=== PATIENT | female | born 1985 | race Caucasian/White ===

== ENCOUNTER 2024-12-20 14:20 | Emergency (ER) | payer OTHER, SELFPAY ==
[2024-12-20 14:35] VITALS: BP 130/90; PULSE 100; TEMP 36.5; O2SAT 100; BMI 27.5
--- NOTE | 2024-12-20 15:09 | ED.GENADUL1 ---
HPI HPI - General Adult General Chief complaint: Headache Stated complaint: SEVERE HEADACHE Time Seen by Provider: 12/20/24 14:58 Source: patient Mode of arrival: walk-in Limitations: no limitations History of Present Illness HPI narrative: Patient is a 39-year-old female with a history of cluster migraines who presents to the emergency department for worsening headache for the last 3 days. She states the headache feels similar to what she has had in the past although she has not had a cluster headache in over 6 years. She has not seen a doctor for many years as she was recently incarcerated and states her daughter from cerebral palsy last year. She has an upcoming appointment with a primary care provider. She states she did not think she can make it to the appointment with a cluster migraine. She has been treated with Augmentin over the last week for sinus infection and feels that her sinus symptoms are better but she has now developed the headache. No falls or injuries. No visual changes or peripheral paresthesias. She states she is in recovery. She has no concern for . Related Data Previous Rx's ?Medication ?Instructions ?Recorded ketorolac 10 mg tablet 10 mg PO TID PRN pain #10 tabs 12/20/24 methylprednisolone 4 mg tablets in See Rx Instructions .Route 12/20/24 a dose pack (Medrol (Taye)) .COMPLEX #21 ea ondansetron 4 mg disintegrating 4 mg PO Q6H PRN nausea and 12/20/24 tablet vomiting #12 tabs Allergies Allergy/AdvReac Type Severity Reaction Status Date / Time venlafaxine (From Effexor) Allergy Severe Depression Verified 12/20/24 14:35 Opioid HPI Opioid Management Most Recent Opioid Data: Last Pain Scale 4 12/20/24 15:21 12/20/24 Last MAR Pain Assessment 12/20/24 15:21 Review of Systems ROS Constitutional Denies: fever or chills Ears, nose, mouth, and throat Reports: nasal congestion; Denies: throat pain Cardiovascular Denies: chest pain Respiratory Reports: cough; Denies: shortness of breath Gastrointestinal Reports: nausea; Denies: vomiting or diarrhea Integumentary/Breast Denies: rash Neurological Reports: headache; Denies: numbness in extremities, weakness in extremities or dizziness Hematologic/Lymphatic Denies: easy bruising or easy bleeding PFSH PFSH Social History Little interest or pleasure in doing things: not at all Feeling down, depressed, or hopeless: not at all Exam Narrative Exam Narrative: Gen.: Awake, alert, in no distress Head: Normocephalic, atraumatic ENT: Moist mucous membranes, no nuchal rigidity Respiratory: No respiratory distress Extremities: Moves extremities equally Psych: Normal mood and affect Neuro: No focal neuro deficit Skin: Warm, dry, intact . Constitutional Vital Signs, click to edit/add: Last Vital Signs Temp 97.7 F 12/20/24 14:35 Pulse 100 H 12/20/24 14:35 Resp 18 12/20/24 14:35 BP 130/90 12/20/24 14:35 Pulse Ox 100 12/20/24 14:35 O2 Del Method Nonrebreather 12/20/24 15:17 O2 Flow Rate 15 12/20/24 15:17 Course Vital Signs Vital signs: Vital Signs Temperature 97.7 F 12/20/24 14:35 Pulse Rate 100 H 12/20/24 14:35 Respiratory Rate 18 12/20/24 14:35 Blood Pressure 130/90 12/20/24 14:35 Pulse Oximetry 100 12/20/24 14:35 Oxygen Delivery Method Room Air 12/20/24 14:35 Temperature 97.7 F 12/20/24 14:35 Pulse Rate 100 H 12/20/24 14:35 Respiratory Rate 18 12/20/24 14:35 Blood Pressure 130/90 12/20/24 14:35 Pulse Oximetry 100 12/20/24 14:35 Oxygen Delivery Method Nonrebreather 12/20/24 15:17 Oxygen Delivery Flow Rate 15 12/20/24 15:17 Medical Decision Making [facility] Narrative Medical decision making narrative: I discussed with the patient that if she has not had a CT scan in many years and has now had a return of her headaches, we should do another CT scan to rule out any intracranial pathology. Patient feels very confident that this headache is her typical cluster migraine and she declined the need for CT, I feel this is reasonable. She is awake, alert and oriented with stable vital signs and a benign neuroexam. She declined an IV/fluids. She did request oxygen. A nonrebreather was placed and she was given intramuscular Toradol, Solu-Medrol and oral Zofran. She can be discharged home with a prescription for Toradol, Reglan and steroids. Follow-up with PCP and return to the ER if symptoms change or worsen. SUPERVISED APC VISIT, PHYSICIAN ATTESTATION: Based on the medical record the care appears appropriate. ? Medical Records Medical records reviewed: Yes I reviewed the patient's medical records Discharge Plan Discharge Chief Complaint: Headache Clinical Impression: Headache Patient Disposition: Home, Self-Care Time of Disposition Decision: 15:35 Condition: Good Prescriptions / Home Meds: New ketorolac 10 mg tablet 10 mg PO TID PRN (Reason: pain) Qty: 10 0RF methylprednisolone [Medrol (Taye)] 4 mg tablets,dose pack See Rx Instructions .ROUTE .COMPLEX Qty: 21 0RF Rx Instructions: Taper as directed ondansetron 4 mg tablet,disintegrating 4 mg PO Q6H PRN (Reason: nausea and vomiting) Qty: 12 0RF Print Language: Chinese Instructions: Acute Headache (ED) Referrals: PO MORALEZ [Primary Care Provider] - 1 week
--- NOTE | 2024-12-20 15:17 | PC.NURSE ---
per pt request oxygen 15 liters via [facility] applied for cluster headache
[2024-12-20] MEDS: KETOROLAC TROMETHAMINE 60 MG/2 ML VIAL IM (15:21)
[2024-12-20] MEDS: ONDANSETRON 4 MG RAPDIS TABLET SL (15:22)
[2024-12-20] MEDS: METHYLPREDNISOLONE SOD SUCC PF 125 MG/2 ML VIAL IM (15:22)
[2024-12-20 15:45] VITALS: BP 126/88; PULSE 84; O2SAT 98
== END 2024-12-20 15:46 | disposition home or self-care (01) ==
PROVIDERS: Emergency Provider Student in an Organized Health Care Education/Training Program; PCP Family Medicine
DX: R51.9 Headache, unspecified (principal)
CPT/HCPCS: 96372; 99284; J1885; J2919; Q0162

== ENCOUNTER 2024-12-30 14:30 | Emergency (ER) | payer MEDICAID, SELFPAY ==
[2024-12-30 14:45] VITALS: BP 105/71; PULSE 72; TEMP 37.1; O2SAT 100; BMI 27.5
--- OUTSIDE RECORDS SUMMARY | 2024-12-30 14:55 | XMS_ITS | CCD ---
Author Organization [facility] Care Team Providers Care Top Carrier Name Role Phone JOCELYN PEÑA JR Unavailable Unavailable ORLODARLING Wallace Unavailable Unavailable ORDARLING CHILEL Unavailable Unavailable MOTT, NESTOR Unavailable Unavailable GOLD RAMMY S Unavailable Unavailable WILLY BHAKTA Unavailable Unavaila hoa LINDSEY BETUNA Mercer Unavailable Unavailable JOVANY RUGGIERO Unavailable Unavailable ALEXXKYRA I Unavailable Unavailable JOCELYN PEÑA JR Unavailable Unavailable AOUAD, PAULA T Unavailable Unavailable SILAS JOHNSON Unavailable Unavailable SELF, REFERRED Referring Unavailable UNKNOWN, PHYSICIAN Primary Care Unavailable MONSERRAT CAIN Attending Unavailable MONSERRAT CAIN Admitting Unavailable HI Procedure Practitioner Unavailab MONSERRAT Adame Surgeon Unavailable HI Procedure Practitioner Unavailab JUAN MANUEL Mancilla Surgeon Unavailable PAY, DR HERMOSILLO Consulting Unavailable PAY, DR HERMOSILLO Admitting Unavailable PAY, DR HERMOSILLO Attending Unavailable REQUEST, NONE LISTED Primary Care Unavaila ESTEPHANIA Alfredo Consulting Unavailable REQUEST, NONE LISTED Primary Care Unavaila hao CHENG, DR KIRA Huff Consulting Unavailable PROSPER, DR KIRA Huff Admitting Unavailable PROSPER, DR KIRA Hfuf Attending Unavailable DANNY CHAPA Consulting Unavailable Casey Lopez MD, Jocelyn Martinez Primary Care Provider KM JUARES Referring Unavailable JOCELYN PEÑA JR Primary Care Unavailable KM JUARES Referring Unavailable JOCELYN PEÑA JR Primary Care Unavailable JOCELYN PEÑA JR Primary Care Unavailable KM JUARES Referring Unavailable Juan Luis Ron Attending Unavailable Allergies Allergy Classification Reported Allergen(s) Allergy Type Date of Onset Reaction(s) Facility (3 sources) ARIPiprazole; Translations: [Abilify] Drug Allergy 02-07-2015 [facility] (2 sources) [facility] 02-07-2015 [facility] (3 sources) venlafaxine; Translations: [Effexor] Drug Allergy 02-07-2015 [facility] (3 sources) ARIPiprazole Drug Allergy 01-14-2013 [facility] (3 sources) hydrOXYzine Drug Allergy 08-12-2016 [facility] (3 sources) [facility]ergy 01-14-2013 [facility] Work Phone: (3 sources) venlafaxine Drug Allergy 01-14-2013 [facility] Work Phone: Medications Current Medications Medication Drug Class(es) Dates Sig (Normalized) Sig (Original) gabapentin 300 mg oral capsule (3 sources) Anti-epileptic Agent Start: 07-11-2017 take 1 capsule by mouth three times daily gabapentin (NEURONTIN) 300 MG capsule Take 1 capsule by mouth 3 times daily 90 capsule 3 07/11/2017 Active ibuprofen 800 mg oral tablet (3 sources) Nonsteroidal Anti-inflammatory Drug Start: 07-11-2017 take 1 tablet by mouth every eight hours as needed for pain ibuprofen (ADVIL;MOTRIN) 800 MG tablet Take 1 tablet by mouth every 8 hours as needed for Pain 120 tablet 3 07/11/2017 Active topiramate 100 mg oral tablet (3 sources) topiramate (TOPAMAX) 100 MG tablet Indications: Prevention of Cluster Headaches Take 200 mg by mouth as needed Indications: Prevention of Cluster Headaches 0 Active verapamil hydrochloride 80 mg oral tablet (3 sources) Calcium Channel Josr verapamil (CALAN) 80 MG tablet Indications: Prevention of Cluster Headaches Take 80 mg by mouth as needed Indications: Prevention of Cluster Headaches 0 Active Problems Active Problems Problem Classification Problem Date Documented Date Episodic/Chronic Genitourinary symptoms and ill-defined conditions (2 sources) Dysuria; Translations: [Dysuria] Onset: 08-22-2022 Episodic Hepatitis (2 sources) Unspecified viral hepatitis C without hepatic coma; Translations: [Unspecified viral hepatitis C without hepatic coma] Onset: 09-04-2022 Episodic Immunizations and screening for infectious disease (2 sources) Contact with and (suspected) exposure to infections with a predominantly sexual mode of transmission; Translations: [Contact with and (suspected) exposure to infections with a predominantly sexual mode of transmission] Onset: 08-22-2022 Episodic Infective arthritis and osteomyelitis (except that caused by tuberculosis or sexually transmitted di (9 sources) Osteomyelitis of vertebra, site unspecified; Translations: [Abscess of back ] Onset: 05-10-2017 07-02-2017 Chronic Mood disorders (1 source) Bipolar disorder, unspecified; Translations: [BIPOLAR DISORDER UNSPECIFIED] Onset: 04-15-2022 Chronic Nutritional deficiencies (3 sources) Deficiency of macronutrients; Translations: [Unspecified protein-calorie malnutrition] Onset: 07-02-2017 07-02-2017 Chronic Other acquired deformities (3 sources) Acquired deformity of spine; Translations: [Deforming dorsopathy, unspecified] 07-02-2017 Episodic Other complications of (4 sources) Other specified related conditions, third trimester; Translations: [OTH SPEC PREG RELATED COND 3RD TRI] Onset: 04-13-2022 Episodic Other complications of (1 source) Smoking (tobacco) complicating , third trimester; Translations: [SMOKING TOBACCO COMP PREG 3RD TRI] Onset: 04-15-2022 Episodic Other complications of (1 source) Other mental disorders complicating , third trimester; Translations: [OTH MENTAL D/O COMP PREG THIRD TRI] Onset: 04-15-2022 Episodic Poisoning by other medications and drugs (4 sources) Poisoning by unspecified narcotics, accidental (unintentional), initial encounter; Translations: [POISON UNS NARCOTIC ACC INITIAL ENC] Onset: 10-11-2021 Episodic Residual codes; unclassified (1 source) Weeks of gestation of not specified; Translations: [WEEKS GESTATION NOT SPEC] Onset: 04-15-2022 Episodic Residual codes; unclassified (1 source) Personal history of other specified conditions; Translations: [PERSONAL HISTORY OTH SPEC CONDITION] Onset: 04-15-2022 Episodic Spondylosis; intervertebral disc disorders; other back problems (3 sources) Thoracic discitis; Translations: [Discitis, unspecified, thoracic region] Onset: 05-10-2017 07-02-2017 Chronic Spondylosis; intervertebral disc disorders; other back problems (6 sources) Acute thoracic back pain; Translations: [Pain in thoracic spine] 07-01-2017 Episodic Substance-related disorders (11 sources) Nicotine dependence, cigarettes, uncomplicated; Translations: [Opioid abuse, uncomplicated] Onset: 05-10-2017 07-01-2017 Chronic Past or Other Problems Problem Classification Problem Date Documented Date Episodic/Chronic Acute posthemorrhagic anemia (3 sources) Anemia following acute postoperative blood loss; Translations: [Acute 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 Other [employer] infection and poliomyelitis (3 sources) Spinal epidural abscess; Translations: [Intraspinal abscess and granuloma] Onset: 05-10-2017 07-02-2017 Episodic Other complications of (1 source) Injury, poisoning and certain other consequences of external causes complicating , unspecified trimester; Translations: [INJ POISON OTH EXT COMP PG UNS TRI] Onset: 10-15-2021 Episodic Other fractures (3 sources) Compression fracture of thoracic spine; Translations: [Wedge compression fracture of unspecified thoracic vertebra, initial encounter for closed fracture] Onset: 07-02-2017 07-02-2017 Episodic Substance-related disorders (1 source) Drug use complicating , unspecified trimester; Translations: [DRUG USE COMP UNS TRI] Onset: 10-15-2021 Episodic Results Test Name Value Interpretation Reference Range Facility HCV RNA,Quant,PCRon 09-09-20 22 HCV Quant 1,120,000 IU/mL Normal [facility] Comment on above: Performed By: #### H CVQN #### [facility] [place], [place] [id number] Radiographer: Pillo Dye MD [facility] [address] [place] [address] Radiographer: Verónica Rodriguez MD HCV RNA,Quant Detected Abnormal NOTDET [facility] Comment on above: Result Comment: HCV RNA DETECTED This test is a sensitive method for quantitating HCV RNA viral loads in plasma. It utilizes RT-PCR in the FDA approved Isabel Ampliprep/Taqman 48 System. This test is intended for detecting and quantifying HCV RNA viral loads in the range of 15 IU/mL to 20,000,000 IU/mL (1.18 log IU/mL to 7.30 log IU/mL). Patients should have confirmed HCV infection prior to RNA quantification. This test has been developed to monitor disease progression and efficacy of anti-HCV drug therapy. This test has been optimized for HCV genotypes 1-6. Results reported to the appropriate Health Department Performed By: #### H CVQN #### [address] [address] Radiographer: Pillo Dye MD [address] [place] [phone] Radiographer: Verónica Rodriguez MD HCV,RNA Log 6.05 Log IU/mL Normal [facility] Comment on above: Performed By: #### H CVQN #### [address] [address] Radiographer: Pillo Dye MD [address] [place] [address] Radiographer: Verónica Rodriguez MD HCV RNA,Quant,PCRon 09-08-20 22 Source .PLASMA Normal [facility] Comment on above: Performed By: #### H CVQN #### [address] [address] Radiographer: Pillo Dye MD [address] [place] [address] Radiographer: Verónica Rodriguez MD CBCon 09-04-2022 Erythrocyte distribution width (RBC) [Ratio] 14.9 % High 11.8-14.4 [facility] Comment on above: Performed By: #### H IVCMB, PHEP #### [address] [address] Radiographer: Pillo Dye MD #### CBC, CP, HCG #### [facility] [address] [place] [address] Dr. [place] [phone] Radiographer: Verónica Rodriguez MD Hematocrit (Bld) [Volume fraction] 43.4 % Normal 36.3-47.1 [facility] Comment on above: Performed By: #### H IVCMB, PHEP #### [address] [address] Radiographer: Pillo Dye MD #### CBC, CP, HCG #### [address] [place] [phone] Radiographer: Verónica Rodriguez MD Hemoglobin (Bld) [Mass/Vol] 13.9 g/dL Normal 11.9-15.1 [facility] Comment on above: Performed By: #### H IVCMB, PHEP #### [address] [address] Radiographer: Pillo Dye MD #### CBC, CP, HCG #### [address] [place] [phone] Radiographer: Verónica Rodriguez MD MCH (RBC) [Entitic mass] 29.6 pg Normal 25.2-33.5 [facility] Comment on above: Performed By: #### H IVCMB, PHEP #### [address] [id number] Radiographer: Pillo Dye MD #### CBC, CP, HCG #### [address] [place] [phone] Radiographer: Verónica Rodriguez MD MCHC (RBC) [Mass/Vol] 32.0 g/dL Normal 28.4-34.8 [facility] Comment on above: Performed By: #### H IVCMB, PHEP #### [address] [id number] Radiographer: Pillo Dye MD #### CBC, CP, HCG #### [address] [place] [address] Radiographer: Verónica Rodriguez MD MCV (RBC) [Entitic vol] 92.5 fL Normal 82.6-102.9 [facility] Comment on above: Performed By: #### H IVCMB, PHEP #### [address] [address] Radiographer: Pillo Dye MD #### CBC, CP, HCG #### [facility] [address] [place] [address] Dr. [place] [phone] Radiographer: Verónica Rodriguez MD NRBC Automated 0.0 per 100 WBC Normal 0.0 [facility] Comment on above: Performed By: #### H IVCMB, PHEP #### [address] [address] Radiographer: Pillo Dye MD #### CBC, CP, HCG #### [address] [place] [address] Radiographer: Verónica Rodriguez MD Platelet mean volume (Bld) [Entitic vol] 9.4 fL Normal 8.1-13.5 [facility] Comment on above: Performed By: #### H IVCMB, PHEP #### [address] [address] Radiographer: Pillo Dye MD #### CBC, CP, HCG #### [address] [place] [address] Radiographer: Verónica Rodriguez MD Platelets (Bld) [#/Vol] 525 10*3/uL High 138-453 [facility] Comment on above: Performed By: #### H IVCMB, PHEP #### [address] [address] Radiographer: Pillo Dye MD #### CBC, CP, HCG #### [address] [place] [phone] Radiographer: Verónica Rodriguez MD RBC (Bld) [#/Vol] 4.69 10*6/uL Normal 3.95-5.11 [facility] Comment on above: Performed By: #### H IVCMB, PHEP #### [facility] [address] [place], [place] [id number] Radiographer: Pillo Dye MD #### CBC, CP, HCG #### [facility] [address] [place] [address] [place] [address] Radiographer: Verónica Rodriguez MD WBC (Bld) [#/Vol] 7.5 10*3/uL Normal 3.5-11.3 [facility] Comment on above: Performed By: #### H IVCMB, PHEP #### [facility] [address] [place], [place] [phone] Radiographer: Pillo Dye MD #### CBC, CP, HCG #### [facility] [address] [place] [address] [place] [address] Radiographer: Verónica Rodriguez MD Hematocrit (Bld) [Volume fraction] 43.4 % 36.3 - 47.1 % [facility] Hemoglobin (Bld) [Mass/Vol] 13.9 g/dL 11.9 - 15.1 g/dL [facility] Interpretation and review of laboratory results Abnormal [facility] MCH (RBC) [Entitic mass] 29.6 pg 25.2 - 33.5 pg [facility] MCHC (RBC) [Mass/Vol] 32.0 g/dL 28.4 - 34.8 g/dL [facility] MCV (RBC) [Entitic vol] 92.5 fL 82.6 - 102.9 fL [facility] NRBC Automated 0.0 0.0 per 100 WBC [facility] Platelet distribution width (Bld) [Ratio] 14.9 % High 11.8 - 14.4 % [facility] Platelet mean volume (Bld) [Entitic vol] 9.4 fL 8.1 - 13.5 fL [facility] Platelets (Bld) [#/Vol] 525 10*3/uL High [facility] RBC (Bld) [#/Vol] 4.69 10*6/uL 3.95 - 5.1 1 m/uL [facility] WBC (Bld) [#/Vol] 7.5 10*3/uL [facility] Comp Metabolic Profon 2021 Albumin [Mass/Vol] 4.6 g/dL Normal 3.5-5.2 [facility] Comment on above: Performed By: #### H IVCMB, PHEP #### [place] [id number] [place] [address] Radiographer: Pillo Dye MD #### CBC, CP, HCG #### [facility] [address] [place], [place] [phone] Radiographer: Verónica Rodriguez MD Albumin/Glob Ratio 1.6 Normal 1.0-2.5 [facility] Comment on above: Performed By: #### H IVCMB, PHEP #### [address] [address] Radiographer: Pillo Dye MD #### CBC, CP, HCG #### [facility] [address] [place], [place] [phone] Radiographer: Verónica Rodriguez MD Alkaline Phos 113 U/L High 35-104 [facility] Comment on above: Performed By: #### H IVCMB, PHEP #### [address] [place] [address] Radiographer: Pillo Dye MD #### CBC, CP, HCG #### [facility] [address] [place], [place] [phone] Radiographer: Verónica Rodriguez MD ALT [Catalytic activity/Vol] 69 U/L High 5-33 [facility] Comment on above: Performed By: #### H IVCMB, PHEP #### [facility] [address] [place] [address] Radiographer: Pillo Dye MD #### CBC, CP, HCG #### [facility] [address] [place] [address] Dr. [place], [place] [phone] Radiographer: Verónica Rodriguez MD Anion gap [Moles/Vol] 8 mmol/L Low 9-17 [facility] Comment on above: Performed By: #### H IVCMB, PHEP #### [address] [address] Radiographer: Pillo Dye MD #### CBC, CP, HCG #### [facility] [address] [place] [address] Dr. [place], [place] [phone] Radiographer: Verónica Rodriguez MD AST [Catalytic activity/Vol] 46 U/L High <32 [facility] Comment on above: Performed By: #### H IVCMB, PHEP #### [address] [address] Radiographer: Pillo Dye MD #### CBC, CP, HCG #### [address] [place], [place] [phone] Radiographer: Verónica Rodriguez MD Bilirubin [Mass/Vol] 0.4 mg/dL Normal 0.3-1.2 [facility] Comment on above: Performed By: #### H IVCMB, PHEP #### [address] [address] Radiographer: Pillo Dye MD #### CBC, CP, HCG #### [address] [place], [place] [phone] Radiographer: Verónica Rodriguez MD BUN/CRE Ratio 17 Normal 9-20 [facility] Comment on above: Performed By: #### H IVCMB, PHEP #### [address] [address] Radiographer: Pillo Dye MD #### CBC, CP, HCG #### [facility] [address] [place] [address] Radiographer: Verónica Rodriguez MD Calcium [Mass/Vol] 9.7 mg/dL Normal 8.6-10.4 [facility] Comment on above: Performed By: #### H IVCMB, PHEP #### [address] [address] Radiographer: Pillo Dye MD #### CBC, CP, HCG #### [facility] [address] [place] [address] [place] [address] Radiographer: Verónica Rodriguez MD Chloride [Moles/Vol] 107 mmol/L Normal 98-107 [facility] Comment on above: Performed By: #### H IVCMB, PHEP #### [address] [address] Radiographer: Pillo Dye MD #### CBC, CP, HCG #### [facility] [address] [place] [address] [place] [address] Radiographer: Verónica Rodriguez MD CO2 [Moles/Vol] 24 mmol/L Normal 20-31 [facility] Comment on above: Performed By: #### H IVCMB, PHEP #### [address] [address] Radiographer: Pillo Dye MD #### CBC, CP, HCG #### [facility] [address] [place] [address] Radiographer: Verónica Rodriguez MD Creatinine [Mass/Vol] 0.83 mg/dL Normal 0.50-0.90 [facility] Comment on above: Performed By: #### H IVCMB, PHEP #### [address] [address] Radiographer: Pillo Dye MD #### CBC, CP, HCG #### [facility] [address] [place] [address] Radiographer: Verónica Rodriguez MD GFR/1.73 sq M.predicted among non-blacks MDRD (S/P/Bld) [Vol rate/Area] mL/min/{1.73_m2} Normal >60 [facility] Comment on above: Result Comment: Effective Aug 04, 2022 These results are not intended for use in patients <18 years of age. eGFR results are calculated without a race factor using the 2020 CKD-EPI equation. Careful clinical correlation is recommended, particularly when comparing to results calculated using previous equations. The CKD-EPI equation is less accurate in patients with extremes of muscle mass, extra-renal metabolism of creatine, excessive creatine ingestion, or following therapy that affects renal tubular secretion. Performed By: #### H IVCMB, PHEP #### [address] [id number] Radiographer: Pillo Dye MD #### CBC, CP, HCG #### [facility] [address] [place] [address] [place] [address] Radiographer: Verónica Rodriguez MD Glucose [Mass/Vol] 89 mg/dL Normal 70-99 [facility] Comment on above: Performed By: #### H IVCMB, PHEP #### [facility] [address] [place] [address] Radiographer: Pillo Dye MD #### CBC, CP, HCG #### [facility] [address] [place] [address] Radiographer: Verónica Rodriguez MD Potassium [Moles/Vol] 4.5 mmol/L Normal 3.7-5.3 [facility] Comment on above: Performed By: #### H IVCMB, PHEP #### [facility] [address] [place] [address] Radiographer: Pillo Dye MD #### CBC, CP, HCG #### [facility] [address] [place] [address] Radiographer: Verónica Rodriguez MD Protein [Mass/Vol] 7.4 g/dL Normal 6.4-8.3 [facility] Comment on above: Performed By: #### H IVCMB, PHEP #### [facility] [address] [place], [place] [phone] Radiographer: Pillo Dye MD #### CBC, CP, HCG #### [facility] [address] [place] [address] Radiographer: Verónica Rodriguez MD Sodium [Moles/Vol] 139 mmol/L Normal 135-144 [facility] Comment on above: Performed By: #### H IVCMB, PHEP #### [address] [place], [place] [phone] Radiographer: Pillo Dye MD #### CBC, CP, HCG #### [facility] [address] [place] [address] Radiographer: Verónica Rodriguez MD Urea nitrogen [Mass/Vol] 14 mg/dL Normal 6-20 [facility] Comment on above: Performed By: #### H IVCMB, PHEP #### [address] [place], [place] [id number] Radiographer: Pillo Dye MD #### CBC, CP, HCG #### [facility] [address] [place] [address] Radiographer: Verónica Rodriguez MD Comprehensive Metabolic Pane [facility] 09-04-2022 Albumin [Mass/Vol] 4.6 g/dL 3.5 - 5.2 g/dL [facility] Albumin/Globulin [Mass ratio] 1.6 {ratio} 1.0 - 2.5 [facility] ALP (Bld) [Catalytic activity/Vol] 113 U/L High 35 - 104 U/L [facility] ALT [Catalytic activity/Vol] 69 U/L High 5 - 33 U/L [facility] Anion gap [Moles/Vol] 8 mmol/L Low 9 - 17 mmol/L [facility] AST [Catalytic activity/Vol] 46 U/L High NINF - 32 U/L [facility] Bilirubin [Mass/Vol] 0.4 mg/dL 0.3 - 1.2 mg/dL [facility] Calcium [Mass/Vol] 9.7 mg/dL 8.6 - 10. 4 mg/dL [facility] Chloride [Moles/Vol] 107 mmol/L 98 - 107 mmol/L [facility] CO2 [Moles/Vol] 24 mmol/L 20 - 31 mmol/L [facility] Creatinine [Mass/Vol] 0.83 mg/dL 0.50 - 0.90 mg/dL [facility] GFR/1.73 sq M.predicted MDRD (S/P/Bld) [Vol rate/Area] - PINF [facility] Comment on above: Effective Aug 04, 2022 These results are not intended for use in patients <18 years of age. eGFR results are calculated without a race factor using the 2020 CKD-EPI equation. Careful clinical correlation is recommended, particularly when comparing to results calculated using previous equations. The CKD-EPI equation is less accurate in patients with extremes of muscle mass, extra-renal metabolism of creatine, excessive creatine ingestion, or following therapy that affects renal tubular secretion. Glucose [Mass/Vol] 89 mg/dL 70 - 99 mg/dL [facility] Interpretation and review of laboratory results Abnormal [facility] Potassium [Moles/Vol] 4.5 mmol/L 3.7 - 5.3 mmol/L [facility] Protein [Mass/Vol] 7.4 g/dL 6.4 - 8.3 g/dL [facility] Sodium [Moles/Vol] 139 mmol/L 135 - 144 mmol/L [facility] Urea nitrogen (BldV) [Mass/Vol] 14 mg/dL 6 - 20 mg/dL [facility] Urea nitrogen/Creatinin e (Bld) [Mass ratio] 17 9 - 20 [facility] HCG Qualitative, Serumon hCG Qual Negative NEGATIVE [facility] Comment on above: Specimens with hCG l evels near the threshold of the test (25 mIU/mL) may give a negative or indeterminate result. In such cases, another test should be performed with a new specimen in 48-72 hours. If early is suspected clinically in this setting, correlation with quantitative serum b-hCG level is suggested. [facility] has confirmed the use of plasma for this test. This has not been cleared or approved by the [place]. Food and Drug Administration. The FDA has determined that such clearance is not necessary. [facility] HCG Screen, Bloodon 09-04-20 22 HCG Screen, Blood Negative Normal NEG [facility] Comment on above: Result Comment: Spec imens with hCG levels near the threshold of the test (25 mIU/mL) may give a negative or indeterminate result. In such cases, another test should be performed with a new specimen in 48-72 hours. If early is suspected clinically in this setting, correlation with quantitative serum b-hCG level is suggested. [employer] has confirmed the use of plasma for this test. This has not been cleared or approved by the U.S. Food and Drug Administration. The FDA has determined that such clearance is not necessary. Performed By: #### H IVCMB, PHEP #### [facility] [address] [place] [address] Radiographer: Pillo Dye MD #### CBC, CP, HCG #### [facility] [address] [place] [address] Radiographer: Verónica Rodriguez MD HIV Ag/Abon 09-04-2022 HIV Ag/Ab Non-Reactive Normal NR [facility] Comment on above: Result Comment: No l aboratory evidence of HIV infection. If acute HIV infection is suspected, consider testing for HIV-1 RNA. Performed By: #### H IVCMB, PHEP #### [facility] [address] [place], [place] [id number] Radiographer: Pillo Dye MD #### CBC, CP, HCG #### [facility] [address] [place] [address] Dr. [place], [place] [phone] Radiographer: Verónica Rodriguez MD HIV Screenon 09-04-2022 HIV Ag/Ab Non-Reactive NONREACTIVE [facility] Comment on above: No laboratory eviden ce of HIV infection. If acute HIV infection is suspected, consider testing for HIV-1 RNA. [facility] Hepatitis Acute John 09-04 Hep A Ab,IgM Non-Reactive Normal [facility] Comment on above: Performed By: #### H IVCMB, PHEP #### [address] [address] Radiographer: Pillo Dye MD #### CBC, CP, HCG #### [facility] [address] [place] [address] Dr. [place], [place] [id number] Radiographer: Verónica Rodriguez MD Hep B Core Ab,IgM Non-Reactive Normal [facility] Comment on above: Performed By: #### H IVCMB, PHEP #### [address] [address] Radiographer: Pillo Dye MD #### CBC, CP, HCG #### [address] [place], [place] [id number] Radiographer: Verónica Rodriguez MD Hep B Surf Ag Non-Reactive Normal [facility] Comment on above: Performed By: #### H IVCMB, PHEP #### [address] [address] Radiographer: Pillo Dye MD #### CBC, CP, HCG #### [address] [place], [place] [id number] Radiographer: Verónica Rodriguez MD Hep C Ab Reactive Abnormal [facility] Comment on above: Result Comment: The hepatitis C procedure used in our laboratory is a Chemiluminescent test specific for three recombinant HCV antigens. A negative anti-HCV result indicates that the antibodies to hepatitis C virus are not present at this time. Individuals with reactive anti-HCV should be considered infected and infectious until proven otherwise. Confirmation of all equivocal or reactive results is recommended by ordering HCV RNA by PCR. Results reported to the appropriate Health Department Performed By: #### H IVCMB, PHEP #### [facility] [address] [place] [address] Radiographer: Pillo Dye MD #### CBC, CP, HCG #### [facility] [address] [place] [address] Radiographer: Verónica Rodriguez MD Hepatitis Panel, Acuteon HAV IgM IA Qn (S) Non-Reactive NONREACTIVE [facility] Hep B Core Ab, IgM Non-Reactive NONREACTIVE [facility] Hepatitis B Surface Ag Non-Reactive NONREACTIVE [facility] Hepatitis C Ab Reactive Abnormal NONREACTIVE [facility] Comment on above: The hepatitis C procedure used in our laboratory is a Chemiluminescent test specific for three recombinant HCV antigens. A negative anti-HCV result indicates that the antibodies to hepatitis C virus are not present at this time. Individuals with reactive anti-HCV should be considered infected and infectious until proven otherwise. Confirmation of all equivocal or reactive results is recommended by ordering HCV RNA by PCR. Results reported to the appropriate Health Department Interpretation and review of laboratory results Abnormal [facility] Chlamydia/GC,DNA Ampon 08-25 Chlamydia Probe Negative Normal NEG [facility] Comment on above: Result Comment: CHLA MYDIA TRACHOMATIS DNA not detected by nucleic acid amplification. This test is intended for medical purposes only and is not valid for the evaluation of suspected sexual abuse or for other forensic purposes. In certain contexts, culture may be required to meet applicable laws and regulations for diagnosis of C. trachomatis and N. gonorrhoeae infections. Per 2014 CDC recommendations, this test does not include confirmation of positive results by an alternative nucleic acid target. Performed By: #### U AX, UMICAO #### [facility] [address] [place] [address] Radiographer: Verónica Rodriguez MD #### SWCGP #### [facility] [address] [place], [place] [id number] Radiographer: Pillo Dye MD Gonorrhea Probe Negative Normal NEG [facility] Comment on above: Result Comment: NEIS SERIA GONORRHOEAE DNA not detected by nucleic acid amplification. This test is intended for medical purposes only and is not valid for the evaluation of suspected sexual abuse or for other forensic purposes. In certain contexts, culture may be required to meet applicable laws and regulations for diagnosis of C. trachomatis and N. gonorrhoeae infections. Per 2014 CDC recommendations, this test does not include confirmation of positive results by an alternative nucleic acid target. Performed By: #### U MONICA MORALES #### [address] [place] [address] Radiographer: Verónica Rodriguez MD #### SWCGP #### [address] [place], [place] [id number] Radiographer: Pillo Dye MD Microscopic Urinalysison Bacteria, UA TRACE Abnormal None [facility] Epithelial Cells UA 2 TO 5 [facility] Interpretation and review of laboratory results Abnormal [facility] RBC, UA 0 TO 2 [facility] WBC, UA 0 TO 2 [facility] Trichomonas/Wet Prepon 08-22 Trichomonas/Wet Prep Specimen Description .VAGINAL SPECIMEN Direct Exam NO YEAST OBSERVED NO TRICHOMONAS SEEN NO CLUE CELLS SEEN Report Status FINAL 08/22/2022 Normal [facility] Comment on above: Performed By: #### W P #### [address] [place] [address] Radiographer: Verónica Rodriguez MD UA w/Reflex Cultureon 2021 Bilirubin, SemiQt,Ur Negative Normal [facility] Comment on above: Performed By: #### U AX UMICAO #### [address] [place] [address] Radiographer: Verónica Rodriguez MD #### SWCGP #### [address] [address] Radiographer: Pillo Dye MD Blood, Urine Negative Normal NEG [facility] Comment on above: Performed By: #### U AX, UMICAO #### [facility] [address] [place], [place] 2014283 Radiographer: Verónica Rodriguez MD #### SWCGP #### [address] [address] Radiographer: Pillo Dye MD Clarity (U) Clear Normal CLEAR [facility] Comment on above: Performed By: #### U AX, UMICAO #### [facility] [address] [place] [address] Dr. [place], [place] [phone] Radiographer: Verónica Rodriguez MD #### SWCGP #### [address] [address] Radiographer: Pillo Dye MD Color (U) Yellow Normal YEL [facility] Comment on above: Performed By: #### U AX, UMICAO #### [address] [place], [place] [phone] Radiographer: Verónica Rodriguez MD #### SWCGP #### [address] [address] Radiographer: Pillo Dye MD Glucose Ql (U) Negative Normal NEG [facility] Comment on above: Performed By: #### U AX, UMICAO #### [facility] [address] [place] [address] Dr. [place], [place] [phone] Radiographer: Verónica Rodriguez MD #### SWCGP #### [address] [address] Radiographer: Pillo Dye MD Ketones Ql (U) Negative Normal NEG [facility] Comment on above: Performed By: #### U AX, UMICAO #### [facility] [address] [place] [address] Dr. [place], [place] [phone] Radiographer: Verónica Rodriguez MD #### SWCGP #### [address] [address] Radiographer: Pillo Dye MD Leukocyte esterase Test strip Ql (U) Negative Normal NEG [facility] Comment on above: Performed By: #### U AX, UMICAO #### [address] [place], [place] [phone] Radiographer: Verónica Rodriguez MD #### SWCGP #### [address] [address] Radiographer: Pillo Dye MD Nitrite,Ur Negative Normal [facility] Comment on above: Performed By: #### U AX, UMICAO #### [address] [place], [place] [phone] Radiographer: Verónica Rodriguez MD #### SWCGP #### [address] [address] Radiographer: Pillo Dye MD PH,Ur 6.0 Normal 5.0-9.0 [facility] Comment on above: Performed By: #### U AX, UMICAO #### [address] [place], [place] [phone] Radiographer: Verónica Rodriguez MD #### SWCGP #### [address] [address] Radiographer: Pillo Dye MD Protein Ql (U) Negative Normal [facility] Comment on above: Performed By: #### U AX, UMICAO #### [facility] [address] [place] [address] [place] [address] Radiographer: Verónica Rodriguez MD #### SWCGP #### [facility] [place], [place] [phone] Radiographer: Pillo Dye MD Spec. [place],Ur 1.010 Normal 1.010-1.020 [facility] Comment on above: Performed By: #### U AX, UMICAO #### [facility] [address] [place] [address] Dr. [place] [phone] Radiographer: Verónica Rodriguez MD #### SWCGP #### [address] [id number] Radiographer: Pillo Dye MD Urobilinogen,Ur Normal Normal NORM [facility] Comment on above: Performed By: #### U AX, UMICAO #### [address] [place] [phone] Radiographer: Verónica Rodriguez MD #### SWCGP #### [address] [id number] Radiographer: Pillo Dye MD Urinalysis with Reflex to Cu ltureon 08-22-2022 Bilirubin Urine Negative NEGATIVE [facility] Color, UA Yellow Yellow [facility] Glucose, Ur Negative NEGATIVE [facility] Ketones Ql (U) Negative NEGATIVE [facility] Leukocyte esterase Test strip Ql (U) Negative NEGATIVE [facility] Nitrite, Urine Negative NEGATIVE [facility] pH, UA 6.0 5.0 - 9.0 [facility] Protein, UA Negative NEGATIVE [facility] Specific [place], UA 1.010 1.010 - 1.020 [facility] Turbidity UA Clear Clear [facility] Urine Hgb Negative NEGATIVE [facility] Urobilinogen, Urine Normal Normal [facility] Urinalysis,Microon 2 Bacteria TRACE Abnormal NONE [facility] Comment on above: Performed By: #### U AX, UMICAO #### [facility] [address] [place], [place] [phone] Radiographer: Verónica Rodriguez MD #### SWCGP #### [address] [address] Radiographer: Pillo Dye MD Epithelial cells LM Ql (Urine sed) 2 TO 5 Normal 0-25 [facility] Comment on above: Performed By: #### U AX, UMICAO #### [facility] [address] [place], [place] [phone] Radiographer: Verónica Rodriguez MD #### SWCGP #### [address] [address] Radiographer: Pillo Dye MD Urine RBC's 0 TO 2 Normal 0-2 [facility] Comment on above: Performed By: #### U AX, UMICAO #### [facility] [address] [place], [place] [phone] Radiographer: Verónica Rodriguez MD #### SWCGP #### [address] [address] Radiographer: Pillo Dye MD Urine WBC's 0 TO 2 Normal 0-5 [facility] Comment on above: Performed By: #### U AX, UMICAO #### [facility] [address] [place] [address] Dr. [place], [place] [phone] Radiographer: Verónica Rodriguez MD #### SWCGP #### [address] [address] Radiographer: Pillo Dye MD Wet prep, genitalon 08-22-20 Direct Exam NO YEAST OBSERVED [facility] Direct Exam NO TRICHOMONAS SEEN [facility] Direct Exam NO CLUE CELLS SEEN [facility] Specimen Description .VAGINAL SPECIMEN [facility] ACETAMINOPHENon 04-13-2022 Acetaminophen [Mass/Vol] ug/mL Critically low 10.0-30.0 [facility] Comment on above: Performed By: #### A SANIYA BARCLAY #### [facility] [address] [place] [address] Dr. Demetrius Xie CBC AUTO DIFFon 04-13-2022 BASO # 0.0 103/ul Normal 0.0-0.1 [facility] Comment on above: Performed By: #### C BC #### [facility] [address] [place] [address] Dr. Demetrius Xie Basophils/100 WBC (Bld) 0.5 % Normal 0.2-2.0 [facility] Comment on above: Performed By: #### C BC #### [facility] [address] [place] [address] Dr. Demetrius Xie EO # 0.1 103/ul Normal 0.0-0.7 [facility] Comment on above: Performed By: #### C BC #### [facility] [address] [place] [address] Dr. Demetrius Xie Eosinophils/100 WBC (Bld) 1.1 % Normal 0.9-7.0 [facility] Comment on above: Performed By: #### C BC #### [facility] [address] [place] [address] Dr. Demetrius Xie Erythrocyte distribution width (RBC) [Ratio] 14.4 % Normal 11.0-15.0 [facility] Comment on above: Performed By: #### C BC #### [facility] [address] [place] [address] Dr. Demetrius Xie Hematocrit (Bld) [Volume fraction] 35.6 % Critically low 36.0-48.0 [facility] Comment on above: Performed By: #### C BC #### [facility] [address] [place] [address] Dr. Demetrius Xie Hemoglobin (Bld) [Mass/Vol] 11.6 g/dL Critically low 12.0-16.0 [facility] Comment on above: Performed By: #### C BC #### [facility] [address] [place] [address] Dr. Demetrius Xie IG # 0.16 10e3/ul Critically high 0.00-0.03 [facility] Comment on above: Performed By: #### C BC #### [facility] [address] [place] [address] Dr. Demetrius Xie IG % 1.9 % Critically high 0.0-0.5 [facility] Comment on above: Performed By: #### C BC #### [facility] [address] [place] [address] Dr. Demetrius Xie LYMPH # 3.0 103/ul Normal 1.2-3.8 [facility] Comment on above: Performed By: #### C BC #### [facility] [address] [place] [address] Dr. Demetrius Xie Lymphocytes/100 WBC (Bld) 35.2 % Normal 20.5-60.0 [facility] Comment on above: Performed By: #### C BC #### [facility] [address] [place] [address] Dr. Demetrius Xie MANUAL DIFF REQ NO Normal [facility] Comment on above: Performed By: #### C BC #### [facility] [address] [place] [address] Dr. Demetrius Xie MCH (RBC) [Entitic mass] 30.9 pg Normal 26.7-34.0 [facility] Comment on above: Performed By: #### C BC #### [facility] [address] [place] [address] Dr. Demetrius Xie MCHC (RBC) [Mass/Vol] 32.6 g/dL Normal 29.9-35.2 [facility] Comment on above: Performed By: #### C BC #### [facility] [address] [place] [address] Dr. Demetrius Xie MCV (RBC) [Entitic vol] 94.7 fL Normal 81.0-99.0 [facility] Comment on above: Performed By: #### C BC #### [facility] [address] [place] [address] Dr. Demetrius Xie MONO # 0.3 103/ul Normal 0.3-0.8 [facility] Comment on above: Performed By: #### C BC #### [facility] [address] [place] [address] Dr. Demetrius Xie Monocytes/100 WBC (Bld) 3.1 % Normal 1.7-12.0 [facility] Comment on above: Performed By: #### C BC #### [facility] [address] [place] [address] Dr. Demetrius Xie NEUT # 4.9 103/ul Normal 1.4-6.5 [facility] Comment on above: Performed By: #### C BC #### [facility] [address] [place] [address] Dr. Demetrius Xie Neutrophils/100 WBC (Bld) 58.2 % Normal 43.0-75.0 [facility] Comment on above: Performed By: #### C BC #### [facility] [address] [place] [address] Dr. Demetrius Xie Platelet mean volume (Bld) [Entitic vol] 9.2 fL Critically low 9.5-13.5 [facility] Comment on above: Performed By: #### C BC #### [facility] [address] [place] [address] Dr. Demetrius Xie PLT 347 103/ul Normal 150-450 [facility] Comment on above: Performed By: #### C BC #### [facility] [address] [place] [address] Dr. Demetrius Xie RBC 3.76 106/ul Critically low 4.20-5.40 [facility] Comment on above: Performed By: #### C BC #### [facility] [address] [place] [address] Dr. Demetrius Xie WBC 8.4 103/ul Normal 4.0-11.0 [facility] Comment on above: Performed By: #### C BC #### [facility] [address] [place] [address] Dr. Demetrius Xie POINT OF CARE GLUCOSEon 04-02 Glucose [Mass/Vol] 163 mg/dL Critically high 74-106 T [facility] Comment on above: Performed By: #### P OCGLUC #### [facility] [address] [place] [address] Dr. Demetrius Xie PROF 14(COMP METB)on 022 Albumin [Mass/Vol] 2.7 g/dL Critically low 3.4-5.0 [facility] Comment on above: Performed By: #### C MP #### [facility] [address] [place] [address] Dr. Demetrius Xie Albumin/Globulin [Mass ratio] 0.7 {ratio} Normal [facility] Comment on above: Performed By: #### C MP #### [facility] [address] [place] [address] Dr. Demetrius Xie ALP [Catalytic activity/Vol] 144 U/L Critically high 46-116 [facility] Comment on above: Performed By: #### C MP #### [facility] [address] [place] [address] Dr. Demetrius Xie ALT [Catalytic activity/Vol] 27 U/L Normal 14-59 [facility] Comment on above: Performed By: #### C MP #### [facility] [address] [place] [address] Dr. Demetrius Xie Anion gap [Moles/Vol] 18.4 mmol/L Normal [facility] Comment on above: Performed By: #### C MP #### [facility] [address] [place] [address] Dr. Demetrius Xie AST [Catalytic activity/Vol] 26 U/L Normal 15-37 [facility] Comment on above: Performed By: #### C MP #### [facility] [address] [place] [address] Dr. Demetrius Xie Bilirubin [Mass/Vol] 0.5 mg/dL Normal 0.2-1.0 [facility] Comment on above: Performed By: #### C MP #### [facility] [address] [place] [address] Dr. Demetrius Xie Calcium [Mass/Vol] 8.3 mg/dL Critically low 8.5-10.1 Th [facility] Comment on above: Performed By: #### C MP #### [facility] [address] [place] [address] Dr. Demetrius Xie Chloride [Moles/Vol] 107 mmol/L Normal 98-107 [facility] Comment on above: Performed By: #### C MP #### [facility] [address] [address] [address] Demetrius Xie CO2 [Moles/Vol] 18.7 mmol/L Critically low 21.0-32.0 [facility] Comment on above: Performed By: #### C MP #### [facility] [address] [place] [address] Dr. Demetrius Xie Creatinine [Mass/Vol] 1.22 mg/dL Critically high 0.55-1.02 [facility] Comment on above: Performed By: #### C MP #### [facility] [address] [place] [address] Dr. Demetrius Xie EGFR-AF BRITISH 60 mL/min/1.73m2 Normal >=60 [facility] Comment on above: Performed By: #### C MP #### [facility] [address] [place] [address] Dr. Demetrius Xie EGFR-NON AF BRITISH 50 mL/min/1.73m2 Critically low >=60 [facility] Comment on above: Performed By: #### C MP #### [facility] [address] [place] [address] Dr. Demetrius Xie Globulin (S) [Mass/Vol] 3.9 g/dL Normal [facility] Comment on above: Performed By: #### C MP #### [facility] [address] [place] [address] Dr. Demetrius Xie Glucose [Mass/Vol] 203 mg/dL Critically high 74-106 T [facility] Comment on above: Performed By: #### C MP #### [facility] [address] [place] [address] Dr. Demetrius Xie Potassium [Moles/Vol] 3.1 mmol/L Critically low 3.5-5.1 [facility] Comment on above: Performed By: #### C MP #### [facility] [address] [address] [address] Demetrius Xie Protein [Mass/Vol] 6.6 g/dL Normal 6.4-8.2 [facility] Comment on above: Performed By: #### C MP #### [facility] [address] [address] [address] Demetrius Xie Sodium [Moles/Vol] 141 mmol/L Normal 136-145 [facility] Comment on above: Performed By: #### C MP #### [facility] [address] [address] [address] Demetrius Xie Urea nitrogen [Mass/Vol] 8.0 mg/dL Normal 7.0-18.0 [facility] Comment on above: Performed By: #### C MP #### [facility] [address] [address] [address] Demetrius Xie Urea nitrogen/Creatinin e [Mass ratio] 6.6 mg/mg Normal [facility] Comment on above: Performed By: #### C MP #### [facility] [address] [address] [address] Demetrius Xie SALICYLATEon 04-13-2022 SALICYLATE 4.1 mg/dL Normal <=19.9 [facility] Comment on above: Performed By: #### A SANIYA BARCLAY #### [facility] [address] [address] [address] Demetrius Xie XR CHEST 1 Von 04-13-2022 XR CHEST 1 V EXAMINATION: XR CHES T 1 V, , 04/13/2022 7:53 PM EDT INDICATION: CHEST PAIN, UNSPECIFIED HISTORY: Ordering Provider Reason for Exam: Technologist Note: Additional: COMPARISON: Chest x-ray dated 10/11/2021. TECHNIQUE: Chest x-ray: One view. FINDINGS: No pneumothorax, pleural effusion or focal airspace consolidation. Heart is normal in size. Fusion device is seen projecting over the thoracic spine. IMPRESSION: No acute cardiopulmonary process. Electronically authenticated by: DANNY CHAPA Date: 2022-04-13 20:46 Normal [facility] HIV Ag/Abon 12-31-2021 HIV Ag/Ab Non-Reactive Normal NR [facility] Comment on above: Order Comment: CALL doctor NICHOLSON tel. [phone], fax result to [phone] 12/30/21 @ 12:22pm - Some Labs still pending, 12/30/2021 12:22, by TULBA Result Comment: No l aboratory evidence of HIV infection. If acute HIV infection is suspected, consider testing for HIV-1 RNA. [facility] [address] [place] [phone] ([phone] Hepatitis Acute Panelon Hep A Ab,IgM Non-Reactive Normal NR [facility] Comment on above: Order Comment: CALL doctor NICHOLSON tel. [phone], fax result to [phone] 12/30/21 @ 12:22pm - Some Labs still pending, 12/30/2021 12:22, by TULBA Result Comment: [address] [place], [place] [id number] ([phone] Hep B Core Ab,IgM Non-Reactive Normal NR [facility] Comment on above: Order Comment: YAMILET NICHOLSON tel. [phone], fax result to [phone] 12/30/21 @ 12:22pm - Some Labs still pending, 12/30/2021 12:22, by TULBA Hep B Surf Ag Non-Reactive Normal NR [facility] Comment on above: Order Comment: CALL doctor NICHOLSON tel. [phone], fax result to [phone] 12/30/21 @ 12:22pm - Some Labs still pending, 12/30/2021 12:22, by TULBA Hep C Ab Reactive Abnormal NR [facility] Comment on above: Order Comment: YAMILET NICHOLSON tel. [phone], fax result to [phone] 12/30/21 @ 12:22pm - Some Labs still pending, 12/30/2021 12:22, by TULBA Result Comment: The hepatitis C procedure used in our laboratory is a Chemiluminescent test specific for three recombinant HCV antigens. A negative anti-HCV result indicates that the antibodies to hepatitis C virus are not present at this time. Individuals with reactive anti-HCV should be considered infected and infectious until proven otherwise. Confirmation of all equivocal or reactive results is recommended by ordering HCV RNA by PCR. Results reported to the appropriate Health Department RPRon 12-31-2021 Reagin Ab RPR Ql (S) Non-Reactive Normal Non-reacti [facility] Comment on above: Order Comment: CALL doctor NICHOLSON tel. [phone], fax result to [phone] faxed, only rpr still pending, 12/31/2021 12:52, by LUCY faxed, only rpr still pending, 12/31/2021 12:51, by LUCY 12/31/21 @ 7:08am - RPR still pending, 12/31/2021 07:09, by BRITTNEY 12/30/21 @ 12:22pm - Some Labs still pending, 12/30/2021 12:22, by BRITTNEY Performed By: #### R HI #### [facility] [address] [place] [address] Vitamin D 25 OHon 12-31-2021 Vitamin D 25 [place] 23.0 ng/mL Low 30.0-100.0 [facility] Comment on above: Order Comment: CALL doctor NICHOLSON tel. [phone], fax result to [phone] 12/30/21 @ 12:22pm - Some Labs still pending, 12/30/2021 12:22, by BRITTNEY Result Comment: Reference Range: Vitamin D status Range Deficiency <20 ng/mL Mild Deficiency 20-30 ng/mL Sufficiency 30-100 ng/mL Toxicity >100 ng/mL [facility] [address] [place] [address] ([phone] Comprehensive Metabolic Pane adeola 12-30-2021 Albumin [Mass/Vol] 3.6 g/dL Normal 3.5-4.6 [facility] Comment on above: Order Comment: CALL doctor NICHOLSON tel. [phone], fax result to [phone] Performed By: #### C MP #### [facility] [address] [place] [address] ALP [Catalytic activity/Vol] 98 U/L Normal 40-130 [facility] Comment on above: Order Comment: CALL doctor PRABHU873 tel. [phone], fax result to [phone] Performed By: #### C MP #### [facility] [address] [place] [address] ALT [Catalytic activity/Vol] 43 U/L Critically high 0-33 [facility] Comment on above: Order Comment: CALL doctor PRABHU873 tel. [phone], fax result to [phone] Performed By: #### C MP #### [facility] [address] [place] [address] Anion gap [Moles/Vol] 13 mmol/L Normal 9-15 [facility] Comment on above: Order Comment: CALL doctor PRABHU873 tel. [phone], fax result to [phone] Performed By: #### C MP #### [facility] [address] [place] [address] AST [Catalytic activity/Vol] 30 U/L Normal 0-35 [facility] Comment on above: Order Comment: CALL doctor PRABHU873 tel. [phone], fax result to [phone] Performed By: #### C MP #### [facility] [address] [place] [address] Bilirubin [Mass/Vol] mg/dL Normal 0.2-0.7 [facility] Comment on above: Order Comment: CALL doctor PRABHU873 tel. [phone], fax result to [phone] Performed By: #### C MP #### [facility] [address] [place] [address] Calcium [Mass/Vol] 9.1 mg/dL Normal 8.5-9.9 [facility] Comment on above: Order Comment: CALL doctor PRABHU873 tel. [phone], fax result to [phone] Performed By: #### C MP #### [facility] [address] [place] [address] Chloride [Moles/Vol] 108 mmol/L Critically high 95-107 [facility] Comment on above: Order Comment: CALL doctor PRABHU873 tel. [phone], fax result to [phone] Performed By: #### C MP #### [facility] [address] [place] [address] CO2 [Moles/Vol] 21 mmol/L Normal 20-31 [facility] Comment on above: Order Comment: CALL doctor PRABHU873 tel. [phone], fax result to [phone] Performed By: #### C MP #### [facility] [address] [place] [address] Creatinine [Mass/Vol] 0.60 mg/dL Normal 0.50-0.90 [facility] Comment on above: Order Comment: CALL doctor PRABHU873 tel. [phone], fax result to [phone] Performed By: #### C MP #### [facility] [address] [place] [address] GFR >60.0 Normal >60 [facility] Comment on above: Order Comment: CALL doctor PRABHU873 tel. [phone], fax result to [phone] Result Comment: >60 mL/min/1.73m2 EGFR, calc. for ages 18 and older using the MDRD formula (not corrected for weight), is valid for stable renal function. Performed By: #### C MP #### [facility] [address] [place] [address] GFR/1.73 sq M.predicted among blacks MDRD (S/P/Bld) [Vol rate/Area] mL/min/{1.73_m2} Normal >60 [facility] Comment on above: Order Comment: CALL doctor PRABHU873 tel. [phone], fax result to [phone] Result Comment: >60 mL/min/1.73m2 EGFR, calc. for ages 18 and older using the MDRD formula (not corrected for weight), is valid for stable renal function. Performed By: #### C MP #### [facility] [address] [place] [address] Globulin (S) [Mass/Vol] 2.9 g/dL Normal 2.3-3.5 [facility] Comment on above: Order Comment: CALL doctor PRABHU873 tel. [phone], fax result to [phone] Performed By: #### C MP #### [facility] [address] [place] [address] Glucose [Mass/Vol] 84 mg/dL Normal 70-99 [facility] Comment on above: Order Comment: CALL doctor PRABHU873 tel. [phone], fax result to [phone] Performed By: #### C MP #### [facility] [address] [place] [address] Potassium [Moles/Vol] 4.0 mmol/L Normal 3.4-4.9 [facility] Comment on above: Order Comment: CALL doctor PRABHU873 tel. [phone], fax result to [phone] Performed By: #### C MP #### [facility] [address] [place] [address] Protein [Mass/Vol] 6.5 g/dL Normal 6.3-8.0 [facility] Comment on above: Order Comment: CALL doctor PRABHU873 tel. [phone], fax result to [phone] Performed By: #### C MP #### [facility] [address] [place] [address] Sodium [Moles/Vol] 142 mmol/L Normal 135-144 [facility] Comment on above: Order Comment: CALL doctor LA873 tel. [phone], fax result to [phone] Performed By: #### C MP #### [facility] [address] [place] [address] Urea nitrogen [Mass/Vol] 9 mg/dL Normal 6-20 [facility] Comment on above: Order Comment: CALL doctor PRABHUBill3 tel. [phone], fax result to [phone] Performed By: #### C MP #### [facility] [address] [place] [address] Rejection Notificationon Reason see below Normal [facility] Comment on above: Order Comment: CALL doctor PRABHUBill3 tel. [phone], fax result to [phone] Result Comment: Unab le to perform testing; specimen clotted. To perform testing the specimen will need to be recollected. Clotted Performed By: #### R EJEC #### [facility] [address] [place] [address] Rejected Test cbcwd Normal [facility] Comment on above: Order Comment: CALL doctor MARIUSZ3 tel. [phone], fax result to [phone] Performed By: #### R EJEC #### [facility] [address] [place] [address] TSH w/out Reflexon 2 TSH w/out Reflex 1.900 uIU/mL Normal 0.440-3.86 [facility] Comment on above: Order Comment: CALL doctor PRABHUBill3 tel. [phone], fax result to [phone] Performed By: #### T SH #### [facility] [address] [place] [address] CARDIAC KIRA ADMITon 021 CK [Catalytic activity/Vol] 128 U/L Normal 30-135 [facility] Comment on above: Performed By: #### C MADM, CMP, LIPA ####[facility] [address] [place], [place] [address]TzMala Xie CK.MB [Mass/Vol] 2.10 ng/mL Normal <=2.37 [facility] Comment on above: Performed By: #### C MADM, CMP, LIPA ####[facility] [address] [place], [place] [address]Ck. Demetrius Xie HSTROP 5.6 pg/mL Normal 4.0-35.5 [facility] Comment on above: Result Comment: CUT- OFF POINTS HAVE BEEN ESTABLISHED BASED ON THE FOURTH UNIVERSAL DEFINITIONS OF MYOCARDIAL INFARCTION. THE UPPER REFERENCE LIMIT (URL) OF TROPONIN, DEFINED THE 99TH PERCENTILE OF cTnI DISTRIBUTION IN A REFERENCE POPULATION, HAS BEEN CONFIRMED THE DECISION THRESHOLD FOR ID DIAGNOSIS. Performed By: #### C MADM, CMP, LIPA ####[facility] [address] [place] [id number] Xie SIMONA 55.0 ng/mL Normal <=61.5 [facility] Comment on above: Performed By: #### C MADM, CMP, LIPA ####[facility] [address] [place] [address]DrMala Xie CBC AUTO DIFFon 10-11-2021 BASO # 0.0 103/ul Normal 0.0-0.1 [facility] Comment on above: Performed By: #### C BC #### [facility] [address] [place] [address] [address] Demetrius Xie Basophils/100 WBC (Bld) 0.3 % Normal 0.2-2.0 [facility] Comment on above: Performed By: #### C BC #### [facility] [address] [address] [address] Demetrius Xie EO # 0.1 103/ul Normal 0.0-0.7 [facility] Comment on above: Performed By: #### C BC #### [facility] [address] [address] [address] Demetrius Xie Eosinophils/100 WBC (Bld) 0.6 % Critically low 0.9-7.0 [facility] Comment on above: Performed By: #### C BC #### [facility] [address] [address] [address] Demetrius Xie Erythrocyte distribution width (RBC) [Ratio] 14.8 % Normal 11.0-15.0 [facility] Comment on above: Performed By: #### C BC #### [facility] [address] [place] [address] Dr. Demetrius Xie Hematocrit (Bld) [Volume fraction] 32.9 % Critically low 36.0-48.0 [facility] Comment on above: Performed By: #### C BC #### [facility] [address] [place] [address] Dr. Demetrius Xie Hemoglobin (Bld) [Mass/Vol] 11.1 g/dL Critically low 12.0-16.0 [facility] Comment on above: Performed By: #### C BC #### [facility] [address] [place] [address] Dr. Demetrius Xie IG # 0.03 10e3/ul Normal 0.00-0.03 [facility] Comment on above: Performed By: #### C BC #### [facility] [address] [place] [address] Dr. Demetrius Xie IG % 0.3 % Normal 0.0-0.5 [facility] Comment on above: Performed By: #### C BC #### [facility] [address] [place] [address] Dr. Demetrius Xie LYMPH # 1.3 103/ul Normal 1.2-3.8 [facility] Comment on above: Performed By: #### C BC #### [facility] [address] [place] [address] Dr. Demetrius Xie Lymphocytes/100 WBC (Bld) 15.2 % Critically low 20.5-60.0 [facility] Comment on above: Performed By: #### C BC #### [facility] [address] [place] [address] Dr. Demetrius Xie MANUAL DIFF REQ NO Normal [facility] Comment on above: Performed By: #### C BC #### [facility] [address] [place] [address] Dr. Demetrius Xie MCH (RBC) [Entitic mass] 29.1 pg Normal 26.7-34.0 [facility] Comment on above: Performed By: #### C BC #### [facility] [address] [address] [address] Demetrius Xie MCHC (RBC) [Mass/Vol] 33.7 g/dL Normal 29.9-35.2 [facility] Comment on above: Performed By: #### C BC #### [facility] [address] [address] [address] Demetrius Xie MCV (RBC) [Entitic vol] 86.4 fL Normal 81.0-99.0 [facility] Comment on above: Performed By: #### C BC #### [facility] [address] [address] [address] Demetrius Xie MONO # 0.4 103/ul Normal 0.3-0.8 [facility] Comment on above: Performed By: #### C BC #### [facility] [address] [address] [address] Demetrius Xie Monocytes/100 WBC (Bld) 4.9 % Normal 1.7-12.0 [facility] Comment on above: Performed By: #### C BC #### [facility] [address] [address] [address] Demetrius Xie NEUT # 6.9 103/ul Critically high 1.4-6.5 [facility] Comment on above: Performed By: #### C BC #### [facility] [address] [place] [address] Dr. Demetrius Xie Neutrophils/100 WBC (Bld) 78.7 % Critically high 43.0-75.0 [facility] Comment on above: Performed By: #### C BC #### [facility] [address] [address] [address] Demetrius Xie Platelet mean volume (Bld) [Entitic vol] 8.8 fL Critically low 9.5-13.5 [facility] Comment on above: Performed By: #### C BC #### [facility] [address] [address] [address] Demetrius Xie PLT 399 103/ul Normal 150-450 [facility] Comment on above: Performed By: #### C BC #### [facility] [address] [place] [address] Dr. Demetrius Xie RBC 3.81 106/ul Critically low 4.20-5.40 [facility] Comment on above: Performed By: #### C BC #### [facility] [address] [place] [address] Dr. Demetrius Xie WBC 8.8 103/ul Normal 4.0-11.0 [facility] Comment on above: Performed By: #### C BC #### [facility] [address] [place] [address] Dr. Demetrius Xie ER URINE PROFILEon 1 Bilirubin Ql (U) Negative Normal NEGATIVE [facility] Comment on above: Performed By: #### E RUR #### [facility] [address] [place] [address] Dr. Demetrius Xie Clarity (U) CLEAR Normal CLEAR [facility] Comment on above: Performed By: #### E RUR #### [facility] [address] [place] [address] Dr. Demetrius Xie Color (U) LT. YELLOW Normal YELLOW [facility] Comment on above: Performed By: #### E RUR #### [facility] [address] [place] [address] Dr. Demetrius Xie ERUDAVIDD A micrscopic examina tion will be performed if indicated. Normal [facility] Comment on above: Performed By: #### E RUR #### [facility] [address] [place] [address] Dr. Demetrius Xie Glucose Ql (U) Negative Normal NEGATIVE [facility] Comment on above: Performed By: #### E RUR #### [facility] [address] [place] [address] Dr. Demetrius Xie Hemoglobin Ql (U) Negative Normal NEGATIVE [facility] Comment on above: Performed By: #### E RUR #### [facility] [address] [place] [address] Dr. Demetrius Xie Ketones Ql (U) Negative Normal NEGATIVE [facility] Comment on above: Performed By: #### E RUR #### [facility] [address] [place] [address] Dr. Demetrius Xie LEUKOCYTES Negative Normal NEGATIVE [facility] Comment on above: Performed By: #### E RUR #### [facility] [address] [place] [address] Dr. Demetrius Xie Nitrite Ql (U) Negative Normal NEGATIVE [facility] Comment on above: Performed By: #### E RUR #### [facility] [address] [place] [address] Dr. Demetrius Xie pH (U) 6.0 [pH] Normal 5-9 [facility] Comment on above: Performed By: #### E RUR #### [facility] [address] [place] [address] Dr. Demetrius Xie SPEC GRAVITY 1.020 Normal 1.005-<=1.025 [facility] Comment on above: Performed By: #### E RUR #### [facility] [address] [place] [address] Dr. Demetrius iXe UA PROTEIN TRACE Normal NEGATIVE/ TRACE [facility] Comment on above: Performed By: #### E RUR #### [facility] [address] [place] [address] Dr. Demetrius Xie UR MICRO IND NOT INDICATED Normal [facility] Comment on above: Performed By: #### E RUR #### [facility] [address] [place] [address] Dr. Demetrius Xie Urobilinogen Qn (U) 1.0 {Zeke'U}/dL Normal 0.2 - 1.0 [facility] Comment on above: Performed By: #### E RUR #### [facility] [address] [place] [address] Dr. Demetrius Xie LIPASEon 10-11-2021 Lipase [Catalytic activity/Vol] 38.0 U/L Normal 23.0-300.0 [facility] Comment on above: Performed By: #### C MADM, CMP, LIPA ####[facility] [address] [place] [address]Dr. Demetrius Xie PREG HCG QUALon 10-11-2021 , QUAL Positive Abnormal NEGATIVE [facility] Comment on above: Performed By: #### P REG #### [facility] [address] [address] [address] Demetrius Xie PROF 14(COMP METB)on 021 Albumin [Mass/Vol] 3.2 g/dL Critically low 3.5-5.0 Th e [facility] Comment on above: Performed By: #### C MADM, CMP, LIPA ####[facility] [address] [place] [address]Dr. Demetrius Xie Albumin/Globulin [Mass ratio] 0.9 {ratio} Normal [facility] Comment on above: Performed By: #### C MADM, CMP, LIPA ####[facility] [address] [place] [address]Dr. Demetrius Xie ALP [Catalytic activity/Vol] 108 U/L Normal 38-126 [facility] Comment on above: Performed By: #### C MADM, CMP, LIPA ####[facility] [address] [place] [address]Dr. Demetrius Xie ALT [Catalytic activity/Vol] 68 U/L Critically high 9-52 [facility] Comment on above: Performed By: #### C MADM, CMP, LIPA ####[facility] [address] [place] [address]Dr. Demetrius Xie Anion gap [Moles/Vol] 11.1 mmol/L Normal [facility] Comment on above: Performed By: #### C MADM, CMP, LIPA ####[facility] [address] [place] [address]Dr. Demetrius Xie AST [Catalytic activity/Vol] 46 U/L Critically high 14-36 [facility] Comment on above: Performed By: #### C MADM, CMP, LIPA ####[facility] [address] [place] [address]Dr. Demetrius Xie Bilirubin [Mass/Vol] 0.3 mg/dL Normal 0.2-1.3 [facility] Comment on above: Performed By: #### C MADM, CMP, LIPA ####[facility] [address] [place] [address]Dr. Demetrius Xie Calcium [Mass/Vol] 8.5 mg/dL Normal 8.4-10.2 [facility] Comment on above: Performed By: #### C MADM, CMP, LIPA ####[facility] [address] [place] [address]Dr. Demetrius Xie Chloride [Moles/Vol] 108 mmol/L Critically high 98-107 [facility] Comment on above: Performed By: #### C MADM, CMP, LIPA ####[facility] [address] [place] [address]Dr. Demetrius Xie CO2 [Moles/Vol] 23.3 mmol/L Normal 22.0-30.0 [facility] Comment on above: Performed By: #### C MADM, CMP, LIPA ####[facility] [address] [place] [address]Dr. Demetrius Xie Creatinine [Mass/Vol] 0.75 mg/dL Normal 0.52-1.04 [facility] Comment on above: Performed By: #### C MADM, CMP, LIPA ####[facility] [address] [place], [place] [address]Dr. Demetrius Xie EGFR-AF BRITISH >60 Normal >=60 [facility] Comment on above: Performed By: #### C MADM, CMP, LIPA ####[facility] [address] [place] [address]Dr. Demetrius Xie EGFR-NON AF BRITISH >60 Normal >=60 [facility] Comment on above: Performed By: #### C MADM, CMP, LIPA ####[facility] [address] [place] [address]Dr. Demetrius Xie Globulin (S) [Mass/Vol] 3.4 g/dL Normal [facility] Comment on above: Performed By: #### C MADM, CMP, LIPA ####[facility] [address] [place] [address]Dr. Demetrius Xie Glucose [Mass/Vol] 127 mg/dL Critically high 74-106 T [facility] Comment on above: Performed By: #### C MADMarie, CMP, LIPA ####[facility] [address] [place] [address]Dr. Demetrius Xie Potassium [Moles/Vol] 3.4 mmol/L Normal 3.4-5.0 [facility] Comment on above: Performed By: #### C MADM, CMP, LIPA ####[facility] [address] [place] [address]Dr. Demetrius Xie Protein [Mass/Vol] 6.6 g/dL Normal 6.1-8.2 [facility] Comment on above: Performed By: #### C MADMarie, CMP, LIPA ####[facility] [id number] [place] [address]Dr. Demetrius Xie Sodium [Moles/Vol] 139 mmol/L Normal 137-145 [facility] Comment on above: Performed By: #### C MADMarie, CMP, LIPA ####[facility] [id number] [place] [address]Dr. Demetrius Xie Urea nitrogen [Mass/Vol] 6.0 mg/dL Critically low 7.0-17.0 [facility] Comment on above: Performed By: #### C MADMarie, CMP, LIPA ####[facility] [id number] [place] [address]Dr. Demetrius Xie Urea nitrogen/Creatinin e [Mass ratio] 8.0 mg/mg Normal [facility] Comment on above: Performed By: #### C MADM, CMP, LIPA ####[facility] [id number] [place] [address]Dr. Demetrius Xie XR CHEST 1 Von 10-11-2021 XR CHEST 1 V EXAMINATION: XR CHES T 1 V HISTORY: SHORTNESS OF BREATH COMPARISON: 05/19/2020. FINDINGS: There is no focal airspace consolidation. There is no appreciable pneumothorax or pleural effusion. The pulmonary vascularity is within normal limits for technique. The cardiomediastinal silhouette is within normal limits. Posterior fusion hardware noted. IMPRESSION: Lungs are clear. No acute cardiopulmonary disease. Electronically authenticated by: ESTEPHANIA STOCK Date: 2021-10-11 19:35 Normal [facility] CBC W/DIFFon 06-02-2020 ABS BASOPHILS 0.1 10*3/uL Normal 0.0-0.2 [facility] Comment on above: Order Comment: No: D o not add to previous draw Performed By: #### 0 0121, 49239, 04841 #### [facility] [address] [facility] [place] [address], [facility] ABS IMM GRANS 0.1 10*3/uL Normal 0.0-0.2 [facility] Comment on above: Order Comment: No: D o not add to previous draw Performed By: #### 0 0121, 99671, 17446 #### [facility] [address] [facility] [place] [address], [facility] ABS NEUTROPHILS 6.0 10*3/uL Normal 1.6-7.6 [facility] Comment on above: Order Comment: No: D o not add to previous draw Performed By: #### 0 0121, 69528, 96026 #### [facility] [address] [facility] [address], [facility] Basophils/100 WBC (Bld) 1.1 % High 0.0-1.0 [facility] Comment on above: Order Comment: No: D o not add to previous draw Performed By: #### 0 0121, 42035, 37774 #### [facility] [address] [facility] [place] [address], [facility] Eosinophils (Bld) [#/Vol] 1.0 10*3/uL High 0.0-0.5 [facility] Comment on above: Order Comment: No: D o not add to previous draw Performed By: #### 0 0121, 08332, 56188 #### [facility] [address] [place] [address], [facility] Eosinophils/100 WBC (Bld) 8.5 % High 0.0-6.0 [facility] Comment on above: Order Comment: No: D o not add to previous draw Performed By: #### 0 0121, 98983, 36752 #### [facility] [address] [place] [address], [facility] Erythrocyte distribution width (RBC) [Ratio] 20.9 % High 11.5-15.0 [facility] Comment on above: Order Comment: No: D o not add to previous draw Performed By: #### 0 0121, , 45742 #### [facility] [address] [place] [address], [facility] Hematocrit (Bld) [Volume fraction] 31.1 % Low 36.0-45.0 [facility] Comment on above: Order Comment: No: D o not add to previous draw Performed By: #### 0 0121, , 78617 #### [facility] [address] [facility] [place] [address], [facility] Hemoglobin (Bld) [Mass/Vol] 9.8 g/dL Low 12.0-15.0 [facility] Comment on above: Order Comment: No: D o not add to previous draw Performed By: #### 0 0121, , 93706 #### [facility] [address] [facility] [place] [address], [facility] IMMATURE GRANS 0.9 % Normal 0.0-1.0 [facility] Comment on above: Order Comment: No: D o not add to previous draw Performed By: #### 0 0121, 06977, 96883 #### [facility] [address] [place] [address], [facility] Lymphocytes (Bld) [#/Vol] 3.4 10*3/uL Normal 1.2-4.0 [facility] Comment on above: Order Comment: No: D o not add to previous draw Performed By: #### 0 0121, 66547, 72515 #### [facility] [address] [place] [address], [place] Lymphocytes/100 WBC (Bld) 29.5 % Normal 20.0-45.0 [facility] Comment on above: Order Comment: No: D o not add to previous draw Performed By: #### 0 0121, , 66353 #### [facility] [address] [place] [address], [facility] MCH (RBC) [Entitic mass] 26.6 pg Low 27.0-33.0 [facility] Comment on above: Order Comment: No: D o not add to previous draw Performed By: #### 0 0121, , 82727 #### [facility] [address] [facility] [place] [address], [facility] MCHC (RBC) [Mass/Vol] 31.5 g/dL Low 32.0-35.0 [facility] Comment on above: Order Comment: No: D o not add to previous draw Performed By: #### 0 0121, , 16163 #### [facility] [address] [facility] [place] [address], [facility] MCV (RBC) [Entitic vol] 84.5 fL Normal 82.0-98.0 [facility] Comment on above: Order Comment: No: D o not add to previous draw Performed By: #### 0 0121, , 89353 #### [facility] [address] [facility] [place] [address], [facility] Monocytes (Bld) [#/Vol] 0.8 10*3/uL Normal 0.1-1.0 [facility] Comment on above: Order Comment: No: D o not add to previous draw Performed By: #### 0 0121, , 35496 #### [facility] [address] [facility] [place] [address], [facility] MONOS 7.0 % Normal 5.0-12.0 [facility] Comment on above: Order Comment: No: D o not add to previous draw Performed By: #### 0 0121, 81834, 34003 #### [facility] [address] [place] [address], [place] Neutrophils/100 WBC (Bld) 53.0 % Normal 40.0-72.0 [facility] Comment on above: Order Comment: No: D o not add to previous draw Performed By: #### 0 0121, 83446, 95238 #### [facility] [address] [place] [address], [place] Nucleated RBC/100 WBC (Bld) [Ratio] 0 % Normal 0-0 [facility] Comment on above: Order Comment: No: D o not add to previous draw Performed By: #### 0 0121, 51896, 41948 #### [facility] [address] [place] [address], [place] PLAT CNT 844 10*3/uL High 150-400 [facility] Comment on above: Order Comment: No: D o not add to previous draw Performed By: #### 0 0121, 18634, 63390 #### [facility] [address] [facility] [place] [address], [place] RBC (Bld) [#/Vol] 3.68 10*6/uL Low 3.80-5.00 [facility] Comment on above: Order Comment: No: D o not add to previous draw Performed By: #### 0 0121, 31929, 26112 #### [facility] [address] [place] [address], [place] WBC (Bld) [#/Vol] 11.37 10*3/uL High 4.00-10.60 [facility] Comment on above: Order Comment: No: D o not add to previous draw Performed By: #### 0 0121, 82812, 21381 #### [facility] [address] [place] [address], [place] BASIC METABOLIC PANELon 07-3 Calcium [Mass/Vol] 8.9 mg/dL Normal 8.6-10.3 [facility] Comment on above: Order Comment: No: D o not add to previous draw Performed By: #### 0 0121, 78772, 36228 #### [facility] [address] [place] [address], [place] Chloride [Moles/Vol] 107 mmol/L Normal 98-107 [facility] Comment on above: Order Comment: No: D o not add to previous draw Performed By: #### 0 0121, 07723, 51061 #### [facility] [address] [place] [address], [place] CO2 [Moles/Vol] 23 mmol/L Normal 21-31 [facility] Comment on above: Order Comment: No: D o not add to previous draw Performed By: #### 0 0121, 95217, 89198 #### [facility] [address] [place] [address], [place] Creatinine [Mass/Vol] 0.89 mg/dL Normal 0.60-1.20 [facility] Comment on above: Order Comment: No: D o not add to previous draw Performed By: #### 0 0121, 30237, 95940 #### [facility] [address] [place] [address], [place] GFR/1.73 sq M predicted among blacks MDRD (S/P/Bld) [Vol rate/Area] mL/min/{1.73_m2} Normal >60 [facility] Comment on above: Order Comment: No: D o not add to previous draw Performed By: #### 0 0121, 53067, 00972 #### [facility] [address] [place] [address], [place] GFR/1.73 sq M predicted among non-blacks MDRD (S/P/Bld) [Vol rate/Area] mL/min/{1.73_m2} Normal >60 [facility] Comment on above: Order Comment: No: D o not add to previous draw Performed By: #### 0 0121, 71216, 23543 #### [facility] [address] [place] [address], [facility] Glucose [Mass/Vol] 85 mg/dL Normal 70-100 [facility] Comment on above: Order Comment: No: D o not add to previous draw Performed By: #### 0 0121, 90025, 09627 #### [facility] [address] [facility] [place] [id number], [facility] Potassium [Moles/Vol] 4.0 mmol/L Normal 3.5-5.1 [facility] Comment on above: Order Comment: No: D o not add to previous draw Performed By: #### 0 0121, 93147, 67360 #### [facility] [address] [place] [address], [facility] Sodium [Moles/Vol] 138 mmol/L Normal 136-145 [facility] Comment on above: Order Comment: No: D o not add to previous draw Performed By: #### 0 0121, 57431, 74589 #### [facility] [address] [facility] [place] [address], [facility] Urea nitrogen [Mass/Vol] 18 mg/dL Normal 7-25 [facility] Comment on above: Order Comment: No: D o not add to previous draw Performed By: #### 0 0121, 53454, 26450 #### [facility] [address] [facility] [place] [address], [facility] CBC W/DIFFon 06-01-2020 ABS BASOPHILS 0.1 10*3/uL Normal 0.0-0.2 [facility] Comment on above: Order Comment: No: D o not add to previous draw Performed By: #### 0 0121, 52796, 92685 #### [facility] [address] [place] [address], [facility] ABS IMM GRANS 0.1 10*3/uL Normal 0.0-0.2 [facility] Comment on above: Order Comment: No: D o not add to previous draw Performed By: #### 0 0121, 17555, 56605 #### [facility] [address] [place] [address], [facility] ABS NEUTROPHILS 7.4 10*3/uL Normal 1.6-7.6 [facility] Comment on above: Order Comment: No: D o not add to previous draw Performed By: #### 0 0121, 51713, 52742 #### [facility] [address] [place] [address], [facility] Basophils/100 WBC (Bld) 0.8 % Normal 0.0-1.0 [facility] Comment on above: Order Comment: No: D o not add to previous draw Performed By: #### 0 0121, , 03989 #### [facility] [address] [place] [address], [facility] Eosinophils (Bld) [#/Vol] 0.9 10*3/uL High 0.0-0.5 [facility] Comment on above: Order Comment: No: D o not add to previous draw Performed By: #### 0 0121, , 37078 #### [facility] [address] [place] [address], [facility] Eosinophils/100 WBC (Bld) 7.0 % High 0.0-6.0 [facility] Comment on above: Order Comment: No: D o not add to previous draw Performed By: #### 0 0121, , 05400 #### [facility] [address] [place] [address], [facility] Erythrocyte distribution width (RBC) [Ratio] 20.2 % High 11.5-15.0 [facility] Comment on above: Order Comment: No: D o not add to previous draw Performed By: #### 0 0121, 67541, 33614 #### [facility] [address] [place] [address], [facility] Hematocrit (Bld) [Volume fraction] 29.5 % Low 36.0-45.0 [facility] Comment on above: Order Comment: No: D o not add to previous draw Performed By: #### 0 0121, 94758, 73293 #### [facility] [address] [facility] [place] [address], [facility] Hemoglobin (Bld) [Mass/Vol] 9.6 g/dL Low 12.0-15.0 [facility] Comment on above: Order Comment: No: D o not add to previous draw Performed By: #### 0 0121, 90840, 79900 #### [facility] [address] [facility] [place] [address], [facility] IMMATURE GRANS 0.7 % Normal 0.0-1.0 [facility] Comment on above: Order Comment: No: D o not add to previous draw Performed By: #### 0 0121, , 75736 #### [facility] [address] [facility] [place] [address], [facility] Lymphocytes (Bld) [#/Vol] 3.0 10*3/uL Normal 1.2-4.0 [facility] Comment on above: Order Comment: No: D o not add to previous draw Performed By: #### 0 0121, , 94014 #### [facility] [address] [facility] [place] [address], [facility] Lymphocytes/100 WBC (Bld) 24.8 % Normal 20.0-45.0 [facility] Comment on above: Order Comment: No: D o not add to previous draw Performed By: #### 0 0121, 76856, 08652 #### [facility] [address] [facility] [place] [address], [facility] MCH (RBC) [Entitic mass] 26.9 pg Low 27.0-33.0 [facility] Comment on above: Order Comment: No: D o not add to previous draw Performed By: #### 0 0121, 79010, 78090 #### [facility] [address] [facility] [place] [address], [facility] MCHC (RBC) [Mass/Vol] 32.5 g/dL Normal 32.0-35.0 [facility] Comment on above: Order Comment: No: D o not add to previous draw Performed By: #### 0 0121, 41143, 74145 #### [facility] [address] [facility] [place] [address], [facility] MCV (RBC) [Entitic vol] 82.6 fL Normal 82.0-98.0 [facility] Comment on above: Order Comment: No: D o not add to previous draw Performed By: #### 0 0121, 17851, 56285 #### [facility] [address] [place] [address], [facility] Monocytes (Bld) [#/Vol] 0.7 10*3/uL Normal 0.1-1.0 [facility] Comment on above: Order Comment: No: D o not add to previous draw Performed By: #### 0 0121, 20645, 80108 #### [facility] [address] [facility] [place] [address], [facility] MONOS 6.1 % Normal 5.0-12.0 [facility] Comment on above: Order Comment: No: D o not add to previous draw Performed By: #### 0 0121, 89097, 35404 #### [facility] [address] [facility] [place] [address], [facility] Neutrophils/100 WBC (Bld) 60.6 % Normal 40.0-72.0 [facility] Comment on above: Order Comment: No: D o not add to previous draw Performed By: #### 0 0121, 86426, 13362 #### [facility] [address] [facility] [place] [id number], [facility] Nucleated RBC/100 WBC (Bld) [Ratio] 0 % Normal 0-0 [facility] Comment on above: Order Comment: No: D o not add to previous draw Performed By: #### 0 0121, 58593, 59992 #### [facility] [address] [place] [address], [place] PLAT CNT 842 10*3/uL High 150-400 [facility] Comment on above: Order Comment: No: D o not add to previous draw Performed By: #### 0 0121, 13376, 23585 #### [facility] [address] [place] [address], [place] RBC (Bld) [#/Vol] 3.57 10*6/uL Low 3.80-5.00 [facility] Comment on above: Order Comment: No: D o not add to previous draw Performed By: #### 0 0121, 38064, 09596 #### [facility] [address] [place] [address], [place] WBC (Bld) [#/Vol] 12.20 10*3/uL High 4.00-10.60 [facility] Comment on above: Order Comment: No: D o not add to previous draw Performed By: #### 0 0121, 68558, 72429 #### [facility] [address] [place] [address], [place] BASIC METABOLIC PANELon 07-3 0-2020 Calcium [Mass/Vol] 8.7 mg/dL Normal 8.6-10.3 [facility] Comment on above: Order Comment: No: D o not add to previous draw Performed By: #### 0 0121, 20358, 31280 #### [facility] [address] [place] [address], [place] Chloride [Moles/Vol] 106 mmol/L Normal 98-107 [facility] Comment on above: Order Comment: No: D o not add to previous draw Performed By: #### 0 0121, 54569, 87400 #### [facility] [address] [place] [address], [place] CO2 [Moles/Vol] 27 mmol/L Normal 21-31 [facility] Comment on above: Order Comment: No: D o not add to previous draw Performed By: #### 0 0121, 04885, 55360 #### [facility] [address] [place] [address], [place] Creatinine [Mass/Vol] 0.97 mg/dL Normal 0.60-1.20 [facility] Comment on above: Order Comment: No: D o not add to previous draw Performed By: #### 0 0121, 33538, 03094 #### [facility] [address] [place] [address], [place] GFR/1.73 sq M predicted among blacks MDRD (S/P/Bld) [Vol rate/Area] mL/min/{1.73_m2} Normal >60 [facility] Comment on above: Order Comment: No: D o not add to previous draw Performed By: #### 0 0121, , 07578 #### [facility] [address] [place] [address], [place] GFR/1.73 sq M predicted among non-blacks MDRD (S/P/Bld) [Vol rate/Area] mL/min/{1.73_m2} Normal >60 [facility] Comment on above: Order Comment: No: D o not add to previous draw Performed By: #### 0 0121, 97523, 66349 #### [facility] [address] [place] [address], [place] Glucose [Mass/Vol] 76 mg/dL Normal 70-100 [facility] Comment on above: Order Comment: No: D o not add to previous draw Performed By: #### 0 0121, 10095, 15725 #### [facility] [address] [place] [address], [place] Potassium [Moles/Vol] 4.1 mmol/L Normal 3.5-5.1 [facility] Comment on above: Order Comment: No: D o not add to previous draw Performed By: #### 0 0121, 67670, 73183 #### [facility] [address] [facility] Sodium [Moles/Vol] 139 mmol/L Normal 136-145 [facility] Comment on above: Order Comment: No: D o not add to previous draw Performed By: #### 0 0121, 44809, 45601 #### [facility] [address] [facility] Urea nitrogen [Mass/Vol] 13 mg/dL Normal 7-25 [facility] Comment on above: Order Comment: No: D o not add to previous draw Performed By: #### 0 0121, 31324, 63748 #### [facility] [address] [facility]. [address] CBC W/DIFFon 05-31-2020 ABS BASOPHILS 0.1 10*3/uL Normal 0.0-0.2 [facility] Comment on above: Performed By: #### 0 0121, , 08378 #### [facility] [address] [facility]. [address] ABS IMM GRANS 0.1 10*3/uL Normal 0.0-0.2 [facility] Comment on above: Performed By: #### 0 0121, , 50868 #### [facility] [address] [facility]. [address] ABS NEUTROPHILS 7.5 10*3/uL Normal 1.6-7.6 [facility] Comment on above: Performed By: #### 0 0121, 16051, 18100 #### [facility] [address] [facility]. [address] Basophils/100 WBC (Bld) 0.9 % Normal 0.0-1.0 [facility] Comment on above: Performed By: #### 0 0121, 32518, 10397 #### [facility] [address] [facility]. [address] Eosinophils (Bld) [#/Vol] 0.9 10*3/uL High 0.0-0.5 [facility] Comment on above: Performed By: #### 0 0121, , 85891 #### [facility] [address] [place] [address], [facility] Eosinophils/100 WBC (Bld) 7.5 % High 0.0-6.0 [facility] Comment on above: Performed By: #### 0 0121, , 45337 #### [facility] [address] Erythrocyte distribution width (RBC) [Ratio] 19.9 % High 11.5-15.0 [facility] Comment on above: Performed By: #### 0 0121, , 47516 #### [facility] [address] [facility]. [address] Hematocrit (Bld) [Volume fraction] 30.1 % Low 36.0-45.0 [facility] Comment on above: Performed By: #### 0 012, , 91243 #### [facility] [address] [facility]. [address] Hemoglobin (Bld) [Mass/Vol] 9.5 g/dL Low 12.0-15.0 [facility] Comment on above: Performed By: #### 0 0121, , 40403 #### [facility] [address] [place] [address], [facility] IMMATURE GRANS 0.8 % Normal 0.0-1.0 [facility] Comment on above: Performed By: #### 0 0121, , 69689 #### [facility] [address] [place] [address], [facility] Lymphocytes (Bld) [#/Vol] 2.4 10*3/uL Normal 1.2-4.0 [facility] Comment on above: Performed By: #### 0 0121, 86384, 03136 #### [facility] [address] [facility] [place] [address], [facility] Lymphocytes/100 WBC (Bld) 20.1 % Normal 20.0-45.0 [facility] Comment on above: Performed By: #### 0 0121, 48787, 84650 #### [facility] [address] [facility] [place] [address], [facility] MCH (RBC) [Entitic mass] 26.7 pg Low 27.0-33.0 [facility] Comment on above: Performed By: #### 0 0121, , 23784 #### [facility] [address] [facility] [place] [address], [facility] MCHC (RBC) [Mass/Vol] 31.6 g/dL Low 32.0-35.0 [facility] Comment on above: Performed By: #### 0 0121, , 75933 #### [facility] [address] [facility] [place] [address], [facility] MCV (RBC) [Entitic vol] 84.6 fL Normal 82.0-98.0 [facility] Comment on above: Performed By: #### 0 0121, , 51493 #### [facility] [address] [facility] [place] [address], [facility] Monocytes (Bld) [#/Vol] 0.8 10*3/uL Normal 0.1-1.0 [facility] Comment on above: Performed By: #### 0 0121, [id number], [id number] #### [facility] [address] [place] [address], [facility] MONOS 6.8 % Normal 5.0-12.0 [facility] Comment on above: Performed By: #### 0 0121, , [id number] #### [facility] [address] [facility] [place] [address], [facility] Neutrophils/100 WBC (Bld) 63.9 % Normal 40.0-72.0 [facility] Comment on above: Performed By: #### 0 [id number], [id number], [id number] #### [facility] [address] [facility] [place] [address], [facility] Nucleated RBC/100 WBC (Bld) [Ratio] 0 % Normal 0-0 [facility] Comment on above: Performed By: #### 0 0121, [id number], [id number] #### [facility] [address] [facility] [place] [address], [facility] PLAT CNT 825 10*3/uL High 150-400 [facility] Comment on above: Performed By: #### 0 0121, 56152, 12664 #### [facility] [address] [facility] [place] [address], [facility] RBC (Bld) [#/Vol] 3.56 10*6/uL Low 3.80-5.00 [facility] Comment on above: Performed By: #### 0 0121, 19315, 50379 #### [facility] [address] [facility] [place] [address], [facility] WBC (Bld) [#/Vol] 11.79 10*3/uL High 4.00-10.60 [facility] Comment on above: Performed By: #### 0 0121, 23244, 99525 #### [facility] [address] [facility]. [address] APTTon 05-30-2020 aPTT Coag (Bld) [Time] 38.7 s High 25.0-35.0 [facility] Comment on above: Order Comment: No: D o not add to previous draw Result Comment: ALL RESULTS MUST BE INTERPRETED WITH RESPECT TO BLOOD DRAWING ARTIFACT OR DILUTION ERROR OF ANTICOAGULANT AT THE TIME OF SAMPLING. THE APTT SHOULD NOT BE USED TO MONITOR UNFRACTIONATED HEPARIN THERAPY, THIS LABORATORY NO LONGER HAS AN ESTABLISHED THERAPEUTIC RANGE BASED ON THE APTT. IT IS RECOMMENDED THAT THE [facility] - HEPARIN ASSAY (ANTI-XA ACTIVITY) BE USED FOR THIS PURPOSE. Performed By: #### 0 0121, 25394, 74604 #### [facility] [address] [facility] [place] [address], [facility] CBC W/DIFFon 05-30-2020 ABS BASOPHILS 0.1 10*3/uL Normal 0.0-0.2 [facility] Comment on above: Order Comment: No: D o not add to previous draw Performed By: #### 0 0121, 86240, 90315 #### [facility] [address] [facility] [place] [address], [facility] ABS IMM GRANS 0.1 10*3/uL Normal 0.0-0.2 [facility] Comment on above: Order Comment: No: D o not add to previous draw Performed By: #### 0 0121, 24080, 52298 #### [facility] [address] [facility] [place] [address], [facility] ABS NEUTROPHILS 7.6 10*3/uL Normal 1.6-7.6 [facility] Comment on above: Order Comment: No: D o not add to previous draw Performed By: #### 0 0121, 76322, 28706 #### [facility] [address] [place] [address], [facility] Basophils/100 WBC (Bld) 1.2 % High 0.0-1.0 [facility] Comment on above: Order Comment: No: D o not add to previous draw Performed By: #### 0 0121, 61168, 52464 #### [facility] [address] [facility] [place] [address], [facility] Eosinophils (Bld) [#/Vol] 0.7 10*3/uL High 0.0-0.5 [facility] Comment on above: Order Comment: No: D o not add to previous draw Performed By: #### 0 0121, 40642, 87746 #### [facility] [address] [facility] [place] [address], [facility] Eosinophils/100 WBC (Bld) 5.9 % Normal 0.0-6.0 [facility] Comment on above: Order Comment: No: D o not add to previous draw Performed By: #### 0 0121, 45234, 26952 #### [facility] [address] Erythrocyte distribution width (RBC) [Ratio] 19.2 % High 11.5-15.0 [facility] Comment on above: Order Comment: No: D o not add to previous draw Performed By: #### 0 0121, 83193, 68695 #### [facility] [address] Hematocrit (Bld) [Volume fraction] 28.7 % Low 36.0-45.0 [facility] Comment on above: Order Comment: No: D o not add to previous draw Performed By: #### 0 0121, , 22809 #### [facility] [address] Hemoglobin (Bld) [Mass/Vol] 9.4 g/dL Low 12.0-15.0 [facility] Comment on above: Order Comment: No: D o not add to previous draw Performed By: #### 0 0121, , 05162 #### [facility] [address] [facility] [place] [address], [facility] IMMATURE GRANS 0.5 % Normal 0.0-1.0 [facility] Comment on above: Order Comment: No: D o not add to previous draw Performed By: #### 0 0121, 15088, 12680 #### [facility] [address] [place] [address], [facility] Lymphocytes (Bld) [#/Vol] 2.7 10*3/uL Normal 1.2-4.0 [facility] Comment on above: Order Comment: No: D o not add to previous draw Performed By: #### 0 0121, 83985, 27777 #### [facility] [address] [facility] [place] [address], [facility] Lymphocytes/100 WBC (Bld) 22.5 % Normal 20.0-45.0 [facility] Comment on above: Order Comment: No: D o not add to previous draw Performed By: #### 0 0121, 97387, 65201 #### [facility] [address] [facility] [place] [address], [facility] MCH (RBC) [Entitic mass] 26.9 pg Low 27.0-33.0 [facility] Comment on above: Order Comment: No: D o not add to previous draw Performed By: #### 0 0121, , 19627 #### [facility] [address] [facility] [place] [address], [facility] MCHC (RBC) [Mass/Vol] 32.8 g/dL Normal 32.0-35.0 [facility] Comment on above: Order Comment: No: D o not add to previous draw Performed By: #### 0 0121, , 12009 #### [facility] [address] [place] [address], [facility] MCV (RBC) [Entitic vol] 82.0 fL Normal 82.0-98.0 [facility] Comment on above: Order Comment: No: D o not add to previous draw Performed By: #### 0 0121, 48987, 54519 #### [facility] [address] [facility] [place] [address], [facility] Monocytes (Bld) [#/Vol] 0.8 10*3/uL Normal 0.1-1.0 [facility] Comment on above: Order Comment: No: D o not add to previous draw Performed By: #### 0 0121, 13824, 38209 #### [facility] [address] [place] [address], [facility] MONOS 6.6 % Normal 5.0-12.0 [facility] Comment on above: Order Comment: No: D o not add to previous draw Performed By: #### 0 0121, 00662, 54615 #### [facility] [address] [place] [address], [place] Neutrophils/100 WBC (Bld) 63.3 % Normal 40.0-72.0 [facility] Comment on above: Order Comment: No: D o not add to previous draw Performed By: #### 0 0121, 47879, 65211 #### [facility] [address] [place] [address], [place] Nucleated RBC/100 WBC (Bld) [Ratio] 0 % Normal 0-0 [facility] Comment on above: Order Comment: No: D o not add to previous draw Performed By: #### 0 0121, 20794, 43996 #### [facility] [address] [place] [address], [place] PLAT CNT 817 10*3/uL High 150-400 [facility] Comment on above: Order Comment: No: D o not add to previous draw Performed By: #### 0 0121, 56092, 22358 #### [facility] [address] [place] [address], [place] RBC (Bld) [#/Vol] 3.50 10*6/uL Low 3.80-5.00 [facility] Comment on above: Order Comment: No: D o not add to previous draw Performed By: #### 0 0121, 54488, 12009 #### [facility] [address] [place] [address], [place] WBC (Bld) [#/Vol] 11.98 10*3/uL High 4.00-10.60 [facility] Comment on above: Order Comment: No: D o not add to previous draw Performed By: #### 0 0121, 22911, 14979 #### [facility] [address] [place] [address], [place] POC GLUCOSE LABon 05-30-2020 Glucose [Mass/Vol] 103 mg/dL High 70-100 [facility] Comment on above: Performed By: #### 0 012, , 30572 #### [facility] [address] [facility] [address] PROTHROMBIN TIMEon 0 INR Coag (PPP) [Relative time] 1.09 {INR} Normal 0.91-1.16 [facility] Comment on above: Order Comment: No: D o not add to previous draw Result Comment: ACCC P RECOMMENDED INR FOR WARFARIN THERAPY ----- ------- CONDITION INR PROPHYLAXIS OF VENOUS THROMBOSIS 2-3 (HIGH-RISK SURGERY) TREATMENT OF VENOUS THROMBOSIS 2-3 TREATMENT OF PULMONARY EMBOLISM 2-3 PREVENTION OF SYSTEMIC EMBOLISM: 2-3 ACUTE MYOCARDIAL INFARCTION TISSUE HEART VALVES VALVULAR HEART DISEASE ATRIAL FIBRILLATION RECURRENT SYSTEMIC EMBOLISM MECHANICAL HEART VALVE 2.5-3.5 FROM: ORAL ANTICOAGULANTS. MECHANISM OF ACTION, CLINICAL EFFECTIVENESS, AND OPTIMAL THERAPEUTIC RANGE. CHEST 1995;108:231S-246S. Performed By: #### 0 012, , 91096 #### [facility] [address] [facility] [place] [address], [facility] PT Coag (PPP) [Time] 14.1 s Normal 12.3-14.8 [facility] Comment on above: Order Comment: No: D o not add to previous draw Result Comment: ALL RESULTS MUST BE INTERPRETED WITH RESPECT TO BLOOD DRAWING ARTIFACT OR DILUTION ERROR OF ANTICOAGULANT AT THE TIME OF SAMPLING. Performed By: #### 0 0121, , 47999 #### [facility] [address] [facility] [place] [address], [facility] BASIC METABOLIC PANELon - Calcium [Mass/Vol] 8.6 mg/dL Normal 8.6-10.3 [facility] Comment on above: Order Comment: No: D o not add to previous draw Performed By: #### 7 0069 #### [facility] [address] [place] [address], [place] Chloride [Moles/Vol] 106 mmol/L Normal 98-107 [facility] Comment on above: Order Comment: No: D o not add to previous draw Performed By: #### 7 0069 #### [facility] [address] [place] [address], [place] CO2 [Moles/Vol] 27 mmol/L Normal 21-31 [facility] Comment on above: Order Comment: No: D o not add to previous draw Performed By: #### 7 0069 #### [facility] [address] [place] [address], [place] Creatinine [Mass/Vol] 0.86 mg/dL Normal 0.60-1.20 [facility] Comment on above: Order Comment: No: D o not add to previous draw Performed By: #### 7 0069 #### [facility] [address] [place] [address], [place] GFR/1.73 sq M predicted among blacks MDRD (S/P/Bld) [Vol rate/Area] mL/min/{1.73_m2} Normal >60 [facility] Comment on above: Order Comment: No: D o not add to previous draw Performed By: #### 7 0069 #### [facility] [address] [place] [address], [place] GFR/1.73 sq M predicted among non-blacks MDRD (S/P/Bld) [Vol rate/Area] mL/min/{1.73_m2} Normal >60 [facility] Comment on above: Order Comment: No: D o not add to previous draw Performed By: #### 7 0069 #### [facility] [address] [place] [address], [facility] Glucose [Mass/Vol] 80 mg/dL Normal 70-100 [facility] Comment on above: Order Comment: No: D o not add to previous draw Performed By: #### 7 0069 #### [facility] [address] [place] [address], [place] Potassium [Moles/Vol] 4.4 mmol/L Normal 3.5-5.1 [facility] Comment on above: Order Comment: No: D o not add to previous draw Performed By: #### 7 0069 #### [facility] [address] [place] [address], [place] Sodium [Moles/Vol] 138 mmol/L Normal 136-145 [facility] Comment on above: Order Comment: No: D o not add to previous draw Performed By: #### 7 0069 #### [facility] [address] [place] [address], [facility] Urea nitrogen [Mass/Vol] 14 mg/dL Normal 7-25 [facility] Comment on above: Order Comment: No: D o not add to previous draw Performed By: #### 7 0069 #### [facility] [address] [place] [id number], [facility] CBC W/DIFFon 05-29-2020 ABS BASOPHILS 0.1 10*3/uL Normal 0.0-0.2 [facility] Comment on above: Order Comment: No: D o not add to previous draw Performed By: #### 7 0069 #### [facility] [address] [place] [address], [facility] ABS IMM GRANS 0.1 10*3/uL Normal 0.0-0.2 [facility] Comment on above: Order Comment: No: D o not add to previous draw Performed By: #### 7 0069 #### [facility] [address] [place] [address], [facility] ABS NEUTROPHILS 4.3 10*3/uL Normal 1.6-7.6 [facility] Comment on above: Order Comment: No: D o not add to previous draw Performed By: #### 7 0069 #### [facility] [address] [place] [address], [place] Basophils/100 WBC (Bld) 0.8 % Normal 0.0-1.0 [facility] Comment on above: Order Comment: No: D o not add to previous draw Performed By: #### 7 0069 #### [facility] [address] [place] [address], [facility] Eosinophils (Bld) [#/Vol] 0.6 10*3/uL High 0.0-0.5 [facility] Comment on above: Order Comment: No: D o not add to previous draw Performed By: #### 7 0069 #### [facility] [address] [place] [address], [facility] Eosinophils/100 WBC (Bld) 6.9 % High 0.0-6.0 [facility] Comment on above: Order Comment: No: D o not add to previous draw Performed By: #### 7 0069 #### [facility] [address] [place] [address], [facility] Erythrocyte distribution width (RBC) [Ratio] 18.9 % High 11.5-15.0 [facility] Comment on above: Order Comment: No: D o not add to previous draw Performed By: #### 7 0069 #### [facility] [address] [place] [address], [facility] Hematocrit (Bld) [Volume fraction] 22.0 % Low 36.0-45.0 [facility] Comment on above: Order Comment: No: D o not add to previous draw Performed By: #### 7 0069 #### [facility] [address] [facility] [place] [address], [facility] Hemoglobin (Bld) [Mass/Vol] 6.9 g/dL Low 12.0-15.0 [facility] Comment on above: Order Comment: No: D o not add to previous draw Performed By: #### 7 0069 #### [facility] [address] [place] [address], [facility] IMMATURE GRANS 0.6 % Normal 0.0-1.0 [facility] Comment on above: Order Comment: No: D o not add to previous draw Performed By: #### 7 0069 #### [facility] [address] [facility] [place] [address], [facility] Lymphocytes (Bld) [#/Vol] 2.9 10*3/uL Normal 1.2-4.0 [facility] Comment on above: Order Comment: No: D o not add to previous draw Performed By: #### 7 0069 #### [facility] [address] [facility] [place] [address], [facility] Lymphocytes/100 WBC (Bld) 33.9 % Normal 20.0-45.0 [facility] Comment on above: Order Comment: No: D o not add to previous draw Performed By: #### 7 0069 #### [facility] [address] [facility] [place] [address], [facility] MCH (RBC) [Entitic mass] 25.5 pg Low 27.0-33.0 [facility] Comment on above: Order Comment: No: D o not add to previous draw Performed By: #### 7 0069 #### [facility] [address] [facility]. [place] [id number], [facility] MCHC (RBC) [Mass/Vol] 31.4 g/dL Low 32.0-35.0 [facility] Comment on above: Order Comment: No: D o not add to previous draw Performed By: #### 7 0069 #### [facility] [address] [place] [address], [facility] MCV (RBC) [Entitic vol] 81.2 fL Low 82.0-98.0 [facility] Comment on above: Order Comment: No: D o not add to previous draw Performed By: #### 7 0069 #### [facility] [address] [place] [address], [facility] Monocytes (Bld) [#/Vol] 0.7 10*3/uL Normal 0.1-1.0 [facility] Comment on above: Order Comment: No: D o not add to previous draw Performed By: #### 7 0069 #### [facility] [address] [place] [address], [facility] MONOS 7.7 % Normal 5.0-12.0 [facility] Comment on above: Order Comment: No: D o not add to previous draw Performed By: #### 7 0069 #### [facility] [address] [facility] [place] [address], [facility] Neutrophils/100 WBC (Bld) 50.1 % Normal 40.0-72.0 [facility] Comment on above: Order Comment: No: D o not add to previous draw Performed By: #### 7 0069 #### [facility] [address] [facility] [place] [address], [facility] Nucleated RBC/100 WBC (Bld) [Ratio] 0 % Normal 0-0 [facility] Comment on above: Order Comment: No: D o not add to previous draw Performed By: #### 7 0069 #### [facility] [address] [facility] [place] [address], [facility] PLAT CNT 684 10*3/uL High 150-400 [facility] Comment on above: Order Comment: No: D o not add to previous draw Performed By: #### 7 0069 #### [facility] [address] [place] [address], [facility] RBC (Bld) [#/Vol] 2.71 10*6/uL Low 3.80-5.00 [facility] Comment on above: Order Comment: No: D o not add to previous draw Performed By: #### 7 0069 #### [facility] [address] [facility] [place] [address], [facility] WBC (Bld) [#/Vol] 8.49 10*3/uL Normal 4.00-10.60 [facility] Comment on above: Order Comment: No: D o not add to previous draw Performed By: #### 7 0069 #### [facility] [address] [facility] [place] [address], [facility] RBC'S 1 UNITon 05-29-2020 CROSSMATCH INTERP 1 COMP Normal [facility] Comment on above: Performed By: #### 0 0121, 52093, 34301 #### [facility] [address] [facility] [place] [address], [facility] PRODUCT CODE 1 [id number] Normal [facility] Comment on above: Performed By: #### 0 0121, 82637, 52251 #### [facility] [address] [facility] [place] [address], [facility] PRODUCT STATUS 1 PT Normal [facility] Comment on above: Result Comment: Resu lt changed by IF on 05/29/2020 14:34. The previous value was XM. Result changed by IF on 05/30/2020 00:30. The previous value was IS. Performed By: #### 0 0121, 49602, 00703 #### [facility] [address] [place] [address], [facility] UNIT ABO 1 O Normal [facility] Comment on above: Performed By: #### 0 0121, 69985, 83776 #### [facility] [address] [place] [address], [facility] UNIT ID 1 [id number] Normal [facility] Comment on above: Performed By: #### 0 0121, 64003, 88213 #### [facility] [address] [place] [address], [place] UNIT RH 1 Positive Normal [facility] Comment on above: Performed By: #### 0 0121, 79442, 98114 #### [facility] [address] [place] [address], [place] TYPE AND SCREENon 05-29-2020 ABO INTERPRETATION O Normal [facility] Comment on above: Performed By: #### 7 0069 #### [facility] [address] [place] [address], [place] RH INTERPRETATION Positive Normal [facility] Comment on above: Performed By: #### 7 0069 #### [facility] [address] [place] [address], [place] BASIC METABOLIC PANELon 05-03 Calcium [Mass/Vol] 8.6 mg/dL Normal 8.6-10.3 [facility] Comment on above: Order Comment: No: D o not add to previous drawNURSE DRAW PER RN ALEJANDRA Performed By: #### 7 0069 #### [facility] [address] [place] [address], [place] Chloride [Moles/Vol] 107 mmol/L Normal 98-107 [facility] Comment on above: Order Comment: No: D o not add to previous drawNURSE DRAW PER RN ALEJANDRA Performed By: #### 7 0069 #### [facility] [address] [place] [address], [place] CO2 [Moles/Vol] 28 mmol/L Normal 21-31 [facility] Comment on above: Order Comment: No: D o not add to previous drawNURSE DRAW PER RN ALEJANDRA Performed By: #### 7 0069 #### [facility] [address] [place] [address], [place] Creatinine [Mass/Vol] 1.00 mg/dL Normal 0.60-1.20 [facility] Comment on above: Order Comment: No: D o not add to previous drawNURSE DRAW PER RN ALEJANDRA Performed By: #### 7 0069 #### [facility] [address] [place] [address], [place] GFR/1.73 sq M predicted among blacks MDRD (S/P/Bld) [Vol rate/Area] mL/min/{1.73_m2} Normal >60 [facility] Comment on above: Order Comment: No: D o not add to previous drawNURSE DRAW PER RN ALEJANDRA Performed By: #### 7 0069 #### [facility] [address] [place] [address], [place] GFR/1.73 sq M predicted among non-blacks MDRD (S/P/Bld) [Vol rate/Area] mL/min/{1.73_m2} Normal >60 [facility] Comment on above: Order Comment: No: D o not add to previous drawNURSE DRAW PER RN ALEJANDRA Performed By: #### 7 0069 #### [facility] [address] [place] [address], [place] Glucose [Mass/Vol] 79 mg/dL Normal 70-100 [facility] Comment on above: Order Comment: No: D o not add to previous drawNURSE DRAW PER RN ALEJANDRA Performed By: #### 7 0069 #### [facility] [address] [place] [address], [place] Potassium [Moles/Vol] 4.3 mmol/L Normal 3.5-5.1 [facility] Comment on above: Order Comment: No: D o not add to previous drawNURSE DRAW PER RN ALEJANDRA Performed By: #### 7 0069 #### [facility] [address] [place] [address], [place] Sodium [Moles/Vol] 140 mmol/L Normal 136-145 [facility] Comment on above: Order Comment: No: D o not add to previous drawNURSE DRAW PER RN ALEJANDRA Performed By: #### 7 0069 #### [facility] [address] Urea nitrogen [Mass/Vol] 17 mg/dL Normal 7-25 [facility] Comment on above: Order Comment: No: D o not add to previous drawNURSE DRAW PER RN ALEJANDRA Performed By: #### 7 0069 #### [facility] [address] [facility]. [address] C REACTIVE PROTEINon 020 CRP [Mass/Vol] 71.2 mg/L High 0.0-7.0 [facility] Comment on above: Order Comment: Yes: Add to Previous draw if able Performed By: #### 7 0069 #### [facility] [address] CBC W/DIFFon 05-28-2020 ABS BASOPHILS 0.1 10*3/uL Normal 0.0-0.2 [facility] Comment on above: Order Comment: No: D o not add to previous draw Performed By: #### 7 0069 #### [facility] [address] ABS IMM GRANS 0.1 10*3/uL Normal 0.0-0.2 [facility] Comment on above: Order Comment: No: D o not add to previous draw Performed By: #### 7 0069 #### [facility] [address] ABS NEUTROPHILS 7.6 10*3/uL Normal 1.6-7.6 [facility] Comment on above: Order Comment: No: D o not add to previous draw Performed By: #### 7 [id number] #### [facility] [address] [place] [address], [facility] Basophils/100 WBC (Bld) 0.9 % Normal 0.0-1.0 [facility] Comment on above: Order Comment: No: D o not add to previous draw Performed By: #### 7 [id number] #### [facility] [address] [place] [address], [facility] Eosinophils (Bld) [#/Vol] 0.4 10*3/uL Normal 0.0-0.5 [facility] Comment on above: Order Comment: No: D o not add to previous draw Performed By: #### 7 [id number] #### [facility] [address] [place] [address], [facility] Eosinophils/100 WBC (Bld) 3.9 % Normal 0.0-6.0 [facility] Comment on above: Order Comment: No: D o not add to previous draw Performed By: #### 7 0069 #### [facility] [address] [facility]. [address] Erythrocyte distribution width (RBC) [Ratio] 18.7 % High 11.5-15.0 [facility] Comment on above: Order Comment: No: D o not add to previous draw Performed By: #### 7 0069 #### [facility] [address] [facility]. [address] Hematocrit (Bld) [Volume fraction] 22.9 % Low 36.0-45.0 [facility] Comment on above: Order Comment: No: D o not add to previous draw Performed By: #### 7 0069 #### [facility] [address] [facility] [place] [address], [facility] Hemoglobin (Bld) [Mass/Vol] 7.2 g/dL Low 12.0-15.0 [facility] Comment on above: Order Comment: No: D o not add to previous draw Performed By: #### 7 0069 #### [facility] [address] [facility] [place] [address], [facility] IMMATURE GRANS 0.7 % Normal 0.0-1.0 [facility] Comment on above: Order Comment: No: D o not add to previous draw Performed By: #### 7 0069 #### [facility] [address] [place] [address], [facility] Lymphocytes (Bld) [#/Vol] 2.1 10*3/uL Normal 1.2-4.0 [facility] Comment on above: Order Comment: No: D o not add to previous draw Performed By: #### 7 0069 #### [facility] [address] [facility] [place] [address], [facility] Lymphocytes/100 WBC (Bld) 19.1 % Low 20.0-45.0 [facility] Comment on above: Order Comment: No: D o not add to previous draw Performed By: #### 7 0069 #### [facility] [address] [place] [address], [facility] MCH (RBC) [Entitic mass] 25.4 pg Low 27.0-33.0 [facility] Comment on above: Order Comment: No: D o not add to previous draw Performed By: #### 7 0069 #### [facility] [address] [place] [address], [facility] MCHC (RBC) [Mass/Vol] 31.4 g/dL Low 32.0-35.0 [facility] Comment on above: Order Comment: No: D o not add to previous draw Performed By: #### 7 0069 #### [facility] [address] [place] [address], [facility] MCV (RBC) [Entitic vol] 80.6 fL Low 82.0-98.0 [facility] Comment on above: Order Comment: No: D o not add to previous draw Performed By: #### 7 0069 #### [facility] [address] [place] [address], [facility] Monocytes (Bld) [#/Vol] 0.8 10*3/uL Normal 0.1-1.0 [facility] Comment on above: Order Comment: No: D o not add to previous draw Performed By: #### 7 0069 #### [facility] [address] [facility] [place] [address], [place] MONOS 7.0 % Normal 5.0-12.0 [facility] Comment on above: Order Comment: No: D o not add to previous draw Performed By: #### 7 0069 #### [facility] [address] [place] [address], [place] Neutrophils/100 WBC (Bld) 68.4 % Normal 40.0-72.0 [facility] Comment on above: Order Comment: No: D o not add to previous draw Performed By: #### 7 0069 #### [facility] [address] [place] [address], [facility] Nucleated RBC/100 WBC (Bld) [Ratio] 0 % Normal 0-0 [facility] Comment on above: Order Comment: No: D o not add to previous draw Performed By: #### 7 0069 #### [facility] [address] [place] [address], [place] PLAT CNT 665 10*3/uL High 150-400 [facility] Comment on above: Order Comment: No: D o not add to previous draw Performed By: #### 7 0069 #### [facility] [address] [place] [address], [place] RBC (Bld) [#/Vol] 2.84 10*6/uL Low 3.80-5.00 [facility] Comment on above: Order Comment: No: D o not add to previous draw Performed By: #### 7 0069 #### [facility] [address] [place] [address], [place] WBC (Bld) [#/Vol] 11.07 10*3/uL High 4.00-10.60 [facility] Comment on above: Order Comment: No: D o not add to previous draw Performed By: #### 7 0069 #### [facility] [address] [place] [address], [place] CT ABDOMEN AND PELVIS W ORAL CONTRASTon 05-28-2020 CT ABDOMEN AND PELVIS W ORAL CONTRAST [facility] Department of Radiology [address] [place] [address] Patient Name: MAYTE BURRELL : 1985 Sex: F Age: Race: White Pt. Location: [id number] Patient Status: I Ordered Date: 05/28/2020 10:35:00 AM Completed Date: 05/28/2020 03:06 PM Requesting Provider: VERÓNICA DESHPANDE Attending Provider: VERÓNICA DESHPANDE Report Copy To: Signs & Symptoms: Abdominal Pain(specify) History: See Comments Comments: Fluid Collection, known endocarditis with ongoing back pain (negative MRI) and mixed inflammatory elevation/persistence. Assess for potential abd/pelvic sources. Exam: CT ABDOMEN AND PELVIS W ORAL CONTRAST CT ABDOMEN AND PELVIS W ORAL CONTRAST 05/28/2020 3:06 PM CLINICAL INDICATIONS: Fluid Collection, known endocarditis with ongoing back pain (negative MRI) and mixed inflammatory elevation/persistence. Assess for potential abd/pelvic sources. TECHNIQUE: CT abdomen and pelvis without intravenous contrast. All CT scans at this facility use dose modulation, iterative reconstruction, and/or weight based dosing when appropriate to reduce radiation dose to as low as reasonably achievable COMPARISON: None. FINDINGS: No pericardial effusion or thickening. Right lower lobe pleural-based nodule measuring 1.9 cm. Left lower lobe pleural-based nodules measuring 1.6 cm and 2 cm. Bilateral moderate pleural effusions, right more than left with higher than simple fluid attenuation. There is compressive atelectasis versus consolidative changes in the bilateral lower lobes. The complex fluid tracks along bilateral major fissures. The noncontrast image of the liver shows no definitive focal lesion. Gallbladder without radiopaque stones. Spleen, pancreas, and adrenal glands are unremarkable. Bilateral kidneys without focal lesion on noncontrast view. Urinary bladder and uterus are unremarkable. No bowel dilatation. No wall thickening. No free air. No free fluid. No acute osseous abnormality. IMPRESSION: * Bilateral lower lobe ill-defined pulmonary nodules most likely a sequelae of septic emboli given the history of endocarditis. Follow-up to radiographic resolution is recommended. * Small bilateral pleural effusions with associated atelectasis. Approved by:Savannah Alon05/29/2020 8:10 AM. I, Malathi Hall M.D.,have reviewed the images and reports Electronically signed: Malathi Hall M.D.. Transcribed by: [email or web address], User Resident: SAVANNAH AL Electronically Signed by: MALATHI HALL @ 05/29/2020 08:18 AM I personally read this/these film(s) with this resident Normal [facility] Comment on above: Order Comment: Fluid Collection, known endocarditis with ongoing back pain (negative MRI) and mixed inflammatory elevation/persistence. Assess for potential abd/pelvic sources. PROCALCITONINon 05-28-2020 PROCALCITONIN 0.14 ng/mL High 0.00-0.10 [facility] Comment on above: Order Comment: Yes: Add to Previous draw if able Result Comment: Susp ected Lower Respiratory Tract Infection: 0.1-0.25ng/mL- Low likelihood for bacterial infection;Antibiotics discouraged.* >0.25ng/mL- Increased likelihood bacterial infection;Antibiotics encouraged. ____ Suspected Sepsis: Strongly consider initiating antibiotics in all unstable patients. 0.1-0.5ng/mL- Low likelihood for sepsis; Antibiotics discouraged.* >0.5ng/mL- Increased likelihood sepsis; Antibiotics encouraged. >2.0ng/mL- High risk of sepsis/septic shock; Antibiotics strongly encouraged. *Recommend retesting PCT within 6-12hours if clinically indicated and initial PCT<0.5ng/mL Performed By: #### 7 0069 #### [facility] [address] [place] [address], [facility] SEDIMENTATION RATEon 020 SED RATE 130 mm/hr High 0-20 [facility] Comment on above: Performed By: #### 7 0069 #### [facility] [address] [place] [address], [facility] BASIC METABOLIC PANELon 05-03 Calcium [Mass/Vol] 8.3 mg/dL Low 8.6-10.3 [facility] Comment on above: Order Comment: Yes: Add to Previous draw if able Performed By: #### 3 1488 #### [facility] [address] [place] [address], [place] Chloride [Moles/Vol] 105 mmol/L Normal 98-107 [facility] Comment on above: Order Comment: Yes: Add to Previous draw if able Performed By: #### 3 1488 #### [facility] [address] [place] [address], [place] CO2 [Moles/Vol] 31 mmol/L Normal 21-31 [facility] Comment on above: Order Comment: Yes: Add to Previous draw if able Performed By: #### 3 1488 #### [facility] [address] [place] [address], [place] Creatinine [Mass/Vol] 1.42 mg/dL High 0.60-1.20 [facility] Comment on above: Order Comment: Yes: Add to Previous draw if able Performed By: #### 3 1488 #### [facility] [address] [place] [address], [place] GFR/1.73 sq M predicted among blacks MDRD (S/P/Bld) [Vol rate/Area] 51 ml/min/1.73sq m Abnormal >60 [facility] Comment on above: Order Comment: Yes: Add to Previous draw if able Performed By: #### 3 1488 #### [facility] [address] [place] [address], [place] GFR/1.73 sq M predicted among non-blacks MDRD (S/P/Bld) [Vol rate/Area] 42 ml/min/1.73sq m Abnormal >60 [facility] Comment on above: Order Comment: Yes: Add to Previous draw if able Performed By: #### 3 1488 #### [facility] [address] [place] [address], [place] Glucose [Mass/Vol] 84 mg/dL Normal 70-100 [facility] Comment on above: Order Comment: Yes: Add to Previous draw if able Performed By: #### 3 1488 #### [facility] [address] [place] [address], [place] Potassium [Moles/Vol] 4.3 mmol/L Normal 3.5-5.1 [facility] Comment on above: Order Comment: Yes: Add to Previous draw if able Performed By: #### 3 1488 #### [facility] [address] [place] [address], [place] Sodium [Moles/Vol] 140 mmol/L Normal 136-145 [facility] Comment on above: Order Comment: Yes: Add to Previous draw if able Performed By: #### 3 1488 #### [facility] [address] [place] [address], [place] Urea nitrogen [Mass/Vol] 28 mg/dL High 7-25 [facility] Comment on above: Order Comment: Yes: Add to Previous draw if able Performed By: #### 3 1488 #### [facility] [address] [facility] [address], [facility] CBC W/DIFFon 05-26-2020 ABS BASOPHILS 0.1 10*3/uL Normal 0.0-0.2 [facility] Comment on above: Order Comment: Yes: Add to Previous draw if able Performed By: #### 3 1488 #### [facility] [address] [facility] [place] [address], [facility] ABS IMM GRANS 0.1 10*3/uL Normal 0.0-0.2 [facility] Comment on above: Order Comment: Yes: Add to Previous draw if able Performed By: #### 3 1488 #### [facility] [address] [facility] [place] [address], [facility] ABS NEUTROPHILS 7.0 10*3/uL Normal 1.6-7.6 [facility] Comment on above: Order Comment: Yes: Add to Previous draw if able Performed By: #### 3 1488 #### [facility] [address] [facility] [place] [address], [facility] Basophils/100 WBC (Bld) 0.5 % Normal 0.0-1.0 [facility] Comment on above: Order Comment: Yes: Add to Previous draw if able Performed By: #### 3 1488 #### [facility] [address] [facility] [place] [address], [facility] Eosinophils (Bld) [#/Vol] 0.4 10*3/uL Normal 0.0-0.5 [facility] Comment on above: Order Comment: Yes: Add to Previous draw if able Performed By: #### 3 1488 #### [facility] [address] [facility] [place] [address], [facility] Eosinophils/100 WBC (Bld) 4.0 % Normal 0.0-6.0 [facility] Comment on above: Order Comment: Yes: Add to Previous draw if able Performed By: #### 3 1488 #### [facility] [address] [facility]. [address] Erythrocyte distribution width (RBC) [Ratio] 18.8 % High 11.5-15.0 [facility] Comment on above: Order Comment: Yes: Add to Previous draw if able Performed By: #### 3 1488 #### [facility] [address] [facility] [address] Hematocrit (Bld) [Volume fraction] 21.7 % Low 36.0-45.0 [facility] Comment on above: Order Comment: Yes: Add to Previous draw if able Performed By: #### 3 1488 #### [facility] [address] [facility] [address] Hemoglobin (Bld) [Mass/Vol] 7.0 g/dL Low 12.0-15.0 [facility] Comment on above: Order Comment: Yes: Add to Previous draw if able Performed By: #### 3 1488 #### [facility] [address] [facility] [place] [address], [facility] IMMATURE GRANS 0.8 % Normal 0.0-1.0 [facility] Comment on above: Order Comment: Yes: Add to Previous draw if able Performed By: #### 3 1488 #### [facility] [address] [facility] [place] [address], [facility] Lymphocytes (Bld) [#/Vol] 2.6 10*3/uL Normal 1.2-4.0 [facility] Comment on above: Order Comment: Yes: Add to Previous draw if able Performed By: #### 3 1488 #### [facility] [address] [place] [address], [facility] Lymphocytes/100 WBC (Bld) 23.7 % Normal 20.0-45.0 [facility] Comment on above: Order Comment: Yes: Add to Previous draw if able Performed By: #### 3 1488 #### [facility] [address] [place] [address], [facility] MCH (RBC) [Entitic mass] 25.8 pg Low 27.0-33.0 [facility] Comment on above: Order Comment: Yes: Add to Previous draw if able Performed By: #### 3 1488 #### [facility] [address] [place] [address], [facility] MCHC (RBC) [Mass/Vol] 32.3 g/dL Normal 32.0-35.0 [facility] Comment on above: Order Comment: Yes: Add to Previous draw if able Performed By: #### 3 1488 #### [facility] [address] [place] [address], [facility] MCV (RBC) [Entitic vol] 80.1 fL Low 82.0-98.0 [facility] Comment on above: Order Comment: Yes: Add to Previous draw if able Performed By: #### 3 1488 #### [facility] [address] [facility] [place] [address], [facility] Monocytes (Bld) [#/Vol] 0.7 10*3/uL Normal 0.1-1.0 [facility] Comment on above: Order Comment: Yes: Add to Previous draw if able Performed By: #### 3 1488 #### [facility] [address] [facility] [place] [address], [facility] MONOS 6.2 % Normal 5.0-12.0 [facility] Comment on above: Order Comment: Yes: Add to Previous draw if able Performed By: #### 3 1488 #### [facility] [address] [facility] [place] [address], [facility] Neutrophils/100 WBC (Bld) 64.8 % Normal 40.0-72.0 [facility] Comment on above: Order Comment: Yes: Add to Previous draw if able Performed By: #### 3 1488 #### [facility] [address] [place] [address], [facility] Nucleated RBC/100 WBC (Bld) [Ratio] 0 % Normal 0-0 [facility] Comment on above: Order Comment: Yes: Add to Previous draw if able Performed By: #### 3 1488 #### [facility] [address] [place] [address], [facility] PLAT CNT 529 10*3/uL High 150-400 [facility] Comment on above: Order Comment: Yes: Add to Previous draw if able Performed By: #### 3 1488 #### [facility] [address] [facility] [place] [address], [facility] RBC (Bld) [#/Vol] 2.71 10*6/uL Low 3.80-5.00 [facility] Comment on above: Order Comment: Yes: Add to Previous draw if able Performed By: #### 3 1488 #### [facility] [address] [place] [address], [facility] WBC (Bld) [#/Vol] 10.79 10*3/uL High 4.00-10.60 [facility] Comment on above: Order Comment: Yes: Add to Previous draw if able Performed By: #### 3 1488 #### [facility] [address] [facility] [place] [address], [facility] *ANAEROBIC CULTUREon 020 *ANAEROBIC CULTURE Clinical Report: (D) Specimen/Source: FLUID/THORACENTESIS FLUID Collected: 05/25/2020 16:24 Status: Final Last Updated: 05/30/2020 08:33 (1) Thoracentesis Fluid No: Do not add to previous draw No collection time noted on specimen or requisition. The collection time recorded is the time of receipt in the lab. CULT RES (Final) No Anaerobes Isolated 5 Days Normal [facility] Comment on above: Order Comment: Yes: Add to Previous draw if able Performed By: #### 3 1488 #### [facility] [address] *BODY FLUID CULTUREon 2019 *BODY FLUID CULTURE Clinical Report: (D) Specimen/Source: FLUID/THORACENTESIS FLUID Collected: 05/25/2020 16:24 Status: Final Last Updated: 05/30/2020 08:19 (1) No: Do not add to previous draw No collection time noted on specimen or requisition. The collection time recorded is the time of receipt in the lab. GRAM (Final) Many Polys No Bacteria Seen CYTOSPUN (Final) This Gram Stain was done on a cytocentrifuged specimen CULT RES (Final) No Growth Day 5 Normal [facility] Comment on above: Order Comment: Yes: Add to Previous draw if able Performed By: #### 3 1488 #### [address] APTTon 05-25-2020 aPTT Coag (Bld) [Time] 38.4 s High 25.0-35.0 [facility] Comment on above: Result Comment: ALL RESULTS MUST BE INTERPRETED WITH RESPECT TO BLOOD DRAWING ARTIFACT OR DILUTION ERROR OF ANTICOAGULANT AT THE TIME OF SAMPLING. THE APTT SHOULD NOT BE USED TO MONITOR UNFRACTIONATED HEPARIN THERAPY, THIS LABORATORY NO LONGER HAS AN ESTABLISHED THERAPEUTIC RANGE BASED ON THE APTT. IT IS RECOMMENDED THAT THE [facility] - HEPARIN ASSAY (ANTI-XA ACTIVITY) BE USED FOR THIS PURPOSE. Performed By: #### 1 0054 #### [facility] [address] BASIC METABOLIC PANELon 05-03 Calcium [Mass/Vol] 8.6 mg/dL Normal 8.6-10.3 [facility] Comment on above: Order Comment: No: D o not add to previous draw Performed By: #### 5 3041, 92787 #### [facility] [address] Chloride [Moles/Vol] 106 mmol/L Normal 98-107 [facility] Comment on above: Order Comment: No: D o not add to previous draw Performed By: #### 5 610, 85076 #### [facility] [address] [place] [address], [place] CO2 [Moles/Vol] 31 mmol/L Normal 21-31 [facility] Comment on above: Order Comment: No: D o not add to previous draw Performed By: #### 5 610, 97464 #### [facility] [address] [place] [address], [place] Creatinine [Mass/Vol] 1.38 mg/dL High 0.60-1.20 [facility] Comment on above: Order Comment: No: D o not add to previous draw Performed By: #### 5 6100, 53144 #### [facility] [address] [place] [address], [place] GFR/1.73 sq M predicted among blacks MDRD (S/P/Bld) [Vol rate/Area] 53 ml/min/1.73sq m Abnormal >60 [facility] Comment on above: Order Comment: No: D o not add to previous draw Performed By: #### 5 6100, 68752 #### [facility] [address] [place] [address], [place] GFR/1.73 sq M predicted among non-blacks MDRD (S/P/Bld) [Vol rate/Area] 44 ml/min/1.73sq m Abnormal >60 [facility] Comment on above: Order Comment: No: D o not add to previous draw Performed By: #### 5 6100, 90296 #### [facility] [address] [place] [address], [place] Glucose [Mass/Vol] 81 mg/dL Normal 70-100 [facility] Comment on above: Order Comment: No: D o not add to previous draw Performed By: #### 5 610, 12496 #### [facility] [address] [place] [address], [place] Potassium [Moles/Vol] 4.3 mmol/L Normal 3.5-5.1 [facility] Comment on above: Order Comment: No: D o not add to previous draw Performed By: #### 5 6101, 27021 #### [facility] [address] [place] [address], [facility] Sodium [Moles/Vol] 141 mmol/L Normal 136-145 [facility] Comment on above: Order Comment: No: D o not add to previous draw Performed By: #### 5 6101, 46991 #### [facility] [address] [facility]. [address] Urea nitrogen [Mass/Vol] 31 mg/dL High 7-25 [facility] Comment on above: Order Comment: No: D o not add to previous draw Performed By: #### 5 6101, 38254 #### [facility] [address] BETA SUBUNIT HCGon 0 HCG.beta subunit Qn m[IU]/mL Normal 0-5 [facility] Comment on above: Result Comment: FEMA LE REFERENCE RANGES: NON 0-5 4 WKS SINCE PERIOD 3-426 5 WKS SINCE PERIOD 19-7340 6 WKS SINCE PERIOD 1080-56,500 10 WKS SINCE PERIOD 54,100-288,000 18 WKS SINCE PERIOD 8,910-66,000 31 WKS SINCE PERIOD 5,310-27,400 MALE REFERENCE RANGE: 0-2 Performed By: #### 1 0054 #### [facility] [address] [facility] [place] [address], [facility] CBC W/DIFFon 05-25-2020 ABS BASOPHILS 0.1 10*3/uL Normal 0.0-0.2 [facility] Comment on above: Order Comment: No: D o not add to previous draw Performed By: #### 5 6101, 69686 #### [facility] [address] [place] [address], [facility] ABS IMM GRANS 0.1 10*3/uL Normal 0.0-0.2 [facility] Comment on above: Order Comment: No: D o not add to previous draw Performed By: #### 5 610, 62760 #### [facility] [address] [place] [id number], [facility] ABS NEUTROPHILS 7.5 10*3/uL Normal 1.6-7.6 [facility] Comment on above: Order Comment: No: D o not add to previous draw Performed By: #### 5 6100, 69674 #### [facility] [address] [facility] [place] [id number], [facility] Basophils/100 WBC (Bld) 0.5 % Normal 0.0-1.0 [facility] Comment on above: Order Comment: No: D o not add to previous draw Performed By: #### 5 6100, 66721 #### [facility] [address] [place] [id number], [facility] Eosinophils (Bld) [#/Vol] 0.5 10*3/uL Normal 0.0-0.5 [facility] Comment on above: Order Comment: No: D o not add to previous draw Performed By: #### 5 6100, 50492 #### [facility] [address] [facility] [place] [id number], [facility] Eosinophils/100 WBC (Bld) 4.0 % Normal 0.0-6.0 [facility] Comment on above: Order Comment: No: D o not add to previous draw Performed By: #### 5 6100, 73424 #### [facility] [address] [facility] [place] [id number], [place] Erythrocyte distribution width (RBC) [Ratio] 18.8 % High 11.5-15.0 [facility] Comment on above: Order Comment: No: D o not add to previous draw Performed By: #### 5 6100, 92072 #### [facility] [address] [facility] [place] [address], [facility] Hematocrit (Bld) [Volume fraction] 21.7 % Low 36.0-45.0 [facility] Comment on above: Order Comment: No: D o not add to previous draw Performed By: #### 5 6100, 16949 #### [facility] [address] [place] [address], [facility] Hemoglobin (Bld) [Mass/Vol] 6.9 g/dL Low 12.0-15.0 [facility] Comment on above: Order Comment: No: D o not add to previous draw Performed By: #### 5 6100, 15363 #### [facility] [address] [facility] [place] [address], [facility] IMMATURE GRANS 1.2 % High 0.0-1.0 [facility] Comment on above: Order Comment: No: D o not add to previous draw Performed By: #### 5 6100, 04207 #### [facility] [address] [facility] [place] [address], [facility] Lymphocytes (Bld) [#/Vol] 2.3 10*3/uL Normal 1.2-4.0 [facility] Comment on above: Order Comment: No: D o not add to previous draw Performed By: #### 5 6100, 70276 #### [facility] [address] [facility] [place] [address], [facility] Lymphocytes/100 WBC (Bld) 20.5 % Normal 20.0-45.0 [facility] Comment on above: Order Comment: No: D o not add to previous draw Performed By: #### 5 6100, 86872 #### [facility] [address] [facility] [place] [address], [facility] MCH (RBC) [Entitic mass] 25.4 pg Low 27.0-33.0 [facility] Comment on above: Order Comment: No: D o not add to previous draw Performed By: #### 5 6100, 14059 #### [facility] [address] [place] [id number], [facility] MCHC (RBC) [Mass/Vol] 31.8 g/dL Low 32.0-35.0 [facility] Comment on above: Order Comment: No: D o not add to previous draw Performed By: #### 5 6100, 36937 #### [facility] [address] [place] [id number], [facility] MCV (RBC) [Entitic vol] 79.8 fL Low 82.0-98.0 [facility] Comment on above: Order Comment: No: D o not add to previous draw Performed By: #### 5 6100, 86006 #### [facility] [address] [place] [address], [facility] Monocytes (Bld) [#/Vol] 0.8 10*3/uL Normal 0.1-1.0 [facility] Comment on above: Order Comment: No: D o not add to previous draw Performed By: #### 5 6100, 48062 #### [facility] [address] [place] [id number], [facility] MONOS 6.9 % Normal 5.0-12.0 [facility] Comment on above: Order Comment: No: D o not add to previous draw Performed By: #### 5 6100, 27087 #### [facility] [address] [place] [id number], [facility] Neutrophils/100 WBC (Bld) 66.9 % Normal 40.0-72.0 [facility] Comment on above: Order Comment: No: D o not add to previous draw Performed By: #### 5 6100, 11796 #### [facility] [address] [place] [id number], [facility] Nucleated RBC/100 WBC (Bld) [Ratio] 0 % Normal 0-0 [facility] Comment on above: Order Comment: No: D o not add to previous draw Performed By: #### 5 6100, 50961 #### [facility] [address] [place] [address], [facility] PLAT CNT 478 10*3/uL High 150-400 [facility] Comment on above: Order Comment: No: D o not add to previous draw Performed By: #### 5 6101, 63251 #### [facility] [address] [place] [address], [place] RBC (Bld) [#/Vol] 2.72 10*6/uL Low 3.80-5.00 [facility] Comment on above: Order Comment: No: D o not add to previous draw Performed By: #### 5 6101, 47443 #### [facility] [address] [place] [address], [place] WBC (Bld) [#/Vol] 11.23 10*3/uL High 4.00-10.60 [facility] Comment on above: Order Comment: No: D o not add to previous draw Performed By: #### 5 610, 39955 #### [facility] [address] [place] [id number], [facility] FERRITINon 05-25-2020 Ferritin [Mass/Vol] 169 ng/mL Normal 11-307 [facility] Comment on above: Performed By: #### 1 0054 #### [facility] [address] [place] [address], [facility] FLUID CELL COUNTon 0 Lymphocytes/100 WBC (Bld) 22 % Normal [facility] Comment on above: Order Comment: Yes: Add to Previous draw if able Performed By: #### 3 1488 #### [facility] [address] [place] [id number], [facility] MESOTHELIAL 22 Normal [facility] Comment on above: Order Comment: Yes: Add to Previous draw if able Performed By: #### 3 1488 #### [facility] [address] [place] [address], [facility] OTHER F1 Diff done by cytospin Normal [facility] Comment on above: Order Comment: Yes: Add to Previous draw if able Performed By: #### 3 1488 #### [facility] [address] [place] [id number], [facility] OTHER F3 Checked by Shahnaz crandall M.D. Normal [facility] Comment on above: Order Comment: Yes: Add to Previous draw if able Result Comment: Resu lt changed by TALA on 05/28/2020 12:59. The previous value was Preliminary report; verified report to follow. Performed By: #### 3 1488 #### [facility] [address] [place] [address], [facility] RBC (Bld) [#/Vol] 3319 RBC/uL Normal [facility] Comment on above: Order Comment: Yes: Add to Previous draw if able Performed By: #### 3 1488 #### [facility] [address] [place] [address], [facility] SEGS 56 Normal [facility] Comment on above: Order Comment: Yes: Add to Previous draw if able Performed By: #### 3 1488 #### [facility] [address] [place] [id number], [facility] SOURCE Thoracentesis Normal [facility] Comment on above: Order Comment: Yes: Add to Previous draw if able Performed By: #### 3 1488 #### [facility] [address] [place] [id number], [facility] TOTAL VOLUME 800 mL Normal [facility] Comment on above: Order Comment: Yes: Add to Previous draw if able Performed By: #### 3 1488 #### [facility] [address] [place] [id number], [facility] WBC (Bld) [#/Vol] 2390 WBC/uL Normal [facility] Comment on above: Order Comment: Yes: Add to Previous draw if able Result Comment: Some reference interval(s) and other method performance specifications have not been established for analytes on this body fluid. The test result must be integrated into the clinical context for interpretation. Performed By: #### 3 1488 #### [facility] [address] [place] [address], [facility] GLUCOSE FLUID MISCon 24-2 020 Glucose [Mass/Vol] 97 mg/dL Normal [facility] Comment on above: Order Comment: Yes: Add to Previous draw if able Result Comment: The reference range and other method performance specifications have not been established for this test in fluids. the test result should be integrated into the clinical context for interpretation. Performed By: #### 3 1488 #### [facility] [address] [place] [address], [facility] HAPTOGLOBINon 05-25-2020 HAPTOGLOBIN 343 mg/dL High 26-164 [facility] Comment on above: Order Comment: No: D o not add to previous draw Performed By: #### 1 0054 #### [facility] [address] [place] [address], [facility] IRON BLOODon 05-25-2020 Iron [Mass/Vol] 11 ug/dL Low 50-212 [facility] Comment on above: Performed By: #### 1 0054 #### [facility] [address] [place] [address], [facility] LDH BLOODon 05-25-2020 LDH 215 Units/L Normal 140-271 [facility] Comment on above: Performed By: #### 1 0054 #### [facility] [address] [place] [address], [place] LDH FLUIDon 05-25-2020 LDH 152 Units/L Normal [facility] Comment on above: Order Comment: Yes: Add to Previous draw if able Result Comment: The reference range and other method performance specifications have not been established for this test in fluids. the test result should be integrated into the clinical context for interpretation. Performed By: #### 3 1488 #### [facility] [address] [place] [address], [place] LIVER BATTERYon 05-25-2020 Albumin [Mass/Vol] 2.6 g/dL Low 3.5-5.7 [facility] Comment on above: Performed By: #### 5 610, 18429 #### [facility] [address] [place] [address], [place] ALKALINE PHOSPH 240 IU/L High 34-104 [facility] Comment on above: Performed By: #### 5 610, 60245 #### [facility] [address] [place] [address], [place] ALT [Catalytic activity/Vol] U/L Low 7-52 [facility] Comment on above: Performed By: #### 5 6100, 61599 #### [facility] [address] [place] [address], [place] AST [Catalytic activity/Vol] 13 U/L Normal 13-39 [facility] Comment on above: Performed By: #### 5 6100, 48330 #### [facility] [address] [place] [address], [place] Bilirubin [Mass/Vol] 0.5 mg/dL Normal 0.3-1.0 [facility] Comment on above: Performed By: #### 5 6100, 33445 #### [facility] [address] [place] [address], [place] Bilirubin.direct [Mass/Vol] 0.2 mg/dL Normal 0.0-0.2 [facility] Comment on above: Performed By: #### 5 610, 97217 #### [facility] [address] [place] [address], [place] Protein [Mass/Vol] 6.4 g/dL Normal 6.0-8.3 [facility] Comment on above: Performed By: #### 5 610, 31067 #### [facility] [address] [place] [address], [place] PORTABLE CHEST 1 VIEWon 05-03 PORTABLE CHEST 1 VIEW [facility] Department of Radiology [address] [place] [address] Patient Name: MAYTE BURRELL : 1985 Sex: F Age: Race: White Pt. Location: [id number] Patient Status: I Ordered Date: 05/25/2020 11:10:00 AM Completed Date: 05/25/2020 03:36 PM Requesting Provider: VERÓNICA DESHPANDE Attending Provider: VERÓNICA DESHPANDE Report Copy To: Signs & Symptoms: Post Thoracentesis History: Comments: evaluate Pneumothorax Exam: PORTABLE CHEST 1 VIEW PORTABLE CHEST 1 VIEW 05/25/2020 3:36 PM CLINICAL INDICATIONS: Post Thoracentesis TECHNOLOGIST COMMENTS: Post Thoracentesis , evaluate Pneumothorax QUESTION FOR THE RADIOLOGIST: evaluate Pneumothorax PROTOCOL: AP(PA) and Lateral views were obtained. COMPARISON: May 21 02/19/2013: 47 * FINDINGS: * Right arm PICC tip at the superior cavoatrial junction. No pneumothorax. Cardiomediastinal silhouette is unchanged. Minimally improved bilateral opacities, most conspicuous region involving the left parahilar region. Improved parahilar opacities. Pleural effusions as before. IMPRESSION: No pneumothorax. Improved right parahilar airspace disease with multifocal airspace disease remaining. Approved by:Brianne Carranza05/25/2020 3:45 PM. I, Reji Alexander,have reviewed the images and reports Electronically signed: Reji Alexander. Transcribed by: [email or web address], User Resident: BRIANNE VALERO Electronically Signed by: REJI ALEXANDER @ 05/25/2020 05:09 PM I personally read this/these film(s) with this resident Normal [facility] Comment on above: Order Comment: Yes: Add to Previous draw if able PORTABLE CHEST 1 VIEW [facility] Department of Radiology [address] [place] [id number] Patient Name: MAYTE BURRELL : 1985 Sex: F Age: Race: White Pt. Location: [address] [place] [address] Patient Status: I Ordered Date: 05/25/2020 1:20:00 PM Completed Date: 05/25/2020 01:57 PM Requesting Provider: VERÓNICA DESHPANDE Attending Provider: VERÓNICA DESHPANDE Report Copy To: Signs & Symptoms: Chest Pain History: Comments: evaluate Pneumothorax, pt with septic pulmonary emboli, heavy coughing with chest snapping sensation and increased pain. Exam: PORTABLE CHEST 1 VIEW PORTABLE CHEST 1 VIEW 05/25/2020 1:57 PM CLINICAL INDICATIONS: Chest Pain TECHNOLOGIST COMMENTS: Patient states she coughed and right sided anterior chest popped QUESTION FOR THE RADIOLOGIST: evaluate Pneumothorax, pt with septic pulmonary emboli, heavy coughing with chest snapping sensation and increased pain. PROTOCOL: AP(PA) view was obtained. COMPARISON: May 19, 2020 FINDINGS: Airspace opacities are again noted in the midlung mckeon bilaterally slightly worsened compared the prior study. Additional airspace opacity is noted in the lung bases, similar to the previous exam. The heart and mediastinum appear within normal limits. Transpedicular fixation in the thoracic spine remains. Right-sided PICC line is unchanged. IMPRESSION: Diffuse bilateral airspace disease suggesting pneumonia slightly worsened compared to the prior exam. Electronically signed: Jocelyn Carl. Transcribed by: [email or web address], User Resident: Electronically Signed by: JOCELYN CARL @ 05/25/2020 02:03 PM Normal [facility] Comment on above: Order Comment: No: D o not add to previous draw PROCALCITONINon 05-25-2020 PROCALCITONIN 0.72 ng/mL High 0.00-0.10 [facility] Comment on above: Order Comment: No: D o not add to previous draw Result Comment: Susp ected Lower Respiratory Tract Infection: 0.1-0.25ng/mL- Low likelihood for bacterial infection;Antibiotics discouraged.* >0.25ng/mL- Increased likelihood bacterial infection;Antibiotics encouraged. ____ Suspected Sepsis: Strongly consider initiating antibiotics in all unstable patients. 0.1-0.5ng/mL- Low likelihood for sepsis; Antibiotics discouraged.* >0.5ng/mL- Increased likelihood sepsis; Antibiotics encouraged. >2.0ng/mL- High risk of sepsis/septic shock; Antibiotics strongly encouraged. *Recommend retesting PCT within 6-12hours if clinically indicated and initial PCT<0.5ng/mL Performed By: #### 1 0054 #### [facility] [address] [place] [address], [facility] PROTHROMBIN TIMEon 0 INR Coag (PPP) [Relative time] 1.11 {INR} Normal 0.91-1.16 [facility] Comment on above: Order Comment: No: D o not add to previous draw Result Comment: ACCC P RECOMMENDED INR FOR WARFARIN THERAPY ----- ------- CONDITION INR PROPHYLAXIS OF VENOUS THROMBOSIS 2-3 (HIGH-RISK SURGERY) TREATMENT OF VENOUS THROMBOSIS 2-3 TREATMENT OF PULMONARY EMBOLISM 2-3 PREVENTION OF SYSTEMIC EMBOLISM: 2-3 ACUTE MYOCARDIAL INFARCTION TISSUE HEART VALVES VALVULAR HEART DISEASE ATRIAL FIBRILLATION RECURRENT SYSTEMIC EMBOLISM MECHANICAL HEART VALVE 2.5-3.5 FROM: ORAL ANTICOAGULANTS. MECHANISM OF ACTION, CLINICAL EFFECTIVENESS, AND OPTIMAL THERAPEUTIC RANGE. CHEST 1995;108:231S-246S. Performed By: #### 1 0054 #### [facility] [address] [facility] [place] [address], [facility] PT Coag (PPP) [Time] 14.3 s Normal 12.3-14.8 [facility] Comment on above: Order Comment: No: D o not add to previous draw Result Comment: ALL RESULTS MUST BE INTERPRETED WITH RESPECT TO BLOOD DRAWING ARTIFACT OR DILUTION ERROR OF ANTICOAGULANT AT THE TIME OF SAMPLING. Performed By: #### 1 0054 #### [facility] [address] [facility] [place] [address], [facility] T PROT FLUIDon 05-25-2020 Protein [Mass/Vol] g/dL Normal [facility] Comment on above: Order Comment: Yes: Add to Previous draw if able Result Comment: The reference range and other method performance specifications have not been established for this test in fluids. the test result should be integrated into the clinical context for interpretation. Performed By: #### 3 1488 #### [id number] [place] [address] US THORACENTESISon 0 US THORACENTESIS [facility] Department of Radiology [address] [place] [id number] Patient Name: MAYTE BURRELL : 1985 Sex: F Age: Race: White Pt. Location: [id number] Patient Status: I Ordered Date: 05/25/2020 11:10:00 AM Completed Date: 05/25/2020 03:59 PM Requesting Provider: VERÓNICA DESHPANDE Attending Provider: VERÓNICA DESHPANDE Report Copy To: Signs & Symptoms: Shortness of Breath History: See Comments Comments: Please drain: diagnostic reasons, possible loculated parapneumonic effusion Exam: US THORACENTESIS US THORACENTESIS 05/25/2020 3:59 PM CLINICAL INDICATIONS: Shortness of Breath TECHNOLOGIST COMMENTS: sob QUESTION FOR THE RADIOLOGIST: Please drain: diagnostic reasons, possible loculated parapneumonic effusion PROTOCOL: Nature of the procedure, indication possible complications were explained to the patient in details before consent was obtained. Patient was sitting on the exam table. Patient's right back was prepped and draped in the usual sterile fashion using maximal sterile barrier technique. 1% lidocaine was used to infiltrate and anesthetize skin and subcutaneous tissue at the puncture site. Under direct sonographic guidance, access into the right pleural cavity was obtained using 5 [place] one-step catheter. A total of 750 mL of cloudy serosanguineous fluid was drained. After the needle was removed sterile dressing was applied the puncture site. Postprocedure chest x-ray failed to demonstrate any significant pneumothorax. Patient tolerated procedure well with no immediate postprocedure complications. Estimated blood loss: Minimal. FINDINGS: There is a moderate to large right-sided pleural effusion. IMPRESSION: Uneventful right side thoracentesis and drainage of 750 mL of cloudy serous sinus fluid. The drained fluid was sent to the left for further testing. Electronically signed: Juan Manuel White. Transcribed by: [email or web address], User Resident: JUAN MANUEL WHITE Electronically Signed by: JUAN MANUEL WHITE @ 05/25/2020 04:06 PM I personally read this/these film(s) with this resident Normal [facility] Comment on above: Order Comment: No: D o not add to previous draw BASIC METABOLIC PANELon 07- Calcium [Mass/Vol] 8.2 mg/dL Low 8.6-10.3 [facility] Comment on above: Order Comment: No: D o not add to previous draw Performed By: #### 5 610, 35183 #### [facility] [address] [place] [address], [place] Chloride [Moles/Vol] 103 mmol/L Normal 98-107 [facility] Comment on above: Order Comment: No: D o not add to previous draw Performed By: #### 5 610, 64855 #### [facility] [address] [place] [address], [place] CO2 [Moles/Vol] 27 mmol/L Normal 21-31 [facility] Comment on above: Order Comment: No: D o not add to previous draw Performed By: #### 5 610, 95779 #### [facility] [address] [place] [address], [place] Creatinine [Mass/Vol] 1.85 mg/dL High 0.60-1.20 [facility] Comment on above: Order Comment: No: D o not add to previous draw Performed By: #### 5 610, 96702 #### [facility] [address] [place] [address], [place] GFR/1.73 sq M predicted among blacks MDRD (S/P/Bld) [Vol rate/Area] 38 ml/min/1.73sq m Abnormal >60 [facility] Comment on above: Order Comment: No: D o not add to previous draw Performed By: #### 5 6100, 68689 #### [facility] [address] [place] [address], [place] GFR/1.73 sq M predicted among non-blacks MDRD (S/P/Bld) [Vol rate/Area] 31 ml/min/1.73sq m Abnormal >60 [facility] Comment on above: Order Comment: No: D o not add to previous draw Performed By: #### 5 6100, 79826 #### [facility] [address] [place] [address], [place] Glucose [Mass/Vol] 88 mg/dL Normal 70-100 [facility] Comment on above: Order Comment: No: D o not add to previous draw Performed By: #### 5 6100, 37692 #### [facility] [address] [place] [address], [place] Potassium [Moles/Vol] 3.8 mmol/L Normal 3.5-5.1 [facility] Comment on above: Order Comment: No: D o not add to previous draw Performed By: #### 5 6100, 06878 #### [facility] [address] [place] [address], [place] Sodium [Moles/Vol] 138 mmol/L Normal 136-145 [facility] Comment on above: Order Comment: No: D o not add to previous draw Performed By: #### 5 6100, 93721 #### [facility] [address] [place] [address], [place] Urea nitrogen [Mass/Vol] 35 mg/dL High 7-25 [facility] Comment on above: Order Comment: No: D o not add to previous draw Performed By: #### 5 610, 18553 #### [facility] [address] [facility] [place] [address], [facility] CBC W/DIFFon 05-24-2020 ABS BASOPHILS 0.1 10*3/uL Normal 0.0-0.2 [facility] Comment on above: Order Comment: No: D o not add to previous draw Performed By: #### 5 610, 83025 #### [facility] [address] [facility] [place] [address], [facility] ABS IMM GRANS 0.2 10*3/uL Normal 0.0-0.2 [facility] Comment on above: Order Comment: No: D o not add to previous draw Performed By: #### 5 610, 74107 #### [facility] [address] [facility] [place] [address], [facility] ABS NEUTROPHILS 9.8 10*3/uL High 1.6-7.6 [facility] Comment on above: Order Comment: No: D o not add to previous draw Performed By: #### 5 610, 38931 #### [facility] [address] [facility] [place] [address], [facility] Basophils/100 WBC (Bld) 0.4 % Normal 0.0-1.0 [facility] Comment on above: Order Comment: No: D o not add to previous draw Performed By: #### 5 610, 88893 #### [facility] [address] [facility] [place] [address], [facility] Eosinophils (Bld) [#/Vol] 0.5 10*3/uL Normal 0.0-0.5 [facility] Comment on above: Order Comment: No: D o not add to previous draw Performed By: #### 5 610, 16201 #### [facility] [address] [place] [address], [facility] Eosinophils/100 WBC (Bld) 3.6 % Normal 0.0-6.0 [facility] Comment on above: Order Comment: No: D o not add to previous draw Performed By: #### 5 6100, 37304 #### [facility] [address] [place] [address], [facility] Erythrocyte distribution width (RBC) [Ratio] 18.2 % High 11.5-15.0 [facility] Comment on above: Order Comment: No: D o not add to previous draw Performed By: #### 5 6100, 83675 #### [facility] [address] [place] [address], [facility] Hematocrit (Bld) [Volume fraction] 22.3 % Low 36.0-45.0 [facility] Comment on above: Order Comment: No: D o not add to previous draw Performed By: #### 5 6100, 43928 #### [facility] [address] [place] [address], [facility] Hemoglobin (Bld) [Mass/Vol] 7.3 g/dL Low 12.0-15.0 [facility] Comment on above: Order Comment: No: D o not add to previous draw Performed By: #### 5 6100, 71756 #### [facility] [address] [place] [address], [facility] IMMATURE GRANS 1.3 % High 0.0-1.0 [facility] Comment on above: Order Comment: No: D o not add to previous draw Performed By: #### 5 6100, 74989 #### [facility] [address] [place] [id number], [facility] Lymphocytes (Bld) [#/Vol] 2.1 10*3/uL Normal 1.2-4.0 [facility] Comment on above: Order Comment: No: D o not add to previous draw Performed By: #### 5 6100, 04748 #### [facility] [address] [place] Lymphocytes/100 WBC (Bld) 15.9 % Low 20.0-45.0 [facility] Comment on above: Order Comment: No: D o not add to previous draw Performed By: #### 5 6100, 96017 #### [facility] [address] [place] [address], [facility] MCH (RBC) [Entitic mass] 25.9 pg Low 27.0-33.0 [facility] Comment on above: Order Comment: No: D o not add to previous draw Performed By: #### 5 6100, 05351 #### [facility] [address] [facility] [place] [address], [facility] MCHC (RBC) [Mass/Vol] 32.7 g/dL Normal 32.0-35.0 [facility] Comment on above: Order Comment: No: D o not add to previous draw Performed By: #### 5 6100, 90632 #### [facility] [address] [place] [address], [facility] MCV (RBC) [Entitic vol] 79.1 fL Low 82.0-98.0 [facility] Comment on above: Order Comment: No: D o not add to previous draw Performed By: #### 5 6100, 60192 #### [facility] [address] [facility] [place] [address], [facility] Monocytes (Bld) [#/Vol] 0.8 10*3/uL Normal 0.1-1.0 [facility] Comment on above: Order Comment: No: D o not add to previous draw Performed By: #### 5 6100, 57780 #### [facility] [address] [facility] [address] [place] [id number], [facility] MONOS 5.7 % Normal 5.0-12.0 [facility] Comment on above: Order Comment: No: D o not add to previous draw Performed By: #### 5 6100, 42320 #### [facility] [address] [facility] [place] [address], [facility] Neutrophils/100 WBC (Bld) 73.1 % High 40.0-72.0 [facility] Comment on above: Order Comment: No: D o not add to previous draw Performed By: #### 5 6101, 68415 #### [facility] [address] [facility] [place] [address], [facility] Nucleated RBC/100 WBC (Bld) [Ratio] 0 % Normal 0-0 [facility] Comment on above: Order Comment: No: D o not add to previous draw Performed By: #### 5 610, 37786 #### [facility] [address] [facility] [place] [address], [facility] PLAT CNT 435 10*3/uL High 150-400 [facility] Comment on above: Order Comment: No: D o not add to previous draw Performed By: #### 5 6101, 39588 #### [facility] [address] [facility] [place] [address], [facility] RBC (Bld) [#/Vol] 2.82 10*6/uL Low 3.80-5.00 [facility] Comment on above: Order Comment: No: D o not add to previous draw Performed By: #### 5 6101, 18052 #### [facility] [address] [facility] [place] [address], [place] WBC (Bld) [#/Vol] 13.34 10*3/uL High 4.00-10.60 [facility] Comment on above: Order Comment: No: D o not add to previous draw Performed By: #### 5 6101, 97743 #### [facility] [address] [place] [address], [facility] MRI LUMBAR SPINE WO CONTRAST on 05-24-2020 MRI LUMBAR SPINE WO CONTRAST [facility] Department of Radiology [address] [place] [address] Patient Name: MAYTE BURRELL : 1985 Sex: F Age: Race: White Pt. Location: [address] [place] [address] Patient Status: I Ordered Date: 05/22/2020 2:45:00 PM Completed Date: 05/24/2020 01:40 PM Requesting Provider: ADAM MORE Attending Provider: VERÓNICA DESHPANDE Report Copy To: Signs & Symptoms: Pain in Extremity (specify) History: See Comments pt could not tolerate further scanning - IV contrast not given...cj Comments: Osteomyelitis, low back pain with endocarditis rule out discitis /osteomyeltis Exam: MRI LUMBAR SPINE WO CONTRAST CLINICAL INFORMATION: Low back pain with endocarditis. Osteomyelitis/discitis? TECHNIQUE/PROCEDURE: Multiplanar, multisequence MR imaging of the lumbar spine was obtained without intravenous contrast COMPARISON: Lumbar spine radiographs May 22, 2020 FINDINGS: Vertebral body heights are maintained. Normal marrow signal characteristics throughout. No epidural or paraspinal fluid collection is identified given the limitations of no intravenous contrast. The visualized spinal cord is normal in size and signal intensity. Normal disc spaces throughout the lumbar spine aside from diffuse disc bulge at L5-S1 which is without significant central canal stenosis or neural foraminal narrowing. IMPRESSION: No evidence of discitis/osteoarthritis in the lumbar spine. No epidural or paraspinal fluid collection is identified given the limitations of no intravenous contrast. Electronically signed: Malathi Hall M.D.. Transcribed by: [email or web address], User Resident: Electronically Signed by: MALATHI HALL @ 05/25/2020 09:48 AM Normal [facility] Comment on above: Order Comment: No: D o not add to previous draw BASIC METABOLIC PANELon 07-2 Calcium [Mass/Vol] 8.2 mg/dL Low 8.6-10.3 [facility] Comment on above: Order Comment: No: D o not add to previous draw Performed By: #### 5 6101, 08394 #### [facility] [address] [place] [address], [place] Chloride [Moles/Vol] 105 mmol/L Normal 98-107 [facility] Comment on above: Order Comment: No: D o not add to previous draw Performed By: #### 5 6101, 85149 #### [facility] [address] [place] [address], [place] CO2 [Moles/Vol] 21 mmol/L Normal 21-31 [facility] Comment on above: Order Comment: No: D o not add to previous draw Performed By: #### 5 6101, 36174 #### [facility] [address] [place] [address], [place] Creatinine [Mass/Vol] 2.01 mg/dL High 0.60-1.20 [facility] Comment on above: Order Comment: No: D o not add to previous draw Performed By: #### 5 6101, 12310 #### [facility] [address] [place] [address], [place] GFR/1.73 sq M predicted among blacks MDRD (S/P/Bld) [Vol rate/Area] 34 ml/min/1.73sq m Abnormal >60 [facility] Comment on above: Order Comment: No: D o not add to previous draw Performed By: #### 5 6101, 05143 #### [facility] [address] [place] [address], [place] GFR/1.73 sq M predicted among non-blacks MDRD (S/P/Bld) [Vol rate/Area] 28 ml/min/1.73sq m Abnormal >60 [facility] Comment on above: Order Comment: No: D o not add to previous draw Performed By: #### 5 610, 12486 #### [facility] [address] [place] [address], [place] Glucose [Mass/Vol] 71 mg/dL Normal 70-100 [facility] Comment on above: Order Comment: No: D o not add to previous draw Performed By: #### 5 6100, 12547 #### [facility] [address] [place] [address], [place] Potassium [Moles/Vol] 3.7 mmol/L Normal 3.5-5.1 [facility] Comment on above: Order Comment: No: D o not add to previous draw Performed By: #### 5 610, 33418 #### [facility] [address] [place] [address], [place] Sodium [Moles/Vol] 137 mmol/L Normal 136-145 [facility] Comment on above: Order Comment: No: D o not add to previous draw Performed By: #### 5 6100, 20495 #### [facility] [address] [place] [address], [place] Urea nitrogen [Mass/Vol] 34 mg/dL High 7-25 [facility] Comment on above: Order Comment: No: D o not add to previous draw Performed By: #### 5 610, 06293 #### [facility] [address] [place] [address], [place] C REACTIVE PROTEINon 020 CRP [Mass/Vol] 135.0 mg/L High 0.0-7.0 [facility] Comment on above: Order Comment: No: D o not add to previous draw Performed By: #### 5 610, 80762 #### [facility] [address] [place] [address], [place] SEDIMENTATION RATEon 020 SED RATE 129 mm/hr High 0-20 [facility] Comment on above: Order Comment: No: D o not add to previous draw Performed By: #### 5 610, 67945 #### [facility] [address] [place] [address], [facility] *SARS-CoV-2 COVID-19on 05-22 [id number] Not Detected Normal Not Detected [facility] Comment on above: Order Comment: No: D o not add to previous draw Performed By: #### 5 610, 39157 #### [facility] [address] [place] [address], [facility] BASIC METABOLIC PANELon 05-03 Calcium [Mass/Vol] 8.1 mg/dL Low 8.6-10.3 [facility] Comment on above: Order Comment: No: D o not add to previous draw Performed By: #### 5 610, 40529 #### [facility] [address] [place] [address], [place] Chloride [Moles/Vol] 105 mmol/L Normal 98-107 [facility] Comment on above: Order Comment: No: D o not add to previous draw Performed By: #### 5 610, 94071 #### [facility] [address] [place] [address], [place] CO2 [Moles/Vol] 23 mmol/L Normal 21-31 [facility] Comment on above: Order Comment: No: D o not add to previous draw Performed By: #### 5 610, 31850 #### [facility] [address] [place] [address], [place] Creatinine [Mass/Vol] 2.08 mg/dL High 0.60-1.20 [facility] Comment on above: Order Comment: No: D o not add to previous draw Performed By: #### 5 610, 05534 #### [facility] [address] [place] [address], [place] GFR/1.73 sq M predicted among blacks MDRD (S/P/Bld) [Vol rate/Area] 33 ml/min/1.73sq m Abnormal >60 [facility] Comment on above: Order Comment: No: D o not add to previous draw Performed By: #### 5 610, 62420 #### [facility] [address] [place] [address], [place] GFR/1.73 sq M predicted among non-blacks MDRD (S/P/Bld) [Vol rate/Area] 27 ml/min/1.73sq m Abnormal >60 [facility] Comment on above: Order Comment: No: D o not add to previous draw Performed By: #### 5 610, 07795 #### [facility] [address] [place] [address], [place] Glucose [Mass/Vol] 67 mg/dL Low 70-100 [facility] Comment on above: Order Comment: No: D o not add to previous draw Performed By: #### 5 610, 09695 #### [facility] [address] [place] [address], [place] Potassium [Moles/Vol] 3.6 mmol/L Normal 3.5-5.1 [facility] Comment on above: Order Comment: No: D o not add to previous draw Performed By: #### 5 610, 49012 #### [facility] [address] [place] [address], [place] Sodium [Moles/Vol] 139 mmol/L Normal 136-145 [facility] Comment on above: Order Comment: No: D o not add to previous draw Performed By: #### 5 610, 13629 #### [facility] [address] [place] [address], [place] Urea nitrogen [Mass/Vol] 32 mg/dL High 7-25 [facility] Comment on above: Order Comment: No: D o not add to previous draw Performed By: #### 5 610, 12323 #### [facility] [address] [place] [address], [place] CBC COMPLETE BLOOD COUNTon 0 05-22-2020 Erythrocyte distribution width (RBC) [Ratio] 18.2 % High 11.5-15.0 [facility] Comment on above: Order Comment: No: D o not add to previous draw Performed By: #### 5 610, 88046 #### [facility] [address] [place] [address], [facility] Hematocrit (Bld) [Volume fraction] 26.1 % Low 36.0-45.0 [facility] Comment on above: Order Comment: No: D o not add to previous draw Performed By: #### 5 610, 13317 #### [facility] [address] [facility] [place] [address], [facility] Hemoglobin (Bld) [Mass/Vol] 8.6 g/dL Low 12.0-15.0 [facility] Comment on above: Order Comment: No: D o not add to previous draw Performed By: #### 5 6100, 77009 #### [facility] [address] [facility] [place] [address], [facility] MCH (RBC) [Entitic mass] 25.8 pg Low 27.0-33.0 [facility] Comment on above: Order Comment: No: D o not add to previous draw Performed By: #### 5 6100, 57581 #### [facility] [address] [facility] [place] [address], [facility] MCHC (RBC) [Mass/Vol] 33.0 g/dL Normal 32.0-35.0 [facility] Comment on above: Order Comment: No: D o not add to previous draw Performed By: #### 5 610, 35710 #### [facility] [address] [place] [id number], [facility] MCV (RBC) [Entitic vol] 78.4 fL Low 82.0-98.0 [facility] Comment on above: Order Comment: No: D o not add to previous draw Performed By: #### 5 6101, 13706 #### [facility] [address] [facility]. [address] Nucleated RBC/100 WBC (Bld) [Ratio] 0 % Normal 0-0 [facility] Comment on above: Order Comment: No: D o not add to previous draw Performed By: #### 5 6101, 49477 #### [facility] [address] [facility] [place] [address], [facility] PLAT CNT 363 10*3/uL Normal 150-400 [facility] Comment on above: Order Comment: No: D o not add to previous draw Performed By: #### 5 6101, 75673 #### [facility] [address] [facility] [place] [address], [facility] RBC (Bld) [#/Vol] 3.33 10*6/uL Low 3.80-5.00 [facility] Comment on above: Order Comment: No: D o not add to previous draw Performed By: #### 5 6101, 24863 #### [facility] [address] [facility] [place] [address], [facility] WBC (Bld) [#/Vol] 12.14 10*3/uL High 4.00-10.60 [facility] Comment on above: Order Comment: No: D o not add to previous draw Performed By: #### 5 6101, 89834 #### [address] CHEST WO CONTRASTon 05-22 CT CHEST WO CONTRAST [facility] Department of Radiology [address] [place] [address] Patient Name: MAYTE BURRELL : 1985 Sex: F Age: Race: White Pt. 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 re-eval of pleural loculations Exam: CT CHEST WO CONTRAST CT CHEST WO CONTRAST 05/22/2020 11:59 AM CLINICAL INDICATIONS: Fluid Collection TECHNOLOGIST COMMENTS: C/o SOB with chest pain and cough. 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 re-eval of pleural loculations PROTOCOL: Axial CT images of the chest were obtained without IV contrast. TECHNIQUE: Multidetector CT axial slices of the chest were obtained without IV contrast. Multiplanar reformats were performed and viewed on a separate workstation and reviewed to further define anatomy and possible pathology. All CT scans at this facility use dose modulation, iterative reconstruction, and/or weight based dosing when appropriate to reduce radiation dose to as low as reasonably achievable. COMPARISON: 05/19/2020 CT chest.. FINDINGS: Extensive airspace disease remains evident with multifocal infiltrates including upper and lower lobes as well as lingula and right middle lobe. There is a moderate-sized left pleural effusion and a moderate to large right pleural effusion. Mediastinal lymph node prominence remains evident, unchanged. Overall there is slight interval worsening from 05/19/2020 particularly in the left upper lobe. The visualized subdiaphragmatic structures appear unchanged. There is diffuse body wall edema. Post surgical changes are seen in the thoracic spine with streak artifact from thoracic spine hardware. IMPRESSION: Redemonstration of multifocal airspace disease, severe with slight interval worsening from 05/19/2020. Bilateral pleural effusions remain similar, moderate to large on the right and moderate size on the left. Electronically signed: Lucy Mauricio. Transcribed by: [email or web address], User Resident: Electronically Signed by: LUCY MAURICIO @ 05/22/2020 12:21 PM Normal [facility] Comment on above: Order Comment: No: D o not add to previous draw HCV NAAT REFLEX TO GENOTYPE [id number] 05-22-2020 HCV QNT BY NAAT INTERP Detected Abnormal Not Detected [facility] Comment on above: Order Comment: Yes: Add to Previous draw if able Result Comment: INTE RPRETIVE INFORMATION: HCV by Quantitative NAAT Normal range for this assay is Not Detected . The quantitative range of this assay is 10 - 100,000,000 IU/mL (1.0 - 8.0 log IU/mL). Lower limit of quantitation (LLoQ): 10 IU/mL (1.0 log IU/mL) LLoQ values do not apply to diluted specimens. A result of Not Detected does not rule out the presence of inhibitors in the patient specimen or hepatitis C virus RNA concentrations below the level of detection of the test. Care should be taken when interpreting any single viral load determination. This test should not be used for blood donor screening, associated re-entry protocols, or for screening Human Cell, Tissues and Cellular Tissue-Based Products (HCT/P). Performed by [facility], [address] [place] [id number] [email or web address], Tino Blandon MD - Lab. Director HCV QNT BY NAAT LOG 6.70 log IU/mL Normal [facility] Comment on above: Order Comment: Yes: Add to Previous draw if able Result Comment: Hepa titis C Virus Genotype by Sequencing added. HCV QNT NAAT 5,063,862 Normal [facility] Comment on above: Order Comment: Yes: Add to Previous draw if able HEP C GENOTYPING [id number] HEP C GENOTYPING 1a or 1b Normal [facility] Comment on above: Result Comment: Jessica ot be further subtyped into Type 1a or Type 1b due to high conservation of the 5' untranslated region of the HCV genome. In addition, Type 6 virus may be misclassified as Type 1 in some cases. The Hepatitis C Virus High-Resolution Genotype by Sequencing test ([employer] test code [id number]) provides a higher level of subtype resolution. INTERPRETIVE INFORMATION: Hepatitis C Genotyping Hepatitis C Viral RNA is tested using reverse stereo equipment salesperson polymerase chain reaction (RT-PCR) to amplify a specific portion of the 5' untranslated region (5' UTR) of the viral genome. The amplified nucleic acid is sequenced bi-directionally using dye-terminator chemistry ([employer]). Sequencing data is compared to a database of characterized sequences. Isolates of hepatitis C virus are grouped into six major genotypes (1-6). These genotypes are subtyped according to sequence characteristics. Due to high conservation of the 5' un-translated region of the HCV genome, this test has limitations in differentiating subtype 1a from 1b. Therefore, these subtypes will be reported as 1a or 1b. In rare instances, Type 6 virus may be misclassified as Type 1. Test developed and characteristics determined by [facility]. See Compliance Statement B: [employer]/CS Performed By: [facility] [address] [place] [id number] Administrative Operations Coordinator: Tino Blandon MD, MS LUMBAR SPINE 2 OR 3 [facility] LUMBAR SPINE 2 OR 3 [facility] Department of Radiology [address] [place] [address] Patient Name: MAYTE BURRELL : 1985 Sex: F Age: Race: White Pt. Location: [id number] Patient Status: I Ordered Date: 05/22/2020 2:50:00 PM Completed Date: 05/22/2020 04:47 PM Requesting Provider: ADAM MORE Attending Provider: VERÓNICA DESHPANDE Report Copy To: Signs & Symptoms: Back Pain History: Comments: Evaluate for back pain and endocarditis rule out osteomyelitis MRI is ordered too Exam: LUMBAR SPINE 2 OR 3 [facility] LUMBAR SPINE 2 OR 3 [facility] 05/22/2020 4:47 PM CLINICAL INDICATIONS: Back Pain TECHNOLOGIST COMMENTS: pt states she has low back pain for the last week, surgery and staph infection to back 3 years ago QUESTION FOR RADIOLOGIST: Evaluate for back pain and endocarditis rule out osteomyelitis MRI is ordered too PROTOCOL: AP, Lateral and L5-S1 spot film was obtained. COMPARISON: None. FINDINGS: The vertebral body heights and disc spaces are well-maintained. There is no evidence for acute osseous adenopathy. No significant degenerative changes are seen. There is partial demonstration metallic hardware in the lower thoracic spine. IMPRESSION: Normal lumbar spine. Electronically signed: Verónica Elam. Transcribed by: [email or web address], User Resident: Electronically Signed by: VERÓNICA ELAM @ 05/23/2020 10:23 AM Normal [facility] Comment on above: Order Comment: No: D o not add to previous draw MAGNESIUM BLOODon 05-22-2020 Magnesium [Mass/Vol] 2.3 mg/dL Normal 1.9-2.7 [facility] Comment on above: Order Comment: No: D o not add to previous draw Performed By: #### 5 6101, 77036 #### [facility] [address] [facility] [place] [address], [facility] BASIC METABOLIC PANELon 05-03 Calcium [Mass/Vol] 8.2 mg/dL Low 8.6-10.3 [facility] Comment on above: Order Comment: No: D o not add to previous draw Performed By: #### 0 0121, 83087, 35383 #### [facility] [address] [facility] [place] [address], [facility] Chloride [Moles/Vol] 108 mmol/L High 98-107 [facility] Comment on above: Order Comment: No: D o not add to previous draw Performed By: #### 0 0121, 42478, 74760 #### [facility] [address] [place] [address], [place] CO2 [Moles/Vol] 13 mmol/L Critically low 21-31 [facility] Comment on above: Order Comment: No: D o not add to previous draw Result Comment: M-CR ITICAL RESULT(S) REVIEWED, CALLED TO AND READ BACK BY MINERVA BURCIAGA AT 0947 Performed By: #### 0 0121, 15535, 72172 #### [facility] [address] [place] [address], [place] Creatinine [Mass/Vol] 2.11 mg/dL High 0.60-1.20 [facility] Comment on above: Order Comment: No: D o not add to previous draw Performed By: #### 0 0121, 99703, 52706 #### [facility] [address] [place] [address], [place] GFR/1.73 sq M predicted among blacks MDRD (S/P/Bld) [Vol rate/Area] 32 ml/min/1.73sq m Abnormal >60 [facility] Comment on above: Order Comment: No: D o not add to previous draw Performed By: #### 0 0121, 34982, 56328 #### [facility] [address] [place] [address], [place] GFR/1.73 sq M predicted among non-blacks MDRD (S/P/Bld) [Vol rate/Area] 27 ml/min/1.73sq m Abnormal >60 [facility] Comment on above: Order Comment: No: D o not add to previous draw Performed By: #### 0 0121, 63155, 34526 #### [facility] [address] [place] [address], [place] Glucose [Mass/Vol] 51 mg/dL Low 70-100 [facility] Comment on above: Order Comment: No: D o not add to previous draw Performed By: #### 0 0121, 41439, 53801 #### [facility] [address] [place] [address], [place] Potassium [Moles/Vol] 4.4 mmol/L Normal 3.5-5.1 [facility] Comment on above: Order Comment: No: D o not add to previous draw Performed By: #### 0 0121, 85088, 96904 #### [facility] [address] [place] [address], [place] Sodium [Moles/Vol] 135 mmol/L Low 136-145 [facility] Comment on above: Order Comment: No: D o not add to previous draw Performed By: #### 0 0121, 28635, 45724 #### [facility] [address] [place] [address], [facility] Urea nitrogen [Mass/Vol] 29 mg/dL High 7-25 [facility] Comment on above: Order Comment: No: D o not add to previous draw Performed By: #### 0 0121, , 01028 #### [facility] [address] [place] [address], [facility] CBC COMPLETE BLOOD COUNTon 0 05-21-2020 Erythrocyte distribution width (RBC) [Ratio] 18.5 % High 11.5-15.0 [facility] Comment on above: Order Comment: No: D o not add to previous drawScreaming bad words at me about her veins. Benita is aware Performed By: #### 0 0121, 20066, 57149 #### [facility] [address] [place] [address], [place] Hematocrit (Bld) [Volume fraction] 26.4 % Low 36.0-45.0 [facility] Comment on above: Order Comment: No: D o not add to previous drawScreaming bad words at me about her veins. Benita is aware Performed By: #### 0 0121, 31341, 56308 #### [facility] [address] [place] [address], [place] Hemoglobin (Bld) [Mass/Vol] 8.3 g/dL Low 12.0-15.0 [facility] Comment on above: Order Comment: No: D o not add to previous drawScreaming bad words at me about her veins. Benita is aware Performed By: #### 0 0121, 16128, 30908 #### [facility] [address] [place] [address], [facility] MCH (RBC) [Entitic mass] 25.9 pg Low 27.0-33.0 [facility] Comment on above: Order Comment: No: D o not add to previous drawScreaming bad words at nj about her veins. Benita is aware Performed By: #### 0 0121, 89693, 52525 #### [facility] [address] [place] [address], [facility] MCHC (RBC) [Mass/Vol] 31.4 g/dL Low 32.0-35.0 [facility] Comment on above: Order Comment: No: D o not add to previous drawScreaming bad words at nj about her veins. Benita is aware Performed By: #### 0 0121, 84384, 49591 #### [facility] [address] [place] [address], [facility] MCV (RBC) [Entitic vol] 82.2 fL Normal 82.0-98.0 [facility] Comment on above: Order Comment: No: D o not add to previous drawScreaming bad words at nj about her veins. Benita is aware Performed By: #### 0 0121, 66187, 47624 #### [facility] [address] [place] [address], [facility] Nucleated RBC/100 WBC (Bld) [Ratio] 0 % Normal 0-0 [facility] Comment on above: Order Comment: No: D o not add to previous drawScreaming bad words at nj about her veins. Benita is aware Performed By: #### 0 0121, 16110, 68502 #### [facility] [address] [place] [address], [facility] PLAT CNT 264 10*3/uL Normal 150-400 [facility] Comment on above: Order Comment: No: D o not add to previous drawScreaming bad words at me about her veins. Benita is aware Performed By: #### 0 0121, 18278, 15877 #### [facility] [address] [place] [address], [facility] RBC (Bld) [#/Vol] 3.21 10*6/uL Low 3.80-5.00 [facility] Comment on above: Order Comment: No: D o not add to previous drawScreaming bad words at me about her veins. Benita is aware Performed By: #### 0 0121, 17165, 48819 #### [facility] [address] [place] [address], [facility] WBC (Bld) [#/Vol] 16.97 10*3/uL High 4.00-10.60 [facility] Comment on above: Order Comment: No: D o not add to previous drawScreaming bad words at me about her veins. Benita is aware Performed By: #### 0 0121, 27950, 54740 #### [facility] [address] [facility] [place] [address], [facility] HIV COMBO 4Gon 05-21-2020 HIV COMBO Negative Normal NEGATIVE [facility] Comment on above: Performed By: #### 0 0121, 37621, 93682 #### [facility] [address] [facility] [place] [address], [facility] MAGNESIUM BLOODon 05-21-2020 Magnesium [Mass/Vol] 2.3 mg/dL Normal 1.9-2.7 [facility] Comment on above: Order Comment: No: D o not add to previous draw Performed By: #### 0 0121, 85689, 25485 #### [facility] [address] [place] [address], [facility] PHOSPHORUS BLOODon 07-20-202 0 Phosphate [Mass/Vol] 5.3 mg/dL High 2.5-5.0 [facility] Comment on above: Order Comment: No: D o not add to previous draw Performed By: #### 0 0121, 71429, 02848 #### [facility] [address] [facility] [place] [address], [facility] POC GLUCOSE LABon 05-21-2020 Glucose [Mass/Vol] 117 mg/dL High 70-100 [facility] Comment on above: Performed By: #### 8 5123 #### [facility] [address] [facility] [place] [address], [facility] Glucose [Mass/Vol] 95 mg/dL Normal 70-100 [facility] Comment on above: Performed By: #### 0 0121, 13019, 91154 #### [facility] [address] [facility] [place] [address], [facility] US RENALon 05-21-2020 US RENAL [facility] Department of Radiology [address] [place], [place] [id number] Patient Name: MAYTE BURRELL : 1985 Sex: F Age: Race: White Pt. Location: [id number] Patient Status: I Ordered Date: 05/20/2020 8:25:00 AM Completed Date: 05/21/2020 12:55 PM Requesting Provider: NAREN ROMO Attending Provider: SEBASTIÁN GRIMM Report Copy To: Signs & Symptoms: Increased Creatinine History: See Comments Comments: Hydronephrosis Exam: US RENAL US RENAL 05/21/2020 12:55 PM SIGNS AND SYMPTOMS: Increased Creatinine TECHNOLOGIST COMMENTS: increased creatine QUESTION FOR THE RADIOLOGIST: Hydronephrosis TECHNIQUE: Limited retroperitoneal ultrasound. COMPARISON: none FINDINGS: The right kidney measures 13.8 x 5.6 x 4.2 cm and the left kidney 11.6 x 5.1 x 4.7. No cyst, mass or hydronephrosis was appreciated. Known bilateral pleural effusions redemonstrated. IMPRESSION: No hydronephrosis. Electronically signed: Jocelyn Carl. Transcribed by: [email or web address], User Resident: Electronically Signed by: JOCELYN CARL @ 05/21/2020 01:24 PM Normal [facility] Comment on above: Order Comment: No: D o not add to previous draw *BLOOD CULTUREon 05-20-2020 Bacteria identified Cx Nom (Bld) Clinical Report: (D) Specimen: BLOOD CULTURE Collected: 05/19/2020 23:14 Status: Final Last Updated: 05/25/2020 07:31 (1) Right wrist CULT RES (Final) No Growth Day 5 Normal [facility] Comment on above: Order Comment: No: D o not add to previous draw Performed By: #### 0 0121, 39797, 20101 #### [facility] [address] [facility] [place] [address], [facility] ANAon 05-20-2020 Nuclear Ab IF (S) [Titer] <1:40 Normal <1:40,1:40 [facility] Comment on above: Order Comment: No: D o not add to previous draw Performed By: #### 5 6101, 64661 #### [facility] [address] [place] [address], [facility] ANCA IGG WITH REFLEX [id number] on 05-20-2020 ANCA <1:20 Normal <1:20 [facility] Comment on above: Order Comment: No: D o not add to previous draw Result Comment: The ANCA IFA is <1:20; therefore, no further testing will be performed. INTERPRETIVE INFORMATION: Anti-Neutrophil Cyto Ab, IgG Neutrophil Cytoplasmic Antibodies (C-ANCA = granular cytoplasmic staining, P-ANCA = perinuclear staining) are found in the serum of over 90 percent of patients with certain necrotizing systemic vasculitides, and usually in less than 5 percent of patients with collagen vascular disease or arthritis. Performed By: [facility] [address] [place] [id number] Administrative Operations Coordinator: Tino Blandon MD, MS BASIC METABOLIC PANELon 05-02 Calcium [Mass/Vol] 8.1 mg/dL Low 8.6-10.3 [facility] Comment on above: Order Comment: No: D o not add to previous draw Performed By: #### 0 0121, 18755, 67504 #### [facility] [address] [place] [address], [facility] Chloride [Moles/Vol] 110 mmol/L High 98-107 [facility] Comment on above: Order Comment: No: D o not add to previous draw Performed By: #### 0 0121, 97206, 11625 #### [facility] [address] [place] [address], [facility] CO2 [Moles/Vol] 17 mmol/L Low 21-31 [facility] Comment on above: Order Comment: No: D o not add to previous draw Performed By: #### 0 0121, 49162, 65237 #### [facility] [address] [place] [address], [facility] Creatinine [Mass/Vol] 2.19 mg/dL High 0.60-1.20 [facility] Comment on above: Order Comment: No: D o not add to previous draw Performed By: #### 0 0121, 60412, 50772 #### [facility] [address] [facility] [place] [address], [facility] GFR/1.73 sq M predicted among blacks MDRD (S/P/Bld) [Vol rate/Area] 31 ml/min/1.73sq m Abnormal >60 [facility] Comment on above: Order Comment: No: D o not add to previous draw Performed By: #### 0 0121, 62236, 75219 #### [facility] [address] [place] [address], [place] GFR/1.73 sq M predicted among non-blacks MDRD (S/P/Bld) [Vol rate/Area] 25 ml/min/1.73sq m Abnormal >60 [facility] Comment on above: Order Comment: No: D o not add to previous draw Performed By: #### 0 0121, 33007, 98606 #### [facility] [address] [place] [address], [place] Glucose [Mass/Vol] 58 mg/dL Low 70-100 [facility] Comment on above: Order Comment: No: D o not add to previous draw Performed By: #### 0 0121, 38250, 84263 #### [facility] [address] [place] [address], [place] Potassium [Moles/Vol] 4.0 mmol/L Normal 3.5-5.1 [facility] Comment on above: Order Comment: No: D o not add to previous draw Performed By: #### 0 0121, 56425, 55679 #### [facility] [address] [place] [address], [place] Sodium [Moles/Vol] 138 mmol/L Normal 136-145 [facility] Comment on above: Order Comment: No: D o not add to previous draw Performed By: #### 0 0121, 24446, 14029 #### [facility] [address] [place] [address], [place] Urea nitrogen [Mass/Vol] 22 mg/dL Normal 7-25 [facility] Comment on above: Order Comment: No: D o not add to previous draw Performed By: #### 0 0121, 13973, 17296 #### [facility] [address] [place] [address], [place] CBC W/DIFFon 05-20-2020 ABS BASOPHILS 0.1 10*3/uL Normal 0.0-0.2 [facility] Comment on above: Order Comment: No: D o not add to previous draw Performed By: #### 0 0121, 06824, 62358 #### [facility] [address] [place] [address], [facility] ABS IMM GRANS 0.4 10*3/uL High 0.0-0.2 [facility] Comment on above: Order Comment: No: D o not add to previous draw Performed By: #### 0 0121, 30211, 57350 #### [facility] [address] [facility] [place] [address], [facility] ABS NEUTROPHILS 9.5 10*3/uL High 1.6-7.6 [facility] Comment on above: Order Comment: No: D o not add to previous draw Performed By: #### 0 0121, 70408, 85083 #### [facility] [address] [facility] [place] [address], [facility] Basophils/100 WBC (Bld) 0.4 % Normal 0.0-1.0 [facility] Comment on above: Order Comment: No: D o not add to previous draw Performed By: #### 0 0121, 47877, 61792 #### [facility] [address] [facility] [place] [address], [facility] Eosinophils (Bld) [#/Vol] 0.5 10*3/uL Normal 0.0-0.5 [facility] Comment on above: Order Comment: No: D o not add to previous draw Performed By: #### 0 0121, 57218, 72525 #### [facility] [address] [facility] [place] [address], [facility] Eosinophils/100 WBC (Bld) 3.4 % Normal 0.0-6.0 [facility] Comment on above: Order Comment: No: D o not add to previous draw Performed By: #### 0 0121, 86806, 46128 #### [facility] [address] [facility] [place] [address], [facility] Erythrocyte distribution width (RBC) [Ratio] 17.9 % High 11.5-15.0 [facility] Comment on above: Order Comment: No: D o not add to previous draw Performed By: #### 0 0121, 45296, 62493 #### [facility] [address] [facility] [place] [address], [facility] Hematocrit (Bld) [Volume fraction] 20.7 % Low 36.0-45.0 [facility] Comment on above: Order Comment: No: D o not add to previous draw Performed By: #### 0 0121, , 85809 #### [facility] [address] [facility] [place] [address], [facility] Hemoglobin (Bld) [Mass/Vol] 6.9 g/dL Low 12.0-15.0 [facility] Comment on above: Order Comment: No: D o not add to previous draw Performed By: #### 0 0121, , 16831 #### [facility] [address] [facility] [place] [address], [facility] IMMATURE GRANS 3.1 % High 0.0-1.0 [facility] Comment on above: Order Comment: No: D o not add to previous draw Performed By: #### 0 0121, 40112, 90472 #### [facility] [address] [facility] [place] [address], [facility] Lymphocytes (Bld) [#/Vol] 1.9 10*3/uL Normal 1.2-4.0 [facility] Comment on above: Order Comment: No: D o not add to previous draw Performed By: #### 0 0121, 90451, 69321 #### [facility] [address] [place] [address], [facility] Lymphocytes/100 WBC (Bld) 14.2 % Low 20.0-45.0 [facility] Comment on above: Order Comment: No: D o not add to previous draw Performed By: #### 0 0121, 81137, 57377 #### [facility] [address] [place] [address], [facility] MCH (RBC) [Entitic mass] 25.5 pg Low 27.0-33.0 [facility] Comment on above: Order Comment: No: D o not add to previous draw Performed By: #### 0 0121, 57769, 74411 #### [facility] [address] [place] [address], [facility] MCHC (RBC) [Mass/Vol] 33.3 g/dL Normal 32.0-35.0 [facility] Comment on above: Order Comment: No: D o not add to previous draw Performed By: #### 0 0121, 99992, 16506 #### [facility] [address] [place] [address], [facility] MCV (RBC) [Entitic vol] 76.4 fL Low 82.0-98.0 [facility] Comment on above: Order Comment: No: D o not add to previous draw Performed By: #### 0 0121, , 47819 #### [facility] [address] [place] [address], [facility] Monocytes (Bld) [#/Vol] 1.0 10*3/uL Normal 0.1-1.0 [facility] Comment on above: Order Comment: No: D o not add to previous draw Performed By: #### 0 0121, 22844, 35713 #### [facility] [address] [place] [id number], [facility] MONOS 7.6 % Normal 5.0-12.0 [facility] Comment on above: Order Comment: No: D o not add to previous draw Performed By: #### 0 0121, 94924, 17056 #### [facility] [address] [place] [id number], [facility] Neutrophils/100 WBC (Bld) 71.3 % Normal 40.0-72.0 [facility] Comment on above: Order Comment: No: D o not add to previous draw Performed By: #### 0 0121, 98267, 22480 #### [facility] [address] [place] [address], [facility] Nucleated RBC/100 WBC (Bld) [Ratio] 0 % Normal 0-0 [facility] Comment on above: Order Comment: No: D o not add to previous draw Performed By: #### 0 0121, 56550, 39069 #### [facility] [address] [place] [address], [facility] PLAT CNT 314 10*3/uL Normal 150-400 [facility] Comment on above: Order Comment: No: D o not add to previous draw Performed By: #### 0 0121, 27293, 84412 #### [facility] [address] [place] [address], [facility] RBC (Bld) [#/Vol] 2.71 10*6/uL Low 3.80-5.00 [facility] Comment on above: Order Comment: No: D o not add to previous draw Performed By: #### 0 0121, 96134, 37977 #### [facility] [address] [place] [address], [facility] WBC (Bld) [#/Vol] 13.38 10*3/uL High 4.00-10.60 [facility] Comment on above: Order Comment: No: D o not add to previous draw Performed By: #### 0 0121, 24671, 52277 #### [facility] [address] [place] [address], [place] COMPLEMENT 3on 05-20-2020 COMPLEMENT 3 81 mg/dL Normal 79-152 [facility] Comment on above: Order Comment: No: D o not add to previous draw Performed By: #### 8 5123 #### [facility] [address] [place] [address], [facility] COMPLEMENT 4on 05-20-2020 COMPLEMENT 4 23 mg/dL Normal 16-38 [facility] Comment on above: Order Comment: No: D o not add to previous draw Performed By: #### 8 5123 #### [facility] [address] [facility] [place] [address], [facility] CREATININE URINE RANDOMon Creatinine [Mass/Vol] 165.0 mg/dL Normal [facility] Comment on above: Order Comment: No: D o not add to previous draw Result Comment: Ther e are no established reference values for random urine specimens Performed By: #### 0 0121, 06919, 77817 #### [facility] [address] [facility] [place] [address], [facility] CRYOGLOBULIN ILon 05-20-2020 CRYOGLOBULIN 0 mg/dL Normal 0-10 [facility] Comment on above: Order Comment: No: D o not add to previous draw CT CHEST WO CONTRASTon 05-20 CT CHEST WO CONTRAST [facility] Department of Radiology [address] [place] [id number] Patient Name: MAYTE BURRELL : 1985 Sex: F Age: Race: White Pt. Location: [id number] Patient Status: I Ordered Date: 05/19/2020 10:50:00 PM Completed Date: 05/19/2020 11:32 PM Requesting Provider: RIGOBERTO PONCE Attending Provider: SEBASTIÁN GRIMM Report Copy To: Signs & Symptoms: Infiltrates History: See Comments Comments: Infiltrates Exam: CT CHEST WO CONTRAST CT CHEST WO CONTRAST 05/19/2020 11:32 PM CLINICAL INDICATIONS: Infiltrates TECHNOLOGIST COMMENTS: Pt is transfer from outside hospital with chest pain and sob. Pt here for endocarditis. No labs available at this time. Pt states had neg covid test at outside hospital. Recent h/o OD by inhalants. QUESTIONS PER RADIOLOGIST: Infiltrates PROTOCOL: Axial CT images of the chest were obtained without IV contrast. TECHNIQUE: Multidetector CT axial slices of the chest were obtained without IV contrast. Multiplanar reformats were performed and viewed on a separate workstation and reviewed to further define anatomy and possible pathology. All CT scans at this facility use dose modulation, iterative reconstruction, and/or weight based dosing when appropriate to reduce radiation dose to as low as reasonably achievable. COMPARISON: None.. FINDINGS: Lower neck: Thyroid gland within normal limits, no supraclavicle adenopathy. Vessels: Within normal limits. No significant calcification of the thoracic aorta. Mediastinum and Melissa: There are some borderline enlarged mediastinal lymph nodes. The largest is paratracheal measuring 1 cm in short axis dimension. Heart: Heart size is within normal limits. No pericardial effusion. Airways: Within normal limits Lungs: Multifocal areas of consolidation affecting all lung lobes. There are large areas of groundglass opacity within the bilateral upper lobes. There is dense airspace consolidation in the medial right lower lobe. Pleura: Mild to moderate left pleural effusion. Moderate to large loculated right pleural effusion. Chest Wall: Unremarkable. Upper Abdomen: Unremarkable. Bones: No acute or aggressive osseous lesions. Lumbar fusion hardware extending from T2 to T9 without evidence of complication. Postsurgical changes of the T5 vertebral body. Severe degenerative changes of the lower cervical spine. IMPRESSION: * Multifocal areas of consolidation affecting all lung lobes. There are large areas of consolidation within the medial right lower lobe and the left upper lobe. Findings are most consistent with multifocal pneumonia. I note the history of recent negative test for read virus but some features of these pulmonary abnormalities are typical for Covid 19 infection. * Mild to moderate left pleural effusion. Moderate to large loculated right pleural effusion. * Borderline enlarged mediastinal lymph nodes Approved by:Jyotsna Terrell05/19/2020 11:49 PM. I, Liam Acosta,have reviewed the images and reports Electronically signed: Liam Acosta. Transcribed by: [email or web address], User Resident: [email or web address] CAIN Electronically Signed by: LIAM ACOSTA @ 05/20/2020 12:00 AM I personally read this/these film(s) with this resident Normal [facility] Comment on above: Order Comment: No: D o not add to previous draw GLOMR BASMT MEMBRon 05-20-20 20 GLOMR BASMT MBRN Negative Normal NEGATIVE [facility] Comment on above: Order Comment: No: D o not add to previous draw Result Comment: Note : The performance characteristics of this test were validated by the [facility] Immunology laboratory. It has not been cleared or approved by the U.S. Food and Drug Administration. The results are not intended to be used as the sole means for clinical diagnosis or patient management decisions. [facility]'s Immunology lab is authorized under CLIA to perform high-complexity testing. Performed By: #### 8 5123 #### [facility] [address] [place] [address], [facility] HAPTOGLOBINon 05-20-2020 HAPTOGLOBIN 338 mg/dL High 26-164 [facility] Comment on above: Order Comment: No: D o not add to previous draw Performed By: #### 8 5123 #### [facility] [address] [facility] [place] [address], [facility] HEMOGLOBINon 05-20-2020 Hemoglobin (Bld) [Mass/Vol] 7.0 g/dL Low 12.0-15.0 [facility] Comment on above: Order Comment: No: D o not add to previous draw Performed By: #### 0 0121, 65087, 55650 #### [facility] [address] [place] [address], [facility] HEP B CORE AB IGM [id number] HEP B CORE IGM Positive Abnormal Negative [facility] Comment on above: Order Comment: No: D o not add to previous draw Result Comment: The POSITIVE anti-HBc IgM indicates recent Hepatitis B infection and a possibly infectious patient. INTERPRETIVE INFORMATION: Hepatitis B Core Ab, IgM This assay should not be used for blood donor screening, associated re-entry protocols, or for screening Human Cells, Tissues and Cellular and Tissue-Based Products (HCT/P). Performed by [facility], [address] [place] [id number] [email or web address], Tino Blandon MD - Lab. Director HEPATITIS B SURFACE ANTIBODY QUANTon 05-20-2020 HEP B SURF AB 53.27 mIU/ml Normal [facility] Comment on above: Order Comment: No: D o not add to previous draw Result Comment: INTE RPRETATION: NONREACTIVE<8.00 mIU/mL INDETERMINATE8.00 - 12.00 mIU/mL REACTIVE>12 mIU/mL Performed By: #### 0 0121, 69970, 31996 #### [facility] [address] HEPATITIS B SURFACE ANTIGEN QUALon 05-20-2020 HEP B SURF AG QUAL NONREACTIVE Normal NONREACTIVE [facility] Comment on above: Order Comment: No: D o not add to previous draw Performed By: #### 0 0121, 64948, 67853 #### [facility] [address] [facility]. [address] HEPATITIS C ANTIBODYon 05-20 ANTI-HCV REACTIVE Abnormal NONREACTIVE [facility] Comment on above: Order Comment: No: D o not add to previous draw Result Comment: HEPA TITIS B SURFACE ANTIGEN TO BE CONFIRMED Performed By: #### 0 0121, 32303, 92902 #### [facility] [address] [facility]. [address] HEPATITIS C BY TMAon 020 HCV 35,018,872 IU/mL Normal [facility] Comment on above: Order Comment: No: D o not add to previous draw Performed By: #### 5 6101, 56652 #### [facility] [address] HCV LOG BASE 10 7.54 Log10 IU/mL Normal [facility] Comment on above: Order Comment: No: D o not add to previous draw Performed By: #### 5 6101, 65466 #### [facility] [address] [place] [address], [place] HCV TMA INTERPRETATION Detected Normal [facility] Comment on above: Order Comment: No: D o not add to previous draw Performed By: #### 5 6101, 98010 #### [facility] [address] [place] [address], [facility] IMMUNOFIXATION BLOODon 05-20 IgA [Mass/Vol] 212 mg/dL Normal 60-413 [facility] Comment on above: Order Comment: No: D o not add to previous draw Performed By: #### 8 5123 #### [facility] [address] [place] [address], [facility] IgG [Mass/Vol] 1020 mg/dL Normal 591-1540 [facility] Comment on above: Order Comment: No: D o not add to previous draw Performed By: #### 8 5123 #### [facility] [address] [place] [address], [place] IgM [Mass/Vol] 225 mg/dL Normal 54-285 [facility] Comment on above: Order Comment: No: D o not add to previous draw Performed By: #### 8 5123 #### [facility] [address] [place] [address], [place] IMMUNOFIXATION SERUM IMMUNOFIXATION REVEALS A NORMAL PATTERN. SEE SEPARATE REPORT. Normal [facility] Comment on above: Order Comment: No: D o not add to previous draw Performed By: #### 8 5123 #### [facility] [address] [place] [address], [place] MAGNESIUM BLOODon 05-20-2020 Magnesium [Mass/Vol] 2.1 mg/dL Normal 1.9-2.7 [facility] Comment on above: Order Comment: No: D o not add to previous draw Performed By: #### 0 0121, 60310, 89826 #### [address] [address], [facility] POC GLUCOSE LABon 05-20-2020 Glucose [Mass/Vol] 71 mg/dL Normal 70-100 [facility] Comment on above: Performed By: #### 0 0121, 21156, 86125 #### [address] [address], [facility] PORTABLE CHEST 1 VIEWon 05-02 PORTABLE CHEST 1 VIEW [facility] Department of Radiology [address] [place] [id number] Patient Name: MAYTE BURRELL : 1985 Sex: F Age: Race: White Pt. Location: [address] [place] [address] Patient Status: I Ordered Date: 05/19/2020 7:00:00 PM Completed Date: 05/19/2020 11:20 PM Requesting Provider: NICOLE ROMERO Attending Provider: SEBASTIÁN GRIMM Report Copy To: Signs & Symptoms: Shortness of Breath History: See Comments Comments: R/O Infiltrates Exam: PORTABLE CHEST 1 VIEW PORTABLE CHEST 1 VIEW 05/19/2020 11:20 PM CLINICAL INDICATIONS: Shortness of Breath TECHNOLOGIST COMMENTS: Shortness of breath QUESTION FOR THE RADIOLOGIST: R/O Infiltrates PROTOCOL: AP(PA) view was obtained. COMPARISON: None. FINDINGS: Trachea is midline. Cardiomediastinal silhouette is unremarkable. There are diffuse patchy opacities affecting the bilateral lungs. Large hazy opacity over the left upper lung. Moderate right pleural effusion extending into the minor fissure. Small left pleural effusion. No pneumothorax. Thoracic fusion hardware without evidence of complication. IMPRESSION: * Multifocal patchy opacities of the bilateral lungs most consistent with an atypical pneumonia. * Bilateral pleural effusions, right greater than left. Approved by:Jyotsna Terrell05/20/2020 12:10 AM. I, Liam Acosta,have reviewed the images and reports Electronically signed: Liam Acosta. Transcribed by: [id number], User Resident: [email or web address] CAIN Electronically Signed by: LIAM ACOSTA @ 05/20/2020 01:18 AM I personally read this/these film(s) with this resident Normal [facility] Comment on above: Order Comment: No: D o not add to previous draw PROTEIN ELECT Rafael 05-20-2020 Protein [Mass/Vol] Normal [facility] Comment on above: Order Comment: No: D o not add to previous draw Result Comment: Decr eased albumin and elevated alpha 1 and 2 suggests acute inflammation. Performed By: #### 0 0121, 19600, 26738 #### [facility] [address] [place] [address], [place] Protein [Mass/Vol] 5.2 g/dL Low 6.0-8.3 [facility] Comment on above: Order Comment: No: D o not add to previous draw Performed By: #### 0 0121, 46910, 11764 #### [facility] [address] 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 Normal [facility] Comment on above: Order Comment: No: D o not add to previous draw Performed By: #### 0 0121, 89028, 92109 #### [facility] [address] [place] [address], [place] Protein [Mass/Vol] 161.0 mg/dL Normal [facility] Comment on above: Order Comment: No: D o not add to previous draw Result Comment: Ther e are no established reference values for random urine specimens Performed By: #### 0 0121, 70674, 64473 #### [facility] [address] [place] [address], [place] RBC'S 2 UNITSon 05-20-2020 CROSSMATCH INTERP 1 COMP Normal [facility] Comment on above: Order Comment: No: D o not add to previous draw Performed By: #### 0 0121, 43050, 24257 #### [facility] [address] [place] [address], [place] CROSSMATCH INTERP 2 COMP Normal [facility] Comment on above: Order Comment: No: D o not add to previous draw Performed By: #### 0 0121, 18286, 18074 #### [facility] [address] [place] [address], [place] PRODUCT CODE 1 E0336 Normal [facility] Comment on above: Order Comment: No: D o not add to previous draw Performed By: #### 0 0121, 44907, 78085 #### [facility] [address] [place] [address], [place] PRODUCT CODE 2 E0336 Normal [facility] Comment on above: Order Comment: No: D o not add to previous draw Performed By: #### 0 0121, 52455, 28761 #### [facility] [address] [place] [address], [place] PRODUCT STATUS 1 RE Normal [facility] Comment on above: Order Comment: No: D o not add to previous draw Result Comment: Resu lt changed by IF on 05/24/2020 06:43. The previous value was XM. Performed By: #### 0 0121, 57406, 56543 #### [facility] [address] [place] [address], [place] PRODUCT STATUS 2 PT Normal [facility] Comment on above: Order Comment: No: D o not add to previous draw Result Comment: Resu lt changed by IF on 05/20/2020 12:26. The previous value was XM. Result changed by IF on 05/21/2020 00:30. The previous value was IS. Performed By: #### 0 0121, 87587, 97082 #### [facility] [address] [place] [address], [facility] ABO 1 O Normal [facility] Comment on above: Order Comment: No: D o not add to previous draw Performed By: #### 0 0121, 29920, 10977 #### [facility] [address] [place] [address], [facility] ABO 2 O Normal [facility] Comment on above: Order Comment: No: D o not add to previous draw Performed By: #### 0 0121, 92255, 77224 #### [facility] [address] [place] [address], [facility] ID 1 [id number] Normal [facility] Comment on above: Order Comment: No: D o not add to previous draw Performed By: #### 0 0121, 54801, 66852 #### [facility] [address] [place] [address], [facility] ID 2 [id number] Normal [facility] Comment on above: Order Comment: No: D o not add to previous draw Performed By: #### 0 0121, 02949, 60402 #### [facility] [address] [place] [address], [place] UNIT RH 1 Positive Normal [facility] Comment on above: Order Comment: No: D o not add to previous draw Performed By: #### 0 0121, 61262, 20910 #### [facility] [address] [place] [address], [place] UNIT RH 2 Positive Normal [facility] Comment on above: Order Comment: No: D o not add to previous draw Performed By: #### 0 0121, 89395, 96785 #### [facility] [address] RHEUMATOID FACTOR SERUMon RA <20 Normal 0-20 [facility] Comment on above: Order Comment: No: D o not add to previous draw Performed By: #### 8 5123 #### [facility] [address] [place] [address], [facility] SEDIMENTATION RATEon 020 SED RATE 120 mm/hr High 0-20 [facility] Comment on above: Result Comment: Resu lt changed by VHERR on 05/20/2020 07:22. The previous value was 3. Performed By: #### 0 0121, 38311, 80411 #### [facility] [address] [facility] [address] SERUM FREE LIGHT CHAINS ILon 05-20-2020 FREE KAPPA LIGHT CHAINS 7.47 mg/dL High 0.37-1.94 [facility] Comment on above: Order Comment: No: D o not add to previous draw FREE KAPPA/LAMBDA RATIO 1.01 Normal 0.26-1.65 [facility] Comment on above: Order Comment: No: D o not add to previous draw FREE LAMBDA LIGHT CHAINS 7.37 mg/dL High 0.57-2.63 [facility] Comment on above: Order Comment: No: D o not add to previous draw TOX PANEL URINEon 05-20-2020 50 THC Positive Abnormal NEGATIVE [facility] Comment on above: Order Comment: No: D o not add to previous draw Performed By: #### 0 0121, 24326, 40615 #### [facility] [address] [place] [address], [facility] BARBITURATES Negative Normal NEGATIVE [facility] Comment on above: Order Comment: No: D o not add to previous draw Performed By: #### 0 0121, 03114, 72799 #### [facility] [address] [place] [address], [place] Benzodiazepines Ql (U) Negative Normal NEGATIVE [facility] Comment on above: Order Comment: No: D o not add to previous draw Performed By: #### 0 0121, 01101, 68507 #### [facility] [address] [place] [address], [place] Cocaine Ql (U) Negative Normal NEGATIVE [facility] Comment on above: Order Comment: No: D o not add to previous draw Performed By: #### 0 0121, 71885, 34960 #### [facility] [address] [place] [address], [place] Methadone Ql (U) Negative Normal NEGATIVE [facility] Comment on above: Order Comment: No: D o not add to previous draw Performed By: #### 0 0121, 27048, 19014 #### [facility] [address] [place] [address], [place] MONO AMPHET Positive Abnormal NEGATIVE [facility] Comment on above: Order Comment: No: D o not add to previous draw Performed By: #### 0 0121, 86662, 37236 #### [facility] [address] [place] [address], [place] Opiates Ql (U) Negative Normal NEGATIVE [facility] Comment on above: Order Comment: No: D o not add to previous draw Performed By: #### 0 0121, 91183, 59399 #### [facility] [address] [place] [address], [place] Phencyclidine Ql (U) Negative Normal NEGATIVE [facility] Comment on above: Order Comment: No: D o not add to previous draw Performed By: #### 0 0121, 61768, 97004 #### [facility] [address] [place] [address], [place] PROPOXYPHENE Negative Normal NEGATIVE [facility] Comment on above: Order Comment: No: D o not add to previous draw Performed By: #### 0 0121, 11580, 95829 #### [facility] [address] [place] [address], [facility] TRICYCLICS Positive Abnormal NEGATIVE [facility] Comment on above: Order Comment: No: D o not add to previous draw Performed By: #### 0 0121, 72651, 00479 #### [facility] [address] [place] [address], [facility] TROPONIN-Ion 05-20-2020 Troponin I.cardiac [Mass/Vol] 0.01 ng/mL Normal 0.00-0.04 [facility] Comment on above: Order Comment: No: D o not add to previous draw Result Comment: REFE RENCE RANGES: 0.00 - 0.04 ng/ml NORMAL 0.05 - 0.50 ng/ml INDETERMINATE > 0.50 ng/ml CONSISTENT WITH AN M.I. Performed By: #### 0 0121, 18357, 79884 #### [facility] [address] [place] [address], [facility] TYPE AND SCREENon 05-20-2020 ABO INTERPRETATION O Normal [facility] Comment on above: Performed By: #### 0 0121, 00576, 19574 #### [facility] [address] [place] [address], [facility] RH INTERPRETATION Positive Normal [facility] Comment on above: Performed By: #### 0 0121, 69774, 13716 #### [facility] [address] [place] [address], [place] URIC ACID BLOODon 05-20-2020 Urate [Mass/Vol] 5.9 mg/dL Normal 2.3-6.6 [facility] Comment on above: Order Comment: No: D o not add to previous draw Performed By: #### 0 0121, 34236, 29184 #### [facility] [address] [place] [address], [place] URINE MIX STAIN/EOSon EOSINOPHIL SMEAR NONE SEEN Normal NSN [facility] Comment on above: Order Comment: No: D o not add to previous draw [place] Normal [facility] Comment on above: Order Comment: No: D o not add to previous draw Result Comment: Test Performed by [employer] [address] [address] - Released 05/21/2020 12:54 Result Comment: Test Performed by [employer] [address] [address] - Released 05/21/2020 11:39 Result changed by IF on 05/21/2020 11:27. The previous value was Test Performed by [facility] [address] [phone] Result changed by IF on 05/21/2020 11:39. The previous value was Test Performed by [facility] [address] [phone] Result Comment: Test Performed by [employer] [address] [place] [address] - Released 05/25/2020 08:06 VANCOMYCIN TIMEDon 0 VANCOMYCIN TIMED 24.4 mcg/mL Normal [facility] Comment on above: Performed By: #### 0 0121, 85805, 18271 #### [facility] [address] [facility] [place] [address], [facility] VENOUS BLOOD GASon 0 BASE EXCESS -7 mmol/L Normal [facility] Comment on above: Order Comment: No: D o not add to previous draw Performed By: #### 0 0121, 48939, 90424 #### [facility] [address] [place] [address], [facility] FIO2 21 % Normal [facility] Comment on above: Order Comment: No: D o not add to previous draw Performed By: #### 0 0121, 08970, 31530 #### [facility] [address] [place] [address], [place] HCO3 (Bld) [Moles/Vol] 18 mmol/L Normal [facility] Comment on above: Order Comment: No: D o not add to previous draw Performed By: #### 0 0121, 33765, 02206 #### [facility] [address] [place] [address], [place] Oxygen (Bld) [Partial pressure] 35 mm[Hg] Normal 35-45 [facility] Comment on above: Order Comment: No: D o not add to previous draw Performed By: #### 0 0121, 41171, 57797 #### [facility] [address] [place] [address], [facility] Oxygen saturation in Blood 59.1 % Low 65.0-75.0 [facility] Comment on above: Order Comment: No: D o not add to previous draw Performed By: #### 0 0121, , 27916 #### [facility] [address] [place] [address], [facility] PCO2 31 mmHg Low 40-50 [facility] Comment on above: Order Comment: No: D o not add to previous draw Performed By: #### 0 0121, 89476, 51292 #### [facility] [address] [place] [address], [place] pH (Bld) 7.37 [pH] Normal 7.31-7.41 [facility] Comment on above: Order Comment: No: D o not add to previous draw Performed By: #### 0 0121, 79923, 11798 #### [facility] [address] [place] [address], [place] BASE EXCESS -8 mmol/L Normal [facility] Comment on above: Performed By: #### 7 9 #### [facility] [address] [place] [address], [place] HCO3 (Bld) [Moles/Vol] 16 mmol/L Normal [facility] Comment on above: Performed By: #### 7 9 #### [facility] [address] [place] [address], [facility] Oxygen (Bld) [Partial pressure] 41 mm[Hg] Normal 35-45 [facility] Comment on above: Performed By: #### 7 0069 #### [facility] [address] [place] [address], [facility] Oxygen saturation in Blood 81.7 % High 65.0-75.0 [facility] Comment on above: Performed By: #### 7 0069 #### [facility] [address] [place] [address], [facility] PCO2 26 mmHg Low 40-50 [facility] Comment on above: Performed By: #### 7 0069 #### [facility] [address] [place] [address], [facility] pH (Bld) 7.40 [pH] Normal 7.31-7.41 [facility] Comment on above: Performed By: #### 7 0069 #### [facility] [address] [facility] [place], [place] [address] [place] [address] *BLOOD CULTUREon 05-19-2020 Bacteria identified Cx Nom (Bld) Clinical Report: (D) Specimen: BLOOD CULTURE Collected: 05/19/2020 19:49 Status: Final Last Updated: 05/25/2020 07:31 CULT RES (Final) No Growth Day 5 Normal [facility] Comment on above: Performed By: #### 0 0121, 69423, 33678 #### [facility] [address] [place] [address], [facility] APTTon 05-19-2020 aPTT Coag (Bld) [Time] 36.7 s High 25.0-35.0 [facility] Comment on above: Order Comment: No: D o not add to previous draw Result Comment: ALL RESULTS MUST BE INTERPRETED WITH RESPECT TO BLOOD DRAWING ARTIFACT OR DILUTION ERROR OF ANTICOAGULANT AT THE TIME OF SAMPLING. THE APTT SHOULD NOT BE USED TO MONITOR UNFRACTIONATED HEPARIN THERAPY, THIS LABORATORY NO LONGER HAS AN ESTABLISHED THERAPEUTIC RANGE BASED ON THE APTT. IT IS RECOMMENDED THAT THE [facility] - HEPARIN ASSAY (ANTI-XA ACTIVITY) BE USED FOR THIS PURPOSE. Performed By: #### 5 6101, [address]9317 #### [address] BNP (B-TYPE NATRIURETIC PEPT AMY)on 05-19-2020 Natriuretic peptide B (Bld) [Mass/Vol] 435 pg/mL High 0-100 [facility] Comment on above: Order Comment: No: D o not add to previous draw Result Comment: Give n the appropriate clinical setting a BNP result of >100 pg/mL indicates congestive heart failure. Performed By: #### 8 5123 #### [address] CBC W/DIFFon 05-19-2020 ABS BASOPHILS 0.1 10*3/uL Normal 0.0-0.2 [facility] Comment on above: Order Comment: No: D o not add to previous draw Performed By: #### 5 0103 #### [facility] [address] ABS IMM GRANS 0.4 10*3/uL High 0.0-0.2 [facility] Comment on above: Order Comment: No: D o not add to previous draw Performed By: #### 5 0103 #### [address] ABS NEUTROPHILS 10.7 10*3/uL High 1.6-7.6 [facility] Comment on above: Order Comment: No: D o not add to previous draw Performed By: #### 5 0103 #### [facility] [address] Basophils/100 WBC (Bld) 0.4 % Normal 0.0-1.0 [facility] Comment on above: Order Comment: No: D o not add to previous draw Performed By: #### 5 0103 #### [facility] [address] [facility] [place] [address], [facility] Eosinophils (Bld) [#/Vol] 0.3 10*3/uL Normal 0.0-0.5 [facility] Comment on above: Order Comment: No: D o not add to previous draw Performed By: #### 5 3 #### [facility] [address] [facility] [place] [address], [facility] Eosinophils/100 WBC (Bld) 2.3 % Normal 0.0-6.0 [facility] Comment on above: Order Comment: No: D o not add to previous draw Performed By: #### 5 3 #### [facility] [address] Erythrocyte distribution width (RBC) [Ratio] 18.3 % High 11.5-15.0 [facility] Comment on above: Order Comment: No: D o not add to previous draw Performed By: #### 5 3 #### [facility] [address] [place] [address], [facility] Hematocrit (Bld) [Volume fraction] 25.3 % Low 36.0-45.0 [facility] Comment on above: Order Comment: No: D o not add to previous draw Performed By: #### 5 3 #### [facility] [address] [place] [address], [facility] Hemoglobin (Bld) [Mass/Vol] 8.4 g/dL Low 12.0-15.0 [facility] Comment on above: Order Comment: No: D o not add to previous draw Performed By: #### 5 3 #### [facility] [address] [facility] [place] [address], [facility] IMMATURE GRANS 2.7 % High 0.0-1.0 [facility] Comment on above: Order Comment: No: D o not add to previous draw Performed By: #### 5 3 #### [facility] [address] [place] [address], [facility] Lymphocytes (Bld) [#/Vol] 1.7 10*3/uL Normal 1.2-4.0 [facility] Comment on above: Order Comment: No: D o not add to previous draw Performed By: #### 5 0103 #### [facility] [address] [facility] [place] [address], [facility] Lymphocytes/100 WBC (Bld) 12.3 % Low 20.0-45.0 [facility] Comment on above: Order Comment: No: D o not add to previous draw Performed By: #### 5 0103 #### [facility] [address] [place] [address], [facility] MCH (RBC) [Entitic mass] 25.6 pg Low 27.0-33.0 [facility] Comment on above: Order Comment: No: D o not add to previous draw Performed By: #### 5 0103 #### [facility] [address] [facility] [place] [address], [facility] MCHC (RBC) [Mass/Vol] 33.2 g/dL Normal 32.0-35.0 [facility] Comment on above: Order Comment: No: D o not add to previous draw Performed By: #### 5 0103 #### [facility] [address] [facility] [place] [address], [facility] MCV (RBC) [Entitic vol] 77.1 fL Low 82.0-98.0 [facility] Comment on above: Order Comment: No: D o not add to previous draw Performed By: #### 5 0103 #### [facility] [address] [facility] [place] [address], [facility] Monocytes (Bld) [#/Vol] 0.9 10*3/uL Normal 0.1-1.0 [facility] Comment on above: Order Comment: No: D o not add to previous draw Performed By: #### 5 0103 #### [facility] [address] [place] [address], [place] MONOS 6.6 % Normal 5.0-12.0 [facility] Comment on above: Order Comment: No: D o not add to previous draw Performed By: #### 5 0103 #### [facility] [address] [place] [address], [place] Neutrophils/100 WBC (Bld) 75.7 % High 40.0-72.0 [facility] Comment on above: Order Comment: No: D o not add to previous draw Performed By: #### 5 0103 #### [facility] [address] [place] [address], [place] Nucleated RBC/100 WBC (Bld) [Ratio] 0 % Normal 0-0 [facility] Comment on above: Order Comment: No: D o not add to previous draw Performed By: #### 5 0103 #### [facility] [address] [place] [address], [place] PLAT CNT 364 10*3/uL Normal 150-400 [facility] Comment on above: Order Comment: No: D o not add to previous draw Performed By: #### 5 0103 #### [facility] [address] [place] [address], [place] RBC (Bld) [#/Vol] 3.28 10*6/uL Low 3.80-5.00 [facility] Comment on above: Order Comment: No: D o not add to previous draw Performed By: #### 5 0103 #### [facility] [address] [place] [address], [place] WBC (Bld) [#/Vol] 14.10 10*3/uL High 4.00-10.60 [facility] Comment on above: Order Comment: No: D o not add to previous draw Performed By: #### 5 0103 #### [facility] [address] [place] [address], [place] COMP METABOLIC PANELon 05-19 Albumin [Mass/Vol] 2.8 g/dL Low 3.5-5.7 [facility] Comment on above: Order Comment: No: D o not add to previous draw Performed By: #### 0 0121, 26340, 39523 #### [facility] [address] [place] [address], [place] ALKALINE PHOSPH 343 IU/L High 34-104 [facility] Comment on above: Order Comment: No: D o not add to previous draw Performed By: #### 0 0121, 03849, 72952 #### [facility] [address] [place] [address], [place] ALT [Catalytic activity/Vol] 11 U/L Normal 7-52 [facility] Comment on above: Order Comment: No: D o not add to previous draw Performed By: #### 0 0121, 18364, 04293 #### [facility] [address] [place] [address], [place] AST [Catalytic activity/Vol] 14 U/L Normal 13-39 [facility] Comment on above: Order Comment: No: D o not add to previous draw Performed By: #### 0 0121, 66108, 37537 #### [facility] [address] [place] [address], [place] Bilirubin [Mass/Vol] 1.4 mg/dL High 0.3-1.0 [facility] Comment on above: Order Comment: No: D o not add to previous draw Performed By: #### 0 0121, 11748, 09352 #### [facility] [address] [place] [address], [place] Calcium [Mass/Vol] 8.4 mg/dL Low 8.6-10.3 [facility] Comment on above: Order Comment: No: D o not add to previous draw Performed By: #### 0 0121, 12698, 67851 #### [facility] [address] [place] [address], [place] Chloride [Moles/Vol] 108 mmol/L High 98-107 [facility] Comment on above: Order Comment: No: D o not add to previous draw Performed By: #### 0 0121, 98058, 35024 #### [facility] [address] [place] [address], [place] CO2 [Moles/Vol] 15 mmol/L Low 21-31 [facility] Comment on above: Order Comment: No: D o not add to previous draw Performed By: #### 0 0121, 61316, 19994 #### [facility] [address] [place] [address], [place] Creatinine [Mass/Vol] 2.18 mg/dL High 0.60-1.20 [facility] Comment on above: Order Comment: No: D o not add to previous draw Performed By: #### 0 0121, , 44254 #### [facility] [address] [place] [address], [place] GFR/1.73 sq M predicted among blacks MDRD (S/P/Bld) [Vol rate/Area] 31 ml/min/1.73sq m Abnormal >60 [facility] Comment on above: Order Comment: No: D o not add to previous draw Performed By: #### 0 0121, 66296, 30598 #### [facility] [address] [place] [address], [place] GFR/1.73 sq M predicted among non-blacks MDRD (S/P/Bld) [Vol rate/Area] 26 ml/min/1.73sq m Abnormal >60 [facility] Comment on above: Order Comment: No: D o not add to previous draw Performed By: #### 0 0121, 42298, 63769 #### [facility] [address] [place] [address], [place] Glucose [Mass/Vol] 72 mg/dL Normal 70-100 [facility] Comment on above: Order Comment: No: D o not add to previous draw Performed By: #### 0 0121, 48581, 80211 #### [facility] [address] [place] [address], [place] Potassium [Moles/Vol] 3.5 mmol/L Normal 3.5-5.1 [facility] Comment on above: Order Comment: No: D o not add to previous draw Performed By: #### 0 0121, 82934, 34791 #### [facility] [address] [place] [address], [place] Protein [Mass/Vol] 6.4 g/dL Normal 6.0-8.3 [facility] Comment on above: Order Comment: No: D o not add to previous draw Performed By: #### 0 0121, 98645, 68736 #### [facility] [address] [place] [address], [place] Sodium [Moles/Vol] 136 mmol/L Normal 136-145 [facility] Comment on above: Order Comment: No: D o not add to previous draw Performed By: #### 0 0121, 67396, 19225 #### [facility] [address] [place] [address], [place] Urea nitrogen [Mass/Vol] 22 mg/dL Normal 7-25 [facility] Comment on above: Order Comment: No: D o not add to previous draw Performed By: #### 0 0121, 26026, 82730 #### [facility] [address] [place] [address], [place] History and Physicalon 05-19 History and Physical MR#: [id number] [facility] Pt. Name: Mayte Burrell Admitted: 05/19/2020 Date of : 1985 Attending Physician: Rigoberto Ponce MD Room #: 3AB [id number] Discharge Date: HISTORY AND PHYSICAL CHIEF COMPLAINT: Transfer from another facility due to Staphylococcus aureus septicemia. HISTORY OF PRESENT ILLNESS: This is a 34 years old female with past medical history significant for polysubstance use disorder, who presented to [place] ED on May 13, 2020, due to overdose. Apparently, CPR was performed and the patient was admitted to [facility]. According to the patient, she left against medical advice on the second day of the admission, but she returned to the Emergency Department in [place] due to complaints of right hip pain, where she was found to have leukocytosis and fever and she was admitted over there. According to the labs in [place], she had blood cultures positive for MSSA on May 15 and May 17. 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 She was also found to have an JASKARAN, which she was worsening during her admission and the patient was sent to [facility] to be evaluated by Nephrology, Infectious Disease, and Cardiothoracic if needed. The patient's report chest pain that has been present there for the last 6 days, she thinks it is because of the CPR that was performed on her. She reports feeling thirsty all the time. Otherwise, no shortness of breath. No cough. No nausea or vomiting. No change in bowel or urinary habits. PAST MEDICAL HISTORY: The patient reports that she was admitted to [facility] 3 years ago due to bacteremia and she was receiving IV antibiotics for it. On that admission, she was found to have an abscess in her back and that was treated surgically. SOCIAL HISTORY: The patient reports use of methamphetamine that she injects or snorts sometimes. ALLERGIES: Allergic to Abilify, Effexor, lithium. MEDICATIONS: At home; she reports that she is not receiving any medications at home. FAMILY HISTORY: Reviewed and not related to current visit. REVIEW OF SYSTEMS: Review of systems of all points is done, pertinent positives and negatives as per HPI. PHYSICAL EXAMINATION: VITAL SIGNS: Blood pressure is 143/90, respiratory rate of 29, pulse is 95, temperature is 99.5. She is saturating 96% on room air. GENERAL: She is a middle-aged female, anxious, in mild respiratory distress. HEENT: Pupils equal, round, reactive to light. Extraocular muscles intact. Mucous membranes moist. NECK: Supple. No JVD. No LAD. HEART: Normal S1, S2. No murmurs appreciated. LUNGS: Good air entry to both lungs with no crackles, symmetric chest excursion. ABDOMEN: Soft, nontender, nondistended. Positive bowel sounds. SKIN: Warm/dry. NEUROLOGICAL: No facial asymmetry. Alert and oriented x3. Muscle strength 5/5 in both upper limbs. PSYCH: Alert and oriented x3. EXTREMITIES: Positive dorsalis pedis pulses bilaterally with no edema. LABORATORY DATA: Glucose is 72, BUN 22, creatinine 2.18, sodium 136, potassium 3.5, chloride 108, carbon dioxide 15, calcium is 8.4, magnesium is 2. BNP 435. White blood cell count is 14, hemoglobin 8.4, platelets are 364. IMAGING DATA: Chest x-ray is pending. Blood cultures are pending. EKG is pending. ASSESSMENT AND PLAN: 1. Staphylococcus septicemia. We will obtain blood cultures. We will request for the blood cultures from [place] with the sensitivity report, it appears to be MSSA bacteremia, but we will need to confirm that. Apparently, she was given vancomycin and her last trough is 24 and she received the dose earlier this morning. We will hold off on further vancomycin. For now, we will continue with the Zosyn. We will consult Infectious Disease for further evaluation. 2. Pneumonia due to septic emboli. Chest x-ray is pending. The patient is saturating well on room air. She is tachypneic, but she is most likely compensating for the metabolic acidosis. 3. Metabolic acidosis with positive anion gap of 16. We will obtain venous blood gas to evaluate her PH. For now, we will start her on oral bicarb supplement. This is likely due to the sepsis process. 4. Acute kidney injury, prerenal versus related to vancomycin toxicity. We will start the patient on IV fluids. She seems to be dehydrated from the clinical assessment. We will re-evaluate her BNP in a.m. We will consult Nephrology. 5. Tricuspid valve vegetations with septic emboli. We will need to obtain her echocardiogram records from [facility]. We will consult Cardiothoracic Surgery for further evaluation. 6. The patient will be on heparin for DVT prophylaxis. 7. The patient will be closely monitored in the step-down unit and she is a low threshold to be transferred to the ICU. 9. Critical time care is 50 minutes. Electronically Signed by: Rigoberto Ponce MD 05/20/2020 07:46 P Rigoberto Ponce MD Date Dict: 05/19/2020/09:01 P/Rigoberto Ponce MD Date Trans: 05/19/2020 09:23 P/pablo [id number] Normal [facility] LACTATE BLOODon 05-19-2020 Lactate [Moles/Vol] 1.0 mmol/L Normal 0.5-2.2 [facility] Comment on above: Order Comment: No: D o not add to previous draw Performed By: #### 1 0054 #### [facility] [address] [place] [address], [facility] MAGNESIUM BLOODon 05-19-2020 Magnesium [Mass/Vol] 2.0 mg/dL Normal 1.9-2.7 [facility] Comment on above: Order Comment: No: D o not add to previous draw Performed By: #### 0 0121, 62098, 62479 #### [facility] [address] PROCALCITONINon 05-19-2020 PROCALCITONIN 1.75 ng/mL High 0.00-0.10 [facility] Comment on above: Order Comment: Yes: Add to Previous draw if able Result Comment: Susp ected Lower Respiratory Tract Infection: 0.1-0.25ng/mL- Low likelihood for bacterial infection;Antibiotics discouraged.* >0.25ng/mL- Increased likelihood bacterial infection;Antibiotics encouraged. ____ Suspected Sepsis: Strongly consider initiating antibiotics in all unstable patients. 0.1-0.5ng/mL- Low likelihood for sepsis; Antibiotics discouraged.* >0.5ng/mL- Increased likelihood sepsis; Antibiotics encouraged. >2.0ng/mL- High risk of sepsis/septic shock; Antibiotics strongly encouraged. *Recommend retesting PCT within 6-12hours if clinically indicated and initial PCT<0.5ng/mL Performed By: #### 3 1488 #### [facility] [address] [place] [address], [facility] PROTHROMBIN TIMEon 0 INR Coag (PPP) [Relative time] 1.15 {INR} Normal 0.91-1.16 [facility] Comment on above: Order Comment: No: D o not add to previous draw Result Comment: ACCC P RECOMMENDED INR FOR WARFARIN THERAPY ----- ------- CONDITION INR PROPHYLAXIS OF VENOUS THROMBOSIS 2-3 (HIGH-RISK SURGERY) TREATMENT OF VENOUS THROMBOSIS 2-3 TREATMENT OF PULMONARY EMBOLISM 2-3 PREVENTION OF SYSTEMIC EMBOLISM: 2-3 ACUTE MYOCARDIAL INFARCTION TISSUE HEART VALVES VALVULAR HEART DISEASE ATRIAL FIBRILLATION RECURRENT SYSTEMIC EMBOLISM MECHANICAL HEART VALVE 2.5-3.5 FROM: ORAL ANTICOAGULANTS. MECHANISM OF ACTION, CLINICAL EFFECTIVENESS, AND OPTIMAL THERAPEUTIC RANGE. CHEST 1995;108:231S-246S. Performed By: #### 5 6101, 04897 #### [facility] [address] [place] [address], [facility] PT Coag (PPP) [Time] 14.8 s Normal 12.3-14.8 [facility] Comment on above: Order Comment: No: D o not add to previous draw Result Comment: ALL RESULTS MUST BE INTERPRETED WITH RESPECT TO BLOOD DRAWING ARTIFACT OR DILUTION ERROR OF ANTICOAGULANT AT THE TIME OF SAMPLING. Performed By: #### 5 6101, 85391 #### [facility] [address] [facility]. [address] TROPONIN-Ion 05-19-2020 Troponin I.cardiac [Mass/Vol] 0.05 ng/mL High 0.00-0.04 [facility] Comment on above: Result Comment: REFE RENCE RANGES: 0.00 - 0.04 ng/ml NORMAL 0.05 - 0.50 ng/ml INDETERMINATE > 0.50 ng/ml CONSISTENT WITH AN M.I. Performed By: #### 0 0121, 24602, 79832 #### [facility] [address] Basic Metabolic Profon 07-11 (cont.) Normal [facility] Comment on above: Result Comment: Aver age GFR for 30-39 years old: 107 mL/min/1.73sq mChronic Kidney Disease: <60 mL/min/1.73sq mKidney failure: <15 mL/min/1.73sq meGFR calculated using average adult body mass. Additional eGFR calculator available at:http://www.[employer].Smarterer/multiple_crcl_2012.htmFountain Valley [facility] [address] [place] [address] Performed By: #### P LT, PT, PTT ####[facility] [address] [place] [address] Anion gap 14 mmol/L Normal 9-17 [facility] Comment on above: Performed By: #### P LT, PT, PTT ####[facility] [address] [place] [address] Calcium 9.2 mg/dL Normal 8.6-10.4 [facility] Comment on above: Performed By: #### P LT, PT, PTT ####[facility] [address] [place] [address], [place] [address] Chloride 97 mmol/L Low 98-107 [facility] Comment on above: Performed By: #### P LT, PT, PTT ####[address] [address] CO2 25 mmol/L Normal 20-31 [facility] Comment on above: Performed By: #### P LT, PT, PTT ####[address] [address] Creatinine 0.38 mg/dL Low 0.50-0.90 [facility] Comment on above: Performed By: #### P LT, PT, PTT ####[address] [address] eGFR (non-black) mL/min/{1.73_m2} Normal >60 [facility] Comment on above: Performed By: #### P LT, PT, PTT ####[address] [address] Glucose mass conc 93 mg/dL Normal 70-99 [facility] Comment on above: Performed By: #### P LT, PT, PTT ####[address] [address] Potassium molar conc 4.1 mmol/L Normal 3.7-5.3 [facility] Comment on above: Performed By: #### P LT, PT, PTT ####[address] [address] Sodium 136 mmol/L Normal 135-144 [facility] Comment on above: Performed By: #### P LT, PT, PTT ####[address] [address] Urea nitrogen 9 mg/dL Normal 6-20 [facility] Comment on above: Performed By: #### P LT, PT, PTT ####[address] [address] BUN/CRE Ratio NOT REPORTED Normal 07-22 [facility] Comment on above: Performed By: #### P LT, PT, PTT ####[address] [address] Staging: NOT REPORTED Normal [facility] Comment on above: Performed By: #### P LT, PT, PTT ####[address] [address] Blood Bank Specimenon 2016 Blood Bank Specimen NOT REPORTED Normal [facility] C-Reactive Proteinon 017 C reactive protein (CRP) 129.9 mg/L High 0.0-5.0 [facility] Comment on above: Result Comment: [address] [address] Performed By: #### P LT, PT, PTT ####[address] [address] CBCon 07-11-2017 Erythrocyte distribution width Auto Ratio (RBC) 19.1 % High 12.5-15.4 [facility] Comment on above: Performed By: #### P LT, PT, PTT ####[address] [address] Erythrocytes (RBC) 2.84 10*6/uL Low 4.0-5.2 [facility] Comment on above: Performed By: #### P LT, PT, PTT ####[address] [address] Hematocrit (HCT) 24.6 % Low 36-46 [facility] Comment on above: Performed By: #### P LT, PT, PTT ####[address] [address] Hemoglobin mass conc (Bld) 8.0 g/dL Low 12.0-16.0 [facility] Comment on above: Performed By: #### P LT, PT, PTT ####[address] [address] MCH 28.2 pg Normal 26-34 [facility] Comment on above: Performed By: #### P LT, PT, PTT ####[address] [address] MCHC mass conc (RBC) 32.5 g/dL Normal 31-37 [facility] Comment on above: Performed By: #### P LT, PT, PTT ####[address] [address] MCV 86.8 fL Normal 80-100 [facility] Comment on above: Performed By: #### P LT, PT, PTT ####[address] [address] Platelet mean volume (PMV) 7.5 fL Normal 6.0-12.0 [facility] Comment on above: Result Comment: [address] [address] Performed By: #### P LT, PT, PTT ####[address] [address] Platelets 615 10*3/uL High 140-450 [facility] Comment on above: Performed By: #### P LT, PT, PTT ####[address] [address] WBC (Leukocytes) 11.0 10*3/uL Normal 3.5-11.0 [facility] Comment on above: Performed By: #### P LT, PT, PTT ####[address] [address] [address] THORACIC SPINE WO CONTRAS Ton 09-09-2017 CT THORACIC SPINE WO CONTRAST EXAMINATION:CT OF THE THORACIC SPINE WITHOUT CONTRAST, 07/07/2017 6:47 pmTECHNIQUE:CT of the thoracic spine was performed without the administration ofintravenous contrast. Multiplanar reformatted images are provided for review.Dose modulation, iterative reconstruction, and/or weight based adjustment ofthe mA/kV was utilized to reduce the radiation dose to as low as reasonablyachievable.COMPAR STEPH:NoneHISTORY:ORDERING SYSTEM PROVIDED HISTORY:FINDINGS:BONES/ALIG NMENT: Partially visualized thoracic spine. Motion artifact.Corpectomy of the mid thoracic vertebra possibly the T6 and T7. Posteriorfixation of multiple thoracic vertebra above and below the level of thecorpectomy. Motion artifact limits assessment. Designation of the spinallevels is markedly limited due to partial visualization of the thoracic spine.DEGENERATIVE CHANGES: Not well seen due to artifact from the spinal fixationhardware.SOFT TISSUES: Not well seen due to artifact from spinal fixation hardware.IMPRESSION: 1. Limited exam due to partial visualization of the thoracic spine, streakartifact from the spinal hardware and motion artifact. 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 Normal [facility] Hgb/Hcton 07-11-2017 Hematocrit (HCT) 21.6 % Low 36-46 [facility] Comment on above: Result Comment: [employer] [address] [place], [place] [id number] [phone] Performed By: #### P LT, PT, PTT ####[employer] [place] [address] [phone] Hemoglobin mass conc (Bld) 7.0 g/dL Critically low 12.0-16.0 [facility] Comment on above: Result Comment: TEST CONFIRMED Performed By: #### P LT, PT, PTT ####[facility] [address] [place] [address] [phone] Type + Screenon 07-11-2017 Type + Screen Sample Expiration 07/14/2017 Arm Band Number BE [id number] ABO/Rh(D) O POSITIVE Antibody Screen NEGATIVE [address] [address] Normal [facility] Comment on above: Performed By: #### P LT, PT, PTT ####[address] [address] Basic Metabolic Profon 07-10 (cont.) Normal [facility] Comment on above: Result Comment: Aver age GFR for 30-39 years old: 107 mL/min/1.73sq mChronic Kidney Disease: <60 mL/min/1.73sq mKidney failure: <15 mL/min/1.73sq meGFR calculated using average adult body mass. Additional eGFR calculator available at:http://www.[employer].Smarterer/multiple_crcl_2012.htm[address] [address] Performed By: #### C BC, BMP ####[address] [address] Anion gap 11 mmol/L Normal 9-17 [facility] Comment on above: Performed By: #### C BC, BMP ####[address] [address] Calcium 8.7 mg/dL Normal 8.6-10.4 [facility] Comment on above: Performed By: #### C BC, BMP ####[facility] [address] [place] [address] Chloride 100 mmol/L Normal 98-107 [facility] Comment on above: Performed By: #### C BC, BMP ####[employer] [place] [address] CO2 29 mmol/L Normal 20-31 [facility] Comment on above: Performed By: #### C BC, BMP ####[employer] [place] [address] Creatinine 0.42 mg/dL Low 0.50-0.90 [facility] Comment on above: Performed By: #### C BC, BMP ####[facility] [address] [place] [address] eGFR (non-black) mL/min/{1.73_m2} Normal >60 [facility] Comment on above: Performed By: #### C BC, BMP ####[facility] [address] [place] [address] Glucose mass conc 108 mg/dL High 70-99 [facility] Comment on above: Performed By: #### C BC, BMP ####[facility] [place] [address] Potassium molar conc 3.9 mmol/L Normal 3.7-5.3 [facility] Comment on above: Performed By: #### C BC, BMP ####[facility] [place] [address] Sodium 140 mmol/L Normal 135-144 [facility] Comment on above: Performed By: #### C BC, BMP ####[facility] [address] [place] [address] Urea nitrogen 9 mg/dL Normal 6-20 [facility] Comment on above: Performed By: #### C BC, BMP ####[facility] [address] [place] [address] BUN/CRE Ratio NOT REPORTED Normal 9-20 [facility] Comment on above: Performed By: #### C BC, BMP ####[facility] [address] [place] [address] Staging: NOT REPORTED Normal [facility] Comment on above: Performed By: #### C BC, BMP ####[employer] [address] [place] [address] CBCon 07-10-2017 Erythrocyte distribution width Auto Ratio (RBC) 19.3 % High 12.5-15.4 [facility] Comment on above: Performed By: #### C BC, BMP ####[facility] [address] [place] [address] Erythrocytes (RBC) 2.57 10*6/uL Low 4.0-5.2 [facility] Comment on above: Performed By: #### C BC, BMP ####[address] [address] Hematocrit (HCT) 22.1 % Low 36-46 [facility] Comment on above: Performed By: #### C BC, BMP ####[address] [address] Hemoglobin mass conc (Bld) 7.3 g/dL Low 12.0-16.0 [facility] Comment on above: Performed By: #### C BC, BMP ####[address] [address] MCH 28.5 pg Normal 26-34 [facility] Comment on above: Performed By: #### C BC, BMP ####[address] [address] MCHC mass conc (RBC) 33.1 g/dL Normal 31-37 [facility] Comment on above: Performed By: #### C BC, BMP ####[address] [address] MCV 86.3 fL Normal 80-100 [facility] Comment on above: Performed By: #### C BC, BMP ####[facility] [place] [address] Platelet mean volume (PMV) 7.4 fL Normal 6.0-12.0 [facility] Comment on above: Result Comment: [facility] [address] [place] [address] Performed By: #### C JUVENAL, BMP ####Lalitha Saunders[address] [place] [address] Platelets 504 10*3/uL High 140-450 [facility] Comment on above: Performed By: #### C JUVENAL, BMP ####Lalitha Saunders[address] [place] [address] WBC (Leukocytes) 11.3 10*3/uL High 3.5-11.0 [facility] Comment on above: Performed By: #### C JUVENAL, BMP ####[facility] [address] [address] Hgb/Hcton 07-10-2017 Hematocrit (HCT) 22.1 % Low 36-46 [facility] Comment on above: Result Comment: [facility] [address] [place] [address] Performed By: #### H H ####Lalitha [address] [address] Hemoglobin mass conc (Bld) 7.2 g/dL Low 12.0-16.0 [facility] Comment on above: Performed By: #### H H ####[address] [address] Hematocrit (HCT) 23.0 % Low 36-46 [facility] Comment on above: Result Comment: [facility] [address] [place] [address] Performed By: #### H H ####[address] [address] Hemoglobin mass conc (Bld) 7.4 g/dL Low 12.0-16.0 [facility] Comment on above: Performed By: #### H H ####[facility] [address] [address] Basic Metabolic Profon 07-09 (cont.) Normal [facility] Comment on above: Result Comment: Aver age GFR for 30-39 years old: 107 mL/min/1.73sq mChronic Kidney Disease: <60 mL/min/1.73sq mKidney failure: <15 mL/min/1.73sq meGFR calculated using average adult body mass. Additional eGFR calculator available at:http://www.[employer]/multiple_crcl_2012.htm[address] [address] Performed By: #### B MP, CBC ####[address] [address] Anion gap 13 mmol/L Normal 9-17 [facility] Comment on above: Performed By: #### B MP, CBC ####[address] [address] Calcium 8.5 mg/dL Low 8.6-10.4 [facility] Comment on above: Performed By: #### B MP, CBC ####[address] [address] Chloride 101 mmol/L Normal 98-107 [facility] Comment on above: Performed By: #### B MP, CBC ####[facility] [address] [place] [address] CO2 25 mmol/L Normal 20-31 [facility] Comment on above: Performed By: #### B MP, CBC ####[facility] [address] [address] Creatinine 0.47 mg/dL Low 0.50-0.90 [facility] Comment on above: Performed By: #### B MP, CBC ####[facility] [address] [place] [address] eGFR (non-black) mL/min/{1.73_m2} Normal >60 [facility] Comment on above: Performed By: #### B MP, CBC ####[facility] [address] [place] [address] Glucose mass conc 113 mg/dL High 70-99 [facility] Comment on above: Performed By: #### B MP, CBC ####[facility] [address] [place] [address] Potassium molar conc 4.2 mmol/L Normal 3.7-5.3 [facility] Comment on above: Performed By: #### B MP, CBC ####[address] [address] Sodium 139 mmol/L Normal 135-144 [facility] Comment on above: Performed By: #### B MP, CBC ####[facility] [place] [address] Urea nitrogen 12 mg/dL Normal 6-20 [facility] Comment on above: Performed By: #### B MP, CBC ####[address] [address] BUN/CRE Ratio NOT REPORTED Normal 9-20 [facility] Comment on above: Performed By: #### B MP, CBC ####[facility] SaundersNyaprccwausb[address] [place] [address] Staging: NOT REPORTED Normal [facility] Comment on above: Performed By: #### B MP, CBC ####[facility] [place] [address] CBCon 07-09-2017 Erythrocyte distribution width Auto Ratio (RBC) 18.9 % High 12.5-15.4 [facility] Comment on above: Performed By: #### B MP, CBC ####[address] [address] Erythrocytes (RBC) 2.52 10*6/uL Low 4.0-5.2 [facility] Comment on above: Performed By: #### B MP, CBC ####[facility] [place] [address] Hematocrit (HCT) 21.4 % Low 36-46 [facility] Comment on above: Performed By: #### B MP, CBC ####[address] [address] Hemoglobin mass conc (Bld) 7.1 g/dL Low 12.0-16.0 [facility] Comment on above: Performed By: #### B MP, CBC ####[address] [address] MCH 28.1 pg Normal 26-34 [facility] Comment on above: Performed By: #### B MP, CBC ####[address] [address] MCHC mass conc (RBC) 33.1 g/dL Normal 31-37 [facility] Comment on above: Performed By: #### B MP, CBC ####[address] [address] MCV 85.0 fL Normal 80-100 [facility] Comment on above: Performed By: #### B MP, CBC ####[address] [address] Platelet mean volume (PMV) 7.3 fL Normal 6.0-12.0 [facility] Comment on above: Result Comment: [place] [address] [place] [address] Performed By: #### B MP, CBC ####[address] [address] Platelets 470 10*3/uL High 140-450 [facility] Comment on above: Performed By: #### B MP, CBC ####[address] [address] WBC (Leukocytes) 13.7 10*3/uL High 3.5-11.0 [facility] Comment on above: Performed By: #### B MP, CBC ####[facility] [address] [address] Hgb/Hcton 07-09-2017 Hematocrit (HCT) 23.1 % Low 3646 [facility] Comment on above: Result Comment: [facility] [address] [place] [address] Performed By: #### H H ####[address] [address] Hemoglobin mass conc (Bld) 7.4 g/dL Low 12.0-16.0 [facility] Comment on above: Performed By: #### H H ####[address] [address] Hematocrit (HCT) 21.6 % Low 36-46 [facility] Comment on above: Result Comment: [facility] [address] [place] [address] Performed By: #### H H ####[address] [address] Hemoglobin mass conc (Bld) 7.2 g/dL Low 12.0-16.0 [facility] Comment on above: Performed By: #### H H ####[address] [address] XR SPINE ENTIRE 2-3 VWon XR SPINE ENTIRE 2-3 VW EXAMINATION:AP AND LATERAL SCOLIOSIS SERIES07/08/2017 10:59 pmCOMPARISON:July 07, 2017HISTORY:ORDERING SYSTEM PROVIDED HISTORY: repeat xr to evaluate post-opTECHNOLOGIST PROVIDED HISTORY:Reason for exam:->repeat xr to evaluate post-opFINDINGS:AP and lateral views of the cervical, thoracic and lumbar spine demonstrateplacement of posterior thoracic fusion hardware from T3 through T11 withvertical connecting rods. Transpedicular screws spare T6 and T7 where thereis a T6-7 interbody cage device with corpectomy changes. Alignment isanatomic.Right-sided PICC catheter tip projects over mid SVC. Lungs are clear. Bowelgas pattern is nonobstructive/nonspecific. IMPRESSION: Thoracic fixation with corpectomy and interbody fusion device at T6 and T7.Interpreted by:JOVON Zarateigned by:Bud Wilson MD07/09/17Final result Normal [facility] Basic Metabolic Profon 07-08 (cont.) Normal [facility] Comment on above: Result Comment: Aver age GFR for 30-39 years old: 107 mL/min/1.73sq mChronic Kidney Disease: <60 mL/min/1.73sq mKidney failure: <15 mL/min/1.73sq meGFR calculated using average adult body mass. Additional eGFR calculator available at:http://www.[employer]/multiple_crcl_2012.htmTri[facility] [address] [place] [address] Performed By: #### V NCR, BMP ####[facility] CenterFligooZfwtnczxprmf4588 [place] [address] Anion gap 13 mmol/L Normal - [facility] Comment on above: Performed By: #### V NCR, BMP ####[facility] CenterFligooUrhpwelkakyq1762 [place] [address] Calcium 8.6 mg/dL Normal 8.6-10.4 [facility] Comment on above: Performed By: #### V NCR, BMP ####[facility] CenterFligooRzkroekbbfjf[address] [place] [address] Chloride 107 mmol/L Normal 98-107 [facility] Comment on above: Performed By: #### V NCR, BMP ####[address] [place] [address] CO2 23 mmol/L Normal 20-31 [facility] Comment on above: Performed By: #### V NCR, BMP ####[address] [address] Creatinine 0.51 mg/dL Normal 0.50-0.90 [facility] Comment on above: Performed By: #### V NCR, BMP ####[address] [address] eGFR (non-black) mL/min/{1.73_m2} Normal >60 [facility] Comment on above: Performed By: #### V NCR, BMP ####[address] [address] Glucose mass conc 168 mg/dL High 70-99 [facility] Comment on above: Performed By: #### V NCR, BMP ####[address] [address] Potassium molar conc 3.9 mmol/L Normal 3.7-5.3 [facility] Comment on above: Performed By: #### V NCR, BMP ####[address] [address] Sodium 143 mmol/L Normal 135-144 [facility] Comment on above: Performed By: #### V NCR, BMP ####[address] [place] [address] Urea nitrogen 11 mg/dL Normal 6-20 [facility] Comment on above: Performed By: #### V NCR, BMP ####[facility] [place] [address] BUN/CRE Ratio NOT REPORTED Normal 9-20 [facility] Comment on above: Performed By: #### V NCR, BMP ####[address] [address] Staging: NOT REPORTED Normal [facility] Comment on above: Performed By: #### V NCR, BMP ####[address] [address] CBC with Diffon 07-08-2017 Abs. Basophil 0.00 k/uL Normal 0.0-0.2 [facility] Comment on above: Result Comment: [address] [address] Performed By: #### V NCR, BMP ####[address] [address] Abs.Neutrophil (Seg) 13.00 k/uL High 1.8-7.7 [facility] Comment on above: Performed By: #### V NCR, BMP ####[address] [address] Basophils/100 WBC Auto (Bld) 0 % Normal [facility] Comment on above: Performed By: #### V NCR, BMP ####[address] [address] Eosinophils 0.00 10*3/uL Normal 0.0-0.4 [facility] Comment on above: Performed By: #### V NCR, BMP ####[address] [address] Eosinophils/100 leukocytes 0 % Normal [facility] Comment on above: Performed By: #### V NCR, BMP ####[address] [address] Erythrocyte distribution width Auto Ratio (RBC) 18.3 % High 12.5-15.4 [facility] Comment on above: Performed By: #### V NCR, BMP ####[facility] [address] [place] [address] Erythrocyte morphology ANISOCYTOSIS PRESENT Normal [facility] Comment on above: Performed By: #### V NCR, BMP ####[address] [place] [address] Erythrocytes (RBC) 2.66 10*6/uL Low 4.0-5.2 [facility] Comment on above: Performed By: #### V NCR, BMP ####[address] [address] Hematocrit (HCT) 22.6 % Low 36-46 [facility] Comment on above: Performed By: #### V NCR, BMP ####[address] [address] Hemoglobin mass conc (Bld) 7.4 g/dL Low 12.0-16.0 [facility] Comment on above: Result Comment: MINERVA JONES NOTIFIED Performed By: #### V NCR, BMP ####[address] [address] Lymphocytes 1.90 10*3/uL Normal 1.0-4.8 [facility] Comment on above: Performed By: #### V NCR, BMP ####[address] [address] Lymphocytes/100 leukocytes 12 % Normal [facility] Comment on above: Performed By: #### V NCR, BMP ####[address] [address] MCH 27.8 pg Normal 26-34 [facility] Comment on above: Performed By: #### V NCR, BMP ####[address] [address] MCHC mass conc (RBC) 32.6 g/dL Normal 31-37 [facility] Comment on above: Performed By: #### V NCR, BMP ####[address] [address] MCV 85.2 fL Normal 80-100 [facility] Comment on above: Performed By: #### V NCR, BMP ####[address] [address] Monocytes 0.80 10*3/uL Normal 0.1-1.2 [facility] Comment on above: Performed By: #### V NCR, BMP ####[address] [address] Monocytes/100 leukocytes 5 % Normal [facility] Comment on above: Performed By: #### V NCR, BMP ####[address] [address] Neutrophil (Seg) 83 % Normal [facility] Comment on above: Performed By: #### V NCR, BMP ####[address] [address] Platelet mean volume (PMV) 7.0 fL Normal 6.0-12.0 [facility] Comment on above: Performed By: #### V NCR, BMP ####[address] [address] Platelets 534 10*3/uL High 140-450 [facility] Comment on above: Performed By: #### V NCR, BMP ####[address] [address] WBC (Leukocytes) 15.7 10*3/uL High 3.5-11.0 [facility] Comment on above: Performed By: #### V NCR, BMP ####[address] [address] Auto Diff Performed NOT REPORTED Normal [facility] Comment on above: Performed By: #### V NCR, BMP ####Lalitha Saunders[address] [place] [address] Platelets NOT REPORTED Normal [facility] Comment on above: Performed By: #### V NCR, BMP ####Lalitha Saunders[address] [place] [address] WBC Morphology NOT REPORTED Normal [facility] Comment on above: Performed By: #### V NCR, BMP ####[facility] SaundersJcfzlqcbbxie[address] [place] [address] Cult,Urine,Cathon 07-08-2017 Cult,Urine,Cath Specimen Description .CATHETERIZED URINE 1ST INSERTION CALDWELL Special Requests NOT REPORTED Culture NO GROWTH Report Status FINAL 07/08/2017 Normal [facility] Comment on above: Performed By: #### V NCR, BMP ####[address] [address] Hgb/Hcton 07-08-2017 Hematocrit (HCT) 21.4 % Low 36-46 [facility] Comment on above: Result Comment: [facility] [address] [place] [address] Performed By: #### V NCR, BMP ####[facility] [address] [address] Hemoglobin mass conc (Bld) 7.2 g/dL Low 12.0-16.0 [facility] Comment on above: Performed By: #### V NCR, BMP ####[facility] [address] [address] Calcium, Ionicon 07-07-2017 Calcium 1.17 mmol/L Normal 1.13-1.33 [facility] Comment on above: Result Comment: [facility] [address] [place] [address] Performed By: #### V NCR, BMP ####[address] [address] Calcium 1.17 mmol/L Normal 1.13-1.33 [facility] Comment on above: Result Comment: [facility] [address] [place] [address] Performed By: #### V NCR, BMP ####[address] [address] Cult, Bloodon 07-07-2017 Cult, Blood Specimen Description .BLOOD Special Requests L HAND 3ML Culture NO GROWTH 6 DAYS Report Status FINAL 07/07/2017 Normal [facility] Comment on above: Performed By: #### V NCR, BMP ####[address] [address] Cult,Urineon 07-07-2017 Cult,Urine Specimen Description .URINE Special Requests NOT REPORTED Culture DUPLICATE ORDER Report Status FINAL 07/07/2017 Normal [facility] Comment on above: Performed By: #### V NCR, BMP ####[address] [address] Open Heart Panelon 7 Carmelo Test INFORMATION NOT PROVIDED [facility] Comment on above: Performed By: #### V NCR, BMP ####[address] [address] Bicarbonate (HCO3) 18.6 mmol/L Low 22-27 [facility] Comment on above: Performed By: #### V NCR, BMP ####[address] [address] Body Temp. 37.0 Normal [facility] Comment on above: Performed By: #### V NCR, BMP ####[address] [address] Chloride 111 mmol/L High 98-110 [facility] Comment on above: Result Comment: [facility] [address] [place] [address], [place] [address] Performed By: #### V NCR, BMP ####[address] [address] CO2 33.3 mmHg Normal 32-45 [facility] Comment on above: Performed By: #### V NCR, BMP ####[address] [address] FIO2 50% Normal [facility] Comment on above: Performed By: #### V NCR, BMP ####[address] [address] Glucose mass conc 169 mg/dL High 65-105 [facility] Comment on above: Performed By: #### V NCR, BMP ####[address] [address] Hematocrit (HCT) 27.1 % Normal [facility] Comment on above: Performed By: #### V NCR, BMP ####[address] [address] Hemoglobin mass conc (Bld) 8.7 g/dL Normal [facility] Comment on above: Performed By: #### V NCR, BMP ####[address] [address] Hemoglobin mass conc (Bld) 1.3 % Normal 0-5.0 [facility] Comment on above: Result Comment: %Ref erence Range:Non-Smokers 0.0-0.8 %Smokers 4-20 % Performed By: #### V NCR, BMP ####[address] [address] Negative Base Excess 5.5 mmol/L High 0.0-2.0 [facility] Comment on above: Performed By: #### V NCR, BMP ####[address] [address] O2 saturation 99.6 % Normal 94-100 [facility] Comment on above: Performed By: #### V NCR, BMP ####[facility] SaundersFxtdxvcrbgxn[address]22 [place] [address] Oxygen in arterial blood 245.0 mm[Hg] High 75-95 [facility] Comment on above: Performed By: #### V NCR, BMP ####[facility] SaundersEkrfqeyzshqx[address] [place] [address] pH of blood 7.366 [pH] Normal 7.350-7.450 [facility] Comment on above: Performed By: #### V NCR, BMP ####[facility] SaundersFpoqtuexafep6011 [place] [address] Potassium molar conc 4.6 mmol/L Normal 3.6-5.0 [facility] Comment on above: Performed By: #### V NCR, BMP ####[facility] SaundersZghmucnsnpko[address] [place] [address] Sodium 138 mmol/L Normal 136-145 [facility] Comment on above: Performed By: #### V NCR, BMP ####[facility] SaundersItrncirkecgm[address] [place] [address] CO2 NOT REPORTED Normal 32-45 [facility] Comment on above: Performed By: #### V NCR, BMP ####[facility] SaundersYdejqowktmpf9033 [place] [address] Hemoglobin mass conc (Bld) NOT REPORTED Normal 95.0-98.0 [facility] Comment on above: Performed By: #### V NCR, BMP ####Lalitha [address]unders[address] [place] [address] Mode NOT REPORTED Normal [facility] Comment on above: Performed By: #### V NCR, BMP ####[facility] SaundersHqtajskdwelr[address] [place] [address] Notification Time NOT REPORTED Normal [facility] Comment on above: Performed By: #### V NCR, BMP ####[facility] SaundersDxpbbrxjuyba[address] [place] [address] Notification: NOT REPORTED Normal [facility] Comment on above: Performed By: #### V NCR, BMP ####[facility] SaundersMfkdqqyahqly[address] [place] [address] O2 Device/Flow/% NOT REPORTED Normal [facility] Comment on above: Performed By: #### V NCR, BMP ####[facility] [address] [address] PEEP/CPAP NOT REPORTED Normal [facility] Comment on above: Performed By: #### V NCR, BMP ####[facility] [address] [address] pH Adjst'd for Temp. NOT REPORTED Normal 7.350-7.450 [facility] Comment on above: Performed By: #### V NCR, BMP ####[facility] [address] [address] pO2 Adjst'd for Temp NOT REPORTED Normal 75-95 [facility] Comment on above: Performed By: #### V NCR, BMP ####[facility] [address] [address] Positive Base Excess NOT REPORTED Normal 0.0-2.0 [facility] Comment on above: Performed By: #### V NCR, BMP ####[facility] [address]ntwim[address] [place] [address] PSV NOT REPORTED Normal [facility] Comment on above: Performed By: #### V NCR, BMP ####[facility] SaundersZnxjvdxkvtqi[address] [place] [address] Pt. Position NOT REPORTED Normal [facility] Comment on above: Performed By: #### V NCR, BMP ####Lalitha [address]unders[address] [place] [address] Respiratory rate NOT REPORTED Normal [facility] Comment on above: Performed By: #### V NCR, BMP ####Lalitha [address]unders[address] [place] [address] Set Rate NOT REPORTED Normal [facility] Comment on above: Performed By: #### V NCR, BMP ####Lalitha [address]unders[address] [place] [address] Site Drawn NOT REPORTED Normal [facility] Comment on above: Performed By: #### V NCR, BMP ####[facility] SaundersJapgzcsimdzr3018 [place] [address] Text for Respiratory NOT REPORTED Normal [facility] Comment on above: Performed By: #### V NCR, BMP ####[facility] SaundersPtujsgmngpxl[address] [place] [address] Total Hb NOT REPORTED Normal 12.0-16.0 [facility] Comment on above: Performed By: #### V NCR, BMP ####[facility] SaundersAtemhdmlmbzz[address] [place] [address] Total Rate NOT REPORTED Normal [facility] Comment on above: Performed By: #### V NCR, BMP ####[facility] SaundersManibvfrcgjv[address] [place] [address] VT NOT REPORTED Normal [facility] Comment on above: Performed By: #### V NCR, BMP ####[facility] [facility] SaundersQcphkxqeyxve8977 [place] [address] Carmelo Test INFORMATION NOT PROVIDED Normal [facility] Comment on above: Performed By: #### V NCR, BMP ####[facility] Cemsdzpkrrrh1697 [place] [address] Bicarbonate (HCO3) 18.7 mmol/L Low 22-27 [facility] Comment on above: Performed By: #### V NCR, BMP ####[address] [address] Body Temp. 37.0 Normal [facility] Comment on above: Performed By: #### V NCR, BMP ####[address] [address] Chloride 114 mmol/L High 98-110 [facility] Comment on above: Result Comment: [address] [address] Performed By: #### V NCR, BMP ####[address] [address] CO2 32.3 mmHg Normal 32-45 [facility] Comment on above: Performed By: #### V NCR, BMP ####[address] [address] FIO2 6 Normal [facility] Comment on above: Performed By: #### V NCR, BMP ####[address] [address] Glucose mass conc 143 mg/dL High 65-105 [facility] Comment on above: Performed By: #### V NCR, BMP ####[facility] Center[facility] [address] [address] Hematocrit (HCT) 32.3 % Normal [facility] Comment on above: Performed By: #### V NCR, BMP ####[facility] [address] [address] Hemoglobin mass conc (Bld) 1.2 % Normal 0-5.0 [facility] Comment on above: Result Comment: %Ref erence Range:Non-Smokers 0.0-0.8 %Smokers 4-20 % Performed By: #### V NCR, BMP ####[address] [place] [address] Hemoglobin mass conc (Bld) 10.5 g/dL Normal [facility] Comment on above: Performed By: #### V NCR, BMP ####Lalitha Saunders[address] [place] [address] Negative Base Excess 5.1 mmol/L High 0.0-2.0 [facility] Comment on above: Performed By: #### V NCR, BMP ####[facility] SaundersUbegcatbwlal[address] [place] [address] O2 saturation 99.5 % Normal 94-100 [facility] Comment on above: Performed By: #### V NCR, BMP ####[facility] Nhncrwatqhcn[address] [place] [address] Oxygen in arterial blood 241.0 mm[Hg] High 75-95 [facility] Comment on above: Performed By: #### V NCR, BMP ####[facility] Acxizlfnwvcy3554 [place] [address] pH of blood 7.381 [pH] Normal 7.350-7.450 [facility] Comment on above: Performed By: #### V NCR, BMP ####Lalitha Aeendczpdoss9044 [place] [address] Potassium molar conc 4.0 mmol/L Normal 3.6-5.0 [facility] Comment on above: Performed By: #### V NCR, BMP ####Lalitha Saunders[address] [place] [address] Sodium 138 mmol/L Normal 136-145 [facility] Comment on above: Performed By: #### V NCR, BMP ####Lalitha Saunders[address] [place] [address] CO2 NOT REPORTED Normal 32-45 [facility] Comment on above: Performed By: #### V NCR, BMP ####[facility] Wsrtmzscrxrh9146 [place] [address] Hemoglobin mass conc (Bld) NOT REPORTED Normal 0.0-1.5 [facility] Comment on above: Performed By: #### V NCR, BMP ####[facility] [address] [address] Mode NOT REPORTED Normal [facility] Comment on above: Performed By: #### V NCR, BMP ####[address] [address] Notification Time NOT REPORTED Normal [facility] Comment on above: Performed By: #### V NCR, BMP ####[address] [address] Notification: NOT REPORTED Normal [facility] Comment on above: Performed By: #### V NCR, BMP ####[address] [address] O2 Device/Flow/% NOT REPORTED Normal [facility] Comment on above: Performed By: #### V NCR, BMP ####[address] [address] PEEP/CPAP NOT REPORTED Normal [facility] Comment on above: Performed By: #### V NCR, BMP ####[address] [address] pH Adjst'd for Temp. NOT REPORTED Normal 7.350-7.450 [facility] Comment on above: Performed By: #### V NCR, BMP ####[address] [address] pO2 Adjst'd for Temp NOT REPORTED Normal 75-95 [facility] Comment on above: Performed By: #### V NCR, BMP ####[address] [address] Positive Base Excess NOT REPORTED Normal 0.0-2.0 [facility] Comment on above: Performed By: #### V NCR, BMP ####[facility] [address] [address] PSV NOT REPORTED Normal [facility] Comment on above: Performed By: #### V NCR, BMP ####[facility] [address] [address] Pt. Position NOT REPORTED Normal [facility] Comment on above: Performed By: #### V NCR, BMP ####[facility] [address] [address] Respiratory rate NOT REPORTED Normal [facility] Comment on above: Performed By: #### V NCR, BMP ####[address] [address] Set Rate NOT REPORTED Normal [facility] Comment on above: Performed By: #### V NCR, BMP ####[address] [address] Site Drawn NOT REPORTED Normal [facility] Comment on above: Performed By: #### V NCR, BMP ####[facility] Center[facility] [address] [address] Text for Respiratory NOT REPORTED Normal [facility] Comment on above: Performed By: #### V NCR, BMP ####[facility] Centery Mtcveieqjxfi7545 [place] [address] Total Hb NOT REPORTED Normal 12.0-16.0 [facility] Comment on above: Performed By: #### V NCR, BMP ####[facility] Cent[facility] Uqluqxlszfqt5414 [place] [address] Total Rate NOT REPORTED Normal [facility] Comment on above: Performed By: #### V NCR, BMP ####[address] [address] [place] NOT REPORTED Normal [facility] Comment on above: Performed By: #### V NCR, BMP ####[address] [address] Chloride 112 mmol/L High 98-110 [facility] Comment on above: Result Comment: [address] [address] Performed By: #### V NCR, BMP ####[address] [address] Potassium molar conc 3.6 mmol/L Normal 3.6-5.0 [facility] Comment on above: Performed By: #### V NCR, BMP ####[address] [address] Sodium 140 mmol/L Normal 136-145 [facility] Comment on above: Performed By: #### V NCR, BMP ####[address] [address] [employer] Test INFORMATION NOT PROVIDED Normal [facility] Comment on above: Performed By: #### V NCR, BMP ####[address] [address] Bicarbonate (HCO3) 20.6 mmol/L Low 22-27 [facility] Comment on above: Performed By: #### V NCR, BMP ####[address] [address] Body Temp. 37.0 Normal [facility] Comment on above: Performed By: #### V NCR, BMP ####[address] [address] CO2 35.4 mmHg Normal 32-45 [facility] Comment on above: Performed By: #### V NCR, BMP ####[address] [place] [address] FIO2 50% Normal [facility] Comment on above: Performed By: #### V NCR, BMP ####Lalitha Saunders[address] [place] [address] Glucose mass conc 128 mg/dL High 65-105 [facility] Comment on above: Performed By: #### V NCR, BMP ####[facility] Centermilagro SaundersJffuymkxqrzw[address] [place] [address] Hematocrit (HCT) 23.8 % Normal [facility] Comment on above: Performed By: #### V NCR, BMP ####[facility] Centermil[facility] SaundersUapivpbcbimw770[address] [place] [address] Hemoglobin mass conc (Bld) 7.6 g/dL Normal [facility] Comment on above: Performed By: #### V NCR, BMP ####[facility] Centermil[facility] SaundersRrttmjnltkxx4534[address] [place] [address] Hemoglobin mass conc (Bld) 1.5 % Normal 0-5.0 [facility] Comment on above: Result Comment: %Ref erence Range:Non-Smokers 0.0-0.8 %Smokers 4-20 % Performed By: #### V NCR, BMP ####[facility] [address] [address] Negative Base Excess 3.6 mmol/L High 0.0-2.0 [facility] Comment on above: Performed By: #### V NCR, BMP ####[facility] Centermil[facility] SaundersKgdbzykogcrt0576 [place] [address] O2 saturation 99.8 % Normal 94-100 [facility] Comment on above: Performed By: #### V NCR, BMP ####Lalitha Sanuders2222 [place] [address] Oxygen in arterial blood 240.0 mm[Hg] High 75-95 [facility] Comment on above: Performed By: #### V NCR, BMP ####[address] [place] [address] pH of blood 7.382 [pH] Normal 7.350-7.450 [facility] Comment on above: Performed By: #### V NCR, BMP ####[facility] [address] [address] CO2 NOT REPORTED Normal 32-45 [facility] Comment on above: Performed By: #### V NCR, BMP ####[address] [address] Hemoglobin mass conc (Bld) NOT REPORTED Normal 95.0-98.0 [facility] Comment on above: Performed By: #### V NCR, BMP ####[address] [address] Mode NOT REPORTED Normal [facility] Comment on above: Performed By: #### V NCR, BMP ####[address] [address] Notification Time NOT REPORTED Normal [facility] Comment on above: Performed By: #### V NCR, BMP ####[facility] [address] [address] Notification: NOT REPORTED Normal [facility] Comment on above: Performed By: #### V NCR, BMP ####[facility] Hrgfgkcuylst6583 [place] [address] O2 Device/Flow/% NOT REPORTED Normal [facility] Comment on above: Performed By: #### V NCR, BMP ####[facility] [address] [address] PEEP/CPAP NOT REPORTED Normal [facility] Comment on above: Performed By: #### V NCR, BMP ####[facility] [address] [address] pH Adjst'd for Temp. NOT REPORTED Normal 7.350-7.450 [facility] Comment on above: Performed By: #### V NCR, BMP ####[facility]ermil[facility] SaundersNpksabmrbgwj4849 [place] [address] pO2 Adjst'd for Temp NOT REPORTED Normal 75-95 [facility] Comment on above: Performed By: #### V NCR, BMP ####[facility]ermil[facility] SaundersUfetqantqpkh3372 [place] [address] Positive Base Excess NOT REPORTED Normal 0.0-2.0 [facility] Comment on above: Performed By: #### V NCR, BMP ####[address] [address] PSV NOT REPORTED Normal [facility] Comment on above: Performed By: #### V NCR, BMP ####[facility]ermil[facility] SaundersKlcitfgkoxvb34[address] [place] [address] Pt. Position NOT REPORTED Normal [facility] Comment on above: Performed By: #### V NCR, BMP ####[facility]erm[facility] SaundersRbogkpsrtdnr[address] [place] [address] Respiratory rate NOT REPORTED Normal [facility] Comment on above: Performed By: #### V NCR, BMP ####[facility]erm[facility] SaundersPpwfyrbjorwd[address] [place] [address] Set Rate NOT REPORTED Normal [facility] Comment on above: Performed By: #### V NCR, BMP ####[facility]ermil[facility] SaundersWibikwozdjfr4830 [place] [address] Site Drawn NOT REPORTED Normal [facility] Comment on above: Performed By: #### V NCR, BMP ####[facility] [address] [address] Text for Respiratory NOT REPORTED Normal [facility] Comment on above: Performed By: #### V NCR, BMP ####[facility] Kwzpnjfbnywf1893 [place] [address] Total Hb NOT REPORTED Normal 12.0-16.0 [facility] Comment on above: Performed By: #### V NCR, BMP ####[facility] Bhdduccgfhiz8335 [place] [address] Total Rate NOT REPORTED Normal [facility] Comment on above: Performed By: #### V NCR, BMP ####[facility]erm[facility] SaundersKlupyivfcllc[address] [place] [address] [place] NOT REPORTED Normal [facility] Comment on above: Performed By: #### V NCR, BMP ####[facility] [address] [address] Carmelo Test INFORMATION NOT PROVIDED Normal [facility] Comment on above: Performed By: #### V NCR, BMP ####[facility]ermil[facility] SaundersArzsvhaiwjyn0673 [place] [address] Bicarbonate (HCO3) 21.5 mmol/L Low 22-27 [facility] Comment on above: Performed By: #### V NCR, BMP ####[facility]ermil[facility] SaundersKriskgcbywqj0915 [place] [address] Body Temp. 37.0 Normal [facility] Comment on above: Performed By: #### V NCR, BMP ####[facility]ermil[facility] SaundersRgytjskkcbui1613 [place] [address] CO2 36.9 mmHg Normal 32-45 [facility] Comment on above: Performed By: #### V NCR, BMP ####[facility] [address] [address] FIO2 50% Normal [facility] Comment on above: Performed By: #### V NCR, BMP ####[facility]erm[facility] SaundersMvaoouuohplq44[address] [place] [address] Glucose mass conc 123 mg/dL High 65-105 [facility] Comment on above: Performed By: #### V NCR, BMP ####[facility] Feftfjxbuzav2840 [place] [address] Hematocrit (HCT) 25.0 % Normal [facility] Comment on above: Performed By: #### V NCR, BMP ####[facility] Bgefmcdkchcp[address] [place] [address] Hemoglobin mass conc (Bld) 1.4 % Normal 0-5.0 [facility] Comment on above: Result Comment: %Ref erence Range:Non-Smokers 0.0-0.8 %Smokers 4-20 % Performed By: #### V NCR, BMP ####[facility] CenterFligooRvbwaxnodojs256[address] [place] [address] Hemoglobin mass conc (Bld) 8.0 g/dL Normal [facility] Comment on above: Performed By: #### V NCR, BMP ####[facility] CenterFligooSyafyemylrkg027[address] [place] [address] Negative Base Excess 2.7 mmol/L High 0.0-2.0 [facility] Comment on above: Performed By: #### V NCR, BMP ####[facility] CenterFligooDpyzzzwoqoin6621 [place] [address] O2 saturation 99.8 % Normal 94-100 [facility] Comment on above: Performed By: #### V NCR, BMP ####[facility] CenterFligooMmatocquxqbi2922 [place] [address] Oxygen in arterial blood 219.0 mm[Hg] High 75-95 [facility] Comment on above: Performed By: #### V NCR, BMP ####[facility] CenterFligooNivfincsipoa6912 [place] [address] pH of blood 7.383 [pH] Normal 7.350-7.450 [facility] Comment on above: Performed By: #### V NCR, BMP ####[facility]ermil[facility] Jrcnmkywezal1043 [place] [address] CO2 NOT REPORTED Normal 32-45 [facility] Comment on above: Performed By: #### V NCR, BMP ####[facility] [address] [address] Hemoglobin mass conc (Bld) NOT REPORTED Normal 0.0-1.5 [facility] Comment on above: Performed By: #### V NCR, BMP ####[facility] [address] [address] Mode NOT REPORTED Normal [facility] Comment on above: Performed By: #### V NCR, BMP ####[address] [address] Notification Time NOT REPORTED Normal [facility] Comment on above: Performed By: #### V NCR, BMP ####[facility] [address] [address] Notification: NOT REPORTED Normal [facility] Comment on above: Performed By: #### V NCR, BMP ####[facility] [address] [address] O2 Device/Flow/% NOT REPORTED Normal [facility] Comment on above: Performed By: #### V NCR, BMP ####[facility] [address] [address] PEEP/CPAP NOT REPORTED Normal [facility] Comment on above: Performed By: #### V NCR, BMP ####[facility] [address] [address] pH Adjst'd for Temp. NOT REPORTED Normal 7.350-7.450 [facility] Comment on above: Performed By: #### V NCR, BMP ####[facility] [address] [address] pO2 Adjst'd for Temp NOT REPORTED Normal 75-95 [facility] Comment on above: Performed By: #### V NCR, BMP ####[facility] [address] [address] Positive Base Excess NOT REPORTED Normal 0.0-2.0 [facility] Comment on above: Performed By: #### V NCR, BMP ####[facility] [address] [address] PSV NOT REPORTED Normal [facility] Comment on above: Performed By: #### V NCR, BMP ####[facility] [address] [address] Pt. Position NOT REPORTED Normal [facility] Comment on above: Performed By: #### V NCR, BMP ####[facility] [address] [address] Respiratory rate NOT REPORTED Normal [facility] Comment on above: Performed By: #### V NCR, BMP ####[facility] [address] [address] Set Rate NOT REPORTED Normal [facility] Comment on above: Performed By: #### V NCR, BMP ####[address] [address] Site Drawn NOT REPORTED Normal [facility] Comment on above: Performed By: #### V NCR, BMP ####[facility] Dvoznqytfwyj8756 [place] [address] Text for Respiratory NOT REPORTED Normal [facility] Comment on above: Performed By: #### V NCR, BMP ####[facility] [address] [address] Total Hb NOT REPORTED Normal 12.0-16.0 [facility] Comment on above: Performed By: #### V NCR, BMP ####[facility] Ljeaqeyuoznu3769 [place] [address] Total Rate NOT REPORTED Normal [facility] Comment on above: Performed By: #### V NCR, BMP ####[facility]ermil[facility] SaundersHqsdiltkujsd6851 [place] [address] [place] NOT REPORTED Normal [facility] Comment on above: Performed By: #### V NCR, BMP ####[facility] Centermil[facility] SaundersKlwhbxsuuwgj[address] [place] [address] XR THORACIC SPINE LIMITEDon 07-07-2017 XR THORACIC SPINE LIMITED EXAMINATION:SPOT FLUOROSCOPIC IMAGES07/07/2017 7:06 pmTECHNIQUE:Fluoroscopy was provided by the radiology department for procedure.Radiologist was not present during examination.FLUOROSCOPY DOSE AND TYPE OR TIME AND EXPOSURES:54 seconds, 2 imagesCOMPARISON:07/01/2017 radiographHISTORY:Intraproc edural imaging.FINDINGS:2 spot images of the spine were obtained.Fluoroscopic assistance provided for spinal surgical procedure.IMPRESSION: Intraprocedural fluoroscopic spot images as above. See separate procedurereport for more information.Interpreted by:JOVON Ochoa IVigned by:Saeid Cam IV, MD07/07/17Final result Normal [facility] APTTon 07-06-2017 aPTT 27.5 s Normal 21.3-31.3 [facility] Comment on above: Result Comment: [facility] [place] [address] Performed By: #### P T, PTT, CDP, LIVP, BMP ####[address] [place] [address] Basic Metabolic Profon 07-06 (cont.) Normal [facility] Comment on above: Result Comment: Aver age GFR for 30-39 years old: 107 mL/min/1.73sq mChronic Kidney Disease: <60 mL/min/1.73sq mKidney failure: <15 mL/min/1.73sq meGFR calculated using average adult body mass. Additional eGFR calculator available at:[email or web address] [address] [place] [address] Performed By: #### V NCR, BMP ####[facility]2222 [place] [address] Anion gap 15 mmol/L Normal 9-17 [facility] Comment on above: Performed By: #### V NCR, BMP ####[address] [place] [address] Calcium 9.6 mg/dL Normal 8.6-10.4 [facility] Comment on above: Performed By: #### V NCR, BMP ####[address] [address] Chloride 101 mmol/L Normal 98-107 [facility] Comment on above: Performed By: #### V NCR, BMP ####[address] [address] CO2 25 mmol/L Normal 20-31 [facility] Comment on above: Performed By: #### V NCR, BMP ####[address] [address] Creatinine 0.55 mg/dL Normal 0.50-0.90 [facility] Comment on above: Performed By: #### V NCR, BMP ####[address] [place] [address] eGFR (non-black) mL/min/{1.73_m2} Normal >60 [facility] Comment on above: Performed By: #### V NCR, BMP ####[address] [place] [address] Glucose mass conc 84 mg/dL Normal 70-99 [facility] Comment on above: Performed By: #### V NCR, BMP ####[facility] Dpvhrfpyktgv8223 [place] [address] Potassium molar conc 4.0 mmol/L Normal 3.7-5.3 [facility] Comment on above: Performed By: #### V NCR, BMP ####[address] [address] Sodium 141 mmol/L Normal 135-144 [facility] Comment on above: Performed By: #### V NCR, BMP ####[address] [address] Urea nitrogen 13 mg/dL Normal -20 [facility] Comment on above: Performed By: #### V NCR, BMP ####[address] [address] BUN/CRE Ratio NOT REPORTED Normal 07-22 [facility] Comment on above: Performed By: #### V NCR, BMP ####[address] [address] Staging: NOT REPORTED Normal [facility] Comment on above: Performed By: #### V NCR, BMP ####[address] [address] Blood Bank Specimenon 2016 Blood Bank Specimen NOT REPORTED Normal [facility] CBC with Diffon 07-06-2017 Abs. Basophil 0.00 k/uL Normal 0.0-0.2 [facility] Comment on above: Performed By: #### V NCR, BMP ####[address] [address] Abs.Neutrophil (Seg) 6.73 k/uL Normal 1.8-7.7 [facility] Comment on above: Performed By: #### V NCR, BMP ####[address] [address] Basophils/100 WBC Auto (Bld) 0 % Normal [facility] Comment on above: Performed By: #### V NCR, BMP ####[address] [address] Blood morphology ANISOCYTOSIS PRESENT Normal [facility] Comment on above: Result Comment: 1+[facility] [address] [place] [address] Performed By: #### V NCR, BMP ####[address] [address] Eosinophils 0.20 10*3/uL Normal 0.0-0.4 [facility] Comment on above: Performed By: #### V NCR, BMP ####[address] [address] Eosinophils/100 leukocytes 2 % Normal [facility] Comment on above: Performed By: #### V NCR, BMP ####[address] [address] Lymphocytes 2.18 10*3/uL Normal 1.0-4.8 [facility] Comment on above: Performed By: #### V NCR, BMP ####[facility] CenterGamaMabs [facility] [address] [address] Lymphocytes/100 leukocytes 22 % Normal [facility] Comment on above: Performed By: #### V NCR, BMP ####[facility] CenterFligooAujondpfgmsm[address] [place] [address] Monocytes 0.79 10*3/uL Normal 0.1-0.8 [facility] Comment on above: Performed By: #### V NCR, BMP ####[facility] CenterFligooVkjdwneqotwx[address] [place] [address] Monocytes/100 leukocytes 8 % Normal [facility] Comment on above: Performed By: #### V NCR, BMP ####[employer] [place] [address] Neutrophil (Seg) 68 % Normal [facility] Comment on above: Performed By: #### V NCR, BMP ####[facility] Centermilagro SaundersIdfnomwfhrxj5286 [place] [address] Erythrocyte distribution width Auto Ratio (RBC) 19.4 % High 12.5-15.4 [facility] Comment on above: Performed By: #### V NCR, BMP ####[facility] Centermilagro SaundersKcwlydvzeili[address] [place] [address] Erythrocytes (RBC) 4.59 10*6/uL Normal 4.0-5.2 [facility] Comment on above: Performed By: #### V NCR, BMP ####[facility] Cent[facility] [address] [address] Hematocrit (HCT) 38.2 % Normal 36-46 [facility] Comment on above: Performed By: #### V NCR, BMP ####[facility] Centermil[facility]ro Xeanbdrsxrdt6291 [place] [address] Hemoglobin mass conc (Bld) 12.4 g/dL Normal 12.0-16.0 [facility] Comment on above: Performed By: #### V NCR, BMP ####[address] [address] MCH 27.0 pg Normal 26-34 [facility] Comment on above: Performed By: #### V NCR, BMP ####[address] [place] [address] MCHC mass conc (RBC) 32.4 g/dL Normal 31-37 [facility] Comment on above: Performed By: #### V NCR, BMP ####[facility] Centermil[facility]ro Dcoghzqqyfkn7240 [place] [address] MCV 83.3 fL Normal 80-100 [facility] Comment on above: Performed By: #### V NCR, BMP ####[address] [address] Platelet mean volume (PMV) 6.9 fL Normal 6.0-12.0 [facility] Comment on above: Performed By: #### V NCR, BMP ####[address] [address] Platelets 885 10*3/uL High 140-450 [facility] Comment on above: Performed By: #### V NCR, BMP ####[address] [address] WBC (Leukocytes) 9.9 10*3/uL Normal 3.5-11.0 [facility] Comment on above: Performed By: #### V NCR, BMP ####[address] [address] Auto Diff Performed NOT REPORTED Normal [facility] Comment on above: Performed By: #### V NCR, BMP ####[address] [address] Erythrocyte morphology NOT REPORTED Normal [facility] Comment on above: Performed By: #### V NCR, BMP ####[address] [address] Platelets NOT REPORTED Normal [facility] Comment on above: Performed By: #### V NCR, BMP ####[facility] [address] [address] WBC Morphology NOT REPORTED Normal [facility] Comment on above: Performed By: #### V NCR, BMP ####[address] [address] Liver Profileon 07-06-2017 Alanine aminotransferase (ALT) 10 U/L Normal 5-33 [facility] Comment on above: Performed By: #### V NCR, BMP ####[facility] Centerm[facility] Hhjoairjbnxd2683 [place] [address] Albumin 3.9 g/dL Normal 3.5-5.2 [facility] Comment on above: Performed By: #### V NCR, BMP ####[facility] [address] [address] Albumin/Globulin Ratio 0.9 {ratio} Low 1.0-2.5 [facility] Comment on above: Result Comment: [address] [address] Performed By: #### V NCR, BMP ####[address] [address] Alkaline Phos 184 U/L High 35-104 [facility] Comment on above: Performed By: #### V NCR, BMP ####[facility] CenterGamaMabs Pharma [address] [address] Aspartate aminotransferase (AST) 15 U/L Normal <32 [facility] Comment on above: Performed By: #### V NCR, BMP ####[facility] CenterGamaM[facility] [address] [address] Bilirubin (direct) mg/dL Normal <0.31 [facility] Comment on above: Performed By: #### V NCR, BMP ####[facility] CenterFligooSpdncgxehccd555[address] [place] [address] Bilirubin Ql (U) <0.10 Low 0.3-1.2 [facility] Comment on above: Performed By: #### V NCR, BMP ####[facility] CenterGamaMabs Ph[facility] [address] [address] Bilirubin, Indirect CANNOT BE CALCULATED Normal 0.00-1.00 [facility] Comment on above: Performed By: #### V NCR, BMP ####[facility] CenterGamaM[facility] [address] [address] Protein 8.3 g/dL Normal 6.4-8.3 [facility] Comment on above: Performed By: #### V NCR, BMP ####[facility] Centerm[facility] [address] [address] Globulin NOT REPORTED Normal 1.5-3.8 [facility] Comment on above: Performed By: #### V NCR, BMP ####[facility] [address] [address] PTon 07-06-2017 INR Coag RelTime (PPP) 1.0 {INR} Normal [facility] Comment on above: Result Comment: Ther apeutic Range: Moderate Anticoagulant Intensity: INR = 2.0-3.0 High Anticoagulant Intensity: INR = 2.5-3.[address] [address] Performed By: #### P T, PTT, CDP, LIVP, BMP ####Lalitha [address] [address] Prothrombin time (PT) Coag time (PPP) 10.9 s Normal 9.4-12.6 [facility] Comment on above: Performed By: #### P T, PTT, CDP, LIVP, BMP ####[address] [address] Type + Screenon 07-06-2017 Type + Screen Sample Expiration 07/09/2017 Arm Band Number [id number] ABO/Rh(D) O POSITIVE Antibody Screen NEGATIVE Unit Number [id number] Blood Component Type Leukocyte Reduced Red Cell Unit Division 00 Status of Unit TRANSFUSED Transfusion Status OK TO TRANSFUSE Crossmatch Result COMPATIBLE Unit Number [id number] Blood Component Type Leukocyte Reduced Red Cell Unit Division 00 Status of Unit REL FROM ALLOC Transfusion Status OK TO TRANSFUSE Crossmatch Result COMPATIBLE[address] [address] Unit Number [id number] Blood Component Type Leukocyte Reduced Red Cell Unit Division 00 Status of Unit TRANSFUSED Transfusion Status OK TO TRANSFUSE Crossmatch Result COMPATIBLE Unit Number [id number] Blood Component Type Leukocyte Reduced Red Cell Unit Division 00 Status of Unit REL FROM ALLOC Transfusion Status OK TO TRANSFUSE Crossmatch Result COMPATIBLE Normal [facility] Comment on above: Performed By: #### T YS ####[address] [address] Urinalysis w/ Microon 2016 ----- Normal [facility] Comment on above: Performed By: #### V NCR, BMP ####[address] [address] Acetaminophen mass conc Negative Normal NEG [facility] Comment on above: Performed By: #### V NCR, BMP ####[address] [address] Bilirubin (direct) Negative Normal NEG [facility] Comment on above: Performed By: #### V NCR, BMP ####[address] [address] Hemoglobin mass conc (Bld) Negative Normal NEG [facility] Comment on above: Performed By: #### V NCR, BMP ####[address] [address] Nitrite,Ur Negative Normal NEG [facility] Comment on above: Performed By: #### V NCR, BMP ####[address] [address] Turbidity CLEAR Normal CLEAR [facility] Comment on above: Performed By: #### V NCR, BMP ####[address] [address] Urine WBC's 5 TO 10 Normal 0-5 [facility] Comment on above: Performed By: #### V NCR, BMP ####[address] [address] Urine, casts in sediment 5 TO 10 HYALINE Normal 0-8 [facility] Comment on above: Result Comment: Refe rence range defined for non-centrifuged specimen. Performed By: #### V NCR, BMP ####[address] [address] Urine, color YELLOW Normal YEL [facility] Comment on above: Performed By: #### V NCR, BMP ####[address] [address] Urine, epithelial cells in sediment 10 TO 20 Normal 0-5 [facility] Comment on above: Result Comment: [address] [address] Performed By: #### V NCR, BMP ####[address] [address] Urine, erythrocytes None Normal 0-4 [facility] Comment on above: Result Comment: Refe rence range defined for non-centrifuged specimen. Performed By: #### V NCR, BMP ####[address] [address] Urine, glucose presence Negative Normal NEG [facility] Comment on above: Performed By: #### V NCR, BMP ####[address] [address] Urine, leukocyte esterase presence TRACE Abnormal NEG [facility] Comment on above: Performed By: #### V NCR, BMP ####[address] [address] Urine, pH 7.0 [pH] Normal 5.0-8.0 [facility] Comment on above: Performed By: #### V NCR, BMP ####[address] [address] Urine, protein presence Negative Normal NEG [facility] Comment on above: Performed By: #### V NCR, BMP ####[address] [address] Urine, specific gravity 1.020 Normal 1.005-1.030 [facility] Comment on above: Performed By: #### V NCR, BMP ####[address] [address] Urobilinogen,Ur Normal Normal NORM [facility] Comment on above: Performed By: #### V NCR, BMP ####[address] [address] Epithelial, Renal NOT REPORTED Normal 0 [facility] Comment on above: Performed By: #### V NCR, BMP ####[address] [address] Mucus Strands NOT REPORTED Normal NONE [facility] Comment on above: Performed By: #### V NCR, BMP ####[address] [address] Other Observations NOT REPORTED Normal NREQ [facility] Comment on above: Performed By: #### V NCR, BMP ####[address] [address] Trichomonas NOT REPORTED Normal NONE [facility] Comment on above: Performed By: #### V NCR, BMP ####[address] [address] Urine, amorphous sediment presence in sediment NOT REPORTED Normal NONE [facility] Comment on above: Performed By: #### V NCR, BMP ####[address] [address] Urine, bacteria in sediment NOT REPORTED Normal NONE [facility] Comment on above: Performed By: #### V NCR, BMP ####[address] [place] [address] Urine, crystals in sediment NOT REPORTED Normal NONE [facility] Comment on above: Performed By: #### V NCR, BMP ####[facility] [place] [address] Urine, yeast presence in sediment NOT REPORTED Normal NONE [facility] Comment on above: Performed By: #### V NCR, BMP ####[address] [address] Basic Metabolic Profon 07-05 Anion gap 12 mmol/L Normal 9-17 [facility] Comment on above: Performed By: #### B MP ####[address] [address] Calcium 9.0 mg/dL Normal 8.6-10.4 [facility] Comment on above: Performed By: #### B MP ####[address] [address] Chloride 103 mmol/L Normal 98-107 [facility] Comment on above: Performed By: #### B MP ####[address] [address] CO2 24 mmol/L Normal 20-31 [facility] Comment on above: Performed By: #### B MP ####[address] [address] Creatinine 0.50 mg/dL Normal 0.50-0.90 [facility] Comment on above: Performed By: #### B MP ####[facility] [place] [address] eGFR (non-black) mL/min/{1.73_m2} Normal >60 Me [facility] Comment on above: Performed By: #### B MP ####[address] [address] Glucose mass conc 93 mg/dL Normal 70-99 [facility] Comment on above: Performed By: #### B MP ####[facility] [place] [address] Potassium molar conc 4.3 mmol/L Normal 3.7-5.3 [facility] Comment on above: Result Comment: SPEC IMEN SLIGHTLY HEMOLYZED, RESULTS MAY BE ADVERSELY AFFECTED. Performed By: #### B MP ####[address] [place] [address] Sodium 139 mmol/L Normal 135-144 [facility] Comment on above: Performed By: #### B MP ####[address] [address] Urea nitrogen 12 mg/dL Normal - [facility] Comment on above: Performed By: #### B MP ####[address] [address] (cont.) Normal [facility] Comment on above: Result Comment: Aver age GFR for 30-39 years old: 107 mL/min/1.73sq mChronic Kidney Disease: <60 mL/min/1.73sq mKidney failure: <15 mL/min/1.73sq meGFR calculated using average adult body mass. Additional eGFR calculator available at:[email or web address] [facility] [address] [place] [address] Performed By: #### B MP ####[address] [place] [address] BUN/CRE Ratio NOT REPORTED Normal -20 [facility] Comment on above: Performed By: #### B MP ####[facility] [place] [address] Staging: NOT REPORTED Normal [facility] Comment on above: Performed By: #### B MP ####[address] [address] CBC with Diffon 07-05-2017 Abs. Basophil 0.12 k/uL Normal 0.0-0.2 [facility] Comment on above: Performed By: #### C DP ####[address] [address] Abs.Neutrophil (Seg) 7.81 k/uL High 1.8-7.7 [facility] Comment on above: Performed By: #### C DP ####[address] [address] Basophils/100 WBC Auto (Bld) 1 % Normal [facility] Comment on above: Performed By: #### C DP ####[address] [address] Blood morphology ANISOCYTOSIS PRESENT Normal [facility] Comment on above: Result Comment: [address] [place] [address] Performed By: #### C DP ####[address] [address] Eosinophils 0.61 10*3/uL High 0.0-0.4 [facility] Comment on above: Performed By: #### C DP ####[address] [address] Eosinophils/100 leukocytes 5 % Normal [facility] Comment on above: Performed By: #### C DP ####[address] [address] Lymphocytes 3.17 10*3/uL Normal 1.0-4.8 [facility] Comment on above: Performed By: #### C DP ####[address] [address] Lymphocytes/100 leukocytes 26 % Normal [facility] Comment on above: Performed By: #### C DP ####[facility] [place] [address] Monocytes 0.49 10*3/uL Normal 0.1-0.8 [facility] Comment on above: Performed By: #### C DP ####[address] [address] Monocytes/100 leukocytes 4 % Normal [facility] Comment on above: Performed By: #### C DP ####[address] [address] Neutrophil (Seg) 64 % Normal [facility] Comment on above: Performed By: #### C DP ####[address] [address] Erythrocyte distribution width Auto Ratio (RBC) 19.1 % High 12.5-15.4 [facility] Comment on above: Performed By: #### C DP ####[address] [address] Erythrocytes (RBC) 3.99 10*6/uL Low 4.0-5.2 [facility] Comment on above: Performed By: #### C DP ####[address] [address] Hematocrit (HCT) 32.5 % Low 36-46 [facility] Comment on above: Performed By: #### C DP ####[address] [address] Hemoglobin mass conc (Bld) 10.5 g/dL Low 12.0-16.0 [facility] Comment on above: Performed By: #### C DP ####[address] [address] MCH 26.4 pg Normal 26-34 [facility] Comment on above: Performed By: #### C DP ####[address] [address] MCHC mass conc (RBC) 32.5 g/dL Normal 31-37 [facility] Comment on above: Performed By: #### C DP ####[address] [address] MCV 81.4 fL Normal 80-100 [facility] Comment on above: Performed By: #### C DP ####[address] [address] Platelet mean volume (PMV) 6.8 fL Normal 6.0-12.0 [facility] Comment on above: Performed By: #### C DP ####[address] [address] Platelets 765 10*3/uL High 140-450 [facility] Comment on above: Performed By: #### C DP ####[address] [address] WBC (Leukocytes) 12.2 10*3/uL High 3.5-11.0 [facility] Comment on above: Performed By: #### C DP ####[address] [address] Auto Diff Performed NOT REPORTED Normal [facility] Comment on above: Performed By: #### C DP ####[address] [address] Erythrocyte morphology NOT REPORTED Normal [facility] Comment on above: Performed By: #### C DP ####[address] [address] Platelets NOT REPORTED Normal [facility] Comment on above: Performed By: #### C DP ####Lalitha [address]unders[address] [place] [address] WBC Morphology NOT REPORTED Normal [facility] Comment on above: Performed By: #### C DP ####Lalitha [address]unders[address] [place] [address] Vancomycin Troughon 07-04-20 17 Vancomycin Trough 12.5 ug/mL Normal 10.0-20.0 [facility] Comment on above: Result Comment: High er trough serum vancomycin concentrations of 15-20 ug/mL are recommended for complicated infections such as bacteremia, endocarditis, osteomyelitis, meningitis, and hospital acquired pneumonia.[employer] [address] [place] [address] Performed By: #### V NCT ####[facility] Centermilagro SaundersWcytfijjxnui[address] [place] [address] Date last dose, NOT REPORTED Normal [facility] Comment on above: Performed By: #### V NCT ####[facility] Centermil[facility] SaundersCyrcjvtcvkxw[address] [place] [address] Dose amount, NOT REPORTED Normal [facility] Comment on above: Performed By: #### V NCT ####Lalitha Saunders[address] [place] [address] Time last dose, NOT REPORTED Normal [facility] Comment on above: Performed By: #### V NCT ####[facility] Centermilagro SaundersBocnjffrnawi[address] [place] [address] Vancomycin Troughon 07-03-20 17 Vancomycin Trough 50.5 ug/mL Critically high 10.0-20.0 [facility] Comment on above: Result Comment: High er trough serum vancomycin concentrations of 15-20 ug/mL are recommended for complicated infections such as bacteremia, endocarditis, osteomyelitis, meningitis, and hospital acquired pneumonia.[employer] [facility] [place] [address] Performed By: #### V NCT ####Lalitha Saunders[address] [place] [address] Date last dose, NOT REPORTED Normal [facility] Comment on above: Performed By: #### V NCT ####[facility] [address] [address] Dose amount, NOT REPORTED Normal [facility] Comment on above: Performed By: #### V NCT ####[facility] Centermil[facility]ro SaundersUqnwwlrhsgns[address] [place] [address] Time last dose, NOT REPORTED Normal [facility] Comment on above: Performed By: #### V NCT ####[address] [address] Type + Screenon 07-02-2017 Type + Screen Sample Expiration 07/04/2017 Arm Band Number [id number] ABO/Rh(D) O POSITIVE Antibody Screen NEGATIVE Unit Number [id number] Blood Component Type Leukocyte Reduced Red Cell Unit Division 00 Status of Unit REL FROM ALLOC Transfusion Status OK TO TRANSFUSE Crossmatch Result [facility]IBLETri[facility] [place] [address] Unit Number [id number] Blood Component Type Leukocyte Reduced Red Cell Unit Division 00 Status of Unit REL FROM ALLOC Transfusion Status OK TO TRANSFUSE Crossmatch Result COMPATIBLE Unit Number [id number] Blood Component Type Leukocyte Reduced Red Cell Unit Division 00 Status of Unit REL FROM ALLOC Transfusion Status OK TO TRANSFUSE Crossmatch Result COMPATIBLE Unit Number [id number] Blood Component Type Leukocyte Reduced Red Cell Unit Division 00 Status of Unit REL FROM ALLOC Transfusion Status OK TO TRANSFUSE Crossmatch Result COMPATIBLE Normal [facility] Comment on above: Performed By: #### T YS ####[address] [address] UA w/Reflex Cultureon 2016 Acetaminophen mass conc Negative Normal NEG [facility] Comment on above: Performed By: #### U AX ####[address] [address] Bilirubin (direct) Negative Normal NEG [facility] Comment on above: Performed By: #### U AX ####[address] [address] Comment Microscopic exam not performed based on chemical results unless requested in Normal [facility] Comment on above: Result Comment: orig inal order.[address] [address] Performed By: #### U AX ####[address] [address] Hemoglobin mass conc (Bld) Negative Normal NEG [facility] Comment on above: Performed By: #### U AX ####[address] [address] Nitrite,Ur Negative Normal NEG [facility] Comment on above: Performed By: #### U AX ####[address] [address] Turbidity CLEAR Normal CLEAR [facility] Comment on above: Performed By: #### U AX ####[address] [address] Urine, color YELLOW Normal YEL [facility] Comment on above: Performed By: #### U AX ####[address] [address] Urine, glucose presence Negative Normal NEG [facility] Comment on above: Performed By: #### U AX ####[address] [address] Urine, leukocyte esterase presence Negative Normal NEG [facility] Comment on above: Performed By: #### U AX ####[address] [address] Urine, pH 7.0 [pH] Normal 5.0-8.0 [facility] Comment on above: Performed By: #### U AX ####[address] [address] Urine, protein presence Negative Normal NEG [facility] Comment on above: Performed By: #### U AX ####[address] [address] Urine, specific gravity 1.010 Normal 1.005-1.030 [facility] Comment on above: Performed By: #### U AX ####[address] [address] Urobilinogen,Ur Normal Normal NORM [facility] Comment on above: Performed By: #### U AX ####[address] [address] APTTon 07-01-2017 aPTT 27.4 s Normal 21.3-31.3 [facility] Comment on above: Result Comment: [facility] [address] [place] [address] Performed By: #### P T, PTT ####[address] [address] Blood Bank Specimenon 2016 Blood Bank Specimen NOT REPORTED Normal [facility] C-Reactive Proteinon 017 C reactive protein (CRP) 242.7 mg/L High 0.0-5.0 [facility] Comment on above: Result Comment: [facility] [place] [address] Performed By: #### C DP, CRP, CP, SED ####[address] [address] CBC with Diffon 07-01-2017 Abs. Basophil 0.00 k/uL Normal 0.0-0.2 [facility] Comment on above: Performed By: #### C DP, CRP, CP, SED ####[address] [address] Abs.Neutrophil (Seg) 6.92 k/uL Normal 1.8-7.7 [facility] Comment on above: Performed By: #### C DP, CRP, CP, SED ####[address] [address] Basophils/100 WBC Auto (Bld) 0 % Normal [facility] Comment on above: Performed By: #### C DP, CRP, CP, SED ####[address] [address] Blood morphology ANISOCYTOSIS PRESENT Normal [facility] Comment on above: Result Comment: [address] [address] Performed By: #### C DP, CRP, CP, SED ####[address] [address] Eosinophils 0.11 10*3/uL Normal 0.0-0.4 [facility] Comment on above: Performed By: #### C DP, CRP, CP, SED ####[address] [address] Eosinophils/100 leukocytes 1 % Normal [facility] Comment on above: Performed By: #### C DP, CRP, CP, SED ####[address] [address] Lymphocytes 2.63 10*3/uL Normal 1.0-4.8 [facility] Comment on above: Performed By: #### C DP, CRP, CP, SED ####[address] [address] Lymphocytes/100 leukocytes 25 % Normal [facility] Comment on above: Performed By: #### C DP, CRP, CP, SED ####[address] [address] Monocytes 0.84 10*3/uL High 0.1-0.8 [facility] Comment on above: Performed By: #### C DP, CRP, CP, SED ####[address] [address] Monocytes/100 leukocytes 8 % Normal [facility] Comment on above: Performed By: #### C DP, CRP, CP, SED ####[address] [address] Neutrophil (Seg) 66 % Normal [facility] Comment on above: Performed By: #### C DP, CRP, CP, SED ####[address] [address] Erythrocyte distribution width Auto Ratio (RBC) 19.2 % High 12.5-15.4 [facility] Comment on above: Performed By: #### C DP, CRP, CP, SED ####[address] [address] Erythrocytes (RBC) 3.68 10*6/uL Low 4.0-5.2 [facility] Comment on above: Performed By: #### C DP, CRP, CP, SED ####[address] [address] Hematocrit (HCT) 31.0 % Low 36-46 [facility] Comment on above: Performed By: #### C DP, CRP, CP, SED ####[address] [address] Hemoglobin mass conc (Bld) 10.0 g/dL Low 12.0-16.0 [facility] Comment on above: Performed By: #### C DP, CRP, CP, SED ####[address] [address] MCH 27.2 pg Normal 26-34 [facility] Comment on above: Performed By: #### C DP, CRP, CP, SED ####[address] [address] MCHC mass conc (RBC) 32.2 g/dL Normal 31-37 [facility] Comment on above: Performed By: #### C DP, CRP, CP, SED ####[address] [address] MCV 84.4 fL Normal 80-100 [facility] Comment on above: Performed By: #### C DP, CRP, CP, SED ####[address] [address] Platelet mean volume (PMV) 7.1 fL Normal 6.0-12.0 [facility] Comment on above: Performed By: #### C DP, CRP, CP, SED ####[address] [address] Platelets 556 10*3/uL High 140-450 [facility] Comment on above: Performed By: #### C DP, CRP, CP, SED ####[address] [address] WBC (Leukocytes) 10.5 10*3/uL Normal 3.5-11.0 [facility] Comment on above: Performed By: #### C DP, CRP, CP, SED ####[address] [address] Auto Diff Performed NOT REPORTED Normal [facility] Comment on above: Performed By: #### C DP, CRP, CP, SED ####[address] [address] Erythrocyte morphology NOT REPORTED Normal [facility] Comment on above: Performed By: #### C DP, CRP, CP, SED ####[address] [place] [address] Platelets NOT REPORTED Normal [facility] Comment on above: Performed By: #### C DP, CRP, CP, SED ####[address] [address] WBC Morphology NOT REPORTED Normal [facility] Comment on above: Performed By: #### C DP, CRP, CP, SED ####[address] [address] Comp Metabolic Profon 2016 (cont.) Normal [facility] Comment on above: Result Comment: Aver age GFR for 30-39 years old: 107 mL/min/1.73sq mChronic Kidney Disease: <60 mL/min/1.73sq mKidney failure: <15 mL/min/1.73sq meGFR calculated using average adult body mass. Additional eGFR calculator available at:[email or web address] [address] [place] [address] Performed By: #### C DP, CRP, CP, SED ####[address] [address] Alanine aminotransferase (ALT) 17 U/L Normal 5-33 [facility] Comment on above: Performed By: #### C DP, CRP, CP, SED ####[facility] [address] [place] [address] Albumin 2.8 g/dL Low 3.5-5.2 [facility] Comment on above: Performed By: #### C DP, CRP, CP, SED ####[address] [address] Albumin/Globulin Ratio 0.7 {ratio} Low 1.0-2.5 [facility] Comment on above: Performed By: #### C DP, CRP, CP, SED ####[address] [address] Alkaline Phos 263 U/L High 35-104 [facility] Comment on above: Performed By: #### C DP, CRP, CP, SED ####[address] [address] Anion gap 14 mmol/L Normal 9-17 [facility] Comment on above: Performed By: #### C DP, CRP, CP, SED ####[address] [address] Aspartate aminotransferase (AST) 16 U/L Normal <32 [facility] Comment on above: Performed By: #### C DP, CRP, CP, SED ####[address] [address] Bilirubin Ql (U) 0.16 mg/dL Low 0.3-1.2 [facility] Comment on above: Performed By: #### C DP, CRP, CP, SED ####[address] [address] Calcium 8.6 mg/dL Normal 8.6-10.4 [facility] Comment on above: Performed By: #### C DP, CRP, CP, SED ####[address] [address] Chloride 107 mmol/L Normal 98-107 [facility] Comment on above: Performed By: #### C DP, CRP, CP, SED ####[address] [address] CO2 21 mmol/L Normal 20-31 [facility] Comment on above: Performed By: #### C DP, CRP, CP, SED ####[address] [address] Creatinine 0.48 mg/dL Low 0.50-0.90 [facility] Comment on above: Performed By: #### C DP, CRP, CP, SED ####[address] [place] [address] eGFR (non-black) mL/min/{1.73_m2} Normal >60 [facility] Comment on above: Performed By: #### C DP, CRP, CP, SED ####[address] [address] Glucose mass conc 92 mg/dL Normal 70-99 [facility] Comment on above: Performed By: #### C DP, CRP, CP, SED ####[address] [address] Potassium molar conc 4.4 mmol/L Normal 3.7-5.3 [facility] Comment on above: Performed By: #### C DP, CRP, CP, SED ####[address] [address] Protein 6.6 g/dL Normal 6.4-8.3 [facility] Comment on above: Performed By: #### C DP, CRP, CP, SED ####[address] [address] Sodium 142 mmol/L Normal 135-144 [facility] Comment on above: Performed By: #### C DP, CRP, CP, SED ####[address] [place] [address] Urea nitrogen 11 mg/dL Normal 6-20 [facility] Comment on above: Performed By: #### C DP, CRP, CP, SED ####[address] [address] BUN/CRE Ratio NOT REPORTED Normal 9-20 [facility] Comment on above: Performed By: #### C DP, CRP, CP, SED ####[address] [address] Staging: NOT REPORTED Normal [facility] Comment on above: Performed By: #### C DP, CRP, CP, SED ####[address] [address] Drug Scr, Abuse, Uron 2016 Amphetamine(s),Ur Positive Abnormal NEG [facility] Comment on above: Result Comment: (Pos itive cutoff 1000 ng/mL) Performed By: #### D AU ####[address] [address] Barbiturate(s),Ur Negative Normal NEG [facility] Comment on above: Result Comment: (Pos itive cutoff 200 ng/mL) Performed By: #### D AU ####[address] [address] Base excess Negative Normal NEG [facility] Comment on above: Result Comment: (Pos itive cutoff 300 ng/mL) Performed By: #### D AU ####[address] [address] Benzodiazepine(s) Negative Normal NEG [facility] Comment on above: Result Comment: (Pos itive cutoff 200 ng/mL) Performed By: #### D AU ####[address] [address] Cannabinoid(s),Ur Negative Normal NEG [facility] Comment on above: Result Comment: (Pos itive cutoff 50 ng/mL) Performed By: #### D AU ####[address] [address] Interpretive Info Assay provides medic al screening only. The absence of expected drug(s) and/or Normal [facility] Comment on above: Result Comment: meta bolite(s) may indicate diluted or adulterated urine, limitations of testing or timing of collection.Testing for legal purposes should be confirmed by another method. To request confirmation of test result, please call the lab within 7 days of sample submission.[address] [address] Performed By: #### D AU ####[address] [address] Opiate(s), Ur Positive Abnormal NEG [facility] Comment on above: Result Comment: (Pos itive cutoff 300 ng/mL) Performed By: #### D AU ####[address] [address] Oxycodone, Urine Negative Normal NEG [facility] Comment on above: Result Comment: (Pos itive cutoff 100 ng/mL) Performed By: #### D AU ####[address] [address] Phencyclidine, Ur Negative Normal NEG [facility] Comment on above: Result Comment: (Pos itive cutoff 25 ng/mL) Performed By: #### D AU ####[address] [address] Urine, methadone presence Negative Normal NEG [facility] Comment on above: Result Comment: (Pos itive cutoff 300 ng/mL) Performed By: #### D AU ####[address] [address] Buprenorphrine, Ur NOT REPORTED Normal NEG [facility] Comment on above: Performed By: #### D AU ####[address] [address] MDMA, Urine NOT REPORTED Normal NEG [facility] Comment on above: Performed By: #### D AU ####[address] [address] Methamphetamine, Ur NOT REPORTED Normal NEG [facility] Comment on above: Performed By: #### D AU ####[address] [place] [address] Propoxyphene,Urine NOT REPORTED Normal NEG [facility] Comment on above: Performed By: #### D AU ####[address] [place] [address] Urine, tricyclic antidepressants NOT REPORTED Normal NEG [facility] Comment on above: Performed By: #### D AU ####[address] [place] [address] 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 needs sedativeFINDINGS:BONES/ALIG NMENT: There is relative straightening of the normal cervical spinelordosis. No vertebral body edema is noted. There is edema again noted inthe right C4-5 and C5-6 facet joints.SPINAL CORD: No abnormal cord signal is seen.SOFT TISSUES: Very minimal disc bulging is noted. Facet hypertrophic changesare noted. Uncovertebral hypertrophic changes are noted as wellC2-C3: Very minimal disc bulging is noted. Facet hypertrophic changes arenoted. Uncovertebral hypertrophic changes are noted as wellC3-C4: There is no significant disc protrusion, spinal canal stenosis orneural foraminal narrowing.C4-C5: Lobular area of heterogeneous signal along the rightward aspect of thespinal cord at C4-5 is not seen on the current examination. There is a smallamount of residual curvilinear dark T2 signal. This is intimately associatedwith the medial aspect of the abnormal right facet joint. There is probablenarrowing of the right proximal foramen.C5-C6: Mild disc bulging is noted diffusely. Left proximal foraminalbroad-based herniation is again noted with severe narrowing of the foramen.Uncovertebral hypertrophic changes are noted. Left greater than right facethypertrophic changes are noted. Minimal flattening of the left ventral cordis notedC6-C7: Diffuse disc bulging is noted with proximal foraminal protrusionsbilaterally, slightly greater on the left. Left greater than right foraminalnarrowing is noted. Uncovertebral and facet hypertrophic changes are noted.Ventral cord flattening and canal narrowing is again notedC7-T1:No abnormal cord or canal enhancement is noted. No abnormal vertebral bodyenhancement is noted in the cervical spine.IMPRESSION: Multilevel degenerative disc disease as described.The finding right of the cord at C4-5 is not well seen on the current examand is improved. This is indeterminate and may reflect interval improvementof a synovial cyst from the facet joint. However, given the history, thiscould have been an area of developing inflammatory/ infectious process whichis now improved. Please note that there was no significant inflammatorychange or edema in this location on the prior.Interpreted by:JOVON Jessicaigned by:Michael Castorena MD07/01/17Final result Normal [facility] MRI LUMBAR SPINE W WO CONTRA STon 07-01-2017 MRI LUMBAR SPINE W WO CONTRAST EXAMINATION:MRI OF THE LUMBAR SPINE WITHOUT AND WITH CONTRAST 07/01/2017 2:55 pmTECHNIQUE:Multiplanar multisequence MRI of the lumbar spine was performed without andwith the administration of intravenous contrast.COMPARISON:May 09, 2017 images onlyHISTORY:ORDERING SYSTEM PROVIDED HISTORY: BACK PAIN, AND FEVERFINDINGS:BONES/ALIGNME NT: There is normal alignment of the spine. The vertebral bodyheights are maintained. The bone marrow signal appears unremarkable.SPINAL CORD: The conus terminates normally.SOFT TISSUES: No abnormal enhancement is seen of the lumbar spine. Noparaspinal mass identified. Incidental note is made of gallstones andhepatomegaly or a Arminda's lobe.L1-L2: There is no significant disc protrusion, spinal canal stenosis orneural foraminal narrowing.L2-L3: There is no significant disc protrusion, spinal canal stenosis orneural foraminal narrowing.L3-L4: There is no significant disc protrusion, spinal canal stenosis orneural foraminal narrowing.L4-L5: There is no significant disc protrusion, spinal canal stenosis orneural foraminal narrowing.L5-S1: There is mild trefoil type narrowing of the thecal sac. There isslight retrolisthesis and a broad-based posterior bulge. Synovial cysts arenoted posterior to the facets measuring up to 7 mm on the right.IMPRESSION: No acute disease. No evidence of discitis at this time. No epidural orparaspinal abscess or osteomyelitis.Extra canalicular synovial cyst at L5-S1. Mild trefoil type narrowing atL5-S1.Incidental findings as noted above including gallstones and possiblehepatomegaly.Interp reted by:JOVON Salasigned by:Roge Mireles MD07/01/17Final result Normal [facility] MRI THORACIC SPINE W WO CONT [facility] 07-01-2017 MRI THORACIC SPINE W WO CONTRAST EXAMINATION:MRI OF THE THORACIC SPINE WITHOUT AND WITH CONTRAST 07/01/2017 2:55 pmTECHNIQUE:Multiplanar multisequence MRI of the thoracic spine was performed without andwith the administration of intravenous contrast.COMPARISON:May 7HISTORY:ORDERING SYSTEM PROVIDED HISTORY: STAT for surgery today, hx epiduralabscess, massive fx deformity. needs sedativeFINDINGS:BONES/ALIG NMENT: There has been interval increase in the vertebral body lossof height at T6 and T7 with a large amount of associated edema throughoutthese 2 vertebral bodies. There is new vertebral body edema posteriorly inthe T8 segment as well. There is also edema in the posterior elements at T6and T7. A large amount of edema is noted in the posterior paraspinal softtissues centered at T6 through T8. A large amount of prevertebral edema andparavertebral soft tissue edema is noted bilaterally, also centered at the I7bxrneju T8 levels.SPINAL CORD: There is questionable T2 cord signal hyperintensity/edemaextendi ng down to the T8 level. This could also represent artifact.SOFT TISSUES: Again noted multifocal paraspinal phlegmonous soft tissueedema and heterogeneous signal.At the T6-T7 level, there is a large amount of heterogeneous signal in theventral epidural space which is increased from the prior examination. Thisis noted across the midline and on both sides of midline. There isassociated ventral cord flattening. This epidural abnormal signal extendssuperiorly to the upper endplate of T6 and inferiorly to the midportion ofT8. There is a large amount of associated heterogeneous enhancement with asmall amount of central fluid in the epidural space centered on the sagittalpostcontrast image 6. There is enhancement throughout the T6, T7 and H2vdpzklfwf bodies. Faint enhancement in the posterior aspect of T4 right ofmidline would be difficult to exclude.There is a large amount of enhancing soft tissue in the paraspinal regionsbilaterally anterior to the ribcage. There are multiple associatedmicroabscesses. The largest is posterior to the aorta where there is a fluidcollection measuring approximately 1.5 cm. Associated bilateral pleuralthickening and dependent airspace disease is noted in both lung bases.IMPRESSION: Findings compatible discitis and osteomyelitis centered at T6-7 withcompression fracture deformities and erosive change involving the endplates.There is also osteomyelitis suggested in the T8 vertebral body withoutcompression. There is associated epidural abscess, greatest anterior to thespinal cord at the T6-7 level with associated cord compression. There is alarge amount of anterior bilateral paraspinal phlegmonous soft tissueenhancement with multiple microabscesses.Cord signal evaluation is slightly limited due to artifact. There may bemild linear cord edema in the upper thoracic cord extending down to theabscess level.Interpreted by:JOVON Jessicaigned by:Michael Castorena MD07/01/17Final result Normal [facility] PTon 07-01-2017 INR Coag RelTime (PPP) 1.0 {INR} Normal [facility] Comment on above: Result Comment: Ther apeutic Range: Moderate Anticoagulant Intensity: INR = 2.0-3.0 High Anticoagulant Intensity: INR = 2.5-3.5[facility] [address] [place] [address] Performed By: #### P T, PTT ####[facility] CenterFligooLxypsgmthbmx[address] [place] [address] Prothrombin time (PT) Coag time (PPP) 11.2 s Normal 9.4-12.6 [facility] Comment on above: Performed By: #### P T, PTT ####[address] [address] Prealbuminon 07-01-2017 Prealbumin 4.6 mg/dL Low 20-40 [facility] Comment on above: Result Comment: [facility] [address] [place] [address] Performed By: #### P ALB, VD25 ####[address] [address] Sedimentation Rateon 017 Sedimentation Rate 95 mm High 0-20 [facility] Comment on above: Result Comment: [facility] [address] [place] [address] Performed By: #### C DP, CRP, CP, SED ####[address] [address] Vitamin D 25 OHon 07-01-2017 Vitamin D 25 [place] 14.2 ng/mL Low 30.0-100.0 [facility] Comment on above: Result Comment: Refe rence Range:Vitamin D status Range Deficiency <20 ng/mL Mild Deficiency 20-30 ng/mL Sufficiency 30-100 ng/mL Toxicity >100 ng/mL[address] [address] Performed By: #### P ALB, VD25 ####[address] [address] XR CHEST PORTABLEon 07-01-20 17 XR CHEST PORTABLE EXAMINATION:SINGLE V IEW OF THE CHEST06/30/2017 11:37 pmCOMPARISON:None.HISTORY:O RDERING SYSTEM PROVIDED HISTORY: PICC Line placementTECHNOLOGIST PROVIDED HISTORY:Reason for exam:->PICC Line placementFINDINGS:There is a small right pleural effusion. There is a PICC line on the rightterminating the superior vena cava. The lungs are otherwise clear. Thecardiac silhouette mediastinal shadow are unremarkable. The bony thorax isintact.IMPRESSION: Small right pleural effusion. PICC line as above.Interpreted by:JOVON Salasigned by:Roge Mireles MD06/30/17Final result Normal [facility] XR SPINE ENTIRE 2-3 VWon XR SPINE ENTIRE 2-3 VW EXAMINATION:AP AND LATERAL SCOLIOSIS SERIES07/01/2017 4:01 pmCOMPARISON:Chest radiograph June 30, 2017HISTORY:ORDERING SYSTEM PROVIDED HISTORY: eval for surgical planningTECHNOLOGIST PROVIDED HISTORY:Reason for exam:->eval for surgical planningAcute / initial encounterFINDINGS:Patient is in a rotated position limiting evaluation.No definite thoracic scoliotic curvature. Minimal lumbar levo scoliosis ofapproximately 6 degrees.Small right pleural effusion. Right PICC is unchanged. Hilar mediastinalprominence corresponds to phlegmonous change and abscess seen on MRI and CT.No thoracic or lumbar subluxation. Disc spaces are preserved.IMPRESSION: No significant scoliotic curvature.Interpreted by:JOVON Joyigned by:Nasim Rodriguez MD07/01/17Final result Normal [facility] Discharge Summaryon 05-20-20 17 HIM IP Note OR Entry Level Software Engineer Normal [facility] CT GUIDED NDL PLACEMENTon CT GUIDED NDL PLACEMENT ADDENDUM:Please note that the adjustment of kv is utilized during this procedure fordose reduction purposes.Electronically Signed by: GABY REYNOSO on ThuMay 15, 2017 11:46:54 AM EDTPROCEDURE:CT GUIDED NDL PLACEMENTMODERATE CONSCIOUS SEDATION05/12/2017HISTORY:OR DERING SYSTEM PROVIDED HISTORY: osteomyelitisTECHNOLOGIST PROVIDED HISTORY:BONE AND FLUID FOR TESTINGReason for exam:->osteomyelitisReason for exam:->Please complete after being off vanco for 48 hours, fternoonReason for exam:->PLEASE COMPLETE SOON POSSIBLE THIS MORNING 05/12/2017PER DR [id number]-[id number] 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 Total intra service time was 45 minutes. Sedation wasadministered and monitored by and direction supervision of the interventionalradiologist in the room. The patient's vital signs were monitored andrecorded in the patient's electronic record by the nurse.FLUOROSCOPY DOSE AND TYPE OR TIME AND EXPOSURES:[address] images of the thoracic spine were acquired during thisprocedure. Total exam DLP is 1668.93 mGy cm.DESCRIPTION OF PROCEDURE:Informed consent was obtained after a detailed explanation of the procedureincluding risks, benefits, and alternatives. The patient was brought to theCT scan suite and time-out was performed. The patient was placed prone on CTscan table and a limited axial CT images of the mid thoracic spine wereacquired. Paraspinal soft tissue density and phlegmonous changes at T6-7 isdemonstrated. The left paraspinal approach is selected. The overlying skinwas marked, prepped and draped in the usual sterile fashion using maximalsterile barrier technique. [place] protocol was observed. Lidocaine wasadministered for local anesthesia. Under intermittent CT guidance common 18gauge trocar needle was advanced percutaneously into the left paraspinalfluid collection at T6-7. Once the tip of the needle was confirmed by CT,aspiration was performed and 0.5 mL of serosanguineous fluid was obtained forculture. The needle was removed. Upon attempting CT-guided bone biopsy ofthe T6-7, the patient expressed discomfort and could not tolerate additionalintervention. Therefore, the procedure was terminated. Post aspirationdemonstrates air within the location of the fluid collection confirmingaccurate targeting of the fluid collection, without evidence of hematoma.FINDINGS:Paraspina l phlegmonous changes and soft tissue density surrounding the T6-7level the, targeted under CT guidance with 18 gauge needle. 0.5 mL ofserosanguineous fluid was obtained for culture.IMPRESSION: CT-guided aspiration of phlegmonous changes and soft tissue densitysurrounding the T6-7 level the and 0.5 mL of serosanguineous fluid wasobtained for culture. Patient could not tolerate and refused subsequentCT-guided biopsy of the bone.Interpreted by:JOVON Crowigned by:Gaby Reynoso MD05/15/17Edited Result - FINAL Normal [facility] Cult,Aerobe/Anaerobeon 05-14 Cult,Aerobe/Anaero be Specimen Description .ASPIRATE T6 T7 BACKSpecial Requests NOT REPORTEDDirect Exam MODERATE NEUTROPHILS NO BACTERIA SEEN Culture STAPHYLOCOCCUS AUREUS LIGHT GROWTH This isolate is methicillin susceptible. NO ANAEROBIC ORGANISMS ISOLATED AT 5 DAYS Report Status FINAL 05/17/2017SUSCEPTIBILITYOrg anism SAURMethod MICPenicillin NOT REPORTEDCefoxitin Screen NOT REPORTEDCiprofloxacin NOT REPORTEDClindamycin <=0.25 SUSCEPTIBLEErythromycin <=0.25 SUSCEPTIBLEGentamicin <=0.5 SUSCEPTIBLEInduced Clind Resist NOT REPORTEDLevofloxacin 0.25 SUSCEPTIBLELinezolid NOT REPORTEDMoxifloxacin NOT REPORTEDNitrofurantoin NOT REPORTEDOxacillin <=0.25 SUSCEPTIBLE This staph isolate may be susceptible to Penicillin. Please contact Microbiology for confirmatory testing of susceptibility if Pencillin is a therapeutic consideration. Synercid NOT REPORTEDRifampin NOT REPORTEDTetracycline <=1 SUSCEPTIBLETigecycline NOT REPORTEDTrimethoprim/Sulfa <=10 SUSCEPTIBLEVancomycin NOT REPORTED Normal [facility] Comment on above: Performed By: #### A ANC ####[facility] [address] [place] [address] Vancomycin Troughon 05-13-20 17 Vancomycin Trough 21.5 ug/mL Critically high 10.0-20.0 [facility] Comment on above: Result Comment: High er trough serum vancomycin concentrations of 15-20 ug/mL are recommended for complicated infections such as bacteremia, endocarditis, osteomyelitis, meningitis, and hospital acquired pneumonia.[facility] Gamar [address] [place] [address] Performed By: #### V NCT ####[facility] [address] [place] [address] Date last dose, NOT REPORTED Normal [facility] Comment on above: Performed By: #### V NCT ####[facility] [address] [place] [address] Dose amount, NOT REPORTED Normal [facility] Comment on above: Performed By: #### V NCT ####[facility] [address] [place] [address] Time last dose, NOT REPORTED Normal [facility] Comment on above: Performed By: #### V NCT ####[address] [address] APTTon 05-12-2017 aPTT 24.5 s Normal 21.3-31.3 [facility] Comment on above: Result Comment: [facility] Gamar [address] [place] [address] Performed By: #### P LT, PT, PTT ####[address] [address] [facility] (NOTE)[id number] LABORATORIESCONSULTING PATHOLOGISTS CORPORATIONANATOMIC ASKTUONJV[address] [place] [address] [phone] Fax: NONGYNECOLOGICAL CYTOPATHOLOGY CONSULTATIONPatient Name: [facility] Rec: [id number] Number: [id number]: 05/12/2017Received: 05/12/2017Reported: 05/13/2017 11:54-- Diagnosis --ASPIRATE (T6-T7): NEGATIVE FOR MALIGNANCY.Ashley Dye M.D.Electronically Signed Out [facility]/05/13/2017Clinical InformationNo past history of cancer.Source of Specimen1: ASPIRATEGross Description T6 T7 ASPIRATE 0.1 ml cloudy red fluid.MICROSCOPIC DESCRIPTION Microscopic examination performed. Normal [facility] PTon 05-12-2017 INR Coag RelTime (PPP) 1.0 {INR} Normal [facility] Comment on above: Result Comment: Ther apeutic Range: Moderate Anticoagulant Intensity: INR = 2.0-3.0 High Anticoagulant Intensity: INR = 2.5-3.[address] [address] Performed By: #### P LT, PT, PTT ####[address] [address] Prothrombin time (PT) Coag time (PPP) 10.3 s Normal 9.4-12.6 [facility] Comment on above: Performed By: #### P LT, PT, PTT ####[address] [address] Platelet Counton 05-12-2017 Platelets 757 10*3/uL High 140-450 [facility] Comment on above: Result Comment: [address] [address] Performed By: #### P LT, PT, PTT ####[address] [address] Basic Metabolic Profon 05-10 (cont.) Normal [facility] Comment on above: Result Comment: Aver age GFR for 30-39 years old: 107 mL/min/1.73sq mChronic Kidney Disease: <60 mL/min/1.73sq mKidney failure: <15 mL/min/1.73sq meGFR calculated using average adult body mass. Additional eGFR calculator available at:http://www.[employer].Smarterer/multiple_crcl_2012.htm[address] [address] Performed By: #### V NCR, BMP ####[address] [address] Anion gap 13 mmol/L Normal 9-17 [facility] Comment on above: Performed By: #### V NCR, BMP ####[address] [address] Calcium 8.5 mg/dL Low 8.6-10.4 [facility] Comment on above: Performed By: #### V NCR, BMP ####[address] [address] Chloride 101 mmol/L Normal 98-107 [facility] Comment on above: Performed By: #### V NCR, BMP ####[address] [place] [address] CO2 25 mmol/L Normal 20-31 [facility] Comment on above: Performed By: #### V NCR, BMP ####[address] [place] [address] Creatinine 0.49 mg/dL Low 0.50-0.90 [facility] Comment on above: Performed By: #### V NCR, BMP ####[address] [address] eGFR (non-black) mL/min/{1.73_m2} Normal >60 [facility] Comment on above: Performed By: #### V NCR, BMP ####[address] [address] Glucose mass conc 82 mg/dL Normal 70-99 [facility] Comment on above: Performed By: #### V NCR, BMP ####[address] [place] [address] Potassium molar conc 3.8 mmol/L Normal 3.7-5.3 [facility] Comment on above: Performed By: #### V NCR, BMP ####[address] [place] [address] Sodium 139 mmol/L Normal 135-144 [facility] Comment on above: Performed By: #### V NCR, BMP ####[facility] [place] [address] Urea nitrogen 8 mg/dL Normal 6-20 [facility] Comment on above: Performed By: #### V NCR, BMP ####[address] [place] [address] BUN/CRE Ratio NOT REPORTED Normal 9-20 [facility] Comment on above: Performed By: #### V NCR, BMP ####[employer] [address] [place] [address] Staging: NOT REPORTED Normal [facility] Comment on above: Performed By: #### V NCR, BMP ####[employer] [address] [place] [address] ED Noteon 05-10-2017 HIM IP Note OR Entry Level Software Engineer Normal [facility] HIM IP Note OR Entry Level Software Engineer Normal [facility] ED Provider Noteon 7 HIM IP Note OR Entry Level Software Engineer Normal [facility] History and Physicalon 05-10 HIM IP Note OR Entry Level Software Engineer Normal [facility] Vancomycin,Randomon 05-10-20 17 Vancomycin 7.5 ug/mL Normal [facility] Comment on above: Result Comment: High er trough serum vancomycin concentrations of 15-20 ug/mL are recommended for complicated infections such as bacteremia, endocarditis, osteomyelitis, meningitis, and hospital acquired pneumonia.[employer] [address] [place] [address] Performed By: #### V NCR, BMP ####[employer] [place] [address] Date last dose, NOT REPORTED Normal [facility] Comment on above: Performed By: #### V NCR, BMP ####[employer] [address] [place] [address] Dose amount, NOT REPORTED Normal [facility] Comment on above: Performed By: #### V NCR, BMP ####[employer] [address] [place] [address] Time last dose, NOT REPORTED Normal [facility] Comment on above: Performed By: #### V NCR, BMP ####[employer] [address] [place] [address] Encounters Encounter Date Encounter Type Care Provider Facility Start: 01-05-2025 ambulatory Juan Luis Ron Facility :[facility] Start: 12-19-2024 ambulatory Juan Luis Ron Facility:[facility] Start: 09-04-2022 End: 09-05-2022 [facility] Start: 09-04-2022 End: 09-04-2022 Subsequent hospital visit by physician Jocelyn Peña Jr., MD Work Phone: [facility] Start: 09-04-2022 End: 09-05-2022 [facility] Start: 09-04-2022 End: 09-04-2022 Subsequent hospital visit by physician oJcelyn Peña Jr., MD Work Phone: [facility] Start: 08-22-2022 End: 08-23-2022 ambulatory KM Doty [facility] Start: 08-22-2022 End: 08-22-2022 Subsequent hospital visit by physician Jocelyn Peña Jr., MD Work Phone: [facility] Start: 04-13-2022 End: 04-14-[address] BROOKLYN ASTORGA Facility:[facility] Start: 10-11-2021 End: 10-11-[address] BAY BLACKBURN Facility:[facility] Start: 05-19-2020 End: 06-06-2020 Evaluation and management of inpatient REFERRED SELF Facility:[facility] Start: 06-30-2017 End: 07-11-2017 Evaluation and management of inpatient FELECIA LINDSEY [facility] Start: 05-10-2017 End: 05-20-2017 Evaluation and management of inpatient JOCELYN PEÑA JR [facility] Procedures Date Procedure Procedure Detail Performing Clinician Start: 09-04-2022 Antibody hiv-1&hiv-2 single result Km Juares LABELER - RISK CONTROL PRODUCT LIABILITY DIRECTOR Work Phone: Start: 09-04-2022 Comprehensive metabo lic panel Km Juares LABELER - RISK CONTROL PRODUCT LIABILITY DIRECTOR Work Phone: Start: 08-22-2022 Smr prim src wet lucius nt nfct agt Km Juares LABELER - RISK CONTROL PRODUCT LIABILITY DIRECTOR Work Phone: Start: 08-22-2022 Urnls dip stick/tabl et rgnt auto w/o microscopy Km Juares LABELER - RISK CONTROL PRODUCT LIABILITY DIRECTOR Work Phone: Start: 05-29-2020 Antibody screen REFERRE D SELF Comment on above: Performed By: #### 7 0069 #### [facility] [address] [place] [address], [facility] Start: 05-25-[address] EURAL CAVITY, PERCUTANEOUS APPROACH TAREK MOUSTAFA Start: 05-20-2020 Antibody screen REFERRE D SELF Comment on above: Performed By: #### 0 0121, [id number], [address] #### [facility] [address] Start: 05-20-2020 TRANSFUSE NONAUT RED BLOOD CELLS IN PERIPH VEIN, PERC GERMAN ALI Start: 07-11-2017 DISCHARGE PATIENT VIVIANA Mercer CASEY PIPER Start: 07-11-2017 INITIATE OXYGEN THER APY PROTOCOL JOCELYN PEÑA JR Start: 07-11-2017 BASIC METABOLIC PANEL R PRABHA PEÑA JR Start: 07-11-2017 BLOOD BANK SPECIMEN LITA MAURICE CASEY PIPER Start: 07-11-2017 C-reactive protein MAURA PEÑA JR Start: 07-11-2017 CBC JOCELYN GREY JR Start: 07-11-2017 TYPE AND SCREEN JOCELYN PEÑA JR Start: 07-11-2017 HEMOGLOBIN AND HEMAT OCRIT, BLOOD JOCELYN PEÑA JR Start: 07-10-2017 HEMOGLOBIN AND HEMAT OCRIT, BLOOD JOCELYN PEÑA JR Start: 07-10-2017 DIETARY NUTRITION SUPPLEMENTS JOCELYN PEÑA JR Start: 07-10-2017 LAB BLOOD TRANSFUSIO N REPORT JOCELYN PEÑA JR Start: 07-10-2017 INITIATE OXYGEN THER APY PROTOCOL JOCELYN PEÑA JR Start: 07-10-2017 BASIC METABOLIC PANEL R PRABHA PEÑA JR Start: 07-10-2017 CBC JOCELYN GREY JR Start: 07-10-2017 HEMOGLOBIN AND HEMAT OCRIT, BLOOD JOCELYN PEÑA JR Start: 07-09-2017 HEMOGLOBIN AND HEMAT OCRIT, BLOOD JOCELYN PEÑA JR Start: 07-09-2017 NURSING COMMUNICATION R PRABHA PEÑA JR Start: 07-09-2017 INITIATE OXYGEN THER APY PROTOCOL JOCELYN PEÑA JR Start: 07-09-2017 BASIC METABOLIC PANEL R PRABHAKAYLENE PEÑA JR Start: 07-09-2017 CBC JOCELYN GREY JR Start: 07-09-2017 HEMOGLOBIN AND HEMAT OCRIT, BLOOD JOCELYN PEÑA JR Start: 07-09-2017 Radex entir thrc lmb r crv sac spi w/skull 2/3 vw JOCELYN PEÑA JR Start: 07-08-2017 TRANSFER PATIENT JOCELYN PEÑA JR Start: 07-08-2017 TRANSFER PATIENT JOCELYN PEÑA JR Start: 07-08-2017 HEMOGLOBIN AND HEMAT OCRIT, BLOOD JOCELYN PEÑA JR Start: 07-08-2017 OT EVAL AND TREAT VIVIANA PEÑA JR Start: 07-08-2017 PT EVAL AND TREAT VIVIANA PEÑA JR Start: 07-08-2017 INITIATE OXYGEN THER APY PROTOCOL JOCELYN PEÑA Start: 07-08-2017 DIET GENERAL JOCELYN GREY JR Start: 07-08-2017 IP CONSULT TO DIETITIAN JOCELYN PEÑA Start: 07-08-2017 BASIC METABOLIC PANEL R PRABHAKAYLENE PEÑA JR Start: 07-08-2017 CBC WITH AUTO DIFFERENTIAL JOCELYN PEÑA Start: 07-08-2017 AMBULATE PATIENT JOCELYN PEÑA JR Start: 07-08-2017 FULL CODE JOCELYN GREY JR Start: 07-08-2017 INPATIENT CONSULT TO MANAGER SYSTEM JOCELYN PEÑA Start: 07-08-2017 NOTIFY PHYSICIAN (SPECIFY) JOCELYN PEÑA JR Start: 07-08-2017 PLACE INTERMITTENT PNEUMATIC COMPRESSION DEVICE JOCELYN PEÑA JR Start: 07-08-2017 WOUND CARE JOCELYN GREY Start: 07-07-2017 EXTUBATION JOCELYN GREY JR Start: 07-07-2017 Radex spine thoracic 2 views JOCELYN PEÑA Start: 07-07-2017 Ct thoracic spine w/ o contrast material JOCELYN CASEY Start: 07-07-2017 OPEN HEART PANEL JOCELYN PEÑA Start: 07-07-2017 OPEN HEART PANEL JOCELYN PEÑA Start: 07-07-2017 TRANSFUSE RED BLOOD CELLS JOCELYN PEÑA Start: 07-07-2017 CALCIUM, IONIZED JOCELYN CASEY Start: 07-07-2017 OPEN HEART PANEL JOCELYN PEÑA Start: 07-07-2017 CALCIUM, IONIZED JOCELYN CASEY Start: 07-07-2017 OPEN HEART PANEL JOCELYN PEÑA Start: 07-07-2017 TRANSFER PATIENT JOCELYN PEÑA Start: 07-07-2017 URINE CULTURE JOCELYN ODILIA BARRERA Start: 07-07-2017 CULTURE, URINE CATHETER JOCELYN PEÑA JR Start: 07-07-2017 INITIATE OXYGEN THER APY PROTOCOL JOCELYN PEÑA JR Start: 07-06-2017 URINALYSIS WITH MICROSCOPIC JOCELYN PEÑA JR Start: 07-06-2017 APTT JOCELYN GREY JR Start: 07-06-2017 BASIC METABOLIC PANEL R PRABHAKAYLENE PEÑA JR Start: 07-06-2017 BLOOD BANK SPECIMEN LITA PEÑA JR Start: 07-06-2017 CBC WITH AUTO DIFFERENTIAL JOCELYN PEÑA JR Start: 07-06-2017 HEPATIC FUNCTION PANEL JOCELYN PEÑA JR Start: 07-06-2017 PROTIME-INR JOCELYN GREY JR Start: 07-06-2017 TYPE AND SCREEN JOCELYN PEÑA JR Start: 07-06-2017 EKG 12-LEAD JOCELYN GREY JR Start: 07-06-2017 PREPARE RBC (CROSSMATCH) JOCELYN PEÑA JR Start: 07-06-2017 INITIATE OXYGEN THER APY PROTOCOL JOCELYN PEÑA JR Start: 07-05-2017 CBC WITH AUTO DIFFERENTIAL JOCELYN PEÑA JR Start: 07-05-2017 PREVIOUS SPECIMEN VIVIANA PEÑA JR Start: 07-05-2017 BASIC METABOLIC PANEL R PRABHA PEÑA JR Start: 07-05-2017 INITIATE OXYGEN THER APY PROTOCOL JOCELYN PEÑA JR Start: 07-04-2017 INITIATE OXYGEN THER APY PROTOCOL JOCELYN PEÑA JR Start: 07-04-2017 VANCOMYCIN, TROUGH MAURA PEÑA JR Start: 07-03-2017 VANCOMYCIN, TROUGH LITAE RT CASEY PIPER Start: 07-03-2017 Echo tthrc r-t 2d w/wom-mode compl spec&colr d JOCELYN PEÑA JR Start: 07-03-2017 NURSING COMMUNICATION R PRABHAKAYLENE PEÑA JR Start: 07-03-2017 INITIATE OXYGEN THER APY PROTOCOL JOCELYN PEÑA JR Start: 07-02-2017 INITIATE OXYGEN THER APY PROTOCOL JOCELYN PEÑA JR Start: 07-01-2017 UA W/REFLEX CULTURE LITA PEÑA JR Start: 07-01-2017 Radex entir thrc lmb r crv sac spi w/skull 2/3 vw JOCELYN PEÑA Start: 07-01-2017 IP CONSULT TO ANESTHESIOLOGY JOCELYN PEÑA Start: 07-01-2017 Mri spinal canal cer vical w/o & w/contr matrl JOCELYN PEÑA JR Start: 07-01-2017 Mri spinal canal lum bar w/o & w/contr matrl JOCELYN PEÑA JR Start: 07-01-2017 Mri spinal canal tho racic w/o & w/contr matrl JOCELYN PEÑA JR Start: 07-01-2017 POCT URINE RO OMNSTER PEÑA JR Start: 07-01-2017 EKG 12-LEAD JOCELYN GREY JR Start: 07-01-2017 PREALBUMIN JOCELYN GREY JR Start: 07-01-2017 VITAMIN D 25 HYDROXY RO MONSTER PEÑA JR Start: 07-01-2017 IP CONSULT TO DIETITIAN JOCELYN PEÑA JR Start: 07-01-2017 PREPARE RBC (CROSSMATCH) JOCELYN PEÑA JR Start: 07-01-2017 APTT JOCELYN GREY JR Start: 07-01-2017 BLOOD BANK SPECIMEN LITA PEÑA JR Start: 07-01-2017 PROTIME-INR JOCELYN GREY JR Start: 07-01-2017 TYPE AND SCREEN JOCELYN PEÑA JR Start: 07-01-2017 INITIATE OXYGEN THER APY PROTOCOL JOCELYN PEÑA JR Start: 07-01-2017 C-reactive protein MAURA PEÑA JR Start: 07-01-2017 CBC WITH AUTO DIFFERENTIAL JOCELYN PEÑA JR Start: 07-01-2017 COMPREHENSIVE METABO LIC PANEL JOCELYN PEÑA JR Start: 07-01-2017 SEDIMENTATION RATE MAURA PEÑA JR Start: 07-01-2017 URINE DRUG SCREEN VIVIANA PEÑA JR Start: 07-01-2017 CULTURE BLOOD #1 JOCELYN PEÑA JR Start: 07-01-2017 CULTURE BLOOD #2 JOECLYN PEÑA JR Start: 07-01-2017 Chest x-ray 1 view frontal JOCELYN PEÑA JR Start: 07-01-2017 PHARMACY TO DOSE VANCOMYCIN JOCELYN PEÑA JR Start: 07-01-2017 INITIATE OXYGEN THER APY PROTOCOL JOCELYN PEÑA JR Start: 07-01-2017 IP CONSULT TO INFECT IOUS DISEASES JOCELYN PEÑA JR Start: 07-01-2017 IP CONSULT TO NEUROSURGERY JOCELYN PEÑA JR Start: 07-01-2017 NOTIFY PHYSICIAN (SPECIFY) JOCELYN PEÑA JR Start: 07-01-2017 REASON FOR NO MECHAN ICAL VTE PROPHYLAXIS JOCELYN PEÑA JR Start: 07-01-2017 VITAL SIGNS JOCELYN GREY JR Start: 07-01-2017 PATIENT STATUS (DIRECT) JOCELYN PEÑA Start: 05-19-2017 DISCHARGE PATIENT VIVIANA PEÑA JR Start: 05-15-2017 INSERT PICC LINE JOCELYN PEÑA Start: 05-15-2017 MISCELLANEOUS NURSIN G CARE ORDER (SPECIFY) JOCELYN CASEY PIPER Start: 05-14-2017 NOTIFY PHYSICIAN (SPECIFY) JOCELYN PEÑA JR Start: 05-14-2017 NURSING COMMUNICATION R PRABHA PEÑA JR Start: 05-13-2017 BACK BRACE LS CORSET RO MONSTER PEÑA JR Start: 05-13-2017 VANCOMYCIN, TROUGH MAURA RT CASEY PIPER Start: 05-13-2017 Biopsy bone trocar/n eedle deep JOCELYN PEÑA Start: 05-12-2017 ANAEROBIC AND AEROBI C CULTURE JOCELYN PEÑA Start: 05-12-2017 DIET GENERAL JOCELYN GREY Start: 05-12-2017 SURGICAL PATHOLOGY MAURA COHNQUE PIPER Start: 05-12-2017 Ct guidance needle placement JOCELYN PEÑA JR Start: 05-12-2017 BEDREST JOCELYN GREY JR Start: 05-12-2017 NOTIFY PHYSICIAN (SPECIFY) JOCELYN PEÑA JR Start: 05-12-2017 PHARMACY TO DOSE VANCOMYCIN JOCELYN PEÑA JR Start: 05-12-2017 APTT JOCELYN GREY Start: 05-12-2017 PLATELET COUNT JOCELYN AMBROSIO JR Start: 05-12-2017 PROTIME-INR JOCELYN GREY Start: 05-12-2017 DIAGNOSIS FOR PROCEDURE JOCELYN PEÑA Start: 05-12-2017 NOTIFY PHYSICIAN (SPECIFY) JOCELYN PEÑA JR Start: 05-12-2017 NURSING COMMUNICATION Daira PEÑA JR Start: 05-12-2017 TREATMENT CONSENT VIVIANA Sylvie CASEY PIPER Start: 05-12-2017 VERIFY INFORMED CONSENT JOCELYN PEÑA Start: 05-10-2017 MISCELLANEOUS NURSIN G CARE ORDER (SPECIFY) JOCELYN PEÑA JR Start: 05-10-2017 MAINTAIN INTERMITTEN T PNEUMATIC COMPRESSION DEVICE JOCELYN PEÑA Start: 05-10-2017 IP CONSULT TO INFECT IOUS DISEASES JOCELYN PEÑA JR Start: 05-10-2017 IP CONSULT TO NEUROSURGERY JOCELYN PEÑA JR Start: 05-10-2017 BASIC METABOLIC PANEL Daria PEÑA JR Start: 05-10-2017 VANCOMYCIN, RANDOM MAURA PEÑA JR Start: 05-10-2017 FULL CODE JOCELYN GREY JR Start: 05-10-2017 NOTIFY PHYSICIAN (SPECIFY) JOCELYN PEÑA JR Start: 05-10-2017 PHARMACY TO DOSE VANCOMYCIN JOCELYN PEÑA JR Start: 05-10-[address] PLACE INTERMITTENT PNEUMATIC COMPRESSION DEVICE JOCELYN PEÑA JR Start: 05-10-2017 REASON FOR NO CHEMIC AL VTE PROPHYLAXIS JOCELYN PEÑA JR Start: 05-10-2017 VITAL SIGNS JOCELYN GREY JR Start: 05-10-2017 PATIENT STATUS (FROM ED OR OR/PROCEDURAL) JOCELYN PEÑA JR Start: 05-10-2017 IP CONSULT TO NEON GLASS BENDER AL MEDICINE JOCELYN PEÑA JR Start: 05-10-2017 INSERT PERIPHERAL IV RO MONSTER CASEY PIPER Plan of Treatment Date Care Activity Detail Author Start: 06-02-2022 Influenza vaccination Flu vaccine (# 1) [employer] Start: 2014 Screening for malign ant neoplasm of cervix [employer] Start: 2005 Screening for malign ant neoplasm of cervix Pap smear [employer] Start: 2003 DTaP/Tdap/Td vaccine (1 - Tdap) DTaP/Tdap/Td vaccine (1 - Tdap) [employer] Start: 2003 Hepatitis B vaccine (1 of 3 - Risk 3-dose series) Hepatitis B vaccine (1 of 3 - Risk 3-dose series) [employer] Start: 1996 Depression Screen Depression Screen [employer] [facility] Start: 1990 Pneumococcal 0-64 ye ars Vaccine (1 - PCV) Pneumococcal 0-64 years Vaccine (1 - PCV) [employer] Start: 1985 Hepatitis A vaccine (1 of 2 - Risk 2-dose series) Hepatitis A vaccine (1 of 2 - Risk 2-dose series) [employer] Start: 1985 Varicella vaccine (1 of 2 - 2-dose childhood series) Varicella vaccine (1 of 2 - 2-dose childhood series) [employer] [facility] Start: 1984 COVID-19 Vaccine (#1) COVID-19 Vacci ne (#1) [employer] End: 08-22-2022 C.trachomatis N.gonorrhoeae DNA [employer] Phone: Comment on above: Once for 1 Occurrenc es starting 08/22/2022 until 08/22/2022 End: 09-04-2022 Hepatitis C RNA, quantitative, PCR [employer] Phone: Comment on above: Once for 1 Occurrenc es starting 09/04/2022 until 09/04/2022 Payers Date Payer Category Payer Private Health Insurance [id number] 2017 Medicare [id number] 2016 Unknown [id number] 1984 Unknown [id number] 1984 Unknown [id number] 1985 Unknown [id number] [id number] 1985 Unknown [id number] [id number] 1984 Unknown [id number] 2.16.8 [id number] 1984 Unknown [id number] [id number] 1984 Unknown [id number] [id number] 1959 Unknown [id number] Self-pay Social History Date Type Detail Facility Start: 07-07-2017 [facility] History of tobacco use Cigarette Smoker B ON [employer] Phone: Start: 07-07-2017 Cigarettes smoked current (pack per day) - Reported 1.5 [employer] Phone: Start: 07-17-2017 Alcohol intake 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) [employer] Phone: Start: 1985 Sex Assigned At Not on file B ON [employer] Phone: Medical Equipment Procedure Code Equipment Code Equipment Origin al Text Equipment Identifier Dates Brigette Banejree Dbm With Rpm 10cc [id number] Start: 07-07-2017 Screw Obelisc Locking [id number] Start: 07-07-2017 Screw Pedcl Sole ra 4.5x40mm [id number] Start: 07-07-2017 Summary Purpose Family History No Family History Records FoundNo Family History Records FoundNo Family History Records FoundNo Family History Records FoundNo Family History Records FoundNo Family History Records Found Advance Directives No Advanced Directives Records FoundLatest Code Status on File Code Status Date Activated Date Inactivated Comments Full Code 07/07/2017 10:26 PM 07/11/2017 4:19 PM Full Code 06/30/2017 11:08 PM 07/07/2017 10:26 PM Full Code 05/10/2017 5:01 AM 05/20/2017 1:09 AM Hospital Course Note MR#: [id number] [facility] Pt. Name: Mayte Burrell Admitted: 05/19/2020 Discharged: 06/06/2020 Date of : 1985 Physician: Monserrat Cain MD DISCHARGE SUMMARY ADMITTING DIAGNOSIS: Staphylococcus aureus bacteremia with sepsis. DISCHARGE DIAGNOSES: 1. Staphylococcus aureus bacteremia with sepsis related to IV drug abuse, resolved. 2. Tricuspid valve infective endocarditis. 3. Septic pulmonary emboli with pleural effusion, status post therapeutic thoracentesis. 4. Anion gap metabolic acidosis due to acute renal failure, resolved. 5. Acute renal failure, resolved. 6. Hypertension, controlled. 7. Chronic normocytic anemia. HOSPITAL COURSE: This is a 34-year-old female who came to the [facility], transferred from [facility], where she presented earlier for polysubstance abuse with IV fentanyl with altered mental status and bacteremia. 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 The patient al (more content not included)... Additional Source Comments INFORMATION SOURCE (unrecogn ized section and content) DATE CREATED AUTHOR 04/27/2018 [facility] DATE CREATED AUTHOR AUTHOR'S ORGANIZ ATION 06/09/2020 [facility] DATE CREATED AUTHOR AUTHOR'S ORGANIZ ATION 12/31/2021 [facility] DATE CREATED AUTHOR AUTHOR'S ORGANIZ ATION 04/15/2022 [facility] DATE CREATED AUTHOR AUTHOR'S ORGANIZ ATION 09/09/2022 [facility] DATE CREATED AUTHOR AUTHOR'S ORGANIZ ATION 12/20/2024 Devon Ellis [facility] Care Teams (unrecognized sec tion and content) Top Carrier Relationship Specialty Start Date End Date Jocelyn Peña Jr., MD [address] [place] [address] PCP - General 01/14/13 Top Carrier Relationship Specialty Start Date End Date Jocelyn Peña Jr., MD [address] [place] [address] PCP - General 01/14/13 FOR RECORDS PERTAINING TO PATIENTS WHO ARE OR HAVE BEEN ENROLLED IN A CHEMICAL DEPENDENCY/SUBSTANCEABUSE PROGRAM, SOME INFORMATION MAY BE OMITTED. This clinical summary was aggregated from multiple sources. Caution should be exercised in using it in the provision of clinical care. This summary normalizes information from multiple sources, and as a consequence, information in this document may materially change the coding, format and clinical context of patient data. In addition, data may be omitted in some cases. CLINICAL DECISIONS SHOULD BE BASED ON THE PRIMARY CLINICAL RECORDS. [facility] [employer] provides no warranty or guarantee of the accuracy or completeness of information in this document.
[2024-12-30] MEDS: DEXAMETHASONE SOD PHOS 10 MG/ML VIAL PO (15:52)
--- NOTE | 2024-12-30 15:56 | PC.NURSE ---
this RN bedside with pt at this time. pt denies having current LANDERS at this time. pt states just wanting refills on meds from last visit. Keyonna IGLESIAS also at bedside. pt agreeable to oral Decadron here in ED, denies zofran and torodol at this time. also denies the need for oxygen treatment d/t not having current LANDERS.
--- NOTE | 2024-12-30 16:12 | ED.GENADUL1 ---
Documented by User: Keyonna Locke 12/30/24 16:15 HPI HPI - General Adult General Chief complaint: Headache Stated complaint: HEADACHES EARLIER, LOOKING FOR PRESCRIPTION REFILL Time Seen by Provider: 12/30/24 15:38 Source: patient Mode of arrival: walk-in Limitations: no limitations History of Present Illness HPI narrative: 39-year-old female presents here with a chief complaint of needing medication refill. Patient was seen here earlier this month diagnosed with cluster headache. She has a follow-up appointment with a primary care physician on January 05. She states at that time she was here she was given a Medrol Dosepak, Toradol and Zofran. She states the Toradol and has been helping with her headaches when she wakes up at night. She currently does not have a headache she is here for medication refill. 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 Related Data Previous Rx's ?Medication ?Instructions ?Recorded ondansetron 4 mg disintegrating 4 mg PO Q6H PRN nausea and 12/20/24 tablet vomiting #12 tabs ketorolac 10 mg tablet 10 mg PO Q8H PRN headache 3 days 12/30/24 #10 tabs Allergies Allergy/AdvReac Type Severity Reaction Status Date / Time venlafaxine (From Effexor) Allergy Severe Depression Verified 12/30/24 14:44 Opioid HPI Opioid Management Most Recent Opioid Data: Last Pain Scale 4 12/20/24 15:21 12/20/24 Review of Systems ROS Narrative All Systems are negative except as noted/marked.All systems reviewed and otherwise negative PFSH PFSH Social History Little interest or pleasure in doing things: not at all Feeling down, depressed, or hopeless: not at all Exam Constitutional Vital Signs, click to edit/add: Last Vital Signs Temp 98.7 F 12/30/24 14:45 Pulse 74 12/30/24 16:19 Resp 14 12/30/24 16:19 BP 105/71 12/30/24 14:45 Pulse Ox 99 12/30/24 16:19 O2 Del Method Room Air 12/30/24 16:19 Course Vital Signs Vital signs: Vital Signs Temperature 98.7 F 12/30/24 14:45 Pulse Rate 72 12/30/24 14:45 Respiratory Rate 16 12/30/24 14:45 Blood Pressure 105/71 12/30/24 14:45 Pulse Oximetry 100 12/30/24 14:45 Oxygen Delivery Method Room Air 12/30/24 14:45 Temperature 98.7 F 12/30/24 14:45 Pulse Rate 74 12/30/24 16:19 Respiratory Rate 14 12/30/24 16:19 Blood Pressure 105/71 12/30/24 14:45 Pulse Oximetry 99 12/30/24 16:19 Oxygen Delivery Method Room Air 12/30/24 16:19 Medical Decision Making MDM Narrative Medical decision making narrative: Seen here earlier this month and diagnosed with a cluster headache was discharged home with Toradol Medrol Dosepak and Zofran. She states she is currently out of the Medrol Dosepak and Toradol. I explained to her I cannot refill the prednisone again she needs to follow-up her primary care physician as scheduled on January 05. I will give her a prescription for Toradol. Patient agrees with plan of care. Patient is told to continue with Toradol and Zofran at home. Patient does not have a headache at this time refused any treatments including Toradol or high flow oxygen. We did give her a one-time dose of Decadron while here in the emergency room as well. Patient was discharged home with medication refill instructions as well as headache instructions. Differential Diagnosis Differential Diagnosis: medication refill Medical Records Medical records reviewed: Yes I reviewed the patient's medical records Lab Data Lab results reviewed: Yes I reviewed the patient's lab results Discharge Plan Discharge Chief Complaint: Headache Clinical Impression: Headache Patient Disposition: Home, Self-Care Time of Disposition Decision: 16:09 Condition: Good Prescriptions / Home Meds: New ketorolac 10 mg tablet 10 mg PO Q8H PRN (Reason: headache) 3 Days Qty: 10 0RF No Action ondansetron 4 mg tablet,disintegrating 4 mg PO Q6H PRN (Reason: nausea and vomiting) Qty: 12 0RF Print Language: Equ[place] Guinean Instructions: Cluster Headache (ED), Medicine Refill (ED) Additional Instructions: follow up with doctor as scheduled. Referrals: Physician,Non-Staff, MD [Primary Care Provider] - 1 week Discharge Date/Time: 12/30/24 16:21 Documented by User: Tim Arias MD 12/30/24 20:39 HPI HPI - General Adult General Chief complaint: Headache Stated complaint: HEADACHES EARLIER, LOOKING FOR PRESCRIPTION REFILL Time Seen by Provider: 12/30/24 15:38 Related Data Previous Rx's ?Medication ?Instructions ?Recorded ondansetron 4 mg disintegrating 4 mg PO Q6H PRN nausea and 12/20/24 tablet vomiting #12 tabs ketorolac 10 mg tablet 10 mg PO Q8H PRN headache 3 days 12/30/24 #10 tabs Allergies Allergy/AdvReac Type Severity Reaction Status Date / Time venlafaxine (From Effexor) Allergy Severe Depression Verified 12/30/24 14:44 Opioid HPI Opioid Management Most Recent Opioid Data: Last Pain Scale 4 12/20/24 15:21 12/20/24 PFSH PFSH Social History Little interest or pleasure in doing things: not at all Feeling down, depressed, or hopeless: not at all Exam Constitutional Vital Signs, click to edit/add: Last Vital Signs Temp 98.7 F 12/30/24 14:45 Pulse 74 12/30/24 16:19 Resp 14 12/30/24 16:19 BP 105/71 12/30/24 14:45 Pulse Ox 99 12/30/24 16:19 O2 Del Method Room Air 12/30/24 16:19 Course Vital Signs Vital signs: Vital Signs Temperature 98.7 F 12/30/24 14:45 Pulse Rate 72 12/30/24 14:45 Respiratory Rate 16 12/30/24 14:45 Blood Pressure 105/71 12/30/24 14:45 Pulse Oximetry 100 12/30/24 14:45 Oxygen Delivery Method Room Air 12/30/24 14:45 Temperature 98.7 F 12/30/24 14:45 Pulse Rate 74 12/30/24 16:19 Respiratory Rate 14 12/30/24 16:19 Blood Pressure 105/71 12/30/24 14:45 Pulse Oximetry 99 12/30/24 16:19 Oxygen Delivery Method Room Air 12/30/24 16:19 Medical Decision Making MDM Narrative Medical decision making narrative: Seen here earlier this month and diagnosed with a cluster headache was discharged home with Toradol Medrol Dosepak and Zofran. She states she is currently out of the Medrol Dosepak and Toradol. I explained to her I cannot refill the prednisone again she needs to follow-up her primary care physician as scheduled on January 05. I will give her a prescription for Toradol. Patient agrees with plan of care. Patient is told to continue with Toradol and Zofran at home. Patient does not have a headache at this time refused any treatments including Toradol or high flow oxygen. We did give her a one-time dose of Decadron while here in the emergency room as well. Patient was discharged home with medication refill instructions as well as headache instructions. I, Dr Arias, have reviewed the above progress note and course of action in the ER; agree with the above. I have gone over history and physical, and discussed disposition and treatment plan with the PA. Discharge Plan Discharge Chief Complaint: Headache Clinical Impression: Headache Patient Disposition: Home, Self-Care Time of Disposition Decision: 16:09 Condition: Good Prescriptions / Home Meds: New ketorolac 10 mg tablet 10 mg PO Q8H PRN (Reason: headache) 3 Days Qty: 10 0RF No Action ondansetron 4 mg tablet,disintegrating 4 mg PO Q6H PRN (Reason: nausea and vomiting) Qty: 12 0RF Print Language: [place] Instructions: Cluster Headache (ED), Medicine Refill (ED) Additional Instructions: follow up with doctor as scheduled. Referrals: Physician,Non-Staff, MD [Primary Care Provider] - 1 week Discharge Date/Time: 12/30/24 16:21
[2024-12-30 16:19] VITALS: PULSE 74; O2SAT 99
== END 2024-12-30 16:21 | disposition home or self-care (01) ==
PROVIDERS: Emergency Provider Emergency Medicine
DX: R51.9 Headache, unspecified (principal)
CPT/HCPCS: 99283; J1100

== ENCOUNTER 2025-01-05 12:58 | Emergency (ER) | payer OTHER, SELFPAY ==
[2025-01-05 13:01] VITALS: BP 151/93; PULSE 129; TEMP 36.8; O2SAT 98; BMI 27.5
--- NOTE | 2025-01-05 13:15 | ED.GENADUL1 ---
HPI HPI - General Adult General Chief complaint: Headache Stated complaint: HEADACHE Time Seen by Provider: 01/05/25 13:07 Source: patient Mode of arrival: walk-in History of Present Illness HPI narrative: Patient is a 39-year-old female who presents to the emergency department for headache. She has been seen in this emergency department twice previously in the last month. She was recently incarcerated and not able to take her regular medications. She states she has a history of cluster headaches. She states they are typically located on 1 side of the head or the other and then they switch. She states currently the headache is located on the right side of the head. She has not had any visual changes but does feel she has sinus congestion which she thinks is making the headache worse. She is requesting oxygen therapy as this has worked for her in the past. She is noted to be tachycardic on arrival, she is not vomiting. She has no concern for . No fevers, peripheral paresthesias. She states this is the fourth headache today, she has an upcoming appointment with her primary care provider to get all of her regular medications restarted, but they called yesterday to reschedule the appointment. No falls or injuries. She states this headache is consistent with what she has had previously although she has not had imaging of her brain in years. Related Data Previous Rx's ?Medication ?Instructions ?Recorded ondansetron 4 mg disintegrating 4 mg PO Q6H PRN nausea and 12/20/24 tablet vomiting #12 tabs ketorolac 10 mg tablet 10 mg PO Q8H PRN headache 3 days 12/30/24 #10 tabs ocarejtdlkivwpt-uhmcdnyzvczszqw-YG 10 ml PO Q6H PRN cold symptoms 01/05/25 2 mg-30 mg-10 mg/5 mL oral syrup #200 mL (Bromfed DM) ketorolac 10 mg tablet 10 mg PO TID PRN pain #10 tabs 01/05/25 methylprednisolone 4 mg tablets in See Rx Instructions .Route 01/05/25 a dose pack (Medrol (Taye)) .COMPLEX #21 ea ondansetron 4 mg disintegrating 4 mg PO Q6H PRN nausea and 01/05/25 tablet vomiting #12 tabs Allergies Allergy/AdvReac Type Severity Reaction Status Date / Time venlafaxine (From Effexor) Allergy Severe Depression Verified 12/30/24 14:44 Opioid HPI Opioid Management Most Recent Opioid Data: Last Pain Scale 4 12/20/24 15:21 12/20/24 Review of Systems ROS Constitutional Denies: fever or chills Ears, nose, mouth, and throat Denies: throat pain or nasal congestion Respiratory Denies: shortness of breath Gastrointestinal Denies: nausea or vomiting Musculoskeletal Reports: neck pain; Denies: back pain Integumentary/Breast Denies: rash Neurological Reports: headache; Denies: numbness in extremities, weakness in extremities or dizziness Hematologic/Lymphatic Denies: easy bruising or easy bleeding PFSH [facility] Social History Little interest or pleasure in doing things: not at all Feeling down, depressed, or hopeless: not at all Exam Narrative Exam Narrative: Gen.: Awake, alert, in no distress Head: Normocephalic, atraumatic ENT: Moist mucous membranes, no nuchal rigidity or meningismus Respiratory: No respiratory distress, lungs clear bilaterally Cardio: Tachycardia Extremities: Moves extremities equally, no injuries noted Psych: Normal mood and affect Neuro: No focal neuro deficit Skin: Warm, dry, intact Constitutional Vital Signs, click to edit/add: Last Vital Signs Temp 98.2 F 01/05/25 13:01 Pulse 92 H 01/05/25 14:10 Resp 18 01/05/25 14:10 BP 119/80 01/05/25 14:10 Pulse Ox 99 01/05/25 14:10 O2 Del Method Room Air 01/05/25 13:01 Course Vital Signs Vital signs: Vital Signs Temperature 98.2 F 01/05/25 13:01 Pulse Rate 129 H 01/05/25 13:01 Respiratory Rate 20 01/05/25 13:01 Blood Pressure 151/93 H 01/05/25 13:01 Pulse Oximetry 98 01/05/25 13:01 Oxygen Delivery Method Room Air 01/05/25 13:01 Temperature 98.2 F 01/05/25 13:01 Pulse Rate 92 H 01/05/25 14:10 Respiratory Rate 18 01/05/25 14:10 Blood Pressure 119/80 01/05/25 14:10 Pulse Oximetry 99 01/05/25 14:10 Oxygen Delivery Method Room Air 01/05/25 13:01 Medical Decision Making [facility] Narrative Medical decision making narrative: Patient treated with high flow oxygen, IV fluids, Reglan, Benadryl, Toradol, Norflex with almost complete resolution of her headache. She is relaxing comfortably with stabilized vital signs and tachycardia has improved. She is discharged home after negative CT scan with Bromfed-DM and Medrol Dosepak for sinus symptoms as well as Toradol and Zofran for headache. Follow-up with PCP as scheduled and return to the ER if symptoms change or worsen SUPERVISED APC VISIT, PHYSICIAN ATTESTATION: Based on the medical record the care appears appropriate. ? Medical Records Medical records reviewed: Yes I reviewed the patient's medical records Imaging Data CT scan - head: Attestation: I have reviewed the pertinent imaging results. Discharge Plan Discharge Chief Complaint: Headache Clinical Impression: Headache Patient Disposition: Home, Self-Care Time of Disposition Decision: 14:53 Condition: Good Prescriptions / Home Meds: New ketorolac 10 mg tablet 10 mg PO TID PRN (Reason: pain) Qty: 10 0RF methylprednisolone [Medrol (Taye)] 4 mg tablets,dose pack See Rx Instructions .ROUTE .COMPLEX Qty: 21 0RF Rx Instructions: Taper as directed mbhuklnjiqumtie-hlbvdxyea-HJ [Bromfed DM] 2-30-10 mg/5 mL syrup 10 ml PO Q6H PRN (Reason: cold symptoms) Qty: 200 0RF ondansetron 4 mg tablet,disintegrating 4 mg PO Q6H PRN (Reason: nausea and vomiting) Qty: 12 0RF No Action ondansetron 4 mg tablet,disintegrating 4 mg PO Q6H PRN (Reason: nausea and vomiting) Qty: 12 0RF ketorolac 10 mg tablet 10 mg PO Q8H PRN (Reason: headache) 3 Days Qty: 10 0RF Print Language: Estonian Instructions: Acute Headache (ED) Referrals: PO MORALEZ [Primary Care Provider] - 1 week
--- OUTSIDE RECORDS SUMMARY | 2025-01-05 13:25 | XMS_ITS | CCD ---
Author Organization [facility] Care Team Providers Care Prisoner Classification Interviewer Name Role Phone JOCELYN PEÑA JR Unavailable Unavailable ORDARLING CHILEL Unavailable Unavailable ORDARLING CHILEL Unavailable Unavailable NESTOR MOTT Unavailable Unavailable KRISTIE ROBERTS S Unavailable Unavailable WILLY BHAKTA Unavailable Unavaila FELECIA Mcdonough T Unavailable Unavailable JOVANY RUGGIERO Unavailable Unavailable KYRA COFFEY I Unavailable Unavailable JOCELYN PEÑA JR Unavailable Unavailable AOUAD PAULA T Unavailable Unavailable ELSILAS ADLER M Unavailable Unavailable SELF, REFERRED Referring Unavailable UNKNOWN, PHYSICIAN Primary Care Unavailable MONSERRAT CAIN Attending Unavailable MONSERRAT CAIN Admitting Unavailable LA Procedure Practitioner Unavailab MONSERRAT Adame Surgeon Unavailable LA Procedure Practitioner Unavailab JUAN MANUEL Mancilla Surgeon Unavailable PAY, DR HERMOSILLO Consulting Unavailable PAY, DR HERMOSILLO Admitting Unavailable PAY, DR HERMOSILLO Attending Unavailable REQUEST, NONE LISTED Primary Care Unavaila ESTEPHANIA Alfredo Consulting Unavailable REQUEST, NONE LISTED Primary Care Unavaila hoa CHENG, DR KIRA Huff Consulting Unavailable PROSPER, DR KIRA Huff Admitting Unavailable PROSPER, DR KIRA Huff Attending Unavailable DANNY CHAPA Consulting Unavailable Casey [...] 02-07-2015 [facility] (2 sources) [place] Drug Allergy 02-07-2015 [facility] (3 sources) venlafaxine; Translations: [Effexor] Drug Allergy 02-07-2015 [facility] (3 sources) ARIPiprazole Drug Allergy 01-14-2013 [employer] (3 sources) hydrOXYzine Drug Allergy 08-12-2016 [employer] (3 sources) [place] Drug Allergy 01-14-2013 [employer] Work Phone: (3 sources) venlafaxine Drug Allergy 01-14-2013 [facility] Medications Current Medications Medication Drug [...] 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 Other [employer] infection and poliomyelitis (3 sources) Spinal epidural [...] 09-09-20 22 HCV Quant 1,120,000 IU/mL Normal [facility] Comment on above: Performed By: #### H CVQN #### [facility] [employer] [address] [place], [place] [phone] Appeals Board Referee: Pillo Dye MD [facility] [address] [place] [address] Appeals Board Referee: Verónica Rodriguez MD HCV RNA,Quant Detected Abnormal NOTDET [facility] Comment on above: Result Comment: [...] Department Performed By: #### H CVQN #### [address] [place] [address] Appeals Board Referee: Pillo Dye MD [address] [place] [phone] Appeals Board Referee: Verónica Rodriguez MD HCV,RNA Log 6.05 Log IU/mL Normal [facility] Comment on above: Performed By: #### H CVQN #### [address] [address] Appeals Board Referee: Pillo Dye MD [address] [place] [phone] Appeals Board Referee: Verónica Rodriguez MD HCV RNA,Quant,PCRon 09-08-20 22 Source .PLASMA Normal [facility] Comment on above: Performed By: #### H CVQN #### [address] [address] Appeals Board Referee: Pillo Dye MD [address] [place] [address] Appeals Board Referee: Verónica Rodriguez MD CBCon 09-04-2022 Erythrocyte distribution width (RBC) [Ratio] 14.9 % High 11.8-14.4 [facility] Comment on above: Performed By: #### H IVCMB, PHEP #### [address] [address] Appeals Board Referee: Pillo Dye MD #### CBC, CP, HCG #### [facility] [address] [place] [address] [address]. [place], [place] [phone] Appeals Board Referee: Verónica Rodriguez MD Hematocrit (Bld) [Volume fraction] 43.4 % Normal 36.3-47.1 [facility] Comment on above: Performed By: #### H IVCMB, PHEP #### [address] [address] Appeals Board Referee: Pillo Dye MD #### CBC, CP, HCG #### [address] [place], [place] [phone] Appeals Board Referee: Verónica Rodriguez MD Hemoglobin (Bld) [Mass/Vol] 13.9 g/dL Normal 11.9-15.1 [facility] Comment on above: Performed By: #### H IVCMB, PHEP #### [address] [address] Appeals Board Referee: Pillo Dye MD #### CBC, CP, HCG #### [address] [place] [address] Appeals Board Referee: Verónica Rodriguez MD MCH (RBC) [Entitic mass] 29.6 pg Normal 25.2-33.5 [facility] Comment on above: Performed By: #### H IVCMB, PHEP #### [address] [address] Appeals Board Referee: Pillo Dye MD #### CBC, CP, HCG #### [address] [place] [address] Appeals Board Referee: Verónica Rodriguez MD MCHC (RBC) [Mass/Vol] 32.0 g/dL Normal 28.4-34.8 [facility] Comment on above: Performed By: #### H IVCMB, PHEP #### [address] [phone] Appeals Board Referee: Pillo Dye MD #### CBC, CP, HCG #### [address] [place] [address] Appeals Board Referee: Verónica Rodriguez MD MCV (RBC) [Entitic vol] 92.5 fL Normal 82.6-102.9 [facility] Comment on above: Performed By: #### H IVCMB, PHEP #### [address] [address] Appeals Board Referee: Pillo Dye MD #### CBC, CP, HCG #### [facility] [address] [place] [address] Appeals Board Referee: Verónica Rodriguez MD NRBC Automated 0.0 per 100 WBC Normal 0.0 [facility] Comment on above: Performed By: #### H IVCMB, PHEP #### [address] [address] Appeals Board Referee: Pillo Dye MD #### CBC, CP, HCG #### [facility] [address] [place] [address] Dr. [place] [phone] Appeals Board Referee: Verónica Rodriguez MD Platelet mean volume (Bld) [Entitic vol] 9.4 fL Normal 8.1-13.5 [facility] Comment on above: Performed By: #### H IVCMB, PHEP #### [address] [address] Appeals Board Referee: Pillo Dye MD #### CBC, CP, HCG #### [facility] [address] [place] [address] Dr. [place] [phone] Appeals Board Referee: Verónica Rodriguez MD Platelets (Bld) [#/Vol] 525 10*3/uL High 138-453 [facility] Comment on above: Performed By: #### H IVCMB, PHEP #### [address] [address] Appeals Board Referee: Pillo Dye MD #### CBC, CP, HCG #### [facility] [address] [place] [address] Dr. [place] [phone] Appeals Board Referee: Verónica Rodriguez MD RBC (Bld) [#/Vol] 4.69 10*6/uL Normal 3.95-5.11 [facility] Comment on above: Performed By: #### H IVCMB, PHEP #### [facility] [address] [place], [place] [phone] Appeals Board Referee: Pillo Dye MD #### CBC, CP, HCG #### [facility] [address] [place] [address] Appeals Board Referee: Verónica Rodriguez MD WBC (Bld) [#/Vol] 7.5 10*3/uL Normal 3.5-11.3 [facility] Comment on above: Performed By: #### H IVCMB, PHEP #### [facility] [address] [place], [place] [phone] Appeals Board Referee: Pillo Dye MD #### CBC, CP, HCG #### [facility] [address] [place] [address] [place] [address] Appeals Board Referee: Verónica Rodriguez MD Hematocrit (Bld) [Volume fraction] 43.4 % 36.3 - 47.1 % [facility] Hemoglobin (Bld) [Mass/Vol] 13.9 g/dL 11.9 - 15.1 g/dL [facility] Interpretation and review of laboratory results Abnormal [facility] MCH (RBC) [Entitic mass] 29.6 pg 25.2 - 33.5 pg [facility] MCHC (RBC) [Mass/Vol] 32.0 g/dL 28.4 - 34.8 g/dL [facility] MCV (RBC) [Entitic vol] 92.5 fL 82.6 - 102.9 fL [facility] NRBC Automated 0.0 0.0 per 100 WBC [facility] Platelet distribution width (Bld) [Ratio] 14.9 % High 11.8 - 14.4 % [facility] Platelet mean volume (Bld) [Entitic vol] 9.4 fL 8.1 - 13.5 fL [facility] Platelets (Bld) [#/Vol] 525 10*3/uL High [facility] RBC (Bld) [#/Vol] 4.69 10*6/uL 3.95 - 5.1 1 m/uL [facility] WBC (Bld) [#/Vol] 7.5 10*3/uL [facility] Comp Metabolic Profon 2021 Albumin [Mass/Vol] 4.6 g/dL Normal 3.5-5.2 [facility] Comment on above: Performed By: #### H IVCMB, PHEP #### [address] [address] Appeals Board Referee: Pillo Dye MD #### CBC, CP, HCG #### [facility] [address] [place] [address] Appeals Board Referee: Verónica Rodriguez MD Albumin/Glob Ratio 1.6 Normal 1.0-2.5 [facility] Comment on above: Performed By: #### H IVCMB, PHEP #### [address] [address] Appeals Board Referee: Pillo Dye MD #### CBC, CP, HCG #### [facility] [address] [place] [address] Appeals Board Referee: Verónica Rodriguez MD Alkaline Phos 113 U/L High 35-104 [facility] Comment on above: Performed By: #### H IVCMB, PHEP #### [address] [address] Appeals Board Referee: Pillo Dye MD #### CBC, CP, HCG #### [facility] [address] [place] [address] Appeals Board Referee: Verónica Rodriguez MD ALT [Catalytic activity/Vol] 69 U/L High 5-33 [facility] Comment on above: Performed By: #### H IVCMB, PHEP #### [address] [address] Appeals Board Referee: Pillo Dye MD #### CBC, CP, HCG #### [facility] [address] [place], [place] [phone] Appeals Board Referee: Verónica Rodriguez MD Anion gap [Moles/Vol] 8 mmol/L Low 9-17 [facility] Comment on above: Performed By: #### H IVCMB, PHEP #### [address] [address] Appeals Board Referee: Pillo Dye MD #### CBC, CP, HCG #### [facility] [address] [place] [address] [place] [address] Appeals Board Referee: Verónica Rodriguez MD AST [Catalytic activity/Vol] 46 U/L High <32 [facility] Comment on above: Performed By: #### H IVCMB, PHEP #### [address] [address] Appeals Board Referee: Pillo Dye MD #### CBC, CP, HCG #### [facility] [address] [place] [address] [place] [address] Appeals Board Referee: Verónica Rodriguez MD Bilirubin [Mass/Vol] 0.4 mg/dL Normal 0.3-1.2 [facility] Comment on above: Performed By: #### H IVCMB, PHEP #### [address] [address] Appeals Board Referee: Pillo Dye MD #### CBC, CP, HCG #### [facility] [address] [place] [address] Appeals Board Referee: Verónica Rodriguez MD BUN/CRE Ratio 17 Normal 9-20 [facility] Comment on above: Performed By: #### H IVCMB, PHEP #### [address] [address] Appeals Board Referee: Pillo Dye MD #### CBC, CP, HCG #### [facility] [address] [place] [address] Appeals Board Referee: Verónica Rodriguez MD Calcium [Mass/Vol] 9.7 mg/dL Normal 8.6-10.4 [facility] Comment on above: Performed By: #### H IVCMB, PHEP #### [address] [phone] Appeals Board Referee: Pillo Dye MD #### CBC, CP, HCG #### [facility] [address] [place] [address] Appeals Board Referee: Verónica Rodriguez MD Chloride [Moles/Vol] 107 mmol/L Normal 98-107 [facility] Comment on above: Performed By: #### H IVCMB, PHEP #### [address] [phone] Appeals Board Referee: Pillo Dye MD #### CBC, CP, HCG #### [facility] [address] [place] [address] Appeals Board Referee: Verónica Rodriguez MD CO2 [Moles/Vol] 24 mmol/L Normal 20-31 [facility] Comment on above: Performed By: #### H IVCMB, PHEP #### [address] [address] Appeals Board Referee: Pillo Dye MD #### CBC, CP, HCG #### [facility] [address] [place] [address] Appeals Board Referee: Verónica Rodriguez MD Creatinine [Mass/Vol] 0.83 mg/dL Normal 0.50-0.90 [facility] Comment on above: Performed By: #### H IVCMB, PHEP #### [address] [address] Appeals Board Referee: Pillo Dye MD #### CBC, CP, HCG #### [facility] [address] [place] [address] [place] [address] Appeals Board Referee: Verónica Rodriguez MD GFR/1.73 sq M.predicted among non-blacks MDRD (S/P/Bld) [Vol rate/Area] mL/min/{1.73_m2} Normal >60 [facility] Comment on above: Result Comment: [...] Performed By: #### H IVCMB, PHEP #### [address] [phone] Appeals Board Referee: Pillo Dye MD #### CBC, CP, HCG #### [facility] [address] [place] [address] [place] [address] Appeals Board Referee: Verónica Rodriguez MD Glucose [Mass/Vol] 89 mg/dL Normal 70-99 [facility] Comment on above: Performed By: #### H IVCMB, PHEP #### [address] [phone] Appeals Board Referee: Pillo Dye MD #### CBC, CP, HCG #### [facility] [address] [place] [address] [place] [address] Appeals Board Referee: Verónica Rodriguez MD Potassium [Moles/Vol] 4.5 mmol/L Normal 3.7-5.3 [facility] Comment on above: Performed By: #### H IVCMB, PHEP #### [address] [address] Appeals Board Referee: Pillo Dye MD #### CBC, CP, HCG #### [facility] [address] [place], [place] [phone] Appeals Board Referee: Verónica Rodriguez MD Protein [Mass/Vol] 7.4 g/dL Normal 6.4-8.3 [facility] Comment on above: Performed By: #### H IVCMB, PHEP #### [facility] [address] [place], [place] [phone] Appeals Board Referee: Pillo Dye MD #### CBC, CP, HCG #### [facility] [address] [place] [address] Appeals Board Referee: Verónica Rodriguez MD Sodium [Moles/Vol] 139 mmol/L Normal 135-144 [facility] Comment on above: Performed By: #### H IVCMB, PHEP #### [address] [place], [place] [phone] Appeals Board Referee: Pillo Dye MD #### CBC, CP, HCG #### [facility] [address] [place] [address] [place] [address] Appeals Board Referee: Verónica Rodriguez MD Urea nitrogen [Mass/Vol] 14 mg/dL Normal 6-20 [facility] Comment on above: Performed By: #### H IVCMB, PHEP #### [facility] [address] [place], [place] [phone] Appeals Board Referee: Pillo Dye MD #### CBC, CP, HCG #### [facility] [address] [place] [address] Appeals Board Referee: Verónica Rodriguez MD Comprehensive Metabolic Pane adeola 09-04-2022 Albumin [Mass/Vol] 4.6 g/dL 3.5 - 5.2 g/dL [facility] Albumin/Globulin [Mass ratio] 1.6 {ratio} 1.0 - 2.5 [facility] ALP (Bld) [Catalytic activity/Vol] 113 U/L High 35 - 104 U/L [facility] ALT [Catalytic activity/Vol] 69 U/L High 5 - 33 U/L [facility] Anion gap [Moles/Vol] 8 mmol/L Low 9 - 17 mmol/L [facility] AST [Catalytic activity/Vol] 46 U/L High NINF - 32 U/L [facility] Bilirubin [Mass/Vol] 0.4 mg/dL 0.3 - 1.2 mg/dL [facility] Calcium [Mass/Vol] 9.7 mg/dL 8.6 - 10. 4 mg/dL [facility] Chloride [Moles/Vol] 107 mmol/L 98 - 107 mmol/L [facility] CO2 [Moles/Vol] 24 mmol/L 20 - 31 mmol/L [facility] Creatinine [Mass/Vol] 0.83 mg/dL 0.50 - 0.90 mg/dL [facility] GFR/1.73 sq M.predicted MDRD (S/P/Bld) [Vol rate/Area] - PINF [facility] Comment on above: Effective Aug 04, 2022 [...] [Mass/Vol] 89 mg/dL 70 - 99 mg/dL [facility] Interpretation and review of laboratory results Abnormal [facility] Potassium [Moles/Vol] 4.5 mmol/L 3.7 - 5.3 mmol/L [facility] Protein [Mass/Vol] 7.4 g/dL 6.4 - 8.3 g/dL [facility] Sodium [Moles/Vol] 139 mmol/L 135 - 144 mmol/L [facility] Urea nitrogen (BldV) [Mass/Vol] 14 mg/dL 6 - 20 mg/dL [facility] Urea nitrogen/Creatinin e (Bld) [Mass ratio] 17 9 - 20 [facility] HCG Qualitative, Serumon hCG Qual Negative NEGATIVE [facility] Comment on above: Specimens with hCG l evels near the threshold of the test (25 mIU/mL) may give a negative or indeterminate result. In such cases, another test should be performed with a new specimen in 48-72 hours. If early is suspected clinically in this setting, correlation with quantitative serum b-hCG level is suggested. [facility] has confirmed the use of plasma for this test. This has not been cleared or approved by the U.S. Food and Drug Administration. The FDA has determined that such clearance is not necessary. [facility] HCG Screen, Bloodon 09-04-20 HCG Screen, Blood Negative Normal NEG [facility] Comment on above: Result Comment: Spec imens with hCG levels near the threshold of the test (25 mIU/mL) may give a negative or indeterminate result. In such cases, another test should be performed with a new specimen in 48-72 hours. If early is suspected clinically in this setting, correlation with quantitative serum b-hCG level is suggested. [facility] has confirmed the use of plasma for this test. This has not been cleared or approved by the U.S. Food and Drug Administration. The FDA has determined that such clearance is not necessary. Performed By: #### H IVCMB, PHEP #### [facility] [address] [place] [address] Appeals Board Referee: Pillo Dye MD #### CBC, CP, HCG #### [facility] [address] [place] [address] [place] [address] Appeals Board Referee: Verónica Rodriguez MD HIV Ag/Abon 09-04-2022 HIV Ag/Ab Non-Reactive Normal NR [facility] Comment on above: Result Comment: No l aboratory evidence of HIV infection. If acute HIV infection is suspected, consider testing for HIV-1 RNA. Performed By: #### H IVCMB, PHEP #### [facility] [address] [place] [address] Appeals Board Referee: Pillo Dye MD #### CBC, CP, HCG #### [facility] [address] [place] [address] [place] [address] Appeals Board Referee: Verónica Rodriguez MD HIV Screenon 09-04-2022 HIV Ag/Ab Non-Reactive NONREACTIVE [facility] Comment on above: No laboratory eviden ce of HIV infection. If acute HIV infection is suspected, consider testing for HIV-1 RNA. [facility] Hepatitis Acute John 09-04 Hep A Ab,IgM Non-Reactive Normal NR [facility] Comment on above: Performed By: #### H IVCMB, PHEP #### [address] [address] Appeals Board Referee: Pillo Dye MD #### CBC, CP, HCG #### [address] [place], [place] [phone] Appeals Board Referee: Verónica Rodriguez MD Hep B Core Ab,IgM Non-Reactive Normal [facility] Comment on above: Performed By: #### H IVCMB, PHEP #### [address] [address] Appeals Board Referee: Pillo Dye MD #### CBC, CP, HCG #### [address] [place], [place] [phone] Appeals Board Referee: Verónica Rodriguez MD Hep B Surf Ag Non-Reactive Normal [facility] Comment on above: Performed By: #### H IVCMB, PHEP #### [address] [address] Appeals Board Referee: Pillo Dye MD #### CBC, CP, HCG #### [address] [place], [place] [phone] Appeals Board Referee: Verónica Rodriguez MD Hep C Ab Reactive Abnormal [facility] Comment on above: Result Comment: The hepatitis [...] Performed By: #### H IVCMB, PHEP #### [facility] [address] [place] [address] Appeals Board Referee: Pillo Dye MD #### CBC, CP, HCG #### [facility] [address] [place] [address] Appeals Board Referee: Verónica Rodriguez MD Hepatitis Panel, Acuteon HAV IgM IA Qn (S) Non-Reactive NONREACTIVE [facility] Hep B Core Ab, IgM Non-Reactive NONREACTIVE [facility] Hepatitis B Surface Ag Non-Reactive NONREACTIVE [facility] Hepatitis C Ab Reactive Abnormal NONREACTIVE [facility] Comment on above: The hepatitis C procedure [...] Interpretation and review of laboratory results Abnormal [facility] Chlamydia/GC,DNA Ampon 08-25 Chlamydia Probe Negative Normal NEG [facility] Comment on above: Result Comment: [...] Performed By: #### U AX, UMICAO #### [facility] [address] [place] [address] Appeals Board Referee: Verónica Rodriguez MD #### SWCGP #### [facility] [address] [place], [place] [phone] Appeals Board Referee: Pillo Dye MD Gonorrhea Probe Negative Normal NEG [facility] Comment on above: Result Comment: [...] nucleic acid target. Performed By: #### U AXKURTO #### [address] [place] [address] Appeals Board Referee: Verónica Rodriguez MD #### SWCGP #### [address] [place], [place] [phone] Appeals Board Referee: Pillo Dye MD Microscopic Urinalysison Bacteria, UA TRACE Abnormal None [facility] Epithelial Cells UA 2 TO 5 [facility] Interpretation and review of laboratory results Abnormal [facility] RBC, UA 0 TO 2 [facility] WBC, UA 0 TO 2 [facility] Trichomonas/Wet Prepon 08-22 Trichomonas/Wet Prep Specimen Description .VAGINAL SPECIMEN Direct Exam NO YEAST OBSERVED NO TRICHOMONAS SEEN NO CLUE CELLS SEEN Report Status FINAL 08/22/2022 Normal [facility] Comment on above: Performed By: #### W P #### [facility] [address] [place] [address] [place] [address] Appeals Board Referee: Verónica Rodriguez MD UA w/Reflex Cultureon 2021 Bilirubin, SemiQt,Ur Negative Normal [facility] Comment on above: Performed By: #### U AX, UMICAO #### [address] [place] [address] Appeals Board Referee: Verónica Rodriguez MD #### SWCGP #### [address] [place] [address] Appeals Board Referee: Pillo Dye MD Blood, Urine Negative Normal NEG [facility] Comment on above: Performed By: #### U AX, UMICAO #### [facility] [address] [place], [place] [phone] Appeals Board Referee: Verónica Rodriguez MD #### SWCGP #### [address] [address] Appeals Board Referee: Pillo Dye MD Clarity (U) Clear Normal CLEAR [facility] Comment on above: Performed By: #### U AX, UMICAO #### [facility] [address] [place] [address] [address] [place], [place] [phone] Appeals Board Referee: Verónica Rodriguez MD #### SWCGP #### [address] [address] Appeals Board Referee: Pillo Dye MD Color (U) Yellow Normal YEL [facility] Comment on above: Performed By: #### U AX, UMICAO #### [facility] [address] [place] [address] [address] [place], [place] [phone] Appeals Board Referee: Verónica Rodriguez MD #### SWCGP #### [address] [address] Appeals Board Referee: Pillo Dye MD Glucose Ql (U) Negative Normal NEG [facility] Comment on above: Performed By: #### U AX, UMICAO #### [facility] [address] [place] [address] [address] [place], [place] [phone] Appeals Board Referee: Verónica Rodriguez MD #### SWCGP #### [address] [address] Appeals Board Referee: Pillo Dye MD Ketones Ql (U) Negative Normal NEG [facility] Comment on above: Performed By: #### U AX, UMICAO #### [facility] [address] [place] [address] Appeals Board Referee: Verónica Rodriguez MD #### SWCGP #### [address] [address] Appeals Board Referee: Pillo Dye MD Leukocyte esterase Test strip Ql (U) Negative Normal NEG [facility] Comment on above: Performed By: #### U AX, UMICAO #### [facility] [address] [place] [address] [address] [place], [place] [phone] Appeals Board Referee: Verónica Rodriguez MD #### SWCGP #### [address] [address] Appeals Board Referee: Pillo Dye MD Nitrite,Ur Negative Normal [facility] Comment on above: Performed By: #### U AX, UMICAO #### [facility] [address] [place] [address] [place] [address] Appeals Board Referee: Verónica Rodriguez MD #### SWCGP #### [address] [address] Appeals Board Referee: Pillo Dye MD PH,Ur 6.0 Normal 5.0-9.0 [facility] Comment on above: Performed By: #### U AX, UMICAO #### [facility] [address] [place] [address] Dr. [place], [place] [id number] Appeals Board Referee: Verónica Rodriguez MD #### SWCGP #### [address] [address] Appeals Board Referee: Pillo Dye MD Protein Ql (U) Negative Normal [facility] Comment on above: Performed By: #### U AX, UMICAO #### [facility] [address] [place] [address] [place] [address] Appeals Board Referee: Verónica Rodriguez MD #### SWCGP #### [facility] [employer] [address] [place], [place] [id number] Appeals Board Referee: Pillo Dye MD Spec. [place],Ur 1.010 Normal 1.010-1.020 [facility] Comment on above: Performed By: #### U AX, UMICAO #### [facility] [address] [place] [address] [place] [address] Appeals Board Referee: Verónica Rodriguez MD #### SWCGP #### [address] [place], [place] [id number] Appeals Board Referee: Pillo Dye MD Urobilinogen,Ur Normal Normal NORM [facility] Comment on above: Performed By: #### U AX, UMICAO #### [facility] [address] [place] [address] [place] [address] Appeals Board Referee: Verónica Rodriguez MD #### SWCGP #### [address] [place], [place] [phone] Appeals Board Referee: Pillo Dye MD Urinalysis with Reflex to Cu ltureon 08-22-2022 Bilirubin Urine Negative NEGATIVE [facility] Color, UA Yellow Yellow [facility] Glucose, Ur Negative NEGATIVE [facility] Ketones Ql (U) Negative NEGATIVE [facility] Leukocyte esterase Test strip Ql (U) Negative NEGATIVE [facility] Nitrite, Urine Negative NEGATIVE [facility] pH, UA 6.0 5.0 - 9.0 [facility] Protein, UA Negative NEGATIVE [facility] Specific [place], UA 1.010 1.010 - 1.020 [facility] Turbidity UA Clear Clear [facility] Urine Hgb Negative NEGATIVE [facility] Urobilinogen, Urine Normal Normal [facility] Urinalysis,Microon 2 Bacteria TRACE Abnormal NONE [facility] Comment on above: Performed By: #### U AX, UMICAO #### [facility] [address] [place], [place] [id number] Appeals Board Referee: Verónica Rodriguez MD #### SWCGP #### [address] [id number] Appeals Board Referee: Pillo Dye MD Epithelial cells LM Ql (Urine sed) 2 TO 5 Normal 0-25 [facility] Comment on above: Performed By: #### U AX, UMICAO #### [facility] [address] [place], [place] [phone] Appeals Board Referee: Verónica Rodriguez MD #### SWCGP #### [address] [id number] Appeals Board Referee: Pillo Dye MD Urine RBC's 0 TO 2 Normal 0-2 [facility] Comment on above: Performed By: #### U AX, UMICAO #### [facility] [address] [place] [address] [place] [address] Appeals Board Referee: Verónica Rodriguez MD #### SWCGP #### [address] [address] Appeals Board Referee: Pillo Dye MD Urine WBC's 0 TO 2 Normal 0-5 [facility] Comment on above: Performed By: #### U AX, UMICAO #### [facility] [address] [place] [address] Dr. [place], [place] [id number] Appeals Board Referee: Verónica Rodriguez MD #### SWCGP #### [address] [address] Appeals Board Referee: Pillo Dye MD Wet prep, genitalon 08-22-20 Direct Exam NO YEAST OBSERVED [facility] Direct Exam NO TRICHOMONAS SEEN [facility] Direct Exam NO CLUE CELLS SEEN [facility] Specimen Description .VAGINAL SPECIMEN [facility] ACETAMINOPHENon 04-13-2022 Acetaminophen [Mass/Vol] ug/mL Critically low 10.0-30.0 [facility] Comment on above: Performed By: #### A SANIYA BARCLAY #### [facility] [address] [place] [address] Dr. Demetrius Xie CBC AUTO DIFFon 04-13-2022 BASO # 0.0 103/ul Normal 0.0-0.1 [facility] Comment on above: Performed By: #### C BC #### [facility] [address] [place] [address] Dr. Demetrius Xie Basophils/100 WBC (Bld) 0.5 % Normal 0.2-2.0 [facility] Comment on above: Performed By: #### C BC #### [facility] [address] [place] [address] Dr. Demetrius Xie EO # 0.1 103/ul Normal 0.0-0.7 [facility] Comment on above: Performed By: #### C BC #### [facility] [address] [place] [address] Dr. Demetrius Xie Eosinophils/100 WBC (Bld) 1.1 % Normal 0.9-7.0 [facility] Comment on above: Performed By: #### C BC #### [facility] [address] [place] [address] Dr. Demetrius Xie Erythrocyte distribution width (RBC) [Ratio] 14.4 % Normal 11.0-15.0 [facility] Comment on above: Performed By: #### C BC #### [facility] [address] [place] [address] Dr. Demetrius Xie Hematocrit (Bld) [Volume fraction] 35.6 % Critically low 36.0-48.0 [facility] Comment on above: Performed By: #### C BC #### [facility] [address] [place] [address] Dr. Demetrius Xie Hemoglobin (Bld) [Mass/Vol] 11.6 g/dL Critically low 12.0-16.0 [facility] Comment on above: Performed By: #### C BC #### [facility] [address] [place] [address] Dr. Demetrius Xie IG # 0.16 10e3/ul Critically high 0.00-0.03 [facility] Comment on above: Performed By: #### C BC #### [facility] [address] [place] [address] Dr. Demetrius Xie IG % 1.9 % Critically high 0.0-0.5 [facility] Comment on above: Performed By: #### C BC #### [facility] [address] [place] [address] Dr. Demetrius Xie LYMPH # 3.0 103/ul Normal 1.2-3.8 [facility] Comment on above: Performed By: #### C BC #### [facility] [address] [place] [address] Dr. Demetrius Xie Lymphocytes/100 WBC (Bld) 35.2 % Normal 20.5-60.0 [facility] Comment on above: Performed By: #### C BC #### [facility] [address] [place] [address] Dr. Demetrius Xie MANUAL DIFF REQ NO Normal [facility] Comment on above: Performed By: #### C BC #### [facility] [address] [place] [address] Dr. Demetrius Xie MCH (RBC) [Entitic mass] 30.9 pg Normal 26.7-34.0 [facility] Comment on above: Performed By: #### C BC #### [facility] [address] [place] [address] Dr. Demetrius Xie MCHC (RBC) [Mass/Vol] 32.6 g/dL Normal 29.9-35.2 [facility] Comment on above: Performed By: #### C BC #### [facility] [address] [place] [address] Dr. Demetrius Xie MCV (RBC) [Entitic vol] 94.7 fL Normal 81.0-99.0 [facility] Comment on above: Performed By: #### C BC #### [facility] [address] [address] [address] Demetrius Xie MONO # 0.3 103/ul Normal 0.3-0.8 [facility] Comment on above: Performed By: #### C BC #### [facility] [address] [place] [address] Dr. Demetrius Xie Monocytes/100 WBC (Bld) 3.1 % Normal 1.7-12.0 [facility] Comment on above: Performed By: #### C BC #### [facility] [address] [place] [address] Dr. Demetrius Xie NEUT # 4.9 103/ul Normal 1.4-6.5 [facility] Comment on above: Performed By: #### C BC #### [facility] [address] [place] [address] Dr. Demetrius Xie Neutrophils/100 WBC (Bld) 58.2 % Normal 43.0-75.0 [facility] Comment on above: Performed By: #### C BC #### [facility] [address] [place] [address] Dr. Demetrius Xie Platelet mean volume (Bld) [Entitic vol] 9.2 fL Critically low 9.5-13.5 [facility] Comment on above: Performed By: #### C BC #### [facility] [address] [place] [address] Dr. Demetrius Xie PLT 347 103/ul Normal 150-450 [facility] Comment on above: Performed By: #### C BC #### [facility] [address] [place] [address] Dr. Demetrius Xie RBC 3.76 106/ul Critically low 4.20-5.40 [facility] Comment on above: Performed By: #### C BC #### [facility] [address] [place] [address] Dr. Demetrius Xie WBC 8.4 103/ul Normal 4.0-11.0 [facility] Comment on above: Performed By: #### C BC #### [facility] [address] [place] [address] Dr. Demetrius Xie POINT OF CARE GLUCOSEon 06-1 2-2022 Glucose [Mass/Vol] 163 mg/dL Critically high 74-106 [facility] Comment on above: Performed By: #### P OCGLUC #### [facility] [address] [place] [address] Dr. Demetrius Xie PROF 14(COMP METB)on 022 Albumin [Mass/Vol] 2.7 g/dL Critically low 3.4-5.0 [facility] Comment on above: Performed By: #### C MP #### [facility] [address] [place] [address] Dr. Demetrius Xie Albumin/Globulin [Mass ratio] 0.7 {ratio} Normal [facility] Comment on above: Performed By: #### C MP #### [facility] [address] [place] [address] Dr. Demetrius Xie ALP [Catalytic activity/Vol] 144 U/L Critically high 46-116 [facility] Comment on above: Performed By: #### C MP #### [facility] [address] [place] [address] Dr. Demetrius Xie ALT [Catalytic activity/Vol] 27 U/L Normal 14-59 [facility] Comment on above: Performed By: #### C MP #### [facility] [address] [place] [address] Dr. Demetrius Xei Anion gap [Moles/Vol] 18.4 mmol/L Normal [facility] Comment on above: Performed By: #### C MP #### [facility] [address] [place] [address] Dr. Demetrius Xie AST [Catalytic activity/Vol] 26 U/L Normal 15-37 [facility] Comment on above: Performed By: #### C MP #### [facility] [address] [place] [address] Dr. Demetrius Xie Bilirubin [Mass/Vol] 0.5 mg/dL Normal 0.2-1.0 [facility] Comment on above: Performed By: #### C MP #### [facility] [address] [place] [address] Dr. Demetrius Xie Calcium [Mass/Vol] 8.3 mg/dL Critically low 8.5-10.1 [facility] Comment on above: Performed By: #### C MP #### [facility] [address] [address] [address] Demetrius Xie Chloride [Moles/Vol] 107 mmol/L Normal 98-107 [facility] Comment on above: Performed By: #### C MP #### [facility] [address] [address] [address] Demetrius Xie CO2 [Moles/Vol] 18.7 mmol/L Critically low 21.0-32.0 [facility] Comment on above: Performed By: #### C MP #### [facility] [address] [place] [address] Dr. Demetrius Xie Creatinine [Mass/Vol] 1.22 mg/dL Critically high 0.55-1.02 [facility] Comment on above: Performed By: #### C MP #### [facility] [address] [place] [address] Dr. Demetrius Xie EGFR-AF IRISH 60 mL/min/1.73m2 Normal >=60 [facility] Comment on above: Performed By: #### C MP #### [facility] [address] [place] [address] Dr. Demetrius Xie EGFR-NON AF IRISH 50 mL/min/1.73m2 Critically low >=60 [facility] Comment on above: Performed By: #### C MP #### [facility] [address] [address] [address] Demetrius Xie Globulin (S) [Mass/Vol] 3.9 g/dL Normal [facility] Comment on above: Performed By: #### C MP #### [facility] [address] [place] [address] Dr. Demetrius Xie Glucose [Mass/Vol] 203 mg/dL Critically high 74-106 T [facility] Comment on above: Performed By: #### C MP #### [facility] [address] [place] [address] Dr. Demetrius Xie Potassium [Moles/Vol] 3.1 mmol/L Critically low 3.5-5.1 [facility] Comment on above: Performed By: #### C MP #### [facility] [address] [address] [address] Demetrius Xie Protein [Mass/Vol] 6.6 g/dL Normal 6.4-8.2 [facility] Comment on above: Performed By: #### C MP #### [facility] [address] [address] [address] Demetrius Xie Sodium [Moles/Vol] 141 mmol/L Normal 136-145 [facility] Comment on above: Performed By: #### C MP #### [facility] [address] [address] [address] Demetrius Xie Urea nitrogen [Mass/Vol] 8.0 mg/dL Normal 7.0-18.0 [facility] Comment on above: Performed By: #### C MP #### [facility] [address] [place] [address] Dr. Demetrius Xie Urea nitrogen/Creatinin e [Mass ratio] 6.6 mg/mg Normal [facility] Comment on above: Performed By: #### C MP #### [facility] [address] [place] [address] Dr. Demetrius Xie SALICYLATEon 04-13-2022 SALICYLATE 4.1 mg/dL Normal <=19.9 [facility] Comment on above: Performed By: #### A SANIYA BARCLAY #### [facility] [address] [place] [address] Dr. Demetrius Xie XR CHEST 1 Von [...] by: DANNY CHAPA Date: 2022-04-13 20:46 Normal [facility] HIV Ag/Abon 12-31-2021 HIV Ag/Ab Non-Reactive Normal NR [facility] Comment on above: Order Comment: CALL doctor NICHOLSON tel. [phone], fax result to [phone] 12/30/21 @ 12:22pm - Some Labs still pending, 12/30/2021 12:22, by TULBA Result Comment: No l aboratory evidence of HIV infection. If acute HIV infection is suspected, consider testing for HIV-1 RNA. [employer] [address] [place] [address] [phone] ([phone] Hepatitis Acute Panelon 03- Hep A Ab,IgM Non-Reactive Normal NR [facility] Comment on above: Order Comment: CALL doctor NICHOLSON tel. [phone], fax result to [phone] 12/30/21 @ 12:22pm - Some Labs still pending, 12/30/2021 12:22, by TULBA Result Comment: [employer] [address] [place] [address] [phone] ([phone] Hep B Core Ab,IgM Non-Reactive Normal NR [facility] Comment on above: Order Comment: YAMILET NICHOLSON tel. [phone], fax result to [phone] 12/30/21 @ 12:22pm - Some Labs still pending, 12/30/2021 12:22, by TULBA Hep B Surf Ag Non-Reactive Normal NR [facility] Comment on above: Order Comment: CALL doctor NICHOLSON tel. [phone], fax result to [phone] 12/30/21 @ 12:22pm - Some Labs still pending, 12/30/2021 12:22, by TULBA Hep C Ab Reactive Abnormal NR [facility] Comment on above: Order Comment: YAMILET NICHOLSON tel. [phone], fax result to [phone] 12/30/21 @ 12:22pm - Some Labs still [...] Ab RPR Ql (S) Non-Reactive Normal Non-reacti [facility] Comment on above: Order Comment: CALL doctor NICHOLSON tel. [phone], fax result to [phone] faxed, only rpr still pending, 12/31/2021 12:52, by LUCY faxed, only rpr still pending, 12/31/2021 12:51, by LUCY 12/31/21 @ 7:08am - RPR still pending, 12/31/2021 07:09, by BRITTNEY 12/30/21 @ 12:22pm - Some Labs still pending, 12/30/2021 12:22, by BRITTNEY Performed By: #### R LA #### [facility] [address] [place] [address] Vitamin D 25 OHon 12-31-2021 Vitamin D 25 [place] 23.0 ng/mL Low 30.0-100.0 [facility] Comment on above: Order Comment: CALL doctor NICHOLSON tel. [phone], fax result to [phone] 12/30/21 @ 12:22pm - Some Labs still pending, 12/30/2021 12:22, by BRITTNEY Result Comment: Reference Range: Vitamin D status Range Deficiency <20 ng/mL Mild Deficiency 20-30 ng/mL Sufficiency 30-100 ng/mL Toxicity >100 ng/mL [facility] [place] [address] ([phone] Comprehensive Metabolic Pane adeola 12-30-2021 Albumin [Mass/Vol] 3.6 g/dL Normal 3.5-4.6 [facility] Comment on above: Order Comment: CALL doctor NICHOLSON tel. [phone], fax result to [phone] Performed By: #### C MP #### [facility] [address] [place] [address] ALP [Catalytic activity/Vol] 98 U/L Normal 40-130 [facility] Comment on above: Order Comment: CALL doctor [id number] tel. [phone], fax result to [phone] Performed By: #### C MP #### [facility] [address] [place] [address] ALT [Catalytic activity/Vol] 43 U/L Critically high 0-33 [facility] Comment on above: Order Comment: CALL doctor PRABHU873 tel. [phone], fax result to [phone] Performed By: #### C MP #### [facility] [address] [place] [address] Anion gap [Moles/Vol] 13 mmol/L Normal 9-15 [facility] Comment on above: Order Comment: CALL doctor PRABHU873 tel. [phone], fax result to [phone] Performed By: #### C MP #### [facility] [address] [place] [address] AST [Catalytic activity/Vol] 30 U/L Normal 0-35 [facility] Comment on above: Order Comment: CALL doctor MARIUSZ3 tel. [phone], fax result to [phone] Performed By: #### C MP #### [facility] [address] [place] [address] Bilirubin [Mass/Vol] mg/dL Normal 0.2-0.7 [facility] Comment on above: Order Comment: CALL doctor PRABHU873 tel. [phone], fax result to [phone] Performed By: #### C MP #### [facility] [address] [place] [address] Calcium [Mass/Vol] 9.1 mg/dL Normal 8.5-9.9 [facility] Comment on above: Order Comment: CALL doctor PRABHU873 tel. [phone], fax result to [phone] Performed By: #### C MP #### [facility] [address] [place] [address] Chloride [Moles/Vol] 108 mmol/L Critically high 95-107 [facility] Comment on above: Order Comment: CALL doctor LA873 tel. [phone], fax result to [phone] Performed By: #### C MP #### [facility] [address] [place] [address] CO2 [Moles/Vol] 21 mmol/L Normal 20-31 [facility] Comment on above: Order Comment: CALL doctor LA873 tel. [phone], fax result to [phone] Performed By: #### C MP #### [facility] [address] [place] [address] Creatinine [Mass/Vol] 0.60 mg/dL Normal 0.50-0.90 [facility] Comment on above: Order Comment: CALL doctor LA873 tel. [phone], fax result to [phone] Performed By: #### C MP #### [facility] [address] [place] [address] GFR >60.0 Normal >60 [facility] Comment on above: Order Comment: CALL doctor PRABHU873 tel. [phone], fax result to [phone] Result Comment: >60 mL/min/1.73m2 EGFR, calc. for ages 18 and older using the MDRD formula (not corrected for weight), is valid for stable renal function. Performed By: #### C MP #### [facility] [address] [place] [address] GFR/1.73 sq M.predicted among blacks MDRD (S/P/Bld) [Vol rate/Area] mL/min/{1.73_m2} Normal >60 [facility] Comment on above: Order Comment: CALL doctor LA873 tel. [phone], fax result to [phone] Result Comment: >60 mL/min/1.73m2 EGFR, calc. for ages 18 and older using the MDRD formula (not corrected for weight), is valid for stable renal function. Performed By: #### C MP #### [facility] [address] [place] [address] Globulin (S) [Mass/Vol] 2.9 g/dL Normal 2.3-3.5 [facility] Comment on above: Order Comment: CALL doctor [id number] tel. [phone], fax result to [phone] Performed By: #### C MP #### [facility] [address] [place] [address] Glucose [Mass/Vol] 84 mg/dL Normal 70-99 [facility] Comment on above: Order Comment: CALL doctor PRABHU873 tel. [phone], fax result to [phone] Performed By: #### C MP #### [facility] [address] [place] [address] Potassium [Moles/Vol] 4.0 mmol/L Normal 3.4-4.9 [facility] Comment on above: Order Comment: CALL doctor PRABHU873 tel. [phone], fax result to [phone] Performed By: #### C MP #### [facility] [address] [place] [address] Protein [Mass/Vol] 6.5 g/dL Normal 6.3-8.0 [facility] Comment on above: Order Comment: CALL doctor PRABHU873 tel. [phone], fax result to [phone] Performed By: #### C MP #### [facility] [address] [place] [address] Sodium [Moles/Vol] 142 mmol/L Normal 135-144 [facility] Comment on above: Order Comment: CALL doctor PRABHU873 tel. [phone], fax result to [phone] Performed By: #### C MP #### [facility] [address] [place] [address] Urea nitrogen [Mass/Vol] 9 mg/dL Normal 6-20 [facility] Comment on above: Order Comment: CALL doctor [id number] tel. [phone], fax result to [phone] Performed By: #### C MP #### [facility] [address] [place] [address] Rejection Notificationon Reason see below Normal [facility] Comment on above: Order Comment: CALL doctor [id number] tel. [phone], fax result to [phone] Result Comment: Unab le to perform testing; specimen clotted. To perform testing the specimen will need to be recollected. Clotted Performed By: #### R EJEC #### [facility] [address] [place] [address] Rejected Test cbcwd Normal [facility] Comment on above: Order Comment: CALL doctor MARIUSZ3 tel. [phone], fax result to [phone] Performed By: #### R EJEC #### [facility] [address] [place] [address] TSH w/out Reflexon 2 TSH w/out Reflex 1.900 uIU/mL Normal 0.440-3.86 [facility] Comment on above: Order Comment: CALL doctor [id number] tel. [phone], fax result to [phone] Performed By: #### T SH #### [facility] [address] [place] [address] CARDIAC KIRA ADMITon 021 CK [Catalytic activity/Vol] 128 U/L Normal 30-135 [facility] Comment on above: Performed By: #### C MADM, CMP, LIPA ####[facility] [address] [place], [place] [address]EcMala Shawnavlad Xie CK.MB [Mass/Vol] 2.10 ng/mL Normal <=2.37 [facility] Comment on above: Performed By: #### C MADM, CMP, LIPA ####[facility] [address] [id number] Xie HSTROP 5.6 pg/mL Normal 4.0-35.5 [facility] Comment on above: Result Comment: CUT- OFF POINTS HAVE BEEN ESTABLISHED BASED ON THE FOURTH UNIVERSAL DEFINITIONS OF MYOCARDIAL INFARCTION. THE UPPER REFERENCE LIMIT (URL) OF TROPONIN, DEFINED THE 99TH PERCENTILE OF cTnI DISTRIBUTION IN A REFERENCE POPULATION, HAS BEEN CONFIRMED THE DECISION THRESHOLD FOR [place] DIAGNOSIS. Performed By: #### C MADM, CMP, LIPA ####[facility] [id number] [id number] Xie SIMONA 55.0 ng/mL Normal <=61.5 [facility] Comment on above: Performed By: #### C REGINAM, CMP, LIPA ####[facility] [id number] [address]Dr. Demetrius Xie CBC AUTO DIFFon 10-11-2021 BASO # 0.0 103/ul Normal 0.0-0.1 [facility] Comment on above: Performed By: #### C BC #### [facility] [address] [address] [address] Demetrius Xie Basophils/100 WBC (Bld) 0.3 % Normal 0.2-2.0 [facility] Comment on above: Performed By: #### C BC #### [facility] [address] [address] [address] Demetrius Xei EO # 0.1 103/ul Normal 0.0-0.7 [facility] Comment on above: Performed By: #### C BC #### [facility] [address] [address] [address] Demetrius Xie Eosinophils/100 WBC (Bld) 0.6 % Critically low 0.9-7.0 [facility] Comment on above: Performed By: #### C BC #### [facility] [address] [address] [address] Demetrius Xie Erythrocyte distribution width (RBC) [Ratio] 14.8 % Normal 11.0-15.0 [facility] Comment on above: Performed By: #### C BC #### [facility] [address] [place] [address] Dr. Demetrius Xie Hematocrit (Bld) [Volume fraction] 32.9 % Critically low 36.0-48.0 [facility] Comment on above: Performed By: #### C BC #### [facility] [address] [place] [address] Dr. Demetrius Xie Hemoglobin (Bld) [Mass/Vol] 11.1 g/dL Critically low 12.0-16.0 [facility] Comment on above: Performed By: #### C BC #### [facility] [address] [place] [address] Dr. Demetrius Xie IG # 0.03 10e3/ul Normal 0.00-0.03 [facility] Comment on above: Performed By: #### C BC #### [facility] [address] [place] [address] Dr. Demetrius Xie IG % 0.3 % Normal 0.0-0.5 [facility] Comment on above: Performed By: #### C BC #### [facility] [address] [place] [address] Dr. Demetrius Xie LYMPH # 1.3 103/ul Normal 1.2-3.8 [facility] Comment on above: Performed By: #### C BC #### [facility] [address] [place] [address] Dr. Demetrius Xie Lymphocytes/100 WBC (Bld) 15.2 % Critically low 20.5-60.0 [facility] Comment on above: Performed By: #### C BC #### [facility] [address] [place] [address] Dr. Demetrius Xie MANUAL DIFF REQ NO Normal [facility] Comment on above: Performed By: #### C BC #### [facility] [address] [place] [address] Dr. Demetrius Xie MCH (RBC) [Entitic mass] 29.1 pg Normal 26.7-34.0 [facility] Comment on above: Performed By: #### C BC #### [facility] [address] [place], [place] [id number] Dr. Demetrius Xie MCHC (RBC) [Mass/Vol] 33.7 g/dL Normal 29.9-35.2 [facility] Comment on above: Performed By: #### C BC #### [facility] [address] [place] [address] Dr. Demetrius Xie MCV (RBC) [Entitic vol] 86.4 fL Normal 81.0-99.0 [facility] Comment on above: Performed By: #### C BC #### [facility] [address] [place] [address] Dr. Demetrius Xie MONO # 0.4 103/ul Normal 0.3-0.8 [facility] Comment on above: Performed By: #### C BC #### [facility] [address] [place] [address] Dr. Demetrius Xie Monocytes/100 WBC (Bld) 4.9 % Normal 1.7-12.0 [facility] Comment on above: Performed By: #### C BC #### [facility] [address] [place] [address] Dr. Demetrius Xie NEUT # 6.9 103/ul Critically high 1.4-6.5 [facility] Comment on above: Performed By: #### C BC #### [facility] [address] [place] [address] Dr. Demetrius Xie Neutrophils/100 WBC (Bld) 78.7 % Critically high 43.0-75.0 [facility] Comment on above: Performed By: #### C BC #### [facility] [address] [place] [address] Dr. Demetrius Xie Platelet mean volume (Bld) [Entitic vol] 8.8 fL Critically low 9.5-13.5 [facility] Comment on above: Performed By: #### C BC #### [facility] [address] [place] [address] Dr. Demetrius Xie PLT 399 103/ul Normal 150-450 [facility] Comment on above: Performed By: #### C BC #### [facility] [address] [place] [address] Dr. Demetrius Xie RBC 3.81 106/ul Critically low 4.20-5.40 [facility] Comment on above: Performed By: #### C BC #### [facility] [address] [place] [address] Dr. Demetrius Xie WBC 8.8 103/ul Normal 4.0-11.0 [facility] Comment on above: Performed By: #### C BC #### [facility] [address] [place] [address] Dr. Demetrius Xie ER URINE PROFILEon 1 Bilirubin Ql (U) Negative Normal NEGATIVE [facility] Comment on above: Performed By: #### E RUR #### [facility] [address] [place] [address] Dr. Demetrius Xie Clarity (U) CLEAR Normal CLEAR [facility] Comment on above: Performed By: #### E RUR #### [facility] [address] [place] [address] Dr. Demetrius Xie Color (U) LT. YELLOW Normal YELLOW [facility] Comment on above: Performed By: #### E RUR #### [facility] [address] [place] [address] Dr. Demetrius DE [place] A micrscopic examina tion will be performed if indicated. Normal [facility] Comment on above: Performed By: #### E RUR #### [facility] [address] [place] [address] Dr. Demetrius Xie Glucose Ql (U) Negative Normal NEGATIVE [facility] Comment on above: Performed By: #### E RUR #### [facility] [address] [place] [address] Dr. Demetrius Xie Hemoglobin Ql (U) Negative Normal NEGATIVE [facility] Comment on above: Performed By: #### E RUR #### [facility] [address] [place] [address] Dr. Demetrius Xie Ketones Ql (U) Negative Normal NEGATIVE [facility] Comment on above: Performed By: #### E RUR #### [facility] [address] [place] [address] Dr. Demetrius Xie LEUKOCYTES Negative Normal NEGATIVE [facility] Comment on above: Performed By: #### E RUR #### [facility] [address] [address] [address] Demetrius Xie Nitrite Ql (U) Negative Normal NEGATIVE [facility] Comment on above: Performed By: #### E RUR #### [facility] [address] [address] [address] Demetrius Xie pH (U) 6.0 [pH] Normal 5-9 [facility] Comment on above: Performed By: #### E RUR #### [facility] [address] [address] [address] Demetrius Xie SPEC GRAVITY 1.020 Normal 1.005-<=1.025 [facility] Comment on above: Performed By: #### E RUR #### [facility] [address] [place] [address] Dr. Demetrius Xie UA PROTEIN TRACE Normal NEGATIVE/ TRACE [facility] Comment on above: Performed By: #### E RUR #### [facility] [address] [place] [address] Dr. Demetrius Xie UR MICRO IND NOT INDICATED Normal [facility] Comment on above: Performed By: #### E RUR #### [facility] [address] [place] [address] Dr. Demetrius Xie Urobilinogen Qn (U) 1.0 {Zeke'U}/dL Normal 0.2 - 1.0 [facility] Comment on above: Performed By: #### E RUR #### [facility] [address] [place] [address] Dr. Demetrius Xie LIPASEon 10-11-2021 Lipase [Catalytic activity/Vol] 38.0 U/L Normal 23.0-300.0 [facility] Comment on above: Performed By: #### C MADM, CMP, LIPA ####[facility] [address] [address]Dr. Demetrius Xie PREG HCG QUALon 10-11-2021 , QUAL Positive Abnormal NEGATIVE [facility] Comment on above: Performed By: #### P REG #### [facility] [address] [address] [address] Demetrius Xie PROF 14(COMP METB)on 021 Albumin [Mass/Vol] 3.2 g/dL Critically low 3.5-5.0 [facility] Comment on above: Performed By: #### C MADM, CMP, LIPA ####[facility] [address] [address]Dr. Demetrius Xie Albumin/Globulin [Mass ratio] 0.9 {ratio} Normal [facility] Comment on above: Performed By: #### C MADM, CMP, LIPA ####[facility] [address] [address]Dr. Demetrius Xie ALP [Catalytic activity/Vol] 108 U/L Normal 38-126 [facility] Comment on above: Performed By: #### C MADM, CMP, LIPA ####[facility] [address] [address]Dr. Demetrius Xie ALT [Catalytic activity/Vol] 68 U/L Critically high 9-52 [facility] Comment on above: Performed By: #### C MADM, CMP, LIPA ####[facility] [address] [address]Dr. Demetrius Xie Anion gap [Moles/Vol] 11.1 mmol/L Normal [facility] Comment on above: Performed By: #### C MADM, CMP, LIPA ####[facility] [address] [address]Dr. Demetrius Xie AST [Catalytic activity/Vol] 46 U/L Critically high 14-36 [facility] Comment on above: Performed By: #### C MADM, CMP, LIPA ####[facility] [address] [address]Dr. Demetrius Xie Bilirubin [Mass/Vol] 0.3 mg/dL Normal 0.2-1.3 [facility] Comment on above: Performed By: #### C MADM, CMP, LIPA ####[facility] [address] [address]Dr. Demetrius Xie Calcium [Mass/Vol] 8.5 mg/dL Normal 8.4-10.2 [facility] Comment on above: Performed By: #### C MADM, CMP, LIPA ####[facility] [address] [address]Dr. Demetrius Xie Chloride [Moles/Vol] 108 mmol/L Critically high 98-107 [facility] Comment on above: Performed By: #### C MADM, CMP, LIPA ####[facility] [address] [address]Dr. Demetrius Xie CO2 [Moles/Vol] 23.3 mmol/L Normal 22.0-30.0 [facility] Comment on above: Performed By: #### C MADM, CMP, LIPA ####[facility] [address] [address]Dr. Demetrius Xie Creatinine [Mass/Vol] 0.75 mg/dL Normal 0.52-1.04 [facility] Comment on above: Performed By: #### C MADM, CMP, LIPA ####[facility] [address] [address]Dr. Demetrius Xie EGFR-AF IRISH >60 Normal >=60 [facility] Comment on above: Performed By: #### C MADM, CMP, LIPA ####[facility] [address] [address]Dr. Demetrius Xie EGFR-NON AF IRISH >60 Normal >=60 [facility] Comment on above: Performed By: #### C MADM, CMP, LIPA ####[facility] [address] [address]Dr. Demetrius Xie Globulin (S) [Mass/Vol] 3.4 g/dL Normal [facility] Comment on above: Performed By: #### C MADM, CMP, LIPA ####[facility] [address] [address]Dr. Demetrius Xie Glucose [Mass/Vol] 127 mg/dL Critically high 74-106 [facility] Comment on above: Performed By: #### C MADM, CMP, LIPA ####[facility] [address] [address]Dr. Demetrius Xie Potassium [Moles/Vol] 3.4 mmol/L Normal 3.4-5.0 [facility] Comment on above: Performed By: #### C MADM, CMP, LIPA ####[facility] [address] [address]Dr. Demetrius Xie Protein [Mass/Vol] 6.6 g/dL Normal 6.1-8.2 [facility] Comment on above: Performed By: #### C MADM, CMP, LIPA ####[facility] [address] [address]Dr. Demetrius Xie Sodium [Moles/Vol] 139 mmol/L Normal 137-145 [facility] Comment on above: Performed By: #### C MADM, CMP, LIPA ####[facility] [address] [address]Dr. Demetrius Xie Urea nitrogen [Mass/Vol] 6.0 mg/dL Critically low 7.0-17.0 [facility] Comment on above: Performed By: #### C MADM, CMP, LIPA ####[facility] [address] [address]Dr. Demetrius Xie Urea nitrogen/Creatinin e [Mass ratio] 8.0 mg/mg Normal [facility] Comment on above: Performed By: #### C MADM, CMP, LIPA ####[facility] [address] [address]Dr. Demetrius Xie XR CHEST 1 Von 10-11-2021 [...] ESTEPHANIA STOCK Date: 2021-10-11 19:35 Normal [facility] CBC W/DIFFon 06-02-2020 ABS BASOPHILS 0.1 10*3/uL Normal 0.0-0.2 [facility] Comment on above: Order Comment: No: D o not add to previous draw Performed By: #### 0 0121, 22235, 55269 #### [facility] [address] [place] [address], [facility] ABS IMM GRANS 0.1 10*3/uL Normal 0.0-0.2 [facility] Comment on above: Order Comment: No: D o not add to previous draw Performed By: #### 0 0121, 80261, 76613 #### [facility] [address] [place] [address], [facility] ABS NEUTROPHILS 6.0 10*3/uL Normal 1.6-7.6 [facility] Comment on above: Order Comment: No: D o not add to previous draw Performed By: #### 0 0121, 65801, 06271 #### [facility] [address] [place] [address], [facility] Basophils/100 WBC (Bld) 1.1 % High 0.0-1.0 [facility] Comment on above: Order Comment: No: D o not add to previous draw Performed By: #### 0 0121, 46535, 60416 #### [facility] [address] [place] [address], [facility] Eosinophils (Bld) [#/Vol] 1.0 10*3/uL High 0.0-0.5 [facility] Comment on above: Order Comment: No: D o not add to previous draw Performed By: #### 0 0121, 79841, 04205 #### [facility] [address] [place] [address], [facility] Eosinophils/100 WBC (Bld) 8.5 % High 0.0-6.0 [facility] Comment on above: Order Comment: No: D o not add to previous draw Performed By: #### 0 0121, 74154, 95304 #### [facility] [address] [place] [address], [facility] Erythrocyte distribution width (RBC) [Ratio] 20.9 % High 11.5-15.0 [facility] Comment on above: Order Comment: No: D o not add to previous draw Performed By: #### 0 0121, 76864, 17225 #### [facility] [address] [place] [address], [facility] Hematocrit (Bld) [Volume fraction] 31.1 % Low 36.0-45.0 [facility] Comment on above: Order Comment: No: D o not add to previous draw Performed By: #### 0 0121, 15115, 02656 #### [facility] [address] [place] [address], [facility] Hemoglobin (Bld) [Mass/Vol] 9.8 g/dL Low 12.0-15.0 [facility] Comment on above: Order Comment: No: D o not add to previous draw Performed By: #### 0 0121, 58733, 88556 #### [facility] [address] [place] [address], [facility] IMMATURE GRANS 0.9 % Normal 0.0-1.0 [facility] Comment on above: Order Comment: No: D o not add to previous draw Performed By: #### 0 0121, 60488, 28591 #### [facility] [address] [place] [address], [facility] Lymphocytes (Bld) [#/Vol] 3.4 10*3/uL Normal 1.2-4.0 [facility] Comment on above: Order Comment: No: D o not add to previous draw Performed By: #### 0 0121, 87222, 76932 #### [facility] [address] [place] [address], [facility] Lymphocytes/100 WBC (Bld) 29.5 % Normal 20.0-45.0 [facility] Comment on above: Order Comment: No: D o not add to previous draw Performed By: #### 0 0121, 01113, 84236 #### [facility] [address] [place] [address], [facility] MCH (RBC) [Entitic mass] 26.6 pg Low 27.0-33.0 [facility] Comment on above: Order Comment: No: D o not add to previous draw Performed By: #### 0 0121, , 30445 #### [facility] [address] [place] [address], [facility] MCHC (RBC) [Mass/Vol] 31.5 g/dL Low 32.0-35.0 [facility] Comment on above: Order Comment: No: D o not add to previous draw Performed By: #### 0 0121, , 55004 #### [facility] [address] [place] [address], [facility] MCV (RBC) [Entitic vol] 84.5 fL Normal 82.0-98.0 [facility] Comment on above: Order Comment: No: D o not add to previous draw Performed By: #### 0 0121, , 72565 #### [facility] [address] [place] [address], [facility] Monocytes (Bld) [#/Vol] 0.8 10*3/uL Normal 0.1-1.0 [facility] Comment on above: Order Comment: No: D o not add to previous draw Performed By: #### 0 0121, 42787, 62567 #### [facility] [address] [place] [address], [facility] MONOS 7.0 % Normal 5.0-12.0 [facility] Comment on above: Order Comment: No: D o not add to previous draw Performed By: #### 0 0121, , 27346 #### [facility] [address] [place] [address], [facility] Neutrophils/100 WBC (Bld) 53.0 % Normal 40.0-72.0 [facility] Comment on above: Order Comment: No: D o not add to previous draw Performed By: #### 0 0121, 56943, 87223 #### [facility] [address] [place] [address], [facility] Nucleated RBC/100 WBC (Bld) [Ratio] 0 % Normal 0-0 [facility] Comment on above: Order Comment: No: D o not add to previous draw Performed By: #### 0 0121, 50670, 34986 #### [facility] [address] [address], [facility] PLAT CNT 844 10*3/uL High 150-400 [facility] Comment on above: Order Comment: No: D o not add to previous draw Performed By: #### 0 0121, 15256, 24428 #### [facility] [address] [place] [address], [facility] RBC (Bld) [#/Vol] 3.68 10*6/uL Low 3.80-5.00 [facility] Comment on above: Order Comment: No: D o not add to previous draw Performed By: #### 0 0121, 46877, 99240 #### [facility] [address] [place] [address], [facility] WBC (Bld) [#/Vol] 11.37 10*3/uL High 4.00-10.60 [facility] Comment on above: Order Comment: No: D o not add to previous draw Performed By: #### 0 0121, 34274, 74773 #### [facility] [address] [place] [address], [place] BASIC METABOLIC PANELon 07-3 Calcium [Mass/Vol] 8.9 mg/dL Normal 8.6-10.3 [facility] Comment on above: Order Comment: No: D o not add to previous draw Performed By: #### 0 0121, 66591, 83290 #### [facility] [address] [place] [address], [place] Chloride [Moles/Vol] 107 mmol/L Normal 98-107 [facility] Comment on above: Order Comment: No: D o not add to previous draw Performed By: #### 0 0121, 14413, 73791 #### [facility] [address] [place] [address], [place] CO2 [Moles/Vol] 23 mmol/L Normal 21-31 [facility] Comment on above: Order Comment: No: D o not add to previous draw Performed By: #### 0 0121, 78320, 30595 #### [facility] [address] [place] [address], [place] Creatinine [Mass/Vol] 0.89 mg/dL Normal 0.60-1.20 [facility] Comment on above: Order Comment: No: D o not add to previous draw Performed By: #### 0 0121, 58120, 39712 #### [facility] [address] [place] [address], [place] GFR/1.73 sq M predicted among blacks MDRD (S/P/Bld) [Vol rate/Area] mL/min/{1.73_m2} Normal >60 [facility] Comment on above: Order Comment: No: D o not add to previous draw Performed By: #### 0 0121, 14916, 91922 #### [facility] [address] [place] [address], [place] GFR/1.73 sq M predicted among non-blacks MDRD (S/P/Bld) [Vol rate/Area] mL/min/{1.73_m2} Normal >60 [facility] Comment on above: Order Comment: No: D o not add to previous draw Performed By: #### 0 0121, 84135, 23325 #### [facility] [address] [place] [address], [facility] Glucose [Mass/Vol] 85 mg/dL Normal 70-100 [facility] Comment on above: Order Comment: No: D o not add to previous draw Performed By: #### 0 0121, 46126, 79471 #### [facility] [address] [place] [id number], [facility] Potassium [Moles/Vol] 4.0 mmol/L Normal 3.5-5.1 [facility] Comment on above: Order Comment: No: D o not add to previous draw Performed By: #### 0 0121, 07624, 00081 #### [facility] [address] [place] [address], [facility] Sodium [Moles/Vol] 138 mmol/L Normal 136-145 [facility] Comment on above: Order Comment: No: D o not add to previous draw Performed By: #### 0 0121, 49129, 54295 #### [facility] [address] [place] [address], [facility] Urea nitrogen [Mass/Vol] 18 mg/dL Normal 7-25 [facility] Comment on above: Order Comment: No: D o not add to previous draw Performed By: #### 0 0121, 60216, 76304 #### [facility] [address] [place] [address], [facility] CBC W/DIFFon 06-01-2020 ABS BASOPHILS 0.1 10*3/uL Normal 0.0-0.2 [facility] Comment on above: Order Comment: No: D o not add to previous draw Performed By: #### 0 0121, 99991, 03321 #### [facility] [address] [place] [address], [facility] ABS IMM GRANS 0.1 10*3/uL Normal 0.0-0.2 [facility] Comment on above: Order Comment: No: D o not add to previous draw Performed By: #### 0 0121, 97482, 58684 #### [facility] [address] [place] [address], [facility] ABS NEUTROPHILS 7.4 10*3/uL Normal 1.6-7.6 [facility] Comment on above: Order Comment: No: D o not add to previous draw Performed By: #### 0 0121, 86215, 81102 #### [facility] [address] [place] [address], [facility] Basophils/100 WBC (Bld) 0.8 % Normal 0.0-1.0 [facility] Comment on above: Order Comment: No: D o not add to previous draw Performed By: #### 0 0121, , 50818 #### [facility] [address] [place] [address], [facility] Eosinophils (Bld) [#/Vol] 0.9 10*3/uL High 0.0-0.5 [facility] Comment on above: Order Comment: No: D o not add to previous draw Performed By: #### 0 0121, , 85118 #### [facility] [address] [place] [address], [facility] Eosinophils/100 WBC (Bld) 7.0 % High 0.0-6.0 [facility] Comment on above: Order Comment: No: D o not add to previous draw Performed By: #### 0 0121, , 96786 #### [facility] [address] [place] [address], [facility] Erythrocyte distribution width (RBC) [Ratio] 20.2 % High 11.5-15.0 [facility] Comment on above: Order Comment: No: D o not add to previous draw Performed By: #### 0 0121, 66410, 64267 #### [facility] [address] [place] [address], [place] Hematocrit (Bld) [Volume fraction] 29.5 % Low 36.0-45.0 [facility] Comment on above: Order Comment: No: D o not add to previous draw Performed By: #### 0 0121, 31322, 04442 #### [facility] [address] [place] [address], [facility] Hemoglobin (Bld) [Mass/Vol] 9.6 g/dL Low 12.0-15.0 [facility] Comment on above: Order Comment: No: D o not add to previous draw Performed By: #### 0 0121, 56853, 32728 #### [facility] [address] [place] [address], [facility] IMMATURE GRANS 0.7 % Normal 0.0-1.0 [facility] Comment on above: Order Comment: No: D o not add to previous draw Performed By: #### 0 0121, 29768, 91355 #### [facility] [address] [place] [address], [facility] Lymphocytes (Bld) [#/Vol] 3.0 10*3/uL Normal 1.2-4.0 [facility] Comment on above: Order Comment: No: D o not add to previous draw Performed By: #### 0 0121, , 61561 #### [facility] [address] [place] [address], [facility] Lymphocytes/100 WBC (Bld) 24.8 % Normal 20.0-45.0 [facility] Comment on above: Order Comment: No: D o not add to previous draw Performed By: #### 0 0121, 12314, 66567 #### [facility] [address] [place] [address], [facility] MCH (RBC) [Entitic mass] 26.9 pg Low 27.0-33.0 [facility] Comment on above: Order Comment: No: D o not add to previous draw Performed By: #### 0 0121, 23013, 96797 #### [facility] [address] MCHC (RBC) [Mass/Vol] 32.5 g/dL Normal 32.0-35.0 [facility] Comment on above: Order Comment: No: D o not add to previous draw Performed By: #### 0 0121, 23506, 60019 #### [facility] [address] [place] [address], [facility] MCV (RBC) [Entitic vol] 82.6 fL Normal 82.0-98.0 [facility] Comment on above: Order Comment: No: D o not add to previous draw Performed By: #### 0 0121, 51063, 96971 #### [facility] [address] [place] [address], [facility] Monocytes (Bld) [#/Vol] 0.7 10*3/uL Normal 0.1-1.0 [facility] Comment on above: Order Comment: No: D o not add to previous draw Performed By: #### 0 0121, 11277, 04262 #### [facility] [address] [place] [address], [facility] MONOS 6.1 % Normal 5.0-12.0 [facility] Comment on above: Order Comment: No: D o not add to previous draw Performed By: #### 0 0121, 61717, 24506 #### [facility] [address] [place] [address], [facility] Neutrophils/100 WBC (Bld) 60.6 % Normal 40.0-72.0 [facility] Comment on above: Order Comment: No: D o not add to previous draw Performed By: #### 0 0121, 21284, 78728 #### [facility] [address] [facility] [place] [address], [facility] Nucleated RBC/100 WBC (Bld) [Ratio] 0 % Normal 0-0 [facility] Comment on above: Order Comment: No: D o not add to previous draw Performed By: #### 0 0121, 10135, 78152 #### [facility] [address] [place] [address], [place] PLAT CNT 842 10*3/uL High 150-400 [facility] Comment on above: Order Comment: No: D o not add to previous draw Performed By: #### 0 0121, 63562, 35961 #### [facility] [address] [place] [address], [place] RBC (Bld) [#/Vol] 3.57 10*6/uL Low 3.80-5.00 [facility] Comment on above: Order Comment: No: D o not add to previous draw Performed By: #### 0 0121, 07472, 42664 #### [facility] [address] [place] [address], [place] WBC (Bld) [#/Vol] 12.20 10*3/uL High 4.00-10.60 [facility] Comment on above: Order Comment: No: D o not add to previous draw Performed By: #### 0 0121, 53437, 81140 #### [facility] [address] [place] [address], [place] BASIC METABOLIC PANELon 07-3 0-2020 Calcium [Mass/Vol] 8.7 mg/dL Normal 8.6-10.3 [facility] Comment on above: Order Comment: No: D o not add to previous draw Performed By: #### 0 0121, 56417, 21898 #### [facility] [address] [place] [address], [place] Chloride [Moles/Vol] 106 mmol/L Normal 98-107 [facility] Comment on above: Order Comment: No: D o not add to previous draw Performed By: #### 0 0121, 53296, 39793 #### [facility] [address] [place] [address], [place] CO2 [Moles/Vol] 27 mmol/L Normal 21-31 [facility] Comment on above: Order Comment: No: D o not add to previous draw Performed By: #### 0 0121, 44258, 33387 #### [facility] [address] [place] [address], [place] Creatinine [Mass/Vol] 0.97 mg/dL Normal 0.60-1.20 [facility] Comment on above: Order Comment: No: D o not add to previous draw Performed By: #### 0 0121, 51222, 12601 #### [facility] [address] [place] [address], [place] GFR/1.73 sq M predicted among blacks MDRD (S/P/Bld) [Vol rate/Area] mL/min/{1.73_m2} Normal >60 [facility] Comment on above: Order Comment: No: D o not add to previous draw Performed By: #### 0 0121, 22403, 55121 #### [facility] [address] [place] [address], [place] GFR/1.73 sq M predicted among non-blacks MDRD (S/P/Bld) [Vol rate/Area] mL/min/{1.73_m2} Normal >60 [facility] Comment on above: Order Comment: No: D o not add to previous draw Performed By: #### 0 0121, 04289, 79891 #### [facility] [address] [place] [address], [place] Glucose [Mass/Vol] 76 mg/dL Normal 70-100 [facility] Comment on above: Order Comment: No: D o not add to previous draw Performed By: #### 0 0121, 72037, 73260 #### [facility] [address] [place] [address], [place] Potassium [Moles/Vol] 4.1 mmol/L Normal 3.5-5.1 [facility] Comment on above: Order Comment: No: D o not add to previous draw Performed By: #### 0 0121, 26949, 51994 #### [facility] [address] [facility] [place] [address], [facility] Sodium [Moles/Vol] 139 mmol/L Normal 136-145 [facility] Comment on above: Order Comment: No: D o not add to previous draw Performed By: #### 0 0121, 21758, 54547 #### [facility] [address] [facility]. [address] Urea nitrogen [Mass/Vol] 13 mg/dL Normal 7-25 [facility] Comment on above: Order Comment: No: D o not add to previous draw Performed By: #### 0 0121, , 41830 #### [facility] [address] [facility] [place] [address], [facility] CBC W/DIFFon 05-31-2020 ABS BASOPHILS 0.1 10*3/uL Normal 0.0-0.2 [facility] Comment on above: Performed By: #### 0 0121, , 53771 #### [facility] [address] [facility]. [address] ABS IMM GRANS 0.1 10*3/uL Normal 0.0-0.2 [facility] Comment on above: Performed By: #### 0 0121, 81110, 27398 #### [facility] [address] [facility] [place] [address], [facility] ABS NEUTROPHILS 7.5 10*3/uL Normal 1.6-7.6 [facility] Comment on above: Performed By: #### 0 0121, 58082, 03350 #### [facility] [address] [facility] [place] [address], [facility] Basophils/100 WBC (Bld) 0.9 % Normal 0.0-1.0 [facility] Comment on above: Performed By: #### 0 0121, 24599, 55857 #### [facility] [address] [facility] [place] [address], [facility] Eosinophils (Bld) [#/Vol] 0.9 10*3/uL High 0.0-0.5 [facility] Comment on above: Performed By: #### 0 0121, , 95833 #### [facility] [address] Eosinophils/100 WBC (Bld) 7.5 % High 0.0-6.0 [facility] Comment on above: Performed By: #### 0 0121, , 48865 #### [facility] [address] [facility]. [address] Erythrocyte distribution width (RBC) [Ratio] 19.9 % High 11.5-15.0 [facility] Comment on above: Performed By: #### 0 012, , 99425 #### [facility] [address] [facility]. [address] Hematocrit (Bld) [Volume fraction] 30.1 % Low 36.0-45.0 [facility] Comment on above: Performed By: #### 0 012, , 62832 #### [facility] [address] [facility]. [address] Hemoglobin (Bld) [Mass/Vol] 9.5 g/dL Low 12.0-15.0 [facility] Comment on above: Performed By: #### 0 0121, , 08793 #### [facility] [address] [facility]. [address] IMMATURE GRANS 0.8 % Normal 0.0-1.0 [facility] Comment on above: Performed By: #### 0 0121, , 29502 #### [facility] [address] [facility]. [address] Lymphocytes (Bld) [#/Vol] 2.4 10*3/uL Normal 1.2-4.0 [facility] Comment on above: Performed By: #### 0 0121, , 27399 #### [facility] [address] [place] [address], [facility] Lymphocytes/100 WBC (Bld) 20.1 % Normal 20.0-45.0 [facility] Comment on above: Performed By: #### 0 0121, , 69535 #### [facility] [address] [place] [address], [facility] MCH (RBC) [Entitic mass] 26.7 pg Low 27.0-33.0 [facility] Comment on above: Performed By: #### 0 0121, , 57814 #### [facility] [address] [place] [address], [facility] MCHC (RBC) [Mass/Vol] 31.6 g/dL Low 32.0-35.0 [facility] Comment on above: Performed By: #### 0 012, , 82781 #### [facility] [address] [place] [address], [facility] MCV (RBC) [Entitic vol] 84.6 fL Normal 82.0-98.0 [facility] Comment on above: Performed By: #### 0 0121, , 01931 #### [facility] [address] [place] [address], [facility] Monocytes (Bld) [#/Vol] 0.8 10*3/uL Normal 0.1-1.0 [facility] Comment on above: Performed By: #### 0 0121, , 63146 #### [facility] [address] [facility] [place] [address], [facility] MONOS 6.8 % Normal 5.0-12.0 [facility] Comment on above: Performed By: #### 0 0121, , 22073 #### [facility] [address] [place] [address], [facility] Neutrophils/100 WBC (Bld) 63.9 % Normal 40.0-72.0 [facility] Comment on above: Performed By: #### 0 0121, 75172, 62100 #### [facility] [address] [facility]. [address] Nucleated RBC/100 WBC (Bld) [Ratio] 0 % Normal 0-0 [facility] Comment on above: Performed By: #### 0 0121, 09947, 83184 #### [facility] [address] [place] [address], [facility] PLAT CNT 825 10*3/uL High 150-400 [facility] Comment on above: Performed By: #### 0 0121, 47994, 24880 #### [facility] [address] RBC (Bld) [#/Vol] 3.56 10*6/uL Low 3.80-5.00 [facility] Comment on above: Performed By: #### 0 0121, 69379, 91221 #### [facility] [address] [facility]. [address] WBC (Bld) [#/Vol] 11.79 10*3/uL High 4.00-10.60 [facility] Comment on above: Performed By: #### 0 0121, 32052, 49643 #### [facility] [address] APTTon 05-30-2020 aPTT Coag (Bld) [Time] [...] THIS PURPOSE. Performed By: #### 0 0121, 56153, 71002 #### [facility] [address] [facility] [place] [address], [facility] CBC W/DIFFon 05-30-2020 ABS BASOPHILS 0.1 10*3/uL Normal 0.0-0.2 [facility] Comment on above: Order Comment: No: D o not add to previous draw Performed By: #### 0 0121, 23479, 66424 #### [facility] [address] [place] [address], [facility] ABS IMM GRANS 0.1 10*3/uL Normal 0.0-0.2 [facility] Comment on above: Order Comment: No: D o not add to previous draw Performed By: #### 0 0121, 48068, 86700 #### [facility] [address] [facility] [place] [address], [facility] ABS NEUTROPHILS 7.6 10*3/uL Normal 1.6-7.6 [facility] Comment on above: Order Comment: No: D o not add to previous draw Performed By: #### 0 0121, 48617, 27024 #### [facility] [address] [facility] [place] [address], [facility] Basophils/100 WBC (Bld) 1.2 % High 0.0-1.0 [facility] Comment on above: Order Comment: No: D o not add to previous draw Performed By: #### 0 0121, 44648, 07498 #### [facility] [address] [facility] [place] [address], [facility] Eosinophils (Bld) [#/Vol] 0.7 10*3/uL High 0.0-0.5 [facility] Comment on above: Order Comment: No: D o not add to previous draw Performed By: #### 0 0121, 15072, 82912 #### [facility] [address] [place] [address], [facility] Eosinophils/100 WBC (Bld) 5.9 % Normal 0.0-6.0 [facility] Comment on above: Order Comment: No: D o not add to previous draw Performed By: #### 0 0121, 03888, 65928 #### [facility] [address] [place] [address], [facility] Erythrocyte distribution width (RBC) [Ratio] 19.2 % High 11.5-15.0 [facility] Comment on above: Order Comment: No: D o not add to previous draw Performed By: #### 0 0121, , 62848 #### [facility] [address] [place] [address], [facility] Hematocrit (Bld) [Volume fraction] 28.7 % Low 36.0-45.0 [facility] Comment on above: Order Comment: No: D o not add to previous draw Performed By: #### 0 0121, , 40784 #### [facility] [address] [place] [address], [facility] Hemoglobin (Bld) [Mass/Vol] 9.4 g/dL Low 12.0-15.0 [facility] Comment on above: Order Comment: No: D o not add to previous draw Performed By: #### 0 0121, , 02121 #### [facility] [address] [place] [address], [facility] IMMATURE GRANS 0.5 % Normal 0.0-1.0 [facility] Comment on above: Order Comment: No: D o not add to previous draw Performed By: #### 0 0121, 82188, 06219 #### [facility] [address] [place] [address], [facility] Lymphocytes (Bld) [#/Vol] 2.7 10*3/uL Normal 1.2-4.0 [facility] Comment on above: Order Comment: No: D o not add to previous draw Performed By: #### 0 0121, , 21572 #### [facility] [address] Lymphocytes/100 WBC (Bld) 22.5 % Normal 20.0-45.0 [facility] Comment on above: Order Comment: No: D o not add to previous draw Performed By: #### 0 0121, 06619, 07544 #### [facility] [address] [place] [address], [facility] MCH (RBC) [Entitic mass] 26.9 pg Low 27.0-33.0 [facility] Comment on above: Order Comment: No: D o not add to previous draw Performed By: #### 0 0121, 45577, 63843 #### [facility] [address] [place] [address], [facility] MCHC (RBC) [Mass/Vol] 32.8 g/dL Normal 32.0-35.0 [facility] Comment on above: Order Comment: No: D o not add to previous draw Performed By: #### 0 0121, 93506, 01447 #### [facility] [address] [place] [address], [facility] MCV (RBC) [Entitic vol] 82.0 fL Normal 82.0-98.0 [facility] Comment on above: Order Comment: No: D o not add to previous draw Performed By: #### 0 0121, 49497, 51152 #### [facility] [address] [facility] [place] [address], [facility] Monocytes (Bld) [#/Vol] 0.8 10*3/uL Normal 0.1-1.0 [facility] Comment on above: Order Comment: No: D o not add to previous draw Performed By: #### 0 0121, 11717, 85504 #### [facility] [address] [place] [address], [facility] MONOS 6.6 % Normal 5.0-12.0 [facility] Comment on above: Order Comment: No: D o not add to previous draw Performed By: #### 0 0121, 69954, 73671 #### [facility] [address] [place] [address], [place] Neutrophils/100 WBC (Bld) 63.3 % Normal 40.0-72.0 [facility] Comment on above: Order Comment: No: D o not add to previous draw Performed By: #### 0 0121, 42757, 16783 #### [facility] [address] [place] [address], [place] Nucleated RBC/100 WBC (Bld) [Ratio] 0 % Normal 0-0 [facility] Comment on above: Order Comment: No: D o not add to previous draw Performed By: #### 0 0121, 02364, 66757 #### [facility] [address] [place] [address], [place] PLAT CNT 817 10*3/uL High 150-400 [facility] Comment on above: Order Comment: No: D o not add to previous draw Performed By: #### 0 0121, 62514, 95661 #### [facility] [address] [facility] [place] [address], [facility] RBC (Bld) [#/Vol] 3.50 10*6/uL Low 3.80-5.00 [facility] Comment on above: Order Comment: No: D o not add to previous draw Performed By: #### 0 0121, 13120, 18713 #### [facility] [address] [place] [address], [place] WBC (Bld) [#/Vol] 11.98 10*3/uL High 4.00-10.60 [facility] Comment on above: Order Comment: No: D o not add to previous draw Performed By: #### 0 0121, 45413, 15222 #### [facility] [address] [place] [address], [place] POC GLUCOSE LABon 05-30-2020 Glucose [Mass/Vol] 103 mg/dL High 70-100 [facility] Comment on above: Performed By: #### 0 012, , 11298 #### [facility] [address] [facility]. [address] PROTHROMBIN TIMEon 0 INR Coag (PPP) [...] RANGE. CHEST 1995;[id number]. Performed By: #### 0 0121, , 34396 #### [facility] [address] [facility] PT Coag (PPP) [Time] 14.1 s Normal 12.3-14.8 [facility] Comment on above: Order Comment: No: D o not add to previous draw Result Comment: ALL RESULTS MUST BE INTERPRETED WITH RESPECT TO BLOOD DRAWING ARTIFACT OR DILUTION ERROR OF ANTICOAGULANT AT THE TIME OF SAMPLING. Performed By: #### 0 0121, 92297, 41864 #### [facility] [address] [facility] BASIC METABOLIC PANELon 07-2 Calcium [Mass/Vol] 8.6 mg/dL Normal 8.6-10.3 [facility] Comment on above: Order Comment: No: D o not add to previous draw Performed By: #### 7 0069 #### [facility] [address] [place] [address], [place] Chloride [Moles/Vol] 106 mmol/L Normal 98-107 [facility] Comment on above: Order Comment: No: D o not add to previous draw Performed By: #### 7 0069 #### [facility] [address] [place] [address], [place] CO2 [Moles/Vol] 27 mmol/L Normal 21-31 [facility] Comment on above: Order Comment: No: D o not add to previous draw Performed By: #### 7 0069 #### [facility] [address] [place] [address], [place] Creatinine [Mass/Vol] 0.86 mg/dL Normal 0.60-1.20 [facility] Comment on above: Order Comment: No: D o not add to previous draw Performed By: #### 7 0069 #### [facility] [address] [place] [address], [place] GFR/1.73 sq M predicted among blacks MDRD (S/P/Bld) [Vol rate/Area] mL/min/{1.73_m2} Normal >60 [facility] Comment on above: Order Comment: No: D o not add to previous draw Performed By: #### 7 0069 #### [facility] [address] [place] [address], [place] GFR/1.73 sq M predicted among non-blacks MDRD (S/P/Bld) [Vol rate/Area] mL/min/{1.73_m2} Normal >60 [facility] Comment on above: Order Comment: No: D o not add to previous draw Performed By: #### 7 0069 #### [facility] [address] [place] [address], [facility] Glucose [Mass/Vol] 80 mg/dL Normal 70-100 [facility] Comment on above: Order Comment: No: D o not add to previous draw Performed By: #### 7 0069 #### [facility] [address] [place] [address], [facility] Potassium [Moles/Vol] 4.4 mmol/L Normal 3.5-5.1 [facility] Comment on above: Order Comment: No: D o not add to previous draw Performed By: #### 7 0069 #### [facility] [address] [place] [address], [facility] Sodium [Moles/Vol] 138 mmol/L Normal 136-145 [facility] Comment on above: Order Comment: No: D o not add to previous draw Performed By: #### 7 0069 #### [facility] [address] [place] [address], [facility] Urea nitrogen [Mass/Vol] 14 mg/dL Normal 7-25 [facility] Comment on above: Order Comment: No: D o not add to previous draw Performed By: #### 7 0069 #### [facility] [address] [facility] [place] [address], [facility] CBC W/DIFFon 05-29-2020 ABS BASOPHILS 0.1 10*3/uL Normal 0.0-0.2 [facility] Comment on above: Order Comment: No: D o not add to previous draw Performed By: #### 7 0069 #### [facility] [address] [place] [address], [facility] ABS IMM GRANS 0.1 10*3/uL Normal 0.0-0.2 [facility] Comment on above: Order Comment: No: D o not add to previous draw Performed By: #### 7 0069 #### [facility] [address] [place] [address], [facility] ABS NEUTROPHILS 4.3 10*3/uL Normal 1.6-7.6 [facility] Comment on above: Order Comment: No: D o not add to previous draw Performed By: #### 7 0069 #### [facility] [address] [place] [address], [facility] Basophils/100 WBC (Bld) 0.8 % Normal 0.0-1.0 [facility] Comment on above: Order Comment: No: D o not add to previous draw Performed By: #### 7 0069 #### [facility] [address] [place] [address], [facility] Eosinophils (Bld) [#/Vol] 0.6 10*3/uL High 0.0-0.5 [facility] Comment on above: Order Comment: No: D o not add to previous draw Performed By: #### 7 0069 #### [facility] [address] [place] [address], [facility] Eosinophils/100 WBC (Bld) 6.9 % High 0.0-6.0 [facility] Comment on above: Order Comment: No: D o not add to previous draw Performed By: #### 7 0069 #### [facility] [address] [facility] [place] [address], [facility] Erythrocyte distribution width (RBC) [Ratio] 18.9 % High 11.5-15.0 [facility] Comment on above: Order Comment: No: D o not add to previous draw Performed By: #### 7 0069 #### [facility] [address] [place] [id number], [facility] Hematocrit (Bld) [Volume fraction] 22.0 % Low 36.0-45.0 [facility] Comment on above: Order Comment: No: D o not add to previous draw Performed By: #### 7 0069 #### [facility] [address] [place] [address], [facility] Hemoglobin (Bld) [Mass/Vol] 6.9 g/dL Low 12.0-15.0 [facility] Comment on above: Order Comment: No: D o not add to previous draw Performed By: #### 7 0069 #### [facility] [address] [place] [address], [facility] IMMATURE GRANS 0.6 % Normal 0.0-1.0 [facility] Comment on above: Order Comment: No: D o not add to previous draw Performed By: #### 7 0069 #### [facility] [address] [place] [id number], [facility] Lymphocytes (Bld) [#/Vol] 2.9 10*3/uL Normal 1.2-4.0 [facility] Comment on above: Order Comment: No: D o not add to previous draw Performed By: #### 7 0069 #### [facility] [address] [place] [address], [facility] Lymphocytes/100 WBC (Bld) 33.9 % Normal 20.0-45.0 [facility] Comment on above: Order Comment: No: D o not add to previous draw Performed By: #### 7 0069 #### [facility] [address] [place] [id number], [facility] MCH (RBC) [Entitic mass] 25.5 pg Low 27.0-33.0 [facility] Comment on above: Order Comment: No: D o not add to previous draw Performed By: #### 7 0069 #### [facility] [address] [place] [address], [place] MCHC (RBC) [Mass/Vol] 31.4 g/dL Low 32.0-35.0 [facility] Comment on above: Order Comment: No: D o not add to previous draw Performed By: #### 7 0069 #### [facility] [address] [place] [address], [facility] MCV (RBC) [Entitic vol] 81.2 fL Low 82.0-98.0 [facility] Comment on above: Order Comment: No: D o not add to previous draw Performed By: #### 7 0069 #### [facility] [address] [place] [id number], [facility] Monocytes (Bld) [#/Vol] 0.7 10*3/uL Normal 0.1-1.0 [facility] Comment on above: Order Comment: No: D o not add to previous draw Performed By: #### 7 0069 #### [facility] [address] [place] [address], [facility] MONOS 7.7 % Normal 5.0-12.0 [facility] Comment on above: Order Comment: No: D o not add to previous draw Performed By: #### 7 0069 #### [facility] [address] [place] [address], [facility] Neutrophils/100 WBC (Bld) 50.1 % Normal 40.0-72.0 [facility] Comment on above: Order Comment: No: D o not add to previous draw Performed By: #### 7 0069 #### [facility] [address] [place] [address], [facility] Nucleated RBC/100 WBC (Bld) [Ratio] 0 % Normal 0-0 [facility] Comment on above: Order Comment: No: D o not add to previous draw Performed By: #### 7 0069 #### [facility] [address] [place] [id number], [facility] PLAT CNT 684 10*3/uL High 150-400 [facility] Comment on above: Order Comment: No: D o not add to previous draw Performed By: #### 7 0069 #### [facility] [address] [place] [address], [facility] RBC (Bld) [#/Vol] 2.71 10*6/uL Low 3.80-5.00 [facility] [place] [facility] Comment on above: Order Comment: No: D o not add to previous draw Performed By: #### 7 0069 #### [facility] [address] [facility] [place] [address], [facility] WBC (Bld) [#/Vol] 8.49 10*3/uL Normal 4.00-10.60 [facility] Comment on above: Order Comment: No: D o not add to previous draw Performed By: #### 7 0069 #### [facility] [address] [place] [address], [facility] RBC'S 1 UNITon 05-29-2020 CROSSMATCH INTERP 1 COMP Normal [facility] Comment on above: Performed By: #### 0 0121, [id number], [id number] #### [facility] [address] [facility] [place] [address], [facility] PRODUCT CODE 1 [id number] Normal [facility] Comment on above: Performed By: #### 0 0121, [id number], [id number] #### [facility] [address] [facility] [place] [address], [facility] PRODUCT STATUS 1 PT Normal [facility] Comment on above: Result Comment: Resu lt changed by IF on 05/29/2020 14:34. The previous value was XM. Result changed by IF on 05/30/2020 00:30. The previous value was IS. Performed By: #### 0 0121, [id number], [id number] #### [facility] [address] [place] [address], [facility] UNIT ABO 1 O Normal [facility] Comment on above: Performed By: #### 0 0121, [id number], [id number] #### [facility] [address] [place] [address], [facility] UNIT ID 1 [id number] Normal [facility] Comment on above: Performed By: #### 0 0121, [id number], [id number] #### [facility] [address] [place] [address], [place] UNIT RH 1 Positive Normal [facility] Comment on above: Performed By: #### 0 0121, [id number], [id number] #### [facility] [address] [place] [address], [place] TYPE AND SCREENon 05-29-2020 ABO INTERPRETATION O Normal [facility] Comment on above: Performed By: #### 7 0069 #### [facility] [address] [place] [address], [place] RH INTERPRETATION Positive Normal [facility] Comment on above: Performed By: #### 7 0069 #### [facility] [address] [place] [address], [place] BASIC METABOLIC PANELon 05-03 Calcium [Mass/Vol] 8.6 mg/dL Normal 8.6-10.3 [facility] Comment on above: Order Comment: No: D o not add to previous drawNURSE DRAW PER RN ALEJANDRA Performed By: #### 7 0069 #### [facility] [address] [place] [address], [place] Chloride [Moles/Vol] 107 mmol/L Normal 98-107 [facility] Comment on above: Order Comment: No: D o not add to previous drawNURSE DRAW PER RN ALEJANDRA Performed By: #### 7 0069 #### [facility] [address] [place] [address], [place] CO2 [Moles/Vol] 28 mmol/L Normal 21-31 [facility] Comment on above: Order Comment: No: D o not add to previous drawNURSE DRAW PER RN ALEJANDRA Performed By: #### 7 0069 #### [facility] [address] [place] [address], [place] Creatinine [Mass/Vol] 1.00 mg/dL Normal 0.60-1.20 [facility] Comment on above: Order Comment: No: D o not add to previous drawNURSE DRAW PER RN ALEJANDRA Performed By: #### 7 0069 #### [facility] [address] [place] [address], [place] GFR/1.73 sq M predicted among blacks MDRD (S/P/Bld) [Vol rate/Area] mL/min/{1.73_m2} Normal >60 [facility] Comment on above: Order Comment: No: D o not add to previous drawNURSE DRAW PER RN ALEJANDRA Performed By: #### 7 0069 #### [facility] [address] [place] [address], [place] GFR/1.73 sq M predicted among non-blacks MDRD (S/P/Bld) [Vol rate/Area] mL/min/{1.73_m2} Normal >60 [facility] Comment on above: Order Comment: No: D o not add to previous drawNURSE DRAW PER RN ALEJANDRA Performed By: #### 7 0069 #### [facility] [address] [place] [address], [place] Glucose [Mass/Vol] 79 mg/dL Normal 70-100 [facility] Comment on above: Order Comment: No: D o not add to previous drawNURSE DRAW PER RN ALEJANDRA Performed By: #### 7 0069 #### [facility] [address] [place] [address], [place] Potassium [Moles/Vol] 4.3 mmol/L Normal 3.5-5.1 [facility] Comment on above: Order Comment: No: D o not add to previous drawNURSE DRAW PER RN ALEJANDRA Performed By: #### 7 0069 #### [facility] [address] [place] [address], [place] Sodium [Moles/Vol] 140 mmol/L Normal 136-145 [facility] Comment on above: Order Comment: No: D o not add to previous drawNURSE DRAW PER RN ALEJANDRA Performed By: #### 7 0069 #### [facility] [address] Urea nitrogen [Mass/Vol] 17 mg/dL Normal 7-25 [facility] Comment on above: Order Comment: No: D o not add to previous drawNURSE DRAW PER RN ALEJANDRA Performed By: #### 7 0069 #### [facility] [address] [facility] [address] C REACTIVE PROTEINon 020 CRP [Mass/Vol] 71.2 mg/L High 0.0-7.0 [facility] Comment on above: Order Comment: Yes: Add to Previous draw if able Performed By: #### 7 0069 #### [facility] [address] [facility] [place] [address], [facility] CBC W/DIFFon 05-28-2020 ABS BASOPHILS 0.1 10*3/uL Normal 0.0-0.2 [facility] Comment on above: Order Comment: No: D o not add to previous draw Performed By: #### 7 0069 #### [facility] [address] [facility]. [address] ABS IMM GRANS 0.1 10*3/uL Normal 0.0-0.2 [facility] Comment on above: Order Comment: No: D o not add to previous draw Performed By: #### 7 0069 #### [facility] [address] [facility] [place] [address], [facility] ABS NEUTROPHILS 7.6 10*3/uL Normal 1.6-7.6 [facility] Comment on above: Order Comment: No: D o not add to previous draw Performed By: #### 7 0069 #### [facility] [address] [facility] [place] [address], [facility] Basophils/100 WBC (Bld) 0.9 % Normal 0.0-1.0 [facility] Comment on above: Order Comment: No: D o not add to previous draw Performed By: #### 7 0069 #### [facility] [address] Eosinophils (Bld) [#/Vol] 0.4 10*3/uL Normal 0.0-0.5 [facility] Comment on above: Order Comment: No: D o not add to previous draw Performed By: #### 7 0069 #### [facility] [address] [facility] [place] [address], [facility] Eosinophils/100 WBC (Bld) 3.9 % Normal 0.0-6.0 [facility] Comment on above: Order Comment: No: D o not add to previous draw Performed By: #### 7 0069 #### [facility] [address] Erythrocyte distribution width (RBC) [Ratio] 18.7 % High 11.5-15.0 [facility] Comment on above: Order Comment: No: D o not add to previous draw Performed By: #### 7 0069 #### [facility] [address] Hematocrit (Bld) [Volume fraction] 22.9 % Low 36.0-45.0 [facility] Comment on above: Order Comment: No: D o not add to previous draw Performed By: #### 7 0069 #### [facility] [address] [place] [address], [facility] Hemoglobin (Bld) [Mass/Vol] 7.2 g/dL Low 12.0-15.0 [facility] Comment on above: Order Comment: No: D o not add to previous draw Performed By: #### 7 0069 #### [facility] [address] [facility] [place] [address], [facility] IMMATURE GRANS 0.7 % Normal 0.0-1.0 [facility] Comment on above: Order Comment: No: D o not add to previous draw Performed By: #### 7 0069 #### [facility] [address] [place] [address], [facility] Lymphocytes (Bld) [#/Vol] 2.1 10*3/uL Normal 1.2-4.0 [facility] Comment on above: Order Comment: No: D o not add to previous draw Performed By: #### 7 0069 #### [facility] [address] [place] [address], [facility] Lymphocytes/100 WBC (Bld) 19.1 % Low 20.0-45.0 [facility] Comment on above: Order Comment: No: D o not add to previous draw Performed By: #### 7 0069 #### [facility] [address] [place] [address], [facility] MCH (RBC) [Entitic mass] 25.4 pg Low 27.0-33.0 [facility] Comment on above: Order Comment: No: D o not add to previous draw Performed By: #### 7 0069 #### [facility] [address] [facility] [address] MCHC (RBC) [Mass/Vol] 31.4 g/dL Low 32.0-35.0 [facility] Comment on above: Order Comment: No: D o not add to previous draw Performed By: #### 7 0069 #### [facility] [address] [place] [address], [facility] MCV (RBC) [Entitic vol] 80.6 fL Low 82.0-98.0 [facility] Comment on above: Order Comment: No: D o not add to previous draw Performed By: #### 7 0069 #### [facility] [address] [place] [address], [facility] Monocytes (Bld) [#/Vol] 0.8 10*3/uL Normal 0.1-1.0 [facility] Comment on above: Order Comment: No: D o not add to previous draw Performed By: #### 7 0069 #### [facility] [address] [place] [address], [place] MONOS 7.0 % Normal 5.0-12.0 [facility] Comment on above: Order Comment: No: D o not add to previous draw Performed By: #### 7 0069 #### [facility] [address] [place] [address], [place] Neutrophils/100 WBC (Bld) 68.4 % Normal 40.0-72.0 [facility] Comment on above: Order Comment: No: D o not add to previous draw Performed By: #### 7 0069 #### [facility] [address] [place] [address], [place] Nucleated RBC/100 WBC (Bld) [Ratio] 0 % Normal 0-0 [facility] Comment on above: Order Comment: No: D o not add to previous draw Performed By: #### 7 0069 #### [facility] [address] [place] [address], [place] PLAT CNT 665 10*3/uL High 150-400 [facility] Comment on above: Order Comment: No: D o not add to previous draw Performed By: #### 7 0069 #### [facility] [address] [place] [id number], [place] RBC (Bld) [#/Vol] 2.84 10*6/uL Low 3.80-5.00 [facility] Comment on above: Order Comment: No: D o not add to previous draw Performed By: #### 7 0069 #### [facility] [address] [place] [address], [place] WBC (Bld) [#/Vol] 11.07 10*3/uL High 4.00-10.60 [facility] Comment on above: Order Comment: No: D o not add to previous draw Performed By: #### 7 0069 #### [facility] [address] [place] [address], [facility] CT ABDOMEN AND PELVIS W ORAL CONTRASTon 05-28-2020 CT ABDOMEN AND PELVIS W ORAL CONTRAST [facility] Department of Radiology [address] [place] [address] Patient Name: MAYTE BURRELL : 1985 Sex: F Age: Race: White Pt. Location: [id number] Patient Status: I Ordered Date: 05/28/2020 10:35:00 [...] Electronically signed: Malathi Hall M.D.. Transcribed by: [email or web address], User Resident: SAVANNAH AL Electronically Signed by: [...] PCT<0.5ng/mL Performed By: #### 7 0069 #### [facility] [address] [place] [address], [facility] SEDIMENTATION RATEon 020 SED RATE 130 mm/hr High 0-20 [facility] Comment on above: Performed By: #### 7 0069 #### [facility] [address] [place] [address], [facility] BASIC METABOLIC PANELon 05-03 Calcium [Mass/Vol] 8.3 mg/dL Low 8.6-10.3 [facility] Comment on above: Order Comment: Yes: Add to Previous draw if able Performed By: #### 3 1488 #### [facility] [address] [place] [address], [place] Chloride [Moles/Vol] 105 mmol/L Normal 98-107 [facility] Comment on above: Order Comment: Yes: Add to Previous draw if able Performed By: #### 3 1488 #### [facility] [address] [place] [address], [place] CO2 [Moles/Vol] 31 mmol/L Normal 21-31 [facility] Comment on above: Order Comment: Yes: Add to Previous draw if able Performed By: #### 3 1488 #### [facility] [address] [place] [address], [place] Creatinine [Mass/Vol] 1.42 mg/dL High 0.60-1.20 [facility] Comment on above: Order Comment: Yes: Add to Previous draw if able Performed By: #### 3 1488 #### [facility] [address] [place] [address], [place] GFR/1.73 sq M predicted among blacks MDRD (S/P/Bld) [Vol rate/Area] 51 ml/min/1.73sq m Abnormal >60 [facility] Comment on above: Order Comment: Yes: Add to Previous draw if able Performed By: #### 3 1488 #### [facility] [address] [place] [address], [place] GFR/1.73 sq M predicted among non-blacks MDRD (S/P/Bld) [Vol rate/Area] 42 ml/min/1.73sq m Abnormal >60 [facility] Comment on above: Order Comment: Yes: Add to Previous draw if able Performed By: #### 3 1488 #### [facility] [address] [place] [address], [place] Glucose [Mass/Vol] 84 mg/dL Normal 70-100 [facility] Comment on above: Order Comment: Yes: Add to Previous draw if able Performed By: #### 3 1488 #### [facility] [address] [place] [address], [place] Potassium [Moles/Vol] 4.3 mmol/L Normal 3.5-5.1 [facility] Comment on above: Order Comment: Yes: Add to Previous draw if able Performed By: #### 3 1488 #### [facility] [address] [place] [address], [place] Sodium [Moles/Vol] 140 mmol/L Normal 136-145 [facility] Comment on above: Order Comment: Yes: Add to Previous draw if able Performed By: #### 3 1488 #### [facility] [address] [place] [address], [place] Urea nitrogen [Mass/Vol] 28 mg/dL High 7-25 [facility] Comment on above: Order Comment: Yes: Add to Previous draw if able Performed By: #### 3 1488 #### [facility] [address] [facility] [place] [address], [facility] CBC W/DIFFon 05-26-2020 ABS BASOPHILS 0.1 10*3/uL Normal 0.0-0.2 [facility] Comment on above: Order Comment: Yes: Add to Previous draw if able Performed By: #### 3 1488 #### [facility] [address] [place] [address], [facility] ABS IMM GRANS 0.1 10*3/uL Normal 0.0-0.2 [facility] Comment on above: Order Comment: Yes: Add to Previous draw if able Performed By: #### 3 1488 #### [facility] [address] [facility] [place] [address], [facility] ABS NEUTROPHILS 7.0 10*3/uL Normal 1.6-7.6 [facility] Comment on above: Order Comment: Yes: Add to Previous draw if able Performed By: #### 3 1488 #### [facility] [address] [place] [address], [facility] Basophils/100 WBC (Bld) 0.5 % Normal 0.0-1.0 [facility] Comment on above: Order Comment: Yes: Add to Previous draw if able Performed By: #### 3 1488 #### [facility] [address] [facility] [place] [address], [facility] Eosinophils (Bld) [#/Vol] 0.4 10*3/uL Normal 0.0-0.5 [facility] Comment on above: Order Comment: Yes: Add to Previous draw if able Performed By: #### 3 1488 #### [facility] [address] [place] [address], [facility] Eosinophils/100 WBC (Bld) 4.0 % Normal 0.0-6.0 [facility] Comment on above: Order Comment: Yes: Add to Previous draw if able Performed By: #### 3 1488 #### [facility] [address] Erythrocyte distribution width (RBC) [Ratio] 18.8 % High 11.5-15.0 [facility] Comment on above: Order Comment: Yes: Add to Previous draw if able Performed By: #### 3 1488 #### [facility] [address] Hematocrit (Bld) [Volume fraction] 21.7 % Low 36.0-45.0 [facility] Comment on above: Order Comment: Yes: Add to Previous draw if able Performed By: #### 3 1488 #### [facility] [address] Hemoglobin (Bld) [Mass/Vol] 7.0 g/dL Low 12.0-15.0 [facility] Comment on above: Order Comment: Yes: Add to Previous draw if able Performed By: #### 3 1488 #### [facility] [address] [facility] [address] IMMATURE GRANS 0.8 % Normal 0.0-1.0 [facility] Comment on above: Order Comment: Yes: Add to Previous draw if able Performed By: #### 3 1488 #### [facility] [address] [place] [address], [facility] Lymphocytes (Bld) [#/Vol] 2.6 10*3/uL Normal 1.2-4.0 [facility] Comment on above: Order Comment: Yes: Add to Previous draw if able Performed By: #### 3 1488 #### [facility] [address] [place] [address], [facility] Lymphocytes/100 WBC (Bld) 23.7 % Normal 20.0-45.0 [facility] Comment on above: Order Comment: Yes: Add to Previous draw if able Performed By: #### 3 1488 #### [facility] [address] [place] [address], [facility] MCH (RBC) [Entitic mass] 25.8 pg Low 27.0-33.0 [facility] Comment on above: Order Comment: Yes: Add to Previous draw if able Performed By: #### 3 1488 #### [facility] [address] [place] [address], [facility] MCHC (RBC) [Mass/Vol] 32.3 g/dL Normal 32.0-35.0 [facility] Comment on above: Order Comment: Yes: Add to Previous draw if able Performed By: #### 3 1488 #### [facility] [address] [place] [address], [facility] MCV (RBC) [Entitic vol] 80.1 fL Low 82.0-98.0 [facility] Comment on above: Order Comment: Yes: Add to Previous draw if able Performed By: #### 3 1488 #### [facility] [address] [place] [address], [facility] Monocytes (Bld) [#/Vol] 0.7 10*3/uL Normal 0.1-1.0 [facility] Comment on above: Order Comment: Yes: Add to Previous draw if able Performed By: #### 3 1488 #### [facility] [address] [place] [address], [facility] MONOS 6.2 % Normal 5.0-12.0 [facility] Comment on above: Order Comment: Yes: Add to Previous draw if able Performed By: #### 3 1488 #### [facility] [address] [place] [address], [facility] Neutrophils/100 WBC (Bld) 64.8 % Normal 40.0-72.0 [facility] Comment on above: Order Comment: Yes: Add to Previous draw if able Performed By: #### 3 1488 #### [facility] [address] [employer] [employer] [address] Nucleated RBC/100 WBC (Bld) [Ratio] 0 % Normal 0-0 [facility] Comment on above: Order Comment: Yes: Add to Previous draw if able Performed By: #### 3 1488 #### [facility] [address] [place] [address], [facility] PLAT CNT 529 10*3/uL High 150-400 [facility] Comment on above: Order Comment: Yes: Add to Previous draw if able Performed By: #### 3 1488 #### [facility] [address] [facility] [place] [address], [facility] RBC (Bld) [#/Vol] 2.71 10*6/uL Low 3.80-5.00 [facility] Comment on above: Order Comment: Yes: Add to Previous draw if able Performed By: #### 3 1488 #### [facility] [address] [facility] [place] [address], [facility] WBC (Bld) [#/Vol] 10.79 10*3/uL High 4.00-10.60 [facility] Comment on above: Order Comment: Yes: Add to Previous draw if able Performed By: #### 3 1488 #### [facility] [address] *ANAEROBIC CULTUREon 020 *ANAEROBIC CULTURE Clinical Report: [...] able Performed By: #### 3 1488 #### [facility] 3000 [facility]. [address] *BODY FLUID CULTUREon 2019 *BODY FLUID [...] able Performed By: #### 3 1488 #### [facility] [employer] [address] APTTon 05-25-2020 aPTT Coag (Bld) [Time] [...] PURPOSE. Performed By: #### 1 0054 #### [facility] 3000 [facility]. [address] BASIC METABOLIC PANELon 05-03 Calcium [Mass/Vol] 8.6 mg/dL Normal 8.6-10.3 [facility] Comment on above: Order Comment: No: D o not add to previous draw Performed By: #### 5 8511, 86950 #### [facility] 3000 [facility]. [address] Chloride [Moles/Vol] 106 mmol/L Normal 98-107 [facility] Comment on above: Order Comment: No: D o not add to previous draw Performed By: #### 5 6251, 79507 #### [facility] [address] [place] [address], [place] CO2 [Moles/Vol] 31 mmol/L Normal 21-31 [facility] Comment on above: Order Comment: No: D o not add to previous draw Performed By: #### 5 610, 13992 #### [facility] [address] [place] [address], [place] Creatinine [Mass/Vol] 1.38 mg/dL High 0.60-1.20 [facility] Comment on above: Order Comment: No: D o not add to previous draw Performed By: #### 5 610, 87606 #### [facility] [address] [place] [address], [place] GFR/1.73 sq M predicted among blacks MDRD (S/P/Bld) [Vol rate/Area] 53 ml/min/1.73sq m Abnormal >60 [facility] Comment on above: Order Comment: No: D o not add to previous draw Performed By: #### 5 610, 15300 #### [facility] [address] [place] [address], [place] GFR/1.73 sq M predicted among non-blacks MDRD (S/P/Bld) [Vol rate/Area] 44 ml/min/1.73sq m Abnormal >60 [facility] Comment on above: Order Comment: No: D o not add to previous draw Performed By: #### 5 610, 89947 #### [facility] [address] [place] [address], [place] Glucose [Mass/Vol] 81 mg/dL Normal 70-100 [facility] Comment on above: Order Comment: No: D o not add to previous draw Performed By: #### 5 610, 29413 #### [facility] [address] [place] [address], [place] Potassium [Moles/Vol] 4.3 mmol/L Normal 3.5-5.1 [facility] Comment on above: Order Comment: No: D o not add to previous draw Performed By: #### 5 6101, 13722 #### [facility] 3000 [facility]. [address] Sodium [Moles/Vol] 141 mmol/L Normal 136-145 [facility] Comment on above: Order Comment: No: D o not add to previous draw Performed By: #### 5 6101, 27254 #### [facility] 3000 [facility]. [address] Urea nitrogen [Mass/Vol] 31 mg/dL High 7-25 [facility] Comment on above: Order Comment: No: D o not add to previous draw Performed By: #### 5 6101, 52474 #### [facility] [address] BETA SUBUNIT HCGon 0 HCG.beta subunit [...] 0-2 Performed By: #### 1 0054 #### [facility] 3000 [facility] [place] [address], [facility] CBC W/DIFFon 05-25-2020 ABS BASOPHILS 0.1 10*3/uL Normal 0.0-0.2 [facility] Comment on above: Order Comment: No: D o not add to previous draw Performed By: #### 5 6101, 24024 #### [facility] [address] [place] [address], [facility] ABS IMM GRANS 0.1 10*3/uL Normal 0.0-0.2 [facility] Comment on above: Order Comment: No: D o not add to previous draw Performed By: #### 5 610, 64816 #### [facility] [address] [place] [address], [facility] ABS NEUTROPHILS 7.5 10*3/uL Normal 1.6-7.6 [facility] Comment on above: Order Comment: No: D o not add to previous draw Performed By: #### 5 610, 70783 #### [facility] [address] [place] [address], [facility] Basophils/100 WBC (Bld) 0.5 % Normal 0.0-1.0 [facility] Comment on above: Order Comment: No: D o not add to previous draw Performed By: #### 5 6100, 43435 #### [facility] [address] [place] [address], [facility] Eosinophils (Bld) [#/Vol] 0.5 10*3/uL Normal 0.0-0.5 [facility] Comment on above: Order Comment: No: D o not add to previous draw Performed By: #### 5 610, 37814 #### [facility] [address] [place] [address], [facility] Eosinophils/100 WBC (Bld) 4.0 % Normal 0.0-6.0 [facility] Comment on above: Order Comment: No: D o not add to previous draw Performed By: #### 5 610, 01214 #### [facility] [address] [place] [id number], [facility] Erythrocyte distribution width (RBC) [Ratio] 18.8 % High 11.5-15.0 [facility] Comment on above: Order Comment: No: D o not add to previous draw Performed By: #### 5 610, 89313 #### [facility] [address] Hematocrit (Bld) [Volume fraction] 21.7 % Low 36.0-45.0 [facility] Comment on above: Order Comment: No: D o not add to previous draw Performed By: #### 5 6100, 63012 #### [facility] [address] [place] [address], [facility] Hemoglobin (Bld) [Mass/Vol] 6.9 g/dL Low 12.0-15.0 [facility] Comment on above: Order Comment: No: D o not add to previous draw Performed By: #### 5 6100, 24806 #### [facility] [address] [place] [address], [facility] IMMATURE GRANS 1.2 % High 0.0-1.0 [facility] Comment on above: Order Comment: No: D o not add to previous draw Performed By: #### 5 6100, 49653 #### [facility] [address] [place] [address], [facility] Lymphocytes (Bld) [#/Vol] 2.3 10*3/uL Normal 1.2-4.0 [facility] Comment on above: Order Comment: No: D o not add to previous draw Performed By: #### 5 6100, 51886 #### [facility] [address] [place] [address], [facility] Lymphocytes/100 WBC (Bld) 20.5 % Normal 20.0-45.0 [facility] Comment on above: Order Comment: No: D o not add to previous draw Performed By: #### 5 6100, 15000 #### [facility] [address] [place] [address], [facility] MCH (RBC) [Entitic mass] 25.4 pg Low 27.0-33.0 [facility] Comment on above: Order Comment: No: D o not add to previous draw Performed By: #### 5 6100, 87204 #### [facility] [address] [place] [address], [facility] MCHC (RBC) [Mass/Vol] 31.8 g/dL Low 32.0-35.0 [facility] Comment on above: Order Comment: No: D o not add to previous draw Performed By: #### 5 6100, 35334 #### [facility] [address] [place] [address], [facility] MCV (RBC) [Entitic vol] 79.8 fL Low 82.0-98.0 [facility] Comment on above: Order Comment: No: D o not add to previous draw Performed By: #### 5 6100, 03658 #### [facility] [address] [place] [address], [facility] Monocytes (Bld) [#/Vol] 0.8 10*3/uL Normal 0.1-1.0 [facility] Comment on above: Order Comment: No: D o not add to previous draw Performed By: #### 5 6100, 89846 #### [facility] [address] [place] [address], [facility] MONOS 6.9 % Normal 5.0-12.0 [facility] Comment on above: Order Comment: No: D o not add to previous draw Performed By: #### 5 6100, 87185 #### [facility] [address] [place] [address], [facility] Neutrophils/100 WBC (Bld) 66.9 % Normal 40.0-72.0 [facility] Comment on above: Order Comment: No: D o not add to previous draw Performed By: #### 5 6100, 97550 #### [facility] [address] [place] [address], [facility] Nucleated RBC/100 WBC (Bld) [Ratio] 0 % Normal 0-0 [facility] Comment on above: Order Comment: No: D o not add to previous draw Performed By: #### 5 6100, 43388 #### [facility] [address] [place] [address], [facility] PLAT CNT 478 10*3/uL High 150-400 [facility] Comment on above: Order Comment: No: D o not add to previous draw Performed By: #### 5 6101, 84993 #### [facility] [address] [place] [address], [place] RBC (Bld) [#/Vol] 2.72 10*6/uL Low 3.80-5.00 [facility] Comment on above: Order Comment: No: D o not add to previous draw Performed By: #### 5 6101, 61333 #### [facility] [address] [place] [address], [facility] WBC (Bld) [#/Vol] 11.23 10*3/uL High 4.00-10.60 [facility] Comment on above: Order Comment: No: D o not add to previous draw Performed By: #### 5 6101, 87167 #### [facility] [address] [place] [address], [facility] FERRITINon 05-25-2020 Ferritin [Mass/Vol] 169 ng/mL Normal 11-307 [facility] Comment on above: Performed By: #### 1 0054 #### [facility] [address] [place] [address], [facility] FLUID CELL COUNTon 0 Lymphocytes/100 WBC (Bld) 22 % Normal [facility] Comment on above: Order Comment: Yes: Add to Previous draw if able Performed By: #### 3 1488 #### [facility] [address] [place] [address], [facility] MESOTHELIAL 22 Normal [facility] Comment on above: Order Comment: Yes: Add to Previous draw if able Performed By: #### 3 1488 #### [facility] [address] [place] [address], [place] OTHER F1 Diff done by cytospin Normal [facility] Comment on above: Order Comment: Yes: Add to Previous draw if able Performed By: #### 3 1488 #### [facility] [address] [place] [address], [facility] OTHER F3 Checked by Shahnaz crandall M.D. Normal [facility] Comment on above: Order Comment: Yes: Add to Previous draw if able Result Comment: Resu lt changed by TALA on 05/28/2020 12:59. The previous value was Preliminary report; verified report to follow. Performed By: #### 3 1488 #### [facility] [address] [place] [address], [facility] RBC (Bld) [#/Vol] 3319 RBC/uL Normal [facility] Comment on above: Order Comment: Yes: Add to Previous draw if able Performed By: #### 3 1488 #### [facility] [address] [place] [address], [facility] SEGS 56 Normal [facility] Comment on above: Order Comment: Yes: Add to Previous draw if able Performed By: #### 3 1488 #### [facility] [address] [place] [address], [facility] SOURCE Thoracentesis Normal [facility] Comment on above: Order Comment: Yes: Add to Previous draw if able Performed By: #### 3 1488 #### [facility] [address] [place] [address], [facility] TOTAL VOLUME 800 mL Normal [facility] Comment on above: Order Comment: Yes: Add to Previous draw if able Performed By: #### 3 1488 #### [facility] [address] [place] [address], [facility] WBC (Bld) [#/Vol] 2390 WBC/uL Normal [facility] Comment on above: Order Comment: Yes: Add to Previous draw if able Result Comment: Some reference interval(s) and other method performance specifications have not been established for analytes on this body fluid. The test result must be integrated into the clinical context for interpretation. Performed By: #### 3 1488 #### [facility] [address] [place] [address], [facility] GLUCOSE FLUID MISCon 05-25- 020 Glucose [Mass/Vol] 97 mg/dL Normal [facility] Comment on above: Order Comment: Yes: Add to Previous draw if able Result Comment: The reference range and other method performance specifications have not been established for this test in fluids. the test result should be integrated into the clinical context for interpretation. Performed By: #### 3 1488 #### [facility] [address] [place] [address], [facility] HAPTOGLOBINon 05-25-2020 HAPTOGLOBIN 343 mg/dL High 26-164 [facility] Comment on above: Order Comment: No: D o not add to previous draw Performed By: #### 1 0054 #### [facility] [address] [place] [address], [facility] IRON BLOODon 05-25-2020 Iron [Mass/Vol] 11 ug/dL Low 50-212 [facility] Comment on above: Performed By: #### 1 0054 #### [facility] [address] [place] [address], [place] LDH BLOODon 05-25-2020 LDH 215 Units/L Normal 140-271 [facility] Comment on above: Performed By: #### 1 0054 #### [facility] [address] [place] [address], [place] LDH FLUIDon 05-25-2020 LDH 152 Units/L Normal [facility] Comment on above: Order Comment: Yes: Add to Previous draw if able Result Comment: The reference range and other method performance specifications have not been established for this test in fluids. the test result should be integrated into the clinical context for interpretation. Performed By: #### 3 1488 #### [facility] [address] [place] [address], [place] LIVER BATTERYon 05-25-2020 Albumin [Mass/Vol] 2.6 g/dL Low 3.5-5.7 [facility] Comment on above: Performed By: #### 5 6100, 55356 #### [facility] [address] [place] [address], [place] ALKALINE PHOSPH 240 IU/L High 34-104 [facility] Comment on above: Performed By: #### 5 610, 94082 #### [facility] [address] [place] [address], [place] ALT [Catalytic activity/Vol] U/L Low 7-52 [facility] Comment on above: Performed By: #### 5 6100, 78172 #### [facility] [address] [place] [address], [place] AST [Catalytic activity/Vol] 13 U/L Normal 13-39 [facility] Comment on above: Performed By: #### 5 6100, 92320 #### [facility] [address] [place] [address], [place] Bilirubin [Mass/Vol] 0.5 mg/dL Normal 0.3-1.0 [facility] Comment on above: Performed By: #### 5 6100, 51116 #### [facility] [address] [place] [address], [place] Bilirubin.direct [Mass/Vol] 0.2 mg/dL Normal 0.0-0.2 [facility] Comment on above: Performed By: #### 5 6100, 39948 #### [facility] [address] [place] [address], [place] Protein [Mass/Vol] 6.4 g/dL Normal 6.0-8.3 [facility] Comment on above: Performed By: #### 5 610, 63278 #### [facility] [address] [place] [address], [place] PORTABLE CHEST 1 VIEWon 05-03 PORTABLE CHEST 1 VIEW [facility] Department of Radiology [address] [place] [address] Patient Name: MAYTE BURRELL : 1985 Sex: F Age: Race: White Pt. Location: [id number] Patient Status: I Ordered Date: 05/25/2020 11:10:00 [...] reports Electronically signed: Reji Alexander. Transcribed by: [email or web address], User Resident: BRIANNE VALERO Electronically Signed by: REJI ALEXANDER @ 05/25/2020 05:09 PM I personally read this/these film(s) with this resident Normal [facility] Comment on above: Order Comment: Yes: Add to Previous draw if able PORTABLE CHEST 1 VIEW [facility] Department of Radiology [address] [place] [id number] Patient Name: MAYTE BURRELL : 1985 Sex: F Age: Race: White Pt. Location: [address] [place] [address] Patient Status: I Ordered Date: 05/25/2020 1:20:00 [...] exam. Electronically signed: Jocelyn Carl. Transcribed by: [email or web address], User Resident: Electronically Signed by: JOCELYN CARL [...] PCT<0.5ng/mL Performed By: #### 1 0054 #### [facility] [address] [place] [address], [facility] PROTHROMBIN TIMEon 0 INR Coag (PPP) [Relative time] 1.11 {INR} Normal 0.91-1.16 [facility] Comment on above: Order Comment: No: [...] 1995;[id number]. Performed By: #### 1 0054 #### [facility] [address] [place] [address], [facility] PT Coag (PPP) [Time] 14.3 s Normal 12.3-14.8 [facility] Comment on above: Order Comment: No: D o not add to previous draw Result Comment: ALL RESULTS MUST BE INTERPRETED WITH RESPECT TO BLOOD DRAWING ARTIFACT OR DILUTION ERROR OF ANTICOAGULANT AT THE TIME OF SAMPLING. Performed By: #### 1 0054 #### [facility] [address] [place] [id number], [place] T PROT FLUIDon 05-25-2020 Protein [Mass/Vol] g/dL Normal [facility] Comment on above: Order Comment: Yes: Add to Previous draw if able Result Comment: The reference range and other method performance specifications have not been established for this test in fluids. the test result should be integrated into the clinical context for interpretation. Performed By: #### 3 1488 #### [address] [place], [place] [address] [place] [address] US THORACENTESISon 0 US THORACENTESIS [facility] Department of Radiology [address] [place] [id number] Patient Name: MAYTE BURRELL : 1985 Sex: F Age: Race: White Pt. Location: [id number] Patient Status: I Ordered Date: 05/25/2020 11:10:00 [...] right pleural cavity was obtained using 5 [place] one-step catheter. A total of 750 mL [...] Electronically signed: Juan Manuel White. Transcribed by: [email or web address], User Resident: JUAN MANUEL WHITE Electronically Signed by: JUAN MANUEL WHITE @ 05/25/2020 04:06 PM I personally read this/these film(s) with this resident Normal [facility] Comment on above: Order Comment: No: D o not add to previous draw BASIC METABOLIC PANELon 05-03 Calcium [Mass/Vol] 8.2 mg/dL Low 8.6-10.3 [facility] Comment on above: Order Comment: No: D o not add to previous draw Performed By: #### 5 610, 78268 #### [facility] [address] [place] [address], [place] Chloride [Moles/Vol] 103 mmol/L Normal 98-107 [facility] Comment on above: Order Comment: No: D o not add to previous draw Performed By: #### 5 610, 94256 #### [facility] [address] [place] [address], [place] CO2 [Moles/Vol] 27 mmol/L Normal 21-31 [facility] Comment on above: Order Comment: No: D o not add to previous draw Performed By: #### 5 6101, 55474 #### [facility] [address] [place] [address], [place] Creatinine [Mass/Vol] 1.85 mg/dL High 0.60-1.20 [facility] Comment on above: Order Comment: No: D o not add to previous draw Performed By: #### 5 610, 81453 #### [facility] [address] [place] [address], [place] GFR/1.73 sq M predicted among blacks MDRD (S/P/Bld) [Vol rate/Area] 38 ml/min/1.73sq m Abnormal >60 [facility] Comment on above: Order Comment: No: D o not add to previous draw Performed By: #### 5 610, 88548 #### [facility] [address] [place] [address], [place] GFR/1.73 sq M predicted among non-blacks MDRD (S/P/Bld) [Vol rate/Area] 31 ml/min/1.73sq m Abnormal >60 [facility] Comment on above: Order Comment: No: D o not add to previous draw Performed By: #### 5 610, 71110 #### [facility] [address] [place] [address], [place] Glucose [Mass/Vol] 88 mg/dL Normal 70-100 [facility] Comment on above: Order Comment: No: D o not add to previous draw Performed By: #### 5 610, 20418 #### [facility] [address] [place] [address], [place] Potassium [Moles/Vol] 3.8 mmol/L Normal 3.5-5.1 [facility] Comment on above: Order Comment: No: D o not add to previous draw Performed By: #### 5 610, 30466 #### [facility] [address] [place] [address], [place] Sodium [Moles/Vol] 138 mmol/L Normal 136-145 [facility] Comment on above: Order Comment: No: D o not add to previous draw Performed By: #### 5 610, 34935 #### [facility] [address] [place] [address], [place] Urea nitrogen [Mass/Vol] 35 mg/dL High 7-25 [facility] Comment on above: Order Comment: No: D o not add to previous draw Performed By: #### 5 610, 61781 #### [facility] [address] [place] [address], [facility] CBC W/DIFFon 05-24-2020 ABS BASOPHILS 0.1 10*3/uL Normal 0.0-0.2 [facility] Comment on above: Order Comment: No: D o not add to previous draw Performed By: #### 5 610, 43366 #### [facility] [address] [place] [address], [facility] ABS IMM GRANS 0.2 10*3/uL Normal 0.0-0.2 [facility] Comment on above: Order Comment: No: D o not add to previous draw Performed By: #### 5 610, 70881 #### [facility] [address] [place] [address], [facility] ABS NEUTROPHILS 9.8 10*3/uL High 1.6-7.6 [facility] Comment on above: Order Comment: No: D o not add to previous draw Performed By: #### 5 610, 08135 #### [facility] [address] [place] [address], [facility] Basophils/100 WBC (Bld) 0.4 % Normal 0.0-1.0 [facility] Comment on above: Order Comment: No: D o not add to previous draw Performed By: #### 5 610, 36241 #### [facility] [address] [place] [address], [facility] Eosinophils (Bld) [#/Vol] 0.5 10*3/uL Normal 0.0-0.5 [facility] Comment on above: Order Comment: No: D o not add to previous draw Performed By: #### 5 610, 34587 #### [facility] [address] [place] [address], [facility] Eosinophils/100 WBC (Bld) 3.6 % Normal 0.0-6.0 [facility] Comment on above: Order Comment: No: D o not add to previous draw Performed By: #### 5 6100, 91769 #### [facility] [address] [place] [address], [facility] Erythrocyte distribution width (RBC) [Ratio] 18.2 % High 11.5-15.0 [facility] Comment on above: Order Comment: No: D o not add to previous draw Performed By: #### 5 6100, 82027 #### [facility] [address] [place] [id number], [facility] Hematocrit (Bld) [Volume fraction] 22.3 % Low 36.0-45.0 [facility] Comment on above: Order Comment: No: D o not add to previous draw Performed By: #### 5 6100, 33097 #### [facility] [address] [place] [address], [facility] Hemoglobin (Bld) [Mass/Vol] 7.3 g/dL Low 12.0-15.0 [facility] Comment on above: Order Comment: No: D o not add to previous draw Performed By: #### 5 6100, 40735 #### [facility] [address] [place] [address], [facility] IMMATURE GRANS 1.3 % High 0.0-1.0 [facility] Comment on above: Order Comment: No: D o not add to previous draw Performed By: #### 5 6100, 53074 #### [facility] [address] [place] [id number], [place] Lymphocytes (Bld) [#/Vol] 2.1 10*3/uL Normal 1.2-4.0 [facility] Comment on above: Order Comment: No: D o not add to previous draw Performed By: #### 5 6100, 13767 #### [facility] [address] [place] [id number], [place] Lymphocytes/100 WBC (Bld) 15.9 % Low 20.0-45.0 [facility] Comment on above: Order Comment: No: D o not add to previous draw Performed By: #### 5 6100, 12691 #### [facility] [address] [place] [address], [facility] MCH (RBC) [Entitic mass] 25.9 pg Low 27.0-33.0 [facility] Comment on above: Order Comment: No: D o not add to previous draw Performed By: #### 5 6100, 20117 #### [facility] [address] [place] [address], [facility] MCHC (RBC) [Mass/Vol] 32.7 g/dL Normal 32.0-35.0 [facility] Comment on above: Order Comment: No: D o not add to previous draw Performed By: #### 5 6100, 11896 #### [facility] [address] [place] [address], [facility] MCV (RBC) [Entitic vol] 79.1 fL Low 82.0-98.0 [facility] Comment on above: Order Comment: No: D o not add to previous draw Performed By: #### 5 6100, 02702 #### [facility] [address] [place] [address], [facility] Monocytes (Bld) [#/Vol] 0.8 10*3/uL Normal 0.1-1.0 [facility] Comment on above: Order Comment: No: D o not add to previous draw Performed By: #### 5 6100, 94855 #### [facility] [address] [place] [address], [facility] MONOS 5.7 % Normal 5.0-12.0 [facility] Comment on above: Order Comment: No: D o not add to previous draw Performed By: #### 5 6100, 15127 #### [facility] [address] [place] [address], [facility] Neutrophils/100 WBC (Bld) 73.1 % High 40.0-72.0 [facility] Comment on above: Order Comment: No: D o not add to previous draw Performed By: #### 5 610, 48834 #### [facility] [address] [place] [address], [place] Nucleated RBC/100 WBC (Bld) [Ratio] 0 % Normal 0-0 [facility] Comment on above: Order Comment: No: D o not add to previous draw Performed By: #### 5 6101, 79300 #### [facility] [address] [place] [address], [place] PLAT CNT 435 10*3/uL High 150-400 [facility] Comment on above: Order Comment: No: D o not add to previous draw Performed By: #### 5 6101, 97223 #### [facility] [address] [place] [address], [facility] RBC (Bld) [#/Vol] 2.82 10*6/uL Low 3.80-5.00 [facility] Comment on above: Order Comment: No: D o not add to previous draw Performed By: #### 5 6101, 63994 #### [facility] [address] [place] [address], [place] WBC (Bld) [#/Vol] 13.34 10*3/uL High 4.00-10.60 [facility] Comment on above: Order Comment: No: D o not add to previous draw Performed By: #### 5 6101, 98403 #### [facility] [address] [facility] [place] [address], [facility] MRI LUMBAR SPINE WO CONTRAST on 05-24-2020 MRI LUMBAR SPINE WO CONTRAST [facility] Department of Radiology [address] [place] [id number] Patient Name: MAYTE BURRELL : 1985 Sex: F Age: Race: White Pt. Location: [address] [place] [address] Patient Status: I Ordered Date: 05/22/2020 2:45:00 [...] Electronically signed: Malathi Hall M.D.. Transcribed by: [email or web address], User Resident: Electronically Signed by: MALATHI HALL @ 05/25/2020 09:48 AM Normal [facility] Comment on above: Order Comment: No: D o not add to previous draw BASIC METABOLIC PANELon 07-2 Calcium [Mass/Vol] 8.2 mg/dL Low 8.6-10.3 [facility] Comment on above: Order Comment: No: D o not add to previous draw Performed By: #### 5 6101, 67836 #### [facility] [address] [place] [address], [place] Chloride [Moles/Vol] 105 mmol/L Normal 98-107 [facility] Comment on above: Order Comment: No: D o not add to previous draw Performed By: #### 5 610, 60506 #### [facility] [address] [place] [address], [place] CO2 [Moles/Vol] 21 mmol/L Normal 21-31 [facility] Comment on above: Order Comment: No: D o not add to previous draw Performed By: #### 5 610, 61114 #### [facility] [address] [place] [address], [place] Creatinine [Mass/Vol] 2.01 mg/dL High 0.60-1.20 [facility] Comment on above: Order Comment: No: D o not add to previous draw Performed By: #### 5 610, 38977 #### [facility] [address] [place] [address], [place] GFR/1.73 sq M predicted among blacks MDRD (S/P/Bld) [Vol rate/Area] 34 ml/min/1.73sq m Abnormal >60 [facility] Comment on above: Order Comment: No: D o not add to previous draw Performed By: #### 5 6101, 59784 #### [facility] [address] [place] [address], [place] GFR/1.73 sq M predicted among non-blacks MDRD (S/P/Bld) [Vol rate/Area] 28 ml/min/1.73sq m Abnormal >60 [facility] Comment on above: Order Comment: No: D o not add to previous draw Performed By: #### 5 610, 17293 #### [facility] [address] [place] [address], [place] Glucose [Mass/Vol] 71 mg/dL Normal 70-100 [facility] Comment on above: Order Comment: No: D o not add to previous draw Performed By: #### 5 610, 74057 #### [facility] [address] [place] [address], [place] Potassium [Moles/Vol] 3.7 mmol/L Normal 3.5-5.1 [facility] Comment on above: Order Comment: No: D o not add to previous draw Performed By: #### 5 610, 18132 #### [facility] [address] [place] [address], [place] Sodium [Moles/Vol] 137 mmol/L Normal 136-145 [facility] Comment on above: Order Comment: No: D o not add to previous draw Performed By: #### 5 610, 97593 #### [facility] [address] [place] [address], [place] Urea nitrogen [Mass/Vol] 34 mg/dL High 7-25 [facility] Comment on above: Order Comment: No: D o not add to previous draw Performed By: #### 5 610, 79906 #### [facility] [address] [place] [address], [place] C REACTIVE PROTEINon 020 CRP [Mass/Vol] 135.0 mg/L High 0.0-7.0 [facility] Comment on above: Order Comment: No: D o not add to previous draw Performed By: #### 5 610, 29799 #### [facility] [address] [place] [address], [place] SEDIMENTATION RATEon 020 SED RATE 129 mm/hr High 0-20 [facility] Comment on above: Order Comment: No: D o not add to previous draw Performed By: #### 5 610, 36972 #### [facility] [address] [place] [address], [facility] *SARS-CoV-2 COVID-19on 05-22 [id number] Not Detected Normal Not Detected [facility] Comment on above: Order Comment: No: D o not add to previous draw Performed By: #### 5 610, 84156 #### [facility] [address] [place] [address], [facility] BASIC METABOLIC PANELon 05-03 Calcium [Mass/Vol] 8.1 mg/dL Low 8.6-10.3 [facility] Comment on above: Order Comment: No: D o not add to previous draw Performed By: #### 5 610, 83127 #### [facility] [address] [place] [address], [facility] Chloride [Moles/Vol] 105 mmol/L Normal 98-107 [facility] Comment on above: Order Comment: No: D o not add to previous draw Performed By: #### 5 610, 80273 #### [facility] [address] [place] [address], [facility] CO2 [Moles/Vol] 23 mmol/L Normal 21-31 [facility] Comment on above: Order Comment: No: D o not add to previous draw Performed By: #### 5 610, 77926 #### [facility] [address] [place] [address], [place] Creatinine [Mass/Vol] 2.08 mg/dL High 0.60-1.20 [facility] Comment on above: Order Comment: No: D o not add to previous draw Performed By: #### 5 610, 46379 #### [facility] [address] [place] [address], [place] GFR/1.73 sq M predicted among blacks MDRD (S/P/Bld) [Vol rate/Area] 33 ml/min/1.73sq m Abnormal >60 [facility] Comment on above: Order Comment: No: D o not add to previous draw Performed By: #### 5 610, 79930 #### [facility] [address] [place] [address], [place] GFR/1.73 sq M predicted among non-blacks MDRD (S/P/Bld) [Vol rate/Area] 27 ml/min/1.73sq m Abnormal >60 [facility] Comment on above: Order Comment: No: D o not add to previous draw Performed By: #### 5 610, 07839 #### [facility] [address] [place] [address], [place] Glucose [Mass/Vol] 67 mg/dL Low 70-100 [facility] Comment on above: Order Comment: No: D o not add to previous draw Performed By: #### 5 610, 81726 #### [facility] [address] [place] [address], [place] Potassium [Moles/Vol] 3.6 mmol/L Normal 3.5-5.1 [facility] Comment on above: Order Comment: No: D o not add to previous draw Performed By: #### 5 610, 38531 #### [facility] [address] [place] [address], [place] Sodium [Moles/Vol] 139 mmol/L Normal 136-145 [facility] Comment on above: Order Comment: No: D o not add to previous draw Performed By: #### 5 610, 93477 #### [facility] [address] [place] [address], [place] Urea nitrogen [Mass/Vol] 32 mg/dL High 7-25 [facility] Comment on above: Order Comment: No: D o not add to previous draw Performed By: #### 5 610, 20199 #### [facility] [address] [place] [address], [place] CBC COMPLETE BLOOD COUNTon 0 - Erythrocyte distribution width (RBC) [Ratio] 18.2 % High 11.5-15.0 [facility] Comment on above: Order Comment: No: D o not add to previous draw Performed By: #### 5 610, 60268 #### [facility] [address] [place] [id number], [facility] Hematocrit (Bld) [Volume fraction] 26.1 % Low 36.0-45.0 [facility] Comment on above: Order Comment: No: D o not add to previous draw Performed By: #### 5 6100, 66886 #### [facility] [address] [place] [address], [facility] Hemoglobin (Bld) [Mass/Vol] 8.6 g/dL Low 12.0-15.0 [facility] Comment on above: Order Comment: No: D o not add to previous draw Performed By: #### 5 6100, 12084 #### [facility] [address] [place] [id number], [facility] MCH (RBC) [Entitic mass] 25.8 pg Low 27.0-33.0 [facility] Comment on above: Order Comment: No: D o not add to previous draw Performed By: #### 5 6100, 56755 #### [facility] [address] [place] [address], [facility] MCHC (RBC) [Mass/Vol] 33.0 g/dL Normal 32.0-35.0 [facility] Comment on above: Order Comment: No: D o not add to previous draw Performed By: #### 5 610, 42723 #### [facility] [address] [place] [id number], [facility] MCV (RBC) [Entitic vol] 78.4 fL Low 82.0-98.0 [facility] Comment on above: Order Comment: No: D o not add to previous draw Performed By: #### 5 6100, 23140 #### [facility] [address] [facility] [place] [address], [facility] Nucleated RBC/100 WBC (Bld) [Ratio] 0 % Normal 0-0 [facility] Comment on above: Order Comment: No: D o not add to previous draw Performed By: #### 5 6101, 75638 #### [facility] [address] [facility] [place] [address], [facility] PLAT CNT 363 10*3/uL Normal 150-400 [facility] Comment on above: Order Comment: No: D o not add to previous draw Performed By: #### 5 6101, 54227 #### [facility] [address] [facility] [place] [address], [facility] RBC (Bld) [#/Vol] 3.33 10*6/uL Low 3.80-5.00 [facility] Comment on above: Order Comment: No: D o not add to previous draw Performed By: #### 5 6101, 40703 #### [facility] [address] [facility] [place] [address], [facility] WBC (Bld) [#/Vol] 12.14 10*3/uL High 4.00-10.60 [facility] Comment on above: Order Comment: No: D o not add to previous draw Performed By: #### 5 6101, 55599 #### [facility] [address] CHEST WO CONTRASTon 05-22 CT CHEST WO CONTRAST [facility] Department of Radiology [address] [place] [id number] Patient Name: MAYTE BURRELL : 1985 Sex: F Age: Race: White Pt. Location: [id number] Patient Status: I Ordered Date: 05/22/2020 9:40:00 [...] left. Electronically signed: Lucy Mauricio. Transcribed by: [email or web address], User Resident: Electronically Signed by: LUCY MAURICIO @ 05/22/2020 12:21 PM Normal [facility] Comment on above: Order Comment: No: D o not add to previous draw HCV NAAT REFLEX TO GENOTYPE [id number] 05-22-2020 HCV QNT BY NAAT INTERP Detected [...] and Cellular Tissue-Based Products (HCT/P). Performed by [facility], [address] [place] [id number] [email or web address], Tino Blandon MD - Lab. Director HCV QNT BY NAAT LOG 6.70 log IU/mL Normal [facility] Comment on above: Order Comment: Yes: Add to Previous draw if able Result Comment: Hepa titis C Virus Genotype by Sequencing added. HCV QNT NAAT 5,063,862 Normal [facility] Comment on above: Order Comment: Yes: Add to Previous draw if able HEP C GENOTYPING [id number] HEP C GENOTYPING 1a or 1b Normal [facility] Comment on above: Result Comment: Jessica ot be further subtyped into Type 1a or Type 1b due to high conservation of the 5' untranslated region of the HCV genome. In addition, Type 6 virus may be misclassified as Type 1 in some cases. The Hepatitis C Virus High-Resolution Genotype by Sequencing test ([employer] test code 1197539) provides a higher level of subtype resolution. INTERPRETIVE INFORMATION: Hepatitis C Genotyping Hepatitis C Viral RNA is tested using reverse sales and service advisor polymerase chain reaction (RT-PCR) to amplify a specific portion of the 5' untranslated region (5' UTR) of the viral genome. The amplified nucleic acid is sequenced bi-directionally using dye-terminator chemistry ([employer]). Sequencing data is compared to a database [...] 1. Test developed and characteristics determined by [facility]. See Compliance Statement B: [employer] Performed By: [facility] [address] [place] [id number] Investment Executive: Tino Blandon MD, MS LUMBAR SPINE 2 OR 3 [facility] LUMBAR SPINE 2 OR 3 [facility] Department of Radiology [address] [place] [id number] Patient Name: MAYTE BURRELL : 1985 Sex: F Age: Race: White Pt. Location: [address] [place] [address] Patient Status: I Ordered Date: 05/22/2020 2:50:00 PM Completed Date: 05/22/2020 04:47 PM Requesting Provider: ADAM MORE Attending Provider: VERÓNICA DESHPANDE Report Copy To: Signs & Symptoms: Back Pain History: Comments: Evaluate for back pain and endocarditis rule out osteomyelitis MRI is ordered too Exam: LUMBAR SPINE 2 OR 3 [facility] LUMBAR SPINE 2 OR 3 [facility] 05/22/2020 [...] spine. Electronically signed: Verónica Elam. Transcribed by: [email or web address], User Resident: Electronically Signed by: VERÓNICA ELAM @ 05/23/2020 10:23 AM Normal [facility] Comment on above: Order Comment: No: D o not add to previous draw MAGNESIUM BLOODon 05-22-2020 Magnesium [Mass/Vol] 2.3 mg/dL Normal 1.9-2.7 [facility] Comment on above: Order Comment: No: D o not add to previous draw Performed By: #### 5 6101, 88673 #### [facility] [address] [facility]. [address] BASIC METABOLIC PANELon 05-03 Calcium [Mass/Vol] 8.2 mg/dL Low 8.6-10.3 [facility] Comment on above: Order Comment: No: D o not add to previous draw Performed By: #### 0 0121, 78843, 55225 #### [facility] [address] [place] [address], [facility] Chloride [Moles/Vol] 108 mmol/L High 98-107 [facility] Comment on above: Order Comment: No: D o not add to previous draw Performed By: #### 0 0121, 72645, 73819 #### [facility] [address] [place] [address], [place] CO2 [Moles/Vol] 13 mmol/L Critically low 21-31 [facility] Comment on above: Order Comment: No: D o not add to previous draw Result Comment: M-CR ITICAL RESULT(S) REVIEWED, CALLED TO AND READ BACK BY MINERVA BURCIAGA AT 0947 Performed By: #### 0 0121, 62386, 19570 #### [facility] [address] [place] [address], [facility] Creatinine [Mass/Vol] 2.11 mg/dL High 0.60-1.20 [facility] Comment on above: Order Comment: No: D o not add to previous draw Performed By: #### 0 0121, , 36471 #### [facility] [address] [place] [address], [place] GFR/1.73 sq M predicted among blacks MDRD (S/P/Bld) [Vol rate/Area] 32 ml/min/1.73sq m Abnormal >60 [facility] Comment on above: Order Comment: No: D o not add to previous draw Performed By: #### 0 0121, , 01915 #### [facility] [address] [place] [address], [place] GFR/1.73 sq M predicted among non-blacks MDRD (S/P/Bld) [Vol rate/Area] 27 ml/min/1.73sq m Abnormal >60 [facility] Comment on above: Order Comment: No: D o not add to previous draw Performed By: #### 0 0121, 49712, 13010 #### [facility] [address] [place] [address], [place] Glucose [Mass/Vol] 51 mg/dL Low 70-100 [facility] Comment on above: Order Comment: No: D o not add to previous draw Performed By: #### 0 0121, 18616, 56021 #### [facility] [address] [place] [address], [place] Potassium [Moles/Vol] 4.4 mmol/L Normal 3.5-5.1 [facility] Comment on above: Order Comment: No: D o not add to previous draw Performed By: #### 0 0121, 00572, 64925 #### [facility] [address] [place] [address], [place] Sodium [Moles/Vol] 135 mmol/L Low 136-145 [facility] Comment on above: Order Comment: No: D o not add to previous draw Performed By: #### 0 0121, , 72492 #### [facility] [address] [place] [address], [place] Urea nitrogen [Mass/Vol] 29 mg/dL High 7-25 [facility] Comment on above: Order Comment: No: D o not add to previous draw Performed By: #### 0 0121, , 27544 #### [facility] [address] [place] [address], [place] CBC COMPLETE BLOOD COUNTon 05-21-2020 Erythrocyte distribution width (RBC) [Ratio] 18.5 % High 11.5-15.0 [facility] Comment on above: Order Comment: No: D o not add to previous drawScreaming bad words at me about her veins. Benita is aware Performed By: #### 0 0121, 92988, 12258 #### [facility] [address] [place] [address], [place] Hematocrit (Bld) [Volume fraction] 26.4 % Low 36.0-45.0 [facility] Comment on above: Order Comment: No: D o not add to previous drawScreaming bad words at me about her veins. Benita is aware Performed By: #### 0 0121, 96164, 04541 #### [facility] [address] [place] [address], [place] Hemoglobin (Bld) [Mass/Vol] 8.3 g/dL Low 12.0-15.0 [facility] Comment on above: Order Comment: No: D o not add to previous drawScreaming bad words at me about her veins. Benita is aware Performed By: #### 0 0121, 01002, 04635 #### [facility] [address] [place] [address], [facility] MCH (RBC) [Entitic mass] 25.9 pg Low 27.0-33.0 [facility] Comment on above: Order Comment: No: D o not add to previous drawScreaming bad words at me about her veins. Benita is aware Performed By: #### 0 0121, 46881, 15138 #### [facility] [address] [place] [address], [facility] MCHC (RBC) [Mass/Vol] 31.4 g/dL Low 32.0-35.0 [facility] Comment on above: Order Comment: No: D o not add to previous drawScreaming bad words at me about her veins. Benita is aware Performed By: #### 0 0121, 74602, 12356 #### [facility] [address] [place] [address], [facility] MCV (RBC) [Entitic vol] 82.2 fL Normal 82.0-98.0 [facility] Comment on above: Order Comment: No: D o not add to previous drawScreaming bad words at me about her veins. Benita is aware Performed By: #### 0 0121, 69988, 13492 #### [facility] [address] [place] [address], [place] Nucleated RBC/100 WBC (Bld) [Ratio] 0 % Normal 0-0 [facility] Comment on above: Order Comment: No: D o not add to previous drawScreaming bad words at me about her veins. Benita is aware Performed By: #### 0 0121, 02941, 03506 #### [facility] [address] [place] [address], [facility] PLAT CNT 264 10*3/uL Normal 150-400 [facility] Comment on above: Order Comment: No: D o not add to previous drawScreaming bad words at me about her veins. Benita is aware Performed By: #### 0 0121, 28076, 63209 #### [facility] [address] [facility] [place] [address], [facility] RBC (Bld) [#/Vol] 3.21 10*6/uL Low 3.80-5.00 [facility] Comment on above: Order Comment: No: D o not add to previous drawScreaming bad words at me about her veins. Benita is aware Performed By: #### 0 0121, 64132, 33998 #### [facility] [address] [facility] [place] [address], [facility] WBC (Bld) [#/Vol] 16.97 10*3/uL High 4.00-10.60 [facility] Comment on above: Order Comment: No: D o not add to previous drawScreaming bad words at me about her veins. Benita is aware Performed By: #### 0 0121, 39958, 92869 #### [facility] [address] [facility]. [address] HIV COMBO 4Gon 05-21-2020 HIV COMBO Negative Normal NEGATIVE [facility] Comment on above: Performed By: #### 0 0121, 45985, 81634 #### [facility] [address] [facility] [place] [address], [facility] MAGNESIUM BLOODon 05-21-2020 Magnesium [Mass/Vol] 2.3 mg/dL Normal 1.9-2.7 [facility] Comment on above: Order Comment: No: D o not add to previous draw Performed By: #### 0 0121, 74019, 69241 #### [facility] [address] [facility] [place] [address], [facility] PHOSPHORUS BLOODon 0 Phosphate [Mass/Vol] 5.3 mg/dL High 2.5-5.0 [facility] Comment on above: Order Comment: No: D o not add to previous draw Performed By: #### 0 0121, 23592, 31932 #### [facility] [address] [facility] [place] [address], [facility] POC GLUCOSE LABon 05-21-2020 Glucose [Mass/Vol] 117 mg/dL High 70-100 [facility] Comment on above: Performed By: #### 8 5123 #### [facility] [address] [facility] [place] [address], [facility] Glucose [Mass/Vol] 95 mg/dL Normal 70-100 [facility] Comment on above: Performed By: #### 0 0121, 92922, 03067 #### [facility] [address] [facility] [place] [address], [facility] [facility] US RENALon 05-21-2020 US RENAL [facility] Department of Radiology [address] [place], [place] [id number] Patient Name: MAYTE BURRELL : 1985 Sex: F Age: Race: White Pt. Location: [id number] Patient Status: I Ordered Date: 05/20/2020 8:25:00 [...] hydronephrosis. Electronically signed: Jocelyn Carl. Transcribed by: [email or web address], User Resident: Electronically Signed by: JOCELYN CARL [...] previous draw Performed By: #### 0 0121, 08996, 72010 #### [facility] [address] [facility] [place] [address], [facility] ANAon 05-20-2020 Nuclear Ab IF (S) [Titer] <1:40 Normal <1:40,1:40 [facility] Comment on above: Order Comment: No: D o not add to previous draw Performed By: #### 5 6101, 18983 #### [facility] [address] [place] [address], [facility] ANCA IGG WITH REFLEX [id number] on 05-20-2020 [...] collagen vascular disease or arthritis. Performed By: [facility] [address] [place] [address] Investment Executive: Tino Blandon MD, [place] BASIC METABOLIC PANELon 05-02 Calcium [Mass/Vol] 8.1 mg/dL Low 8.6-10.3 [facility] Comment on above: Order Comment: No: D o not add to previous draw Performed By: #### 0 0121, 95935, 17853 #### [facility] [address] [place] [address], [facility] Chloride [Moles/Vol] 110 mmol/L High 98-107 [facility] Comment on above: Order Comment: No: D o not add to previous draw Performed By: #### 0 0121, 22179, 44884 #### [facility] [address] [place] [address], [facility] CO2 [Moles/Vol] 17 mmol/L Low 21-31 [facility] Comment on above: Order Comment: No: D o not add to previous draw Performed By: #### 0 0121, 14363, 16623 #### [facility] [address] [place] [address], [facility] Creatinine [Mass/Vol] 2.19 mg/dL High 0.60-1.20 [facility] Comment on above: Order Comment: No: D o not add to previous draw Performed By: #### 0 0121, 51872, 92099 #### [facility] [address] [place] [address], [facility] GFR/1.73 sq M predicted among blacks MDRD (S/P/Bld) [Vol rate/Area] 31 ml/min/1.73sq m Abnormal >60 [facility] Comment on above: Order Comment: No: D o not add to previous draw Performed By: #### 0 0121, 92040, 45495 #### [facility] [address] [place] [address], [place] GFR/1.73 sq M predicted among non-blacks MDRD (S/P/Bld) [Vol rate/Area] 25 ml/min/1.73sq m Abnormal >60 [facility] Comment on above: Order Comment: No: D o not add to previous draw Performed By: #### 0 0121, 29534, 24831 #### [facility] [address] [place] [address], [place] Glucose [Mass/Vol] 58 mg/dL Low 70-100 [facility] Comment on above: Order Comment: No: D o not add to previous draw Performed By: #### 0 0121, 06151, 78653 #### [facility] [address] [place] [address], [place] Potassium [Moles/Vol] 4.0 mmol/L Normal 3.5-5.1 [facility] Comment on above: Order Comment: No: D o not add to previous draw Performed By: #### 0 0121, 85589, 42616 #### [facility] [address] [place] [address], [place] Sodium [Moles/Vol] 138 mmol/L Normal 136-145 [facility] Comment on above: Order Comment: No: D o not add to previous draw Performed By: #### 0 0121, 18695, 18169 #### [facility] [address] [place] [address], [place] Urea nitrogen [Mass/Vol] 22 mg/dL Normal 7-25 [facility] Comment on above: Order Comment: No: D o not add to previous draw Performed By: #### 0 0121, 84575, 11360 #### [facility] [address] [place] [address], [place] CBC W/DIFFon 07-19-2020 ABS BASOPHILS 0.1 10*3/uL Normal 0.0-0.2 [facility] Comment on above: Order Comment: No: D o not add to previous draw Performed By: #### 0 0121, 03106, 79302 #### [facility] [address] [place] [address], [facility] ABS IMM GRANS 0.4 10*3/uL High 0.0-0.2 [facility] Comment on above: Order Comment: No: D o not add to previous draw Performed By: #### 0 0121, 99002, 95658 #### [facility] [address] [place] [address], [facility] ABS NEUTROPHILS 9.5 10*3/uL High 1.6-7.6 [facility] Comment on above: Order Comment: No: D o not add to previous draw Performed By: #### 0 0121, 88426, 81266 #### [facility] [address] [place] [address], [facility] Basophils/100 WBC (Bld) 0.4 % Normal 0.0-1.0 [facility] Comment on above: Order Comment: No: D o not add to previous draw Performed By: #### 0 0121, 56230, 98049 #### [facility] [address] [place] [address], [facility] Eosinophils (Bld) [#/Vol] 0.5 10*3/uL Normal 0.0-0.5 [facility] Comment on above: Order Comment: No: D o not add to previous draw Performed By: #### 0 0121, 35042, 40500 #### [facility] [address] [place] [address], [facility] Eosinophils/100 WBC (Bld) 3.4 % Normal 0.0-6.0 [facility] Comment on above: Order Comment: No: D o not add to previous draw Performed By: #### 0 0121, 78166, 69430 #### [facility] [address] [place] [address], [facility] Erythrocyte distribution width (RBC) [Ratio] 17.9 % High 11.5-15.0 [facility] Comment on above: Order Comment: No: D o not add to previous draw Performed By: #### 0 0121, 00390, 97010 #### [facility] [address] [place] [address], [facility] Hematocrit (Bld) [Volume fraction] 20.7 % Low 36.0-45.0 [facility] Comment on above: Order Comment: No: D o not add to previous draw Performed By: #### 0 0121, 89702, 64952 #### [facility] [address] [place] [address], [facility] Hemoglobin (Bld) [Mass/Vol] 6.9 g/dL Low 12.0-15.0 [facility] Comment on above: Order Comment: No: D o not add to previous draw Performed By: #### 0 0121, 88501, 93567 #### [facility] [address] [facility] [place] [address], [facility] IMMATURE GRANS 3.1 % High 0.0-1.0 [facility] Comment on above: Order Comment: No: D o not add to previous draw Performed By: #### 0 0121, 38553, 79921 #### [facility] [address] [place] [address], [facility] Lymphocytes (Bld) [#/Vol] 1.9 10*3/uL Normal 1.2-4.0 [facility] Comment on above: Order Comment: No: D o not add to previous draw Performed By: #### 0 0121, 03075, 03871 #### [facility] [address] [place] [id number], [facility] Lymphocytes/100 WBC (Bld) 14.2 % Low 20.0-45.0 [facility] Comment on above: Order Comment: No: D o not add to previous draw Performed By: #### 0 0121, 28880, 62174 #### [facility] [address] [place] [address], [facility] MCH (RBC) [Entitic mass] 25.5 pg Low 27.0-33.0 [facility] Comment on above: Order Comment: No: D o not add to previous draw Performed By: #### 0 0121, 42456, 35096 #### [facility] [address] [place] [address], [facility] MCHC (RBC) [Mass/Vol] 33.3 g/dL Normal 32.0-35.0 [facility] Comment on above: Order Comment: No: D o not add to previous draw Performed By: #### 0 0121, , 49585 #### [facility] [address] [place] [address], [facility] MCV (RBC) [Entitic vol] 76.4 fL Low 82.0-98.0 [facility] Comment on above: Order Comment: No: D o not add to previous draw Performed By: #### 0 0121, , 20702 #### [facility] [address] [facility] [place] [address], [facility] Monocytes (Bld) [#/Vol] 1.0 10*3/uL Normal 0.1-1.0 [facility] Comment on above: Order Comment: No: D o not add to previous draw Performed By: #### 0 0121, 31198, 35834 #### [facility] [address] [place] [address], [facility] MONOS 7.6 % Normal 5.0-12.0 [facility] Comment on above: Order Comment: No: D o not add to previous draw Performed By: #### 0 0121, 90055, 12719 #### [facility] [address] [place] [id number], [facility] Neutrophils/100 WBC (Bld) 71.3 % Normal 40.0-72.0 [facility] Comment on above: Order Comment: No: D o not add to previous draw Performed By: #### 0 0121, 01323, 45147 #### [facility] [address] [place] [address], [facility] Nucleated RBC/100 WBC (Bld) [Ratio] 0 % Normal 0-0 [facility] Comment on above: Order Comment: No: D o not add to previous draw Performed By: #### 0 0121, 11070, 50109 #### [facility] [address] [place] [address], [place] PLAT CNT 314 10*3/uL Normal 150-400 [facility] Comment on above: Order Comment: No: D o not add to previous draw Performed By: #### 0 0121, 04220, 21951 #### [facility] [address] [place] [address], [facility] RBC (Bld) [#/Vol] 2.71 10*6/uL Low 3.80-5.00 [facility] Comment on above: Order Comment: No: D o not add to previous draw Performed By: #### 0 0121, 28072, 01793 #### [facility] [address] [place] [address], [facility] WBC (Bld) [#/Vol] 13.38 10*3/uL High 4.00-10.60 [facility] Comment on above: Order Comment: No: D o not add to previous draw Performed By: #### 0 0121, 63355, 30880 #### [facility] [address] [place] [address], [place] COMPLEMENT 3on 05-20-2020 COMPLEMENT 3 81 mg/dL Normal 79-152 [facility] Comment on above: Order Comment: No: D o not add to previous draw Performed By: #### 8 5123 #### [facility] [address] [place] [address], [facility] COMPLEMENT 4on 05-20-2020 COMPLEMENT 4 23 mg/dL Normal 16-38 [facility] Comment on above: Order Comment: No: D o not add to previous draw Performed By: #### 8 5123 #### [facility] [address] [facility] [place] [address], [facility] CREATININE URINE RANDOMon Creatinine [Mass/Vol] 165.0 mg/dL Normal [facility] Comment on above: Order Comment: No: D o not add to previous draw Result Comment: Ther e are no established reference values for random urine specimens Performed By: #### 0 0121, 25735, 47143 #### [facility] [address] [place] [address], [facility] CRYOGLOBULIN ILon 05-20-2020 CRYOGLOBULIN 0 mg/dL Normal 0-10 [facility] Comment on above: Order Comment: No: D o not add to previous draw CT CHEST WO CONTRASTon 05-20 CT CHEST WO CONTRAST [facility] Department of Radiology [address] [place] [id number] Patient Name: MAYTE BURRELL : 1985 Sex: F Age: Race: White Pt. Location: [id number] Patient Status: I Ordered Date: 05/19/2020 10:50:00 [...] reports Electronically signed: Liam Acosta. Transcribed by: [email or web address], User Resident: JYOTSNA CAIN Electronically Signed by: [...] of this test were validated by the [facility] Immunology laboratory. It has not been cleared or approved by the U.S. Food and Drug Administration. The results are not intended to be used as the sole means for clinical diagnosis or patient management decisions. [facility] Immunology lab is authorized under CLIA to perform high-complexity testing. Performed By: #### 8 5123 #### [facility] [address] [place] [address], [facility] HAPTOGLOBINon 05-20-2020 HAPTOGLOBIN 338 mg/dL High 26-164 [facility] Comment on above: Order Comment: No: D o not add to previous draw Performed By: #### 8 5123 #### [facility] [address] [place] [address], [facility] HEMOGLOBINon 05-20-2020 Hemoglobin (Bld) [Mass/Vol] 7.0 g/dL Low 12.0-15.0 [facility] Comment on above: Order Comment: No: D o not add to previous draw Performed By: #### 0 0121, 08199, 19588 #### [facility] [address] [facility] [place] [address], [facility] HEP B CORE AB IGM [id number] HEP B CORE IGM Positive Abnormal Negative [...] Cellular and Tissue-Based Products (HCT/P). Performed by [facility], [address] [place] [id number] [email or web address], Tino Blandon MD - Lab. Director HEPATITIS B SURFACE ANTIBODY QUANTon 05-20-2020 HEP B SURF AB 53.27 mIU/ml Normal [facility] Comment on above: Order Comment: No: D o not add to previous draw Result Comment: INTE RPRETATION: NONREACTIVE<8.00 mIU/mL INDETERMINATE8.00 - 12.00 mIU/mL REACTIVE>12 mIU/mL Performed By: #### 0 0121, 79013, 55136 #### [facility] [address] HEPATITIS B SURFACE ANTIGEN QUALon 05-20-2020 HEP B SURF AG QUAL NONREACTIVE Normal NONREACTIVE [facility] Comment on above: Order Comment: No: D o not add to previous draw Performed By: #### 0 0121, 01119, 76614 #### [facility] [address] [facility]. [address] HEPATITIS C ANTIBODYon 05-20 ANTI-HCV REACTIVE Abnormal NONREACTIVE [facility] Comment on above: Order Comment: No: D o not add to previous draw Result Comment: HEPA TITIS B SURFACE ANTIGEN TO BE CONFIRMED Performed By: #### 0 0121, 12004, 49692 #### [facility] [address] [facility]. [address] HEPATITIS C BY TMAon 020 HCV 35,018,872 IU/mL Normal [facility] Comment on above: Order Comment: No: D o not add to previous draw Performed By: #### 5 6101, 76222 #### [facility] [address] [facility]. [address] HCV LOG BASE 10 7.54 Log10 IU/mL Normal [facility] Comment on above: Order Comment: No: D o not add to previous draw Performed By: #### 5 6101, 91121 #### [facility] [address] [place] [address], [facility] HCV TMA INTERPRETATION Detected Normal [facility] Comment on above: Order Comment: No: D o not add to previous draw Performed By: #### 5 6101, 11360 #### [facility] [address] [place] [address], [facility] IMMUNOFIXATION BLOODon 05-20 IgA [Mass/Vol] 212 mg/dL Normal 60-413 [facility] Comment on above: Order Comment: No: D o not add to previous draw Performed By: #### 8 5123 #### [facility] [address] [place] [address], [facility] IgG [Mass/Vol] 1020 mg/dL Normal 591-1540 [facility] Comment on above: Order Comment: No: D o not add to previous draw Performed By: #### 8 5123 #### [facility] [address] [place] [address], [facility] IgM [Mass/Vol] 225 mg/dL Normal 54-285 [facility] Comment on above: Order Comment: No: D o not add to previous draw Performed By: #### 8 5123 #### [facility] [address] [facility] [place] [address], [facility] IMMUNOFIXATION SERUM IMMUNOFIXATION REVEALS A NORMAL PATTERN. SEE SEPARATE REPORT. Normal [facility] Comment on above: Order Comment: No: D o not add to previous draw Performed By: #### 8 5123 #### [facility] [address] [place] [address], [facility] MAGNESIUM BLOODon 05-20-2020 Magnesium [Mass/Vol] 2.1 mg/dL Normal 1.9-2.7 [facility] Comment on above: Order Comment: No: D o not add to previous draw Performed By: #### 0 0121, 42841, 61890 #### [address] [address], [facility] POC GLUCOSE LABon 05-20-2020 Glucose [Mass/Vol] 71 mg/dL Normal 70-100 [facility] Comment on above: Performed By: #### 0 0121, 61458, 92486 #### [facility] [address] [place], [place] [address] [place] [address] PORTABLE CHEST 1 VIEWon 05-02 PORTABLE CHEST 1 VIEW [facility] Department of Radiology [address] [place] [id number] Patient Name: MAYTE BURRELL : 1985 Sex: F Age: Race: White Pt. Location: [id number] Patient Status: I Ordered Date: 05/19/2020 7:00:00 [...] reports Electronically signed: Liam Acosta. Transcribed by: [email or web address], User Resident: JYOTSNA CAIN Electronically Signed by: [...] acute inflammation. Performed By: #### 0 0121, 17347, 42806 #### [facility] [address] [place] [address], [place] Protein [Mass/Vol] 5.2 g/dL Low 6.0-8.3 [facility] Comment on above: Order Comment: No: D o not add to previous draw Performed By: #### 0 0121, 94148, 11710 #### [facility] [address] 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 Normal [facility] Comment on above: Order Comment: No: D o not add to previous draw Performed By: #### 0 0121, 97927, 67879 #### [facility] [address] [place] [address], [place] Protein [Mass/Vol] 161.0 mg/dL Normal [facility] Comment on above: Order Comment: No: D o not add to previous draw Result Comment: Ther e are no established reference values for random urine specimens Performed By: #### 0 0121, 36276, 19563 #### [facility] [address] [place] [address], [place] RBC'S 2 UNITSon 05-20-2020 CROSSMATCH INTERP 1 COMP Normal [facility] Comment on above: Order Comment: No: D o not add to previous draw Performed By: #### 0 0121, 70237, 42583 #### [facility] [address] [place] [address], [place] CROSSMATCH INTERP 2 COMP Normal [facility] Comment on above: Order Comment: No: D o not add to previous draw Performed By: #### 0 0121, 51188, 30895 #### [facility] [address] [place] [address], [place] PRODUCT CODE 1 E0336 Normal [facility] Comment on above: Order Comment: No: D o not add to previous draw Performed By: #### 0 0121, 03468, 82828 #### [facility] [address] [place] [address], [place] PRODUCT CODE 2 E0336 Normal [facility] Comment on above: Order Comment: No: D o not add to previous draw Performed By: #### 0 0121, 59640, 31465 #### [facility] [address] [place] [address], [place] PRODUCT STATUS 1 RE Normal [facility] Comment on above: Order Comment: No: D o not add to previous draw Result Comment: Resu lt changed by IF on 05/24/2020 06:43. The previous value was XM. Performed By: #### 0 0121, 72276, 99319 #### [facility] [address] [place] [address], [place] PRODUCT STATUS 2 PT Normal [facility] Comment on above: Order Comment: No: D o not add to previous draw Result Comment: Resu lt changed by IF on 05/20/2020 12:26. The previous value was XM. Result changed by IF on 05/21/2020 00:30. The previous value was IS. Performed By: #### 0 0121, 31891, 02371 #### [facility] [address] [place] [address], [place] UNIT ABO 1 O Normal [facility] Comment on above: Order Comment: No: D o not add to previous draw Performed By: #### 0 0121, 95088, 49802 #### [facility] [address] [place] [address], [place] UNIT ABO 2 O Normal [facility] Comment on above: Order Comment: No: D o not add to previous draw Performed By: #### 0 0121, 92921, 34036 #### [facility] [address] [place] [address], [place] UNIT ID 1 [id number] Normal [facility] Comment on above: Order Comment: No: D o not add to previous draw Performed By: #### 0 0121, 82103, 04756 #### [facility] [address] [place] [address], [place] UNIT ID 2 [id number] Normal [facility] Comment on above: Order Comment: No: D o not add to previous draw Performed By: #### 0 0121, 68229, 86436 #### [facility] [address] [place] [address], [place] UNIT RH 1 Positive Normal [facility] Comment on above: Order Comment: No: D o not add to previous draw Performed By: #### 0 0121, 85543, 13862 #### [facility] [address] [place] [address], [place] UNIT RH 2 Positive Normal [facility] Comment on above: Order Comment: No: D o not add to previous draw Performed By: #### 0 0121, 40185, 95846 #### [facility] [address] RHEUMATOID FACTOR SERUMon RA <20 Normal 0-20 [facility] Comment on above: Order Comment: No: D o not add to previous draw Performed By: #### 8 5123 #### [facility] [address] SEDIMENTATION RATEon 020 SED RATE 120 mm/hr High 0-20 [facility] Comment on above: Result Comment: Resu lt changed by VHERR on 05/20/2020 07:22. The previous value was 3. Performed By: #### 0 0121, 49824, 67449 #### [facility] [address] SERUM FREE LIGHT CHAINS ILon 05-20-2020 [...] previous draw Performed By: #### 0 0121, 32617, 95862 #### [facility] [address] BARBITURATES Negative Normal NEGATIVE [facility] Comment on above: Order Comment: No: D o not add to previous draw Performed By: #### 0 0121, 07335, 45828 #### [facility] [address] [place] [address], [place] Benzodiazepines Ql (U) Negative Normal NEGATIVE [facility] Comment on above: Order Comment: No: D o not add to previous draw Performed By: #### 0 0121, 23389, 08621 #### [facility] [address] [place] [address], [place] Cocaine Ql (U) Negative Normal NEGATIVE [facility] Comment on above: Order Comment: No: D o not add to previous draw Performed By: #### 0 0121, 37085, 43755 #### [facility] [address] [place] [address], [place] Methadone Ql (U) Negative Normal NEGATIVE [facility] Comment on above: Order Comment: No: D o not add to previous draw Performed By: #### 0 0121, 49233, 49103 #### [facility] [address] [place] [address], [place] MONO AMPHET Positive Abnormal NEGATIVE [facility] Comment on above: Order Comment: No: D o not add to previous draw Performed By: #### 0 0121, 32532, 57511 #### [facility] [address] [place] [address], [place] Opiates Ql (U) Negative Normal NEGATIVE [facility] Comment on above: Order Comment: No: D o not add to previous draw Performed By: #### 0 0121, 90962, 65932 #### [facility] [address] [place] [address], [place] Phencyclidine Ql (U) Negative Normal NEGATIVE [facility] Comment on above: Order Comment: No: D o not add to previous draw Performed By: #### 0 0121, 79442, 43323 #### [facility] [address] [place] [address], [place] PROPOXYPHENE Negative Normal NEGATIVE [facility] Comment on above: Order Comment: No: D o not add to previous draw Performed By: #### 0 0121, 48723, 11756 #### [facility] [address] [place] [address], [facility] TRICYCLICS Positive Abnormal NEGATIVE [facility] Comment on above: Order Comment: No: D o not add to previous draw Performed By: #### 0 0121, 88529, 99536 #### [facility] [address] [place] [address], [facility] TROPONIN-Ion 05-20-2020 Troponin I.cardiac [Mass/Vol] 0.01 ng/mL Normal 0.00-0.04 [facility] Comment on above: Order Comment: No: D o not add to previous draw Result Comment: REFE RENCE RANGES: 0.00 - 0.04 ng/ml NORMAL 0.05 - 0.50 ng/ml INDETERMINATE > 0.50 ng/ml CONSISTENT WITH AN M.I. Performed By: #### 0 0121, 02001, 44786 #### [facility] [address] [place] [address], [facility] TYPE AND SCREENon 05-20-2020 ABO INTERPRETATION O Normal [facility] Comment on above: Performed By: #### 0 0121, 55835, 92981 #### [facility] [address] [place] [address], [facility] RH INTERPRETATION Positive Normal [facility] Comment on above: Performed By: #### 0 0121, 58089, 52035 #### [facility] [address] [place] [address], [facility] URIC ACID BLOODon 05-20-2020 Urate [Mass/Vol] 5.9 mg/dL Normal 2.3-6.6 [facility] Comment on above: Order Comment: No: D o not add to previous draw Performed By: #### 0 0121, 37069, 67663 #### [facility] [address] [place] [address], [facility] URINE MIX STAIN/EOSon EOSINOPHIL SMEAR NONE SEEN Normal NSN [facility] Comment on above: Order Comment: No: D o not add to previous draw [place] Normal [facility] Comment on above: Order Comment: No: D o not add to previous draw Result Comment: Test Performed by [facility] [address] [place] [address]21 - Released 05/21/2020 12:54 Result Comment: Test Performed by [facility] [address] [place] [address] 88338 - Released 05/21/2020 11:39 Result changed by IF on 05/21/2020 11:27. The previous value was Test Performed by [facility] [address] [place] [address] [phone] Result changed by IF on 05/21/2020 11:39. The previous value was Test Performed by [employer] [address] [address] [phone] Result Comment: Test Performed by [facility] [address] [place] [address] 94913 - Released 05/25/2020 08:06 VANCOMYCIN TIMEDon 0 VANCOMYCIN TIMED 24.4 mcg/mL Normal [facility] Comment on above: Performed By: #### 0 0121, 37381, 77394 #### [facility] [address] [place] [address], [facility] VENOUS BLOOD GASon 0 BASE EXCESS -7 mmol/L Normal [facility] Comment on above: Order Comment: No: D o not add to previous draw Performed By: #### 0 0121, 42541, 47287 #### [facility] [address] [place] [address], [place] FIO2 21 % Normal [facility] Comment on above: Order Comment: No: D o not add to previous draw Performed By: #### 0 0121, 96482, 54203 #### [facility] [address] [place] [address], [place] HCO3 (Bld) [Moles/Vol] 18 mmol/L Normal [facility] Comment on above: Order Comment: No: D o not add to previous draw Performed By: #### 0 0121, 68769, 38574 #### [facility] [address] [place] [address], [place] Oxygen (Bld) [Partial pressure] 35 mm[Hg] Normal 35-45 [facility] Comment on above: Order Comment: No: D o not add to previous draw Performed By: #### 0 0121, 59974, 75652 #### [facility] [address] [place] [address], [place] Oxygen saturation in Blood 59.1 % Low 65.0-75.0 [facility] Comment on above: Order Comment: No: D o not add to previous draw Performed By: #### 0 0121, 14104, 96225 #### [facility] [address] [place] [address], [place] PCO2 31 mmHg Low 40-50 [facility] Comment on above: Order Comment: No: D o not add to previous draw Performed By: #### 0 0121, 86534, 43288 #### [facility] [address] [place] [address], [place] pH (Bld) 7.37 [pH] Normal 7.31-7.41 [facility] Comment on above: Order Comment: No: D o not add to previous draw Performed By: #### 0 0121, 67655, 95114 #### [facility] [address] [place] [address], [place] BASE EXCESS -8 mmol/L Normal [facility] Comment on above: Performed By: #### 7 0069 #### [facility] [address] [place] [address], [place] HCO3 (Bld) [Moles/Vol] 16 mmol/L Normal [facility] Comment on above: Performed By: #### 7 0069 #### [facility] [address] [place] [address], [facility] Oxygen (Bld) [Partial pressure] 41 mm[Hg] Normal 35-45 [facility] Comment on above: Performed By: #### 7 0069 #### [facility] [address] [place] [address], [facility] Oxygen saturation in Blood 81.7 % High 65.0-75.0 [facility] Comment on above: Performed By: #### 7 0069 #### [facility] [address] [place] [address], [facility] PCO2 26 mmHg Low 40-50 [facility] Comment on above: Performed By: #### 7 0069 #### [facility] [address] [place] [address], [facility] pH (Bld) 7.40 [pH] Normal 7.31-7.41 [facility] Comment on above: Performed By: #### 7 0069 #### [facility] [address] [facility] [place] [address], [facility] *BLOOD CULTUREon 05-19-2020 Bacteria identified Cx Nom (Bld) Clinical Report: (D) Specimen: BLOOD CULTURE Collected: 05/19/2020 19:49 Status: Final Last Updated: 05/25/2020 07:31 CULT RES (Final) No Growth Day 5 Normal [facility] Comment on above: Performed By: #### 0 0121, 60009, 89698 #### [facility] [address] [place] [address], [facility] APTTon 05-19-2020 aPTT Coag (Bld) [Time] 36.7 [...] THIS PURPOSE. Performed By: #### 5 6101, 53762 #### [address] BNP (B-TYPE NATRIURETIC PEPT AMY)on 05-19-2020 Natriuretic peptide B (Bld) [Mass/Vol] 435 pg/mL High 0-100 [facility] Comment on above: Order Comment: No: D o not add to previous draw Result Comment: Give n the appropriate clinical setting a BNP result of >100 pg/mL indicates congestive heart failure. Performed By: #### 8 5123 #### [address] CBC W/DIFFon 05-19-2020 ABS BASOPHILS 0.1 10*3/uL Normal 0.0-0.2 [facility] Comment on above: Order Comment: No: D o not add to previous draw Performed By: #### 5 0103 #### [facility] [address] ABS IMM GRANS 0.4 10*3/uL High 0.0-0.2 [facility] Comment on above: Order Comment: No: D o not add to previous draw Performed By: #### 5 0103 #### [address] ABS NEUTROPHILS 10.7 10*3/uL High 1.6-7.6 [facility] Comment on above: Order Comment: No: D o not add to previous draw Performed By: #### 5 0103 #### [facility] [address] Basophils/100 WBC (Bld) 0.4 % Normal 0.0-1.0 [facility] Comment on above: Order Comment: No: D o not add to previous draw Performed By: #### 5 0103 #### [facility] [address] [place] [address], [facility] Eosinophils (Bld) [#/Vol] 0.3 10*3/uL Normal 0.0-0.5 [facility] Comment on above: Order Comment: No: D o not add to previous draw Performed By: #### 5 0103 #### [facility] [address] [place] [address], [facility] Eosinophils/100 WBC (Bld) 2.3 % Normal 0.0-6.0 [facility] Comment on above: Order Comment: No: D o not add to previous draw Performed By: #### 5 0103 #### [facility] [address] [place] [address], [facility] Erythrocyte distribution width (RBC) [Ratio] 18.3 % High 11.5-15.0 [facility] Comment on above: Order Comment: No: D o not add to previous draw Performed By: #### 5 0103 #### [facility] [address] [place] [address], [facility] Hematocrit (Bld) [Volume fraction] 25.3 % Low 36.0-45.0 [facility] Comment on above: Order Comment: No: D o not add to previous draw Performed By: #### 5 0103 #### [facility] [address] [place] [address], [facility] Hemoglobin (Bld) [Mass/Vol] 8.4 g/dL Low 12.0-15.0 [facility] Comment on above: Order Comment: No: D o not add to previous draw Performed By: #### 5 0103 #### [facility] [address] [facility] [place] [address], [facility] IMMATURE GRANS 2.7 % High 0.0-1.0 [facility] Comment on above: Order Comment: No: D o not add to previous draw Performed By: #### 5 0103 #### [facility] [address] Lymphocytes (Bld) [#/Vol] 1.7 10*3/uL Normal 1.2-4.0 [facility] Comment on above: Order Comment: No: D o not add to previous draw Performed By: #### 5 0103 #### [facility] [address] [place] [address], [facility] Lymphocytes/100 WBC (Bld) 12.3 % Low 20.0-45.0 [facility] Comment on above: Order Comment: No: D o not add to previous draw Performed By: #### 5 0103 #### [facility] [address] [place] [address], [facility] MCH (RBC) [Entitic mass] 25.6 pg Low 27.0-33.0 [facility] Comment on above: Order Comment: No: D o not add to previous draw Performed By: #### 5 0103 #### [facility] [address] [place] [address], [facility] MCHC (RBC) [Mass/Vol] 33.2 g/dL Normal 32.0-35.0 [facility] Comment on above: Order Comment: No: D o not add to previous draw Performed By: #### 5 0103 #### [facility] [address] [place] [address], [facility] MCV (RBC) [Entitic vol] 77.1 fL Low 82.0-98.0 [facility] Comment on above: Order Comment: No: D o not add to previous draw Performed By: #### 5 0103 #### [facility] [address] [place] [address], [facility] Monocytes (Bld) [#/Vol] 0.9 10*3/uL Normal 0.1-1.0 [facility] Comment on above: Order Comment: No: D o not add to previous draw Performed By: #### 5 0103 #### [facility] [address] [place] [address], [facility] MONOS 6.6 % Normal 5.0-12.0 [facility] Comment on above: Order Comment: No: D o not add to previous draw Performed By: #### 5 0103 #### [facility] [address] [place] [address], [facility] Neutrophils/100 WBC (Bld) 75.7 % High 40.0-72.0 [facility] Comment on above: Order Comment: No: D o not add to previous draw Performed By: #### 5 0103 #### [facility] [address] [place] [id number], [facility] Nucleated RBC/100 WBC (Bld) [Ratio] 0 % Normal 0-0 [facility] Comment on above: Order Comment: No: D o not add to previous draw Performed By: #### 5 0103 #### [facility] [address] [facility] [address] [address], [facility] PLAT CNT 364 10*3/uL Normal 150-400 [facility] Comment on above: Order Comment: No: D o not add to previous draw Performed By: #### 5 0103 #### [facility] [address] [facility] [address] [place] [id number], [facility] RBC (Bld) [#/Vol] 3.28 10*6/uL Low 3.80-5.00 [facility] Comment on above: Order Comment: No: D o not add to previous draw Performed By: #### 5 0103 #### [facility] [address] [place] [address], [place] WBC (Bld) [#/Vol] 14.10 10*3/uL High 4.00-10.60 [facility] Comment on above: Order Comment: No: D o not add to previous draw Performed By: #### 5 0103 #### [facility] [address] [place] [address], [facility] COMP METABOLIC PANELon 05-19 Albumin [Mass/Vol] 2.8 g/dL Low 3.5-5.7 [facility] Comment on above: Order Comment: No: D o not add to previous draw Performed By: #### 0 0121, 93597, 95439 #### [facility] [address] [place] [address], [place] ALKALINE PHOSPH 343 IU/L High 34-104 [facility] Comment on above: Order Comment: No: D o not add to previous draw Performed By: #### 0 0121, 24562, 33075 #### [facility] [address] [place] [address], [place] ALT [Catalytic activity/Vol] 11 U/L Normal 7-52 [facility] Comment on above: Order Comment: No: D o not add to previous draw Performed By: #### 0 0121, 35658, 90761 #### [facility] [address] [place] [address], [place] AST [Catalytic activity/Vol] 14 U/L Normal 13-39 [facility] Comment on above: Order Comment: No: D o not add to previous draw Performed By: #### 0 0121, 23875, 66940 #### [facility] [address] [place] [address], [place] Bilirubin [Mass/Vol] 1.4 mg/dL High 0.3-1.0 [facility] Comment on above: Order Comment: No: D o not add to previous draw Performed By: #### 0 0121, 36417, 89597 #### [facility] [address] [place] [address], [place] Calcium [Mass/Vol] 8.4 mg/dL Low 8.6-10.3 [facility] Comment on above: Order Comment: No: D o not add to previous draw Performed By: #### 0 0121, 62175, 20400 #### [facility] [address] [place] [address], [place] Chloride [Moles/Vol] 108 mmol/L High 98-107 [facility] Comment on above: Order Comment: No: D o not add to previous draw Performed By: #### 0 0121, 52643, 60973 #### [facility] [address] [place] [address], [place] CO2 [Moles/Vol] 15 mmol/L Low 21-31 [facility] Comment on above: Order Comment: No: D o not add to previous draw Performed By: #### 0 0121, 88293, 53335 #### [facility] [address] [place] [address], [place] Creatinine [Mass/Vol] 2.18 mg/dL High 0.60-1.20 [facility] Comment on above: Order Comment: No: D o not add to previous draw Performed By: #### 0 0121, 77401, 07310 #### [facility] [address] [place] [address], [place] GFR/1.73 sq M predicted among blacks MDRD (S/P/Bld) [Vol rate/Area] 31 ml/min/1.73sq m Abnormal >60 [facility] Comment on above: Order Comment: No: D o not add to previous draw Performed By: #### 0 0121, 68185, 64429 #### [facility] [address] [place] [address], [place] GFR/1.73 sq M predicted among non-blacks MDRD (S/P/Bld) [Vol rate/Area] 26 ml/min/1.73sq m Abnormal >60 [facility] Comment on above: Order Comment: No: D o not add to previous draw Performed By: #### 0 0121, 17836, 67268 #### [facility] [address] [place] [address], [place] Glucose [Mass/Vol] 72 mg/dL Normal 70-100 [facility] Comment on above: Order Comment: No: D o not add to previous draw Performed By: #### 0 0121, 76867, 24568 #### [facility] [address] [place] [address], [place] Potassium [Moles/Vol] 3.5 mmol/L Normal 3.5-5.1 [facility] Comment on above: Order Comment: No: D o not add to previous draw Performed By: #### 0 0121, 68319, 45913 #### [facility] [address] [place] [address], [place] Protein [Mass/Vol] 6.4 g/dL Normal 6.0-8.3 [facility] Comment on above: Order Comment: No: D o not add to previous draw Performed By: #### 0 0121, 34822, 52251 #### [facility] [address] [place] [address], [place] Sodium [Moles/Vol] 136 mmol/L Normal 136-145 [facility] Comment on above: Order Comment: No: D o not add to previous draw Performed By: #### 0 0121, 09453, 49505 #### [facility] [address] [place] [address], [place] Urea nitrogen [Mass/Vol] 22 mg/dL Normal 7-25 [facility] Comment on above: Order Comment: No: D o not add to previous draw Performed By: #### 0 0121, 74242, 22541 #### [facility] [address] [place] [address], [place] History and Physicalon 05-19 History and Physical MR#: [id number] [facility] Pt. Name: Mayte Burrell Admitted: 05/19/2020 Date of : 1985 Attending Physician: Rigoberto Ponce MD Room #: [id number] Discharge Date: HISTORY AND PHYSICAL CHIEF COMPLAINT: Transfer from another facility due to Staphylococcus aureus septicemia. HISTORY OF PRESENT ILLNESS: This is a 34 years old female with past medical history significant for polysubstance use disorder, who presented to [place] ED on May 13, 2020, due to overdose. Apparently, CPR was performed and the patient was admitted to [facility]. According to the patient, she left against medical advice on the second day of the admission, but she returned to the Emergency Department in [place] due to complaints of right hip pain, where she was found to have leukocytosis and fever and she was admitted over there. According to the labs in [place], she had blood cultures positive for MSSA on May 15 and May 17. 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 She was also found to have an JASKARAN, which she was worsening during her admission and the patient was sent to [facility] to be evaluated by Nephrology, Infectious Disease, [...] patient reports that she was admitted to [facility] 3 years ago due to bacteremia and [...] will request for the blood cultures from [place] with the sensitivity report, it appears to [...] need to obtain her echocardiogram records from [facility]. We will consult Cardiothoracic Surgery for [...] Ponce MD Date Trans: 05/19/2020 09:23 P/pablo [id number] Normal [facility] LACTATE BLOODon 05-19-2020 Lactate [Moles/Vol] 1.0 mmol/L Normal 0.5-2.2 [facility] Comment on above: Order Comment: No: D o not add to previous draw Performed By: #### 1 0054 #### [facility] [address] [place] [address], [facility] MAGNESIUM BLOODon 05-19-2020 Magnesium [Mass/Vol] 2.0 mg/dL Normal 1.9-2.7 [facility] Comment on above: Order Comment: No: D o not add to previous draw Performed By: #### 0 0121, 37025, 99876 #### [facility] [address] PROCALCITONINon 05-19-2020 PROCALCITONIN 1.75 ng/mL High 0.00-0.10 [facility] Comment [...] PCT<0.5ng/mL Performed By: #### 3 1488 #### [facility] [address] [place] [address], [facility] PROTHROMBIN TIMEon 0 INR Coag (PPP) [Relative time] 1.15 {INR} Normal 0.91-1.16 [facility] Comment [...] CHEST 1995;[id number]. Performed By: #### 5 6101, 80126 #### [facility] [address] [place] [address], [facility] PT Coag (PPP) [Time] 14.8 s Normal 12.3-14.8 [facility] Comment on above: Order Comment: No: D o not add to previous draw Result Comment: ALL RESULTS MUST BE INTERPRETED WITH RESPECT TO BLOOD DRAWING ARTIFACT OR DILUTION ERROR OF ANTICOAGULANT AT THE TIME OF SAMPLING. Performed By: #### 5 6101, 65814 #### [facility] [address] TROPONIN-Ion 05-19-2020 Troponin I.cardiac [Mass/Vol] 0.05 ng/mL High 0.00-0.04 [facility] Comment on above: Result Comment: REFE RENCE RANGES: 0.00 - 0.04 ng/ml NORMAL 0.05 - 0.50 ng/ml INDETERMINATE > 0.50 ng/ml CONSISTENT WITH AN M.I. Performed By: #### 0 0121, 63719, 71230 #### [facility] [address] Basic Metabolic Profon 07-11 (cont.) Normal [facility] Comment on above: Result Comment: Aver age GFR for 30-39 years old: 107 mL/min/1.73sq mChronic Kidney Disease: <60 mL/min/1.73sq mKidney failure: <15 mL/min/1.73sq meGFR calculated using average adult body mass. Additional eGFR calculator available at:[email or web address] [address] [place] [address] Performed By: #### P LT, PT, PTT ####[facility] [place] [facility] [address] [place] [address] Anion gap 14 mmol/L Normal 9-17 [facility] Comment on above: Performed By: #### P LT, PT, PTT ####[facility] [place] [facility] [address] [place] [address] Calcium 9.2 mg/dL Normal 8.6-10.4 [facility] Comment on above: Performed By: #### P LT, PT, PTT ####[facility] [place] [facility] [address] [place] [address] Chloride 97 mmol/L Low 98-107 [facility] Comment on above: Performed By: #### P LT, PT, PTT ####[address] [address] CO2 25 mmol/L Normal 20-31 [facility] Comment on above: Performed By: #### P LT, PT, PTT ####[facility] [place] [facility] [address] [place] [address] Creatinine 0.38 mg/dL Low 0.50-0.90 [facility] Comment on above: Performed By: #### P LT, PT, PTT ####[address] [address] eGFR (non-black) mL/min/{1.73_m2} Normal >60 [facility] Comment on above: Performed By: #### P LT, PT, PTT ####[facility] [place] [facility] [address] [place] [address] Glucose mass conc 93 mg/dL Normal 70-99 [facility] Comment on above: Performed By: #### P LT, PT, PTT ####[place] [address] [place] [address] Potassium molar conc 4.1 mmol/L Normal 3.7-5.3 [facility] Comment on above: Performed By: #### P LT, PT, PTT ####[facility] [place] [facility] [address] [place] [address] Sodium 136 mmol/L Normal 135-144 [facility] Comment on above: Performed By: #### P LT, PT, PTT ####[facility] [place] [facility] [address] [place] [address] Urea nitrogen 9 mg/dL Normal 6-20 [facility] Comment on above: Performed By: #### P LT, PT, PTT ####[address] [address] BUN/CRE Ratio NOT REPORTED Normal 07-22 [facility] Comment on above: Performed By: #### P LT, PT, PTT ####[address] [address] Staging: NOT REPORTED Normal [facility] Comment on above: Performed By: #### P LT, PT, PTT ####[address] [address] Blood Bank Specimenon 2016 Blood Bank Specimen NOT REPORTED Normal [facility] C-Reactive Proteinon 017 C reactive protein (CRP) 129.9 mg/L High 0.0-5.0 [facility] Comment on above: Result Comment: [address] [address] Performed By: #### P LT, PT, PTT ####[address] [address] CBCon 07-11-2017 Erythrocyte distribution width Auto Ratio (RBC) 19.1 % High 12.5-15.4 [facility] Comment on above: Performed By: #### P LT, PT, PTT ####[address] [address] Erythrocytes (RBC) 2.84 10*6/uL Low 4.0-5.[address] [facility] Comment on above: Performed By: #### P LT, PT, PTT ####[address] [address] Hematocrit (HCT) 24.6 % Low 36-46 [facility] Comment on above: Performed By: #### P LT, PT, PTT ####[address] [address] Hemoglobin mass conc (Bld) 8.0 g/dL Low 12.0-16.0 [facility] Comment on above: Performed By: #### P LT, PT, PTT ####[address] [address] MCH 28.2 pg Normal 26-34 [facility] Comment on above: Performed By: #### P LT, PT, PTT ####[address] [address] MCHC mass conc (RBC) 32.5 g/dL Normal 31-37 [facility] Comment on above: Performed By: #### P LT, PT, PTT ####[address] [address] MCV 86.8 fL Normal 80-100 [facility] Comment on above: Performed By: #### P LT, PT, PTT ####[address] [address] Platelet mean volume (PMV) 7.5 fL Normal 6.0-12.0 [facility] Comment on above: Result Comment: [address] [address] Performed By: #### P LT, PT, PTT ####[address] [address] Platelets 615 10*3/uL High 140-450 [facility] Comment on above: Performed By: #### P LT, PT, PTT ####[address] [address] WBC (Leukocytes) 11.0 10*3/uL Normal 3.5-11.0 [facility] Comment on above: Performed By: #### P LT, PT, PTT ####[address] [address] [address] THORACIC SPINE WO CONTRAS Ton 07-11-2017 CT THORACIC SPINE WO CONTRAST EXAMINATION:CT OF [...] by:JOVON Collierigned by:Herman Parada MD07/11/17Final result Normal [facility] Discharge Summaryon 07-11-20 17 HIM IP Note OR Railway Engineer Normal [facility] Hgb/Hcton 07-11-2017 Hematocrit (HCT) 21.6 % Low 36-46 [facility] Comment on above: Result Comment: [facility] [address] [place] [address] Performed By: #### P LT, PT, PTT ####[facility] [place] [address] [id number] Hemoglobin mass conc (Bld) 7.0 g/dL Critically low 12.0-16.0 [facility] Comment on above: Result Comment: TEST CONFIRMED Performed By: #### P LT, PT, PTT ####[facility] [place] [address] Type + Screenon 07-11-2017 Type + Screen Sample Expiration 07/14/2017 Arm Band Number [id number] ABO/Rh(D) O POSITIVE Antibody Screen NEGATIVE [address] [address] Normal [facility] Comment on above: Performed By: #### P LT, PT, PTT ####[address] [address] Basic Metabolic Profon 07-10 (cont.) Normal [facility] Comment on above: Result Comment: Aver age GFR for 30-39 years old: 107 mL/min/1.73sq mChronic Kidney Disease: <60 mL/min/1.73sq mKidney failure: <15 mL/min/1.73sq meGFR calculated using average adult body mass. Additional eGFR calculator available at:http://www.[employer]/multiple_crcl_2012.htm[address] [address] Performed By: #### C BC, BMP ####[address] [address] Anion gap 11 mmol/L Normal 9-17 [facility] Comment on above: Performed By: #### C BC, BMP ####[address] [address] Calcium 8.7 mg/dL Normal 8.6-10.4 [facility] Comment on above: Performed By: #### C BC, BMP ####[address] [address] Chloride 100 mmol/L Normal 98-107 [facility] Comment on above: Performed By: #### C BC, BMP ####[address] [address] CO2 29 mmol/L Normal 20-31 [facility] Comment on above: Performed By: #### C BC, BMP ####[facility] [address] [place] [address], [place] [address] Creatinine 0.42 mg/dL Low 0.50-0.90 [facility] Comment on above: Performed By: #### C BC, BMP ####[facility] [place] [address] eGFR (non-black) mL/min/{1.73_m2} Normal >60 [facility] Comment on above: Performed By: #### C BC, BMP ####[address] [address] Glucose mass conc 108 mg/dL High 70-99 [facility] Comment on above: Performed By: #### C BC, BMP ####[address] [address] Potassium molar conc 3.9 mmol/L Normal 3.7-5.3 [facility] Comment on above: Performed By: #### C BC, BMP ####[address] [address] Sodium 140 mmol/L Normal 135-144 [facility] Comment on above: Performed By: #### C BC, BMP ####[address] [address] Urea nitrogen 9 mg/dL Normal 6-20 [facility] Comment on above: Performed By: #### C BC, BMP ####[address] [place] [address] BUN/CRE Ratio NOT REPORTED Normal 9-20 [facility] Comment on above: Performed By: #### C BC, BMP ####[address] [address] Staging: NOT REPORTED Normal [facility] Comment on above: Performed By: #### C BC, BMP ####[address] [place] [address] CBCon 07-10-2017 Erythrocyte distribution width Auto Ratio (RBC) 19.3 % High 12.5-15.4 [facility] Comment on above: Performed By: #### C BC, BMP ####[address] [address] Erythrocytes (RBC) 2.57 10*6/uL Low 4.0-5.[address] [facility] Comment on above: Performed By: #### C BC, BMP ####[address] [address] Hematocrit (HCT) 22.1 % Low 36-46 [facility] Comment on above: Performed By: #### C BC, BMP ####[address] [address] Hemoglobin mass conc (Bld) 7.3 g/dL Low 12.0-16.0 [facility] Comment on above: Performed By: #### C BC, BMP ####[address] [address] MCH 28.5 pg Normal 26-34 [facility] Comment on above: Performed By: #### C BC, BMP ####[address] [address] MCHC mass conc (RBC) 33.1 g/dL Normal 31-37 [facility] Comment on above: Performed By: #### C BC, BMP ####[address] [address] MCV 86.3 fL Normal 80-100 [facility] Comment on above: Performed By: #### C BC, BMP ####[facility] [place] [address] Platelet mean volume (PMV) 7.4 fL Normal 6.0-12.0 [facility] Comment on above: Result Comment: [facility] [address] [place] [address] Performed By: #### C JUVENAL, BMP ####Lalitha [address] [place] [address] Platelets 504 10*3/uL High 140-450 [facility] Comment on above: Performed By: #### C JUVENAL, BMP ####Lalitha Saunders[address] [place] [address] WBC (Leukocytes) 11.3 10*3/uL High 3.5-11.0 [facility] Comment on above: Performed By: #### C JUVENAL, BMP ####Lalitha [address] [address] Hgb/Hcton 07-10-2017 Hematocrit (HCT) 22.1 % Low 36-46 [facility] Comment on above: Result Comment: [facility] [address] [place] [address] Performed By: #### H H ####[facility] [address] [address] Hemoglobin mass conc (Bld) 7.2 g/dL Low 12.0-16.0 [facility] Comment on above: Performed By: #### H H ####[facility] [address] [address] Hematocrit (HCT) 23.0 % Low 36-46 [facility] Comment on above: Result Comment: [facility] [address] [place] [address] Performed By: #### H H ####[facility] [address] [address] Hemoglobin mass conc (Bld) 7.4 g/dL Low 12.0-16.0 [facility] Comment on above: Performed By: #### H H ####[facility] [address] [address] Basic Metabolic Profon 07-09 (cont.) Normal [facility] Comment on above: Result Comment: Aver age GFR for 30-39 years old: 107 mL/min/1.73sq mChronic Kidney Disease: <60 mL/min/1.73sq mKidney failure: <15 mL/min/1.73sq meGFR calculated using average adult body mass. Additional eGFR calculator available at:http://www.[employer]/multiple_crcl_2012.htm[address]an [address] [place] [address] Performed By: #### B RENETTA, CBC ####[address] [address] Anion gap 13 mmol/L Normal 9-17 [facility] Comment on above: Performed By: #### B RENETTA, CBC ####[address] [address] Calcium 8.5 mg/dL Low 8.6-10.4 [facility] Comment on above: Performed By: #### B MP, CBC ####[facility] [address] [address] Chloride 101 mmol/L Normal 98-107 [facility] Comment on above: Performed By: #### B MP, CBC ####[facility] [address] [place] [address] CO2 25 mmol/L Normal 20-31 [facility] Comment on above: Performed By: #### B MP, CBC ####[facility] [address] [address] Creatinine 0.47 mg/dL Low 0.50-0.90 [facility] Comment on above: Performed By: #### B MP, CBC ####[address] [address] eGFR (non-black) mL/min/{1.73_m2} Normal >60 [facility] Comment on above: Performed By: #### B MP, CBC ####Lalitha [address] [place] [address] Glucose mass conc 113 mg/dL High 70-99 [facility] Comment on above: Performed By: #### B MP, CBC ####Lalitha [address] [place] [address] Potassium molar conc 4.2 mmol/L Normal 3.7-5.3 [facility] Comment on above: Performed By: #### B MP, CBC ####[facility] SaundersQ[address] [place] [address] Sodium 139 mmol/L Normal 135-144 [facility] Comment on above: Performed By: #### B MP, CBC ####Lalitha [address] [place] [address] Urea nitrogen 12 mg/dL Normal 6-20 [facility] Comment on above: Performed By: #### B MP, CBC ####Lalitha [address] [place] [address] BUN/CRE Ratio NOT REPORTED Normal 9-20 [facility] Comment on above: Performed By: #### B MP, CBC ####[facility] [address] [place] [address] Staging: NOT REPORTED Normal [facility] Comment on above: Performed By: #### B MP, CBC ####Lalitha [address] [place] [address] CBCon 07-09-2017 Erythrocyte distribution width Auto Ratio (RBC) 18.9 % High 12.5-15.4 [facility] Comment on above: Performed By: #### B MP, CBC ####[address] [address] Erythrocytes (RBC) 2.52 10*6/uL Low 4.0-5.[address] [facility] Comment on above: Performed By: #### B MP, CBC ####[address] [address] Hematocrit (HCT) 21.4 % Low 36-46 [facility] Comment on above: Performed By: #### B MP, CBC ####[address] [address] Hemoglobin mass conc (Bld) 7.1 g/dL Low 12.0-16.0 [facility] Comment on above: Performed By: #### B MP, CBC ####[address] [address] MCH 28.1 pg Normal 26-34 [facility] Comment on above: Performed By: #### B MP, CBC ####[address] [address] MCHC mass conc (RBC) 33.1 g/dL Normal 31-37 [facility] Comment on above: Performed By: #### B MP, CBC ####[address] [address] MCV 85.0 fL Normal 80-100 [facility] Comment on above: Performed By: #### B MP, CBC ####[address] [address] Platelet mean volume (PMV) 7.3 fL Normal 6.0-12.0 [facility] Comment on above: Result Comment: [address] [address] Performed By: #### B MP, CBC ####[address] [address] Platelets 470 10*3/uL High 140-450 [facility] Comment on above: Performed By: #### B MP, CBC ####[address] [address] WBC (Leukocytes) 13.7 10*3/uL High 3.5-11.0 [facility] Comment on above: Performed By: #### B MP, CBC ####[address] [address] Hgb/Hcton 07-09-2017 Hematocrit (HCT) 23.1 % Low 3646 [facility] Comment on above: Result Comment: [facility] [address] [place] [address] Performed By: #### H H ####[address] [address] Hemoglobin mass conc (Bld) 7.4 g/dL Low 12.0-16.0 [facility] Comment on above: Performed By: #### H H ####[address] [address] Hematocrit (HCT) 21.6 % Low 36-46 [facility] Comment on above: Result Comment: [facility] [address] [place] [address] Performed By: #### H H ####[address] [address] Hemoglobin mass conc (Bld) 7.2 g/dL Low 12.0-16.0 [facility] Comment on above: Performed By: #### H H ####[address] [address] XR SPINE ENTIRE 2-3 VWon XR SPINE [...] by:JOVON Zarateigned by:Bud Wilson MD07/09/17Final result Normal [facility] Basic Metabolic Profon 07-08 (cont.) Normal [facility] Comment on above: Result Comment: Aver age GFR for 30-39 years old: 107 mL/min/1.73sq mChronic Kidney Disease: <60 mL/min/1.73sq mKidney failure: <15 mL/min/1.73sq meGFR calculated using average adult body mass. Additional eGFR calculator available at:http://www.[employer]/multiple_crcl_2012.htm[facility] [address] [place] [address] Performed By: #### V NCR, BMP ####[facility] [address] [place] [address] Anion gap 13 mmol/L Normal - [facility] Comment on above: Performed By: #### V NCR, BMP ####[facility] [address] [place] [address] Calcium 8.6 mg/dL Normal 8.6-10.4 [facility] Comment on above: Performed By: #### V NCR, BMP ####[facility] [address] [place] [address] Chloride 107 mmol/L Normal 98-107 [facility] Comment on above: Performed By: #### V NCR, BMP ####[facility] [place] [address] CO2 23 mmol/L Normal 20-31 [facility] Comment on above: Performed By: #### V NCR, BMP ####[facility] [place] [address] Creatinine 0.51 mg/dL Normal 0.50-0.90 [facility] Comment on above: Performed By: #### V NCR, BMP ####[address] [place] [address] eGFR (non-black) mL/min/{1.73_m2} Normal >60 [facility] Comment on above: Performed By: #### V NCR, BMP ####[address] [address] Glucose mass conc 168 mg/dL High 70-99 [facility] Comment on above: Performed By: #### V NCR, BMP ####[address] [place] [address] Potassium molar conc 3.9 mmol/L Normal 3.7-5.3 [facility] Comment on above: Performed By: #### V NCR, BMP ####[address] [place] [address] Sodium 143 mmol/L Normal 135-144 [facility] Comment on above: Performed By: #### V NCR, BMP ####[facility] [place] [address] Urea nitrogen 11 mg/dL Normal 6-20 [facility] Comment on above: Performed By: #### V NCR, BMP ####[facility] [place] [address] BUN/CRE Ratio NOT REPORTED Normal 9-20 [facility] Comment on above: Performed By: #### V NCR, BMP ####[address] [address] Staging: NOT REPORTED Normal [facility] Comment on above: Performed By: #### V NCR, BMP ####[address] [address] CBC with Diffon 07-08-2017 Abs. Basophil 0.00 k/uL Normal 0.0-0.2 [facility] Comment on above: Result Comment: [address] [address] Performed By: #### V NCR, BMP ####[address] [address] Abs.Neutrophil (Seg) 13.00 k/uL High 1.8-7.7 [facility] Comment on above: Performed By: #### V NCR, BMP ####[address] [address] Basophils/100 WBC Auto (Bld) 0 % Normal [facility] Comment on above: Performed By: #### V NCR, BMP ####[address] [address] Eosinophils 0.00 10*3/uL Normal 0.0-0.4 [facility] Comment on above: Performed By: #### V NCR, BMP ####[address] [address] Eosinophils/100 leukocytes 0 % Normal [facility] Comment on above: Performed By: #### V NCR, BMP ####[address] [address] Erythrocyte distribution width Auto Ratio (RBC) 18.3 % High 12.5-15.4 [facility] Comment on above: Performed By: #### V NCR, BMP ####[facility] [address] [place] [address] Erythrocyte morphology ANISOCYTOSIS PRESENT Normal [facility] Comment on above: Performed By: #### V NCR, BMP ####[facility] [address] [place] [address] Erythrocytes (RBC) 2.66 10*6/uL Low 4.0-5.[address] [facility] Comment on above: Performed By: #### V NCR, BMP ####[address] [address] Hematocrit (HCT) 22.6 % Low 36-46 [facility] Comment on above: Performed By: #### V NCR, BMP ####[address] [address] Hemoglobin mass conc (Bld) 7.4 g/dL Low 12.0-16.0 [facility] Comment on above: Result Comment: MINERVA JONES NOTIFIED Performed By: #### V NCR, BMP ####[address] [address] Lymphocytes 1.90 10*3/uL Normal 1.0-4.8 [facility] Comment on above: Performed By: #### V NCR, BMP ####[address] [address] Lymphocytes/100 leukocytes 12 % Normal [facility] Comment on above: Performed By: #### V NCR, BMP ####[address] [address] MCH 27.8 pg Normal 26-34 [facility] Comment on above: Performed By: #### V NCR, BMP ####[address] [address] MCHC mass conc (RBC) 32.6 g/dL Normal 31-37 [facility] Comment on above: Performed By: #### V NCR, BMP ####[address] [place] [address] MCV 85.2 fL Normal 80-100 [facility] Comment on above: Performed By: #### V NCR, BMP ####[address] [place] [address] Monocytes 0.80 10*3/uL Normal 0.1-1.2 [facility] Comment on above: Performed By: #### V NCR, BMP ####[address] [address] Monocytes/100 leukocytes 5 % Normal [facility] Comment on above: Performed By: #### V NCR, BMP ####[address] [address] Neutrophil (Seg) 83 % Normal [facility] Comment on above: Performed By: #### V NCR, BMP ####[address] [address] Platelet mean volume (PMV) 7.0 fL Normal 6.0-12.0 [facility] Comment on above: Performed By: #### V NCR, BMP ####[address] [address] Platelets 534 10*3/uL High 140-450 [facility] Comment on above: Performed By: #### V NCR, BMP ####[address] [address] WBC (Leukocytes) 15.7 10*3/uL High 3.5-11.0 [facility] Comment on above: Performed By: #### V NCR, BMP ####[address] [address] Auto Diff Performed NOT REPORTED Normal [facility] Comment on above: Performed By: #### V NCR, BMP ####Lalitha [address] [place] [address] Platelets NOT REPORTED Normal [facility] Comment on above: Performed By: #### V NCR, BMP ####Lalitha [address] [place] [address] WBC Morphology NOT REPORTED Normal [facility] Comment on above: Performed By: #### V NCR, BMP ####Lalitha [address] [place] [address] Cult,Urine,Cathon 07-08-2017 Cult,Urine,Cath Specimen Description .CATHETERIZED URINE 1ST INSERTION CALDWELL Special Requests NOT REPORTED Culture NO GROWTH Report Status FINAL 07/08/2017 Normal [facility] Comment on above: Performed By: #### V NCR, BMP ####[address] [address] Hgb/Hcton 07-08-2017 Hematocrit (HCT) 21.4 % Low 36-46 [facility] Comment on above: Result Comment: [facility] [address] [place] [address] Performed By: #### V NCR, BMP ####Lalitha [address] [place] [address] Hemoglobin mass conc (Bld) 7.2 g/dL Low 12.0-16.0 [facility] Comment on above: Performed By: #### V NCR, BMP ####[facility] [address]Dh[address] [place] [address] Calcium, Ionicon 07-07-2017 Calcium 1.17 mmol/L Normal 1.13-1.33 [facility] Comment on above: Result Comment: [facility] [address] [place] [address] Performed By: #### V NCR, BMP ####[address] [address] Calcium 1.17 mmol/L Normal 1.13-1.33 [facility] Comment on above: Result Comment: [facility] [place] [address] Performed By: #### V NCR, BMP ####[address] [address] Cult, Bloodon 07-07-2017 Cult, Blood Specimen Description .BLOOD Special Requests L HAND 3ML Culture NO GROWTH 6 DAYS Report Status FINAL 07/07/2017 Normal [facility] Comment on above: Performed By: #### V NCR, BMP ####[address] [address] Cult,Urineon 07-07-2017 Cult,Urine Specimen Description .URINE Special Requests NOT REPORTED Culture DUPLICATE ORDER Report Status FINAL 07/07/2017 Normal [facility] Comment on above: Performed By: #### V NCR, BMP ####[address] [address] Open Heart Panelon 7 Carmelo Test INFORMATION NOT PROVIDED [facility] Comment on above: Performed By: #### V NCR, BMP ####[address] [address] Bicarbonate (HCO3) 18.6 mmol/L Low 22-27 [facility] Comment on above: Performed By: #### V NCR, BMP ####[facility] [address] [address] Body Temp. 37.0 Normal [facility] Comment on above: Performed By: #### V NCR, BMP ####[address] [address] Chloride 111 mmol/L High 98-110 [facility] Comment on above: Result Comment: [facility] [place] [address] Performed By: #### V NCR, BMP ####[facility] SaundersGdheynkwt[address] [place] [address] CO2 33.3 mmHg Normal 32-45 [facility] Comment on above: Performed By: #### V NCR, BMP ####[facility] [address]undersRsrqfxjvjyp[address]53 [place] [address] FIO2 50% Normal [facility] Comment on above: Performed By: #### V NCR, BMP ####[facility] [address] [place] [address] Glucose mass conc 169 mg/dL High 65-105 [facility] Comment on above: Performed By: #### V NCR, BMP ####[facility] [address] [place] [address] Hematocrit (HCT) 27.1 % Normal [facility] Comment on above: Performed By: #### V NCR, BMP ####[facility] [address] [place] [address] Hemoglobin mass conc (Bld) 8.7 g/dL Normal [facility] Comment on above: Performed By: #### V NCR, BMP ####[facility] [address] [place] [address] Hemoglobin mass conc (Bld) 1.3 % Normal 0-5.0 [facility] Comment on above: Result Comment: %Ref erence Range:Non-Smokers 0.0-0.8 %Smokers 4-20 % Performed By: #### V NCR, BMP ####[facility] [address] [place] [address] Negative Base Excess 5.5 mmol/L High 0.0-2.0 [facility] Comment on above: Performed By: #### V NCR, BMP ####[facility] HospitalHippo Manager SoftwareAumiaqnkbper[address] [place] [address] O2 saturation 99.6 % Normal 94-100 [facility] Comment on above: Performed By: #### V NCR, BMP ####[facility] [address]Wdntvb[address] [place] [address] Oxygen in arterial blood 245.0 mm[Hg] High 75-95 [facility] Comment on above: Performed By: #### V NCR, BMP ####[facility] SaundersXdlycng[address] [place] [address] pH of blood 7.366 [pH] Normal 7.350-7.450 [facility] Comment on above: Performed By: #### V NCR, BMP ####[facility] [address] [address] Potassium molar conc 4.6 mmol/L Normal 3.6-5.0 [facility] Comment on above: Performed By: #### V NCR, BMP ####[facility] [address] [address] Sodium 138 mmol/L Normal 136-145 [facility] Comment on above: Performed By: #### V NCR, BMP ####[facility] [address] [address] CO2 NOT REPORTED Normal 32-45 [facility] Comment on above: Performed By: #### V NCR, BMP ####[facility] [address] [address] Hemoglobin mass conc (Bld) NOT REPORTED Normal 95.0-98.0 [facility] Comment on above: Performed By: #### V NCR, BMP ####[facility] [address] [address] Mode NOT REPORTED Normal [facility] Comment on above: Performed By: #### V NCR, BMP ####Lalitha [address] [address] Notification Time NOT REPORTED Normal [facility] Comment on above: Performed By: #### V NCR, BMP ####[facility] SaundersBfsivtckppel6672 [place] [address] Notification: NOT REPORTED Normal [facility] Comment on above: Performed By: #### V NCR, BMP ####[facility] SaundersObdxcgxtyxiv4020 [place] [address] O2 Device/Flow/% NOT REPORTED Normal [facility] Comment on above: Performed By: #### V NCR, BMP ####[facility] [address] [address] PEEP/CPAP NOT REPORTED Normal [facility] Comment on above: Performed By: #### V NCR, BMP ####[facility] [address] [address] pH Adjst'd for Temp. NOT REPORTED Normal 7.350-7.450 [facility] Comment on above: Performed By: #### V NCR, BMP ####[facility] SaundersPcjvqmheicai[address] [place] [address] pO2 Adjst'd for Temp NOT REPORTED Normal 75-95 [facility] Comment on above: Performed By: #### V NCR, BMP ####[facility] HospitalVacunek [address] [address] Positive Base Excess NOT REPORTED Normal 0.0-2.0 [facility] Comment on above: Performed By: #### V NCR, BMP ####[facility] HospitalHippo Manager SoftwareQrupgumhnank3962 [place] [address] PSV NOT REPORTED Normal [facility] Comment on above: Performed By: #### V NCR, BMP ####Lalitha Saunders[address] [place] [address] Pt. Position NOT REPORTED Normal [facility] Comment on above: Performed By: #### V NCR, BMP ####Lalitha Saunders[address] [place] [address] Respiratory rate NOT REPORTED Normal [facility] Comment on above: Performed By: #### V NCR, BMP ####Lalitha Saunders[address] [place] [address] Set Rate NOT REPORTED Normal [facility] Comment on above: Performed By: #### V NCR, BMP ####Lalitha Saunders[address] [place] [address] Site Drawn NOT REPORTED Normal [facility] Comment on above: Performed By: #### V NCR, BMP ####[facility] SaundersBduzuagcnjtf[address] [place] [address] Text for Respiratory NOT REPORTED Normal [facility] Comment on above: Performed By: #### V NCR, BMP ####[facility] SaundersYbruxvwadpuq56[address] [place] [address] Total Hb NOT REPORTED Normal 12.0-16.0 [facility] Comment on above: Performed By: #### V NCR, BMP ####[facility]mil[facility] SaundersLdztfyqynoub[address] [place] [address] Total Rate NOT REPORTED Normal [facility] Comment on above: Performed By: #### V NCR, BMP ####[facility]mil[facility] SaundersQbdejlxhbkuz2055 [place] [address] [place] NOT REPORTED Normal [facility] Comment on above: Performed By: #### V NCR, BMP ####[facility]mil[facility] SaundersUswqlagcrriz5749 [place] [address] Carmelo Test INFORMATION NOT PROVIDED Normal [facility] Comment on above: Performed By: #### V NCR, BMP ####[facility] SaundersFebjkrlgzgeb7278 [place] [address] Bicarbonate (HCO3) 18.7 mmol/L Low 22-27 [facility] Comment on above: Performed By: #### V NCR, BMP ####[address] [address] Body Temp. 37.0 Normal [facility] Comment on above: Performed By: #### V NCR, BMP ####[address] [address] Chloride 114 mmol/L High 98-110 [facility] Comment on above: Result Comment: [address] [address] Performed By: #### V NCR, BMP ####[address] [address] CO2 32.3 mmHg Normal 32-45 [facility] Comment on above: Performed By: #### V NCR, BMP ####[address] [address] FIO2 6 Normal [facility] Comment on above: Performed By: #### V NCR, BMP ####[address] [address] Glucose mass conc 143 mg/dL High 65-105 [facility] Comment on above: Performed By: #### V NCR, BMP ####[facility] HospitalVacunek [address] [address] Hematocrit (HCT) 32.3 % Normal [facility] Comment on above: Performed By: #### V NCR, BMP ####[facility] HospitalVacunek [address] [address] Hemoglobin mass conc (Bld) 1.2 % Normal 0-5.0 [facility] Comment on above: Result Comment: %Ref erence Range:Non-Smokers 0.0-0.8 %Smokers 4-20 % Performed By: #### V NCR, BMP ####[address] [address] Hemoglobin mass conc (Bld) 10.5 g/dL Normal [facility] Comment on above: Performed By: #### V NCR, BMP ####Lalitha Saunders[address] [place] [address] Negative Base Excess 5.1 mmol/L High 0.0-2.0 [facility] Comment on above: Performed By: #### V NCR, BMP ####Lalitha Saunders[address] [place] [address] O2 saturation 99.5 % Normal 94-100 [facility] Comment on above: Performed By: #### V NCR, BMP ####[facility] Hospitalmil[facility] SaundersAhlisprgcdrj7455 [place] [address] Oxygen in arterial blood 241.0 mm[Hg] High 75-95 [facility] Comment on above: Performed By: #### V NCR, BMP ####[facility] Hospitalmil[facility]ro SaundersDraoqvphmaih2497 [place] [address] pH of blood 7.381 [pH] Normal 7.350-7.450 [facility] Comment on above: Performed By: #### V NCR, BMP ####[facility] Hospitalmil[facility] SaundersTdejwgsnhsui7231 [place] [address] Potassium molar conc 4.0 mmol/L Normal 3.6-5.0 [facility] Comment on above: Performed By: #### V NCR, BMP ####Lalitha Saunders[address] [place] [address] Sodium 138 mmol/L Normal 136-145 [facility] Comment on above: Performed By: #### V NCR, BMP ####Lalitha Saunders[address] [place] [address] CO2 NOT REPORTED Normal 32-45 [facility] Comment on above: Performed By: #### V NCR, BMP ####Lalitha Saunders[address] [place] [address] Hemoglobin mass conc (Bld) NOT REPORTED Normal 0.0-1.5 [facility] Comment on above: Performed By: #### V NCR, BMP ####[facility] Hospitalmil[facility]ro SaundersVokrqthjzybh6[address] [place] [address] Mode NOT REPORTED Normal [facility] Comment on above: Performed By: #### V NCR, BMP ####[address] [address] Notification Time NOT REPORTED Normal [facility] Comment on above: Performed By: #### V NCR, BMP ####[address] [address] Notification: NOT REPORTED Normal [facility] Comment on above: Performed By: #### V NCR, BMP ####[address] [address] O2 Device/Flow/% NOT REPORTED Normal [facility] Comment on above: Performed By: #### V NCR, BMP ####[address] [address] PEEP/CPAP NOT REPORTED Normal [facility] Comment on above: Performed By: #### V NCR, BMP ####[address] [address] pH Adjst'd for Temp. NOT REPORTED Normal 7.350-7.450 [facility] Comment on above: Performed By: #### V NCR, BMP ####[address] [address] pO2 Adjst'd for Temp NOT REPORTED Normal 75-95 [facility] Comment on above: Performed By: #### V NCR, BMP ####[address] [address] Positive Base Excess NOT REPORTED Normal 0.0-2.0 [facility] Comment on above: Performed By: #### V NCR, BMP ####[facility]mil[facility] Wjrkmiifvrlb9854 [place] [address] PSV NOT REPORTED Normal [facility] Comment on above: Performed By: #### V NCR, BMP ####[facility] Hospitalmil[facility] [address] [address] Pt. Position NOT REPORTED Normal [facility] Comment on above: Performed By: #### V NCR, BMP ####[facility] Hospitalmil[facility] [address] [address] Respiratory rate NOT REPORTED Normal [facility] Comment on above: Performed By: #### V NCR, BMP ####[address] [address] Set Rate NOT REPORTED Normal [facility] Comment on above: Performed By: #### V NCR, BMP ####[facility] Hospitalmil[facility] [address] [address] Site Drawn NOT REPORTED Normal [facility] Comment on above: Performed By: #### V NCR, BMP ####[facility]mil[facility] [address] [address] Text for Respiratory NOT REPORTED Normal [facility] Comment on above: Performed By: #### V NCR, BMP ####[facility]mil[facility] Ayscccuvwjmj8779 [place] [address] Total Hb NOT REPORTED Normal 12.0-16.0 [facility] Comment on above: Performed By: #### V NCR, BMP ####[facility] Hospitalmil[facility] Rochplmaqjtr2391 [place] [address] Total Rate NOT REPORTED Normal [facility] Comment on above: Performed By: #### V NCR, BMP ####[facility] Hospitalmil[facility] Uilslxrvlvns[address] [place] [address] [place] NOT REPORTED Normal [facility] Comment on above: Performed By: #### V NCR, BMP ####[facility]mil[facility] Dytylgvzeskv0751 [place] [address] Chloride 112 mmol/L High 98-110 [facility] Comment on above: Result Comment: [address] [address] Performed By: #### V NCR, BMP ####[facility] [address] [address] Potassium molar conc 3.6 mmol/L Normal 3.6-5.0 [facility] Comment on above: Performed By: #### V NCR, BMP ####[address] [address] Sodium 140 mmol/L Normal 136-145 [facility] Comment on above: Performed By: #### V NCR, BMP ####[address] [address] Carmelo Test INFORMATION NOT PROVIDED Normal [facility] Comment on above: Performed By: #### V NCR, BMP ####[facility]mil[facility] [address] [address] Bicarbonate (HCO3) 20.6 mmol/L Low 22-27 [facility] Comment on above: Performed By: #### V NCR, BMP ####[facility]mil[facility]ro SaundersGdymkjeyxvgr[address] [place] [address] Body Temp. 37.0 Normal [facility] Comment on above: Performed By: #### V NCR, BMP ####[facility]mil[facility] [address] [address] CO2 35.4 mmHg Normal 32-45 [facility] Comment on above: Performed By: #### V NCR, BMP ####[facility]mil[facility] [address] [address] FIO2 50% Normal [facility] Comment on above: Performed By: #### V NCR, BMP ####Lalitha Saunders[address] [place] [address] Glucose mass conc 128 mg/dL High 65-105 [facility] Comment on above: Performed By: #### V NCR, BMP ####Lalitha Saunders[address] [place] [address] Hematocrit (HCT) 23.8 % Normal [facility] Comment on above: Performed By: #### V NCR, BMP ####Lalitha Saunders[address] [place] [address] Hemoglobin mass conc (Bld) 7.6 g/dL Normal [facility] Comment on above: Performed By: #### V NCR, BMP ####[facility]mil[facility] SaundersCxvzgcqnybxy9189 [place] [address] Hemoglobin mass conc (Bld) 1.5 % Normal 0-5.0 [facility] Comment on above: Result Comment: %Ref erence Range:Non-Smokers 0.0-0.8 %Smokers 4-20 % Performed By: #### V NCR, BMP ####Lalitha Saunders[address] [place] [address] Negative Base Excess 3.6 mmol/L High 0.0-2.0 [facility] Comment on above: Performed By: #### V NCR, BMP ####Lalitha Ixhxopvvwohw5070 [place] [address] O2 saturation 99.8 % Normal 94-100 [facility] Comment on above: Performed By: #### V NCR, BMP ####Lalitha Saunders[address] [place] [address] Oxygen in arterial blood 240.0 mm[Hg] High 75-95 [facility] Comment on above: Performed By: #### V NCR, BMP ####[facility]mil[facility] Hocbrjqxxsdh3969 [place] [address] pH of blood 7.382 [pH] Normal 7.350-7.450 [facility] Comment on above: Performed By: #### V NCR, BMP ####[facility]mil[facility] SaundersYcltttjshgkr9062 [place] [address] CO2 NOT REPORTED Normal 32-45 [facility] Comment on above: Performed By: #### V NCR, BMP ####[facility] [address] [address] Hemoglobin mass conc (Bld) NOT REPORTED Normal 95.0-98.0 [facility] Comment on above: Performed By: #### V NCR, BMP ####[facility] [address] [address] Mode NOT REPORTED Normal [facility] Comment on above: Performed By: #### V NCR, BMP ####[facility] [address] [address] Notification Time NOT REPORTED Normal [facility] Comment on above: Performed By: #### V NCR, BMP ####[facility] [address] [address] Notification: NOT REPORTED Normal [facility] Comment on above: Performed By: #### V NCR, BMP ####[facility]mil[facility] SaundersPdtkucyzlfzm8471 [place] [address] O2 Device/Flow/% NOT REPORTED Normal [facility] Comment on above: Performed By: #### V NCR, BMP ####[facility] [address] [address] PEEP/CPAP NOT REPORTED Normal [facility] Comment on above: Performed By: #### V NCR, BMP ####[facility] [address] [address] pH Adjst'd for Temp. NOT REPORTED Normal 7.350-7.450 [facility] Comment on above: Performed By: #### V NCR, BMP ####[facility] [address] [address] pO2 Adjst'd for Temp NOT REPORTED Normal 75-95 [facility] Comment on above: Performed By: #### V NCR, BMP ####[address] [address] Positive Base Excess NOT REPORTED Normal 0.0-2.0 [facility] Comment on above: Performed By: #### V NCR, BMP ####[address] [address] PSV NOT REPORTED Normal [facility] Comment on above: Performed By: #### V NCR, BMP ####[address] [address] Pt. Position NOT REPORTED Normal [facility] Comment on above: Performed By: #### V NCR, BMP ####[address] [address] Respiratory rate NOT REPORTED Normal [facility] Comment on above: Performed By: #### V NCR, BMP ####[facility] [address] [address] Set Rate NOT REPORTED Normal [facility] Comment on above: Performed By: #### V NCR, BMP ####[facility] [address] [address] Site Drawn NOT REPORTED Normal [facility] Comment on above: Performed By: #### V NCR, BMP ####[facility] [address] [address] Text for Respiratory NOT REPORTED Normal [facility] Comment on above: Performed By: #### V NCR, BMP ####[facility]mil[facility] SaundersTxweqtgwrabe3297 [place] [address] Total Hb NOT REPORTED Normal 12.0-16.0 [facility] Comment on above: Performed By: #### V NCR, BMP ####[facility] [address] [address] Total Rate NOT REPORTED Normal [facility] Comment on above: Performed By: #### V NCR, BMP ####[facility]mil[facility] SaundersAsusgklyuvqn[address] [place] [address] [place] NOT REPORTED Normal [facility] Comment on above: Performed By: #### V NCR, BMP ####[facility] [address] [address] Carmelo Test INFORMATION NOT PROVIDED Normal [facility] Comment on above: Performed By: #### V NCR, BMP ####[facility] [address] [address] Bicarbonate (HCO3) 21.5 mmol/L Low 22-27 [facility] Comment on above: Performed By: #### V NCR, BMP ####[facility] [address] [address] Body Temp. 37.0 Normal [facility] Comment on above: Performed By: #### V NCR, BMP ####[facility]mil[facility] SaundersEhpkwmjhzarz[address] [place] [address] CO2 36.9 mmHg Normal 32-45 [facility] Comment on above: Performed By: #### V NCR, BMP ####[facility] [address] [address] FIO2 50% Normal [facility] Comment on above: Performed By: #### V NCR, BMP ####[address] [address] Glucose mass conc 123 mg/dL High 65-105 [facility] Comment on above: Performed By: #### V NCR, BMP ####[facility]mil[facility] Nhzcahpfuwov5583 [place] [address] Hematocrit (HCT) 25.0 % Normal [facility] Comment on above: Performed By: #### V NCR, BMP ####[address] [address] Hemoglobin mass conc (Bld) 1.4 % Normal 0-5.0 [facility] Comment on above: Result Comment: %Ref erence Range:Non-Smokers 0.0-0.8 %Smokers 4-20 % Performed By: #### V NCR, BMP ####[facility] [address] [address] Hemoglobin mass conc (Bld) 8.0 g/dL Normal [facility] Comment on above: Performed By: #### V NCR, BMP ####[facility] [address] [address] Negative Base Excess 2.7 mmol/L High 0.0-2.0 [facility] Comment on above: Performed By: #### V NCR, BMP ####[facility] [address] [address] O2 saturation 99.8 % Normal 94-100 [facility] Comment on above: Performed By: #### V NCR, BMP ####[facility]mil[facility] Bgokhkpoejfp1572 [place] [address] Oxygen in arterial blood 219.0 mm[Hg] High 75-95 [facility] Comment on above: Performed By: #### V NCR, BMP ####[place] [place] [address] pH of blood 7.383 [pH] Normal 7.350-7.450 [facility] Comment on above: Performed By: #### V NCR, BMP ####[facility]mil[facility] SaundersVwagrxejehld0019 [place] [address] CO2 NOT REPORTED Normal 32-45 [facility] Comment on above: Performed By: #### V NCR, BMP ####[facility]mil[facility] Urhwqtbkybfb2521 [place] [address] Hemoglobin mass conc (Bld) NOT REPORTED Normal 0.0-1.5 [facility] Comment on above: Performed By: #### V NCR, BMP ####[facility] [address] [address] Mode NOT REPORTED Normal [facility] Comment on above: Performed By: #### V NCR, BMP ####[address] [address] Notification Time NOT REPORTED Normal [facility] Comment on above: Performed By: #### V NCR, BMP ####[facility] [address] [address] Notification: NOT REPORTED Normal [facility] Comment on above: Performed By: #### V NCR, BMP ####[facility] [address] [address] O2 Device/Flow/% NOT REPORTED Normal [facility] Comment on above: Performed By: #### V NCR, BMP ####[facility] [address] [address] PEEP/CPAP NOT REPORTED Normal [facility] Comment on above: Performed By: #### V NCR, BMP ####[address] [address] pH Adjst'd for Temp. NOT REPORTED Normal 7.350-7.450 [facility] Comment on above: Performed By: #### V NCR, BMP ####[facility] [address] [address] pO2 Adjst'd for Temp NOT REPORTED Normal 75-95 [facility] Comment on above: Performed By: #### V NCR, BMP ####[facility] [address] [address] Positive Base Excess NOT REPORTED Normal 0.0-2.0 [facility] Comment on above: Performed By: #### V NCR, BMP ####[facility] [address] [address] PSV NOT REPORTED Normal [facility] Comment on above: Performed By: #### V NCR, BMP ####[facility] [address] [address] Pt. Position NOT REPORTED Normal [facility] Comment on above: Performed By: #### V NCR, BMP ####[facility] HospitalVacunek [address] [address] Respiratory rate NOT REPORTED Normal [facility] Comment on above: Performed By: #### V NCR, BMP ####[facility] [address] [address] Set Rate NOT REPORTED Normal [facility] Comment on above: Performed By: #### V NCR, BMP ####[facility] HospitalVacunek [address] [address] Site Drawn NOT REPORTED Normal [facility] Comment on above: Performed By: #### V NCR, BMP ####[facility] Xnrizjtigsbp1249 [place] [address] Text for Respiratory NOT REPORTED Normal [facility] Comment on above: Performed By: #### V NCR, BMP ####[facility] HospitalVacunek Xgxamvszhhup2904 [place] [address] Total Hb NOT REPORTED Normal 12.0-16.0 [facility] Comment on above: Performed By: #### V NCR, BMP ####Lalitha Saunders[address] [place] [address] Total Rate NOT REPORTED Normal [facility] Comment on above: Performed By: #### V NCR, BMP ####[facility] SaundersJwqwoqonwwgu7742 [place] [address] [place] NOT REPORTED Normal [facility] Comment on above: Performed By: #### V NCR, BMP ####[facility] [address] [place] [address] XR THORACIC SPINE LIMITEDon 07-07-2017 XR THORACIC [...] IVigned by:Saeid Cam IV, MD07/07/17Final result Normal [facility] APTTon 07-06-2017 aPTT 27.5 s Normal 21.3-31.3 [facility] Comment on above: Result Comment: [facility] [employer] [facility] [place] [address] Performed By: #### P T, PTT, CDP, LIVP, BMP ####[address] [address] Basic Metabolic Profon 07-06 (cont.) Normal [facility] Comment on above: Result Comment: Aver age GFR for 30-39 years old: 107 mL/min/1.73sq mChronic Kidney Disease: <60 mL/min/1.73sq mKidney failure: <15 mL/min/1.73sq meGFR calculated using average adult body mass. Additional eGFR calculator available at:[email or web address] [facility] [address] [place] [address] Performed By: #### V NCR, BMP ####[facility] Hhkdyhtaalij0129 [place] [address] Anion gap 15 mmol/L Normal 9-17 [facility] Comment on above: Performed By: #### V NCR, BMP ####[facility] Cbboukjcruvd9575 [place] [address] Calcium 9.6 mg/dL Normal 8.6-10.4 [facility] Comment on above: Performed By: #### V NCR, BMP ####[facility] Lvqdkdlbvuzf8419 [place] [address] Chloride 101 mmol/L Normal 98-107 [facility] Comment on above: Performed By: #### V NCR, BMP ####[facility] Hnhtbsqygytb3694 [place] [address] CO2 25 mmol/L Normal 20-31 [facility] Comment on above: Performed By: #### V NCR, BMP ####[facility] Yhqhowiakcrz4492 [place] [address] Creatinine 0.55 mg/dL Normal 0.50-0.90 [facility] Comment on above: Performed By: #### V NCR, BMP ####[facility] Fcsqcafyspaz6178 [place] [address] eGFR (non-black) mL/min/{1.73_m2} Normal >60 [facility] Comment on above: Performed By: #### V NCR, BMP ####[facility] Bmlgakdmjsxw3142 [place] [address] Glucose mass conc 84 mg/dL Normal 70-99 [facility] Comment on above: Performed By: #### V NCR, BMP ####M[facility]mil[facility] SaundersAxfbfawzzpke5159 [place] [address] Potassium molar conc 4.0 mmol/L Normal 3.7-5.3 [facility] Comment on above: Performed By: #### V NCR, BMP ####[facility] Wuspyybqjjyh4617 [place] [address] Sodium 141 mmol/L Normal 135-144 [facility] Comment on above: Performed By: #### V NCR, BMP ####[facility] SaundersQvvicruzeuue3520 [place] [address] Urea nitrogen 13 mg/dL Normal -20 [facility] Comment on above: Performed By: #### V NCR, BMP ####[address] [address] BUN/CRE Ratio NOT REPORTED Normal 07-22 [facility] Comment on above: Performed By: #### V NCR, BMP ####[address] [address] Staging: NOT REPORTED Normal [facility] Comment on above: Performed By: #### V NCR, BMP ####[address] [address] Blood Bank Specimenon 2016 Blood Bank Specimen NOT REPORTED Normal [facility] CBC with Diffon 07-06-2017 Abs. Basophil 0.00 k/uL Normal 0.0-0.2 [facility] Comment on above: Performed By: #### V NCR, BMP ####[address] [address] Abs.Neutrophil (Seg) 6.73 k/uL Normal 1.8-7.7 [facility] Comment on above: Performed By: #### V NCR, BMP ####[address] [address] Basophils/100 WBC Auto (Bld) 0 % Normal [facility] Comment on above: Performed By: #### V NCR, BMP ####[address] [address] Blood morphology ANISOCYTOSIS PRESENT Normal [facility] Comment on above: Result Comment: 1+PO LYCHROMASIAMercy [place] [address] [place] [address] Performed By: #### V NCR, BMP ####[address] [address] Eosinophils 0.20 10*3/uL Normal 0.0-0.4 [facility] Comment on above: Performed By: #### V NCR, BMP ####[address] [address] Eosinophils/100 leukocytes 2 % Normal [facility] Comment on above: Performed By: #### V NCR, BMP ####[address] [address] Lymphocytes 2.18 10*3/uL Normal 1.0-4.8 [facility] Comment on above: Performed By: #### V NCR, BMP ####[address] [address] Lymphocytes/100 leukocytes 22 % Normal [facility] Comment on above: Performed By: #### V NCR, BMP ####[address] [address] Monocytes 0.79 10*3/uL Normal 0.1-0.8 [facility] Comment on above: Performed By: #### V NCR, BMP ####[address] [address] Monocytes/100 leukocytes 8 % Normal [facility] Comment on above: Performed By: #### V NCR, BMP ####[address] [address] Neutrophil (Seg) 68 % Normal [facility] Comment on above: Performed By: #### V NCR, BMP ####[address] [address] Erythrocyte distribution width Auto Ratio (RBC) 19.4 % High 12.5-15.4 [facility] Comment on above: Performed By: #### V NCR, BMP ####[address] [address] Erythrocytes (RBC) 4.59 10*6/uL Normal 4.0-5.[address] [facility] Comment on above: Performed By: #### V NCR, BMP ####[address] [address] Hematocrit (HCT) 38.2 % Normal 36-46 [facility] Comment on above: Performed By: #### V NCR, BMP ####[address] [address] Hemoglobin mass conc (Bld) 12.4 g/dL Normal 12.0-16.0 [facility] Comment on above: Performed By: #### V NCR, BMP ####[address] [address] MCH 27.0 pg Normal 26-34 [facility] Comment on above: Performed By: #### V NCR, BMP ####[address] [address] MCHC mass conc (RBC) 32.4 g/dL Normal 31-37 [facility] Comment on above: Performed By: #### V NCR, BMP ####[address] [address] MCV 83.3 fL Normal 80-100 [facility] Comment on above: Performed By: #### V NCR, BMP ####[facility] HospitalVacunek Feboaxfrwvvv1189 [place] [address] Platelet mean volume (PMV) 6.9 fL Normal 6.0-12.0 [facility] Comment on above: Performed By: #### V NCR, BMP ####[facility] [address] [address] Platelets 885 10*3/uL High 140-450 [facility] Comment on above: Performed By: #### V NCR, BMP ####[address] [address] WBC (Leukocytes) 9.9 10*3/uL Normal 3.5-11.0 [facility] Comment on above: Performed By: #### V NCR, BMP ####[facility] HospitalVac[facility]ek [address] [address] Auto Diff Performed NOT REPORTED Normal [facility] Comment on above: Performed By: #### V NCR, BMP ####[facility] Hospital[facility] [address] [address] Erythrocyte morphology NOT REPORTED Normal [facility] Comment on above: Performed By: #### V NCR, BMP ####[facility] Hospital[facility] [address] [address] Platelets NOT REPORTED Normal [facility] Comment on above: Performed By: #### V NCR, BMP ####[facility] [address] [address] WBC Morphology NOT REPORTED Normal [facility] Comment on above: Performed By: #### V NCR, BMP ####[facility] HospitalHippo Manager SoftwareHfkqpuuavpym[address] [place] [address] Liver Profileon 07-06-2017 Alanine aminotransferase (ALT) 10 U/L Normal 5-33 [facility] Comment on above: Performed By: #### V NCR, BMP ####[address] [place] [address] Albumin 3.9 g/dL Normal 3.5-5.2 [facility] Comment on above: Performed By: #### V NCR, BMP ####[facility] [address] [address] Albumin/Globulin Ratio 0.9 {ratio} Low 1.0-2.5 [facility] Comment on above: Result Comment: [address] [address] Performed By: #### V NCR, BMP ####[facility] [address] [address] Alkaline Phos 184 U/L High 35-104 [facility] Comment on above: Performed By: #### V NCR, BMP ####[facility] HospitalHippo Manager SoftwareQqvomgqeywrt[address] [place] [address] Aspartate aminotransferase (AST) 15 U/L Normal <32 [facility] Comment on above: Performed By: #### V NCR, BMP ####[facility] HospitalHippo Manager SoftwareBqrlwrmmxwgy[address] [place] [address] Bilirubin (direct) mg/dL Normal <0.31 [facility] Comment on above: Performed By: #### V NCR, BMP ####[facility] HospitalHippo Manager SoftwareEhifdwqkeaxm28[address] [place] [address] Bilirubin Ql (U) <0.10 Low 0.3-1.2 [facility] Comment on above: Performed By: #### V NCR, BMP ####[facility] [address] [place] [address] Bilirubin, Indirect CANNOT BE CALCULATED Normal 0.00-1.00 [facility] Comment on above: Performed By: #### V NCR, BMP ####[facility] HospitalVacunek [address] [address] Protein 8.3 g/dL Normal 6.4-8.3 [facility] Comment on above: Performed By: #### V NCR, BMP ####[address] [address] Globulin NOT REPORTED Normal 1.5-3.8 [facility] Comment on above: Performed By: #### V NCR, BMP ####[address] [address] PTon 07-06-2017 INR Coag RelTime (PPP) 1.0 {INR} Normal [facility] Comment on above: Result Comment: Ther apeutic Range: Moderate Anticoagulant Intensity: INR = 2.0-3.0 High Anticoagulant Intensity: INR = 2.5-3.[address] [address] Performed By: #### P T, PTT, CDP, LIVP, BMP ####[address] [address] Prothrombin time (PT) Coag time (PPP) 10.9 s Normal 9.4-12.6 [facility] Comment on above: Performed By: #### P T, PTT, CDP, LIVP, BMP ####[address] [address] Type + Screenon 07-06-2017 Type + Screen Sample Expiration 07/09/2017 Arm Band Number [id number] ABO/Rh(D) O POSITIVE Antibody Screen NEGATIVE Unit Number [id number] Blood Component Type Leukocyte Reduced Red Cell Unit Division 00 Status of Unit TRANSFUSED Transfusion Status OK TO TRANSFUSE Crossmatch Result COMPATIBLE Unit Number [id number] Blood Component Type Leukocyte Reduced Red Cell Unit Division 00 Status of Unit REL FROM ALLOC Transfusion Status OK TO TRANSFUSE Crossmatch Result COMPATIBLE[address] [address] Unit Number [id number] Blood Component Type Leukocyte Reduced Red Cell Unit Division 00 Status of Unit TRANSFUSED Transfusion Status OK TO TRANSFUSE Crossmatch Result COMPATIBLE Unit Number [id number] Blood Component Type Leukocyte Reduced Red Cell Unit Division 00 Status of Unit REL FROM ALLOC Transfusion Status OK TO TRANSFUSE Crossmatch Result COMPATIBLE Normal [facility] Comment on above: Performed By: #### T YS ####[address] [address] Urinalysis w/ Microon 2016 ----- Normal [facility] Comment on above: Performed By: #### V NCR, BMP ####[address] [address] Acetaminophen mass conc Negative Normal NEG [facility] Comment on above: Performed By: #### V NCR, BMP ####[address] [address] Bilirubin (direct) Negative Normal NEG [facility] Comment on above: Performed By: #### V NCR, BMP ####[address] [address] Hemoglobin mass conc (Bld) Negative Normal NEG [facility] Comment on above: Performed By: #### V NCR, BMP ####[address] [address] Nitrite,Ur Negative Normal NEG [facility] Comment on above: Performed By: #### V NCR, BMP ####[address] [address] Turbidity CLEAR Normal CLEAR [facility] Comment on above: Performed By: #### V NCR, BMP ####[address] [address] Urine WBC's 5 TO 10 Normal 0-5 [facility] Comment on above: Performed By: #### V NCR, BMP ####[address] [address] Urine, casts in sediment 5 TO 10 HYALINE Normal 0-8 [facility] Comment on above: Result Comment: Refe rence range defined for non-centrifuged specimen. Performed By: #### V NCR, BMP ####[address] [address] Urine, color YELLOW Normal YEL [facility] Comment on above: Performed By: #### V NCR, BMP ####[address] [address] Urine, epithelial cells in sediment 10 TO 20 Normal 0-5 [facility] Comment on above: Result Comment: [address] [address] Performed By: #### V NCR, BMP ####[address] [address] Urine, erythrocytes None Normal 0-4 [facility] Comment on above: Result Comment: Refe rence range defined for non-centrifuged specimen. Performed By: #### V NCR, BMP ####[address] [address] Urine, glucose presence Negative Normal NEG [facility] Comment on above: Performed By: #### V NCR, BMP ####[address] [address] Urine, leukocyte esterase presence TRACE Abnormal NEG [facility] Comment on above: Performed By: #### V NCR, BMP ####[address] [address] Urine, pH 7.0 [pH] Normal 5.0-8.0 [facility] Comment on above: Performed By: #### V NCR, BMP ####[address] [address] Urine, protein presence Negative Normal NEG [facility] Comment on above: Performed By: #### V NCR, BMP ####[address] [address] Urine, specific gravity 1.020 Normal 1.005-1.030 [facility] Comment on above: Performed By: #### V NCR, BMP ####[address] [address] Urobilinogen,Ur Normal Normal NORM [facility] Comment on above: Performed By: #### V NCR, BMP ####[address] [address] Epithelial, Renal NOT REPORTED Normal 0 [facility] Comment on above: Performed By: #### V NCR, BMP ####[address] [address] Mucus Strands NOT REPORTED Normal NONE [facility] Comment on above: Performed By: #### V NCR, BMP ####[address] [address] Other Observations NOT REPORTED Normal NREQ [facility] Comment on above: Performed By: #### V NCR, BMP ####[address] [address] Trichomonas NOT REPORTED Normal NONE [facility] Comment on above: Performed By: #### V NCR, BMP ####[address] [address] Urine, amorphous sediment presence in sediment NOT REPORTED Normal NONE [facility] Comment on above: Performed By: #### V NCR, BMP ####[address] [address] Urine, bacteria in sediment NOT REPORTED Normal NONE [facility] Comment on above: Performed By: #### V NCR, BMP ####[address] [address] Urine, crystals in sediment NOT REPORTED Normal NONE [facility] Comment on above: Performed By: #### V NCR, BMP ####[facility] Hdiqspeflcvp8349 [place] [address] Urine, yeast presence in sediment NOT REPORTED Normal NONE [facility] Comment on above: Performed By: #### V NCR, BMP ####[address] [address] Basic Metabolic Profon 07-05 Anion gap 12 mmol/L Normal 9-17 [facility] Comment on above: Performed By: #### B MP ####[address] [address] Calcium 9.0 mg/dL Normal 8.6-10.4 [facility] Comment on above: Performed By: #### B MP ####[address] [address] Chloride 103 mmol/L Normal 98-107 [facility] Comment on above: Performed By: #### B MP ####[address] [address] CO2 24 mmol/L Normal 20-31 [facility] Comment on above: Performed By: #### B MP ####[address] [address] Creatinine 0.50 mg/dL Normal 0.50-0.90 [facility] Comment on above: Performed By: #### B MP ####[facility] [place] [address] eGFR (non-black) mL/min/{1.73_m2} Normal >60 [facility] Comment on above: Performed By: #### B MP ####[address] [address] Glucose mass conc 93 mg/dL Normal 70-99 [facility] Comment on above: Performed By: #### B MP ####[place] [place] [address] Potassium molar conc 4.3 mmol/L Normal 3.7-5.3 [facility] Comment on above: Result Comment: SPEC IMEN SLIGHTLY HEMOLYZED, RESULTS MAY BE ADVERSELY AFFECTED. Performed By: #### B MP ####[facility] [address] [place] [address] Sodium 139 mmol/L Normal 135-144 [facility] Comment on above: Performed By: #### B MP ####[address] [address] Urea nitrogen 12 mg/dL Normal - [facility] Comment on above: Performed By: #### B MP ####[address] [address] (cont.) Normal [facility] Comment on above: Result Comment: Aver age GFR for 30-39 years old: 107 mL/min/1.73sq mChronic Kidney Disease: <60 mL/min/1.73sq mKidney failure: <15 mL/min/1.73sq meGFR calculated using average adult body mass. Additional eGFR calculator available at:[email or web address] [address] [place] [address] Performed By: #### B MP ####[address] [address] BUN/CRE Ratio NOT REPORTED Normal -20 [facility] Comment on above: Performed By: #### B MP ####[address] [address] Staging: NOT REPORTED Normal [facility] Comment on above: Performed By: #### B MP ####[address] [address] CBC with Diffon 07-05-2017 Abs. Basophil 0.12 k/uL Normal 0.0-0.2 [facility] Comment on above: Performed By: #### C DP ####[address] [address] Abs.Neutrophil (Seg) 7.81 k/uL High 1.8-7.7 [facility] Comment on above: Performed By: #### C DP ####[address] [address] Basophils/100 WBC Auto (Bld) 1 % Normal [facility] Comment on above: Performed By: #### C DP ####[address] [address] Blood morphology ANISOCYTOSIS PRESENT Normal [facility] Comment on above: Result Comment: [address] [address] Performed By: #### C DP ####[address] [address] Eosinophils 0.61 10*3/uL High 0.0-0.4 [facility] Comment on above: Performed By: #### C DP ####[address] [address] Eosinophils/100 leukocytes 5 % Normal [facility] Comment on above: Performed By: #### C DP ####[address] [address] Lymphocytes 3.17 10*3/uL Normal 1.0-4.8 [facility] Comment on above: Performed By: #### C DP ####[address] [address] Lymphocytes/100 leukocytes 26 % Normal [facility] Comment on above: Performed By: #### C DP ####[address] [address] Monocytes 0.49 10*3/uL Normal 0.1-0.8 [facility] Comment on above: Performed By: #### C DP ####[address] [address] Monocytes/100 leukocytes 4 % Normal [facility] Comment on above: Performed By: #### C DP ####[address] [address] Neutrophil (Seg) 64 % Normal [facility] Comment on above: Performed By: #### C DP ####[address] [address] Erythrocyte distribution width Auto Ratio (RBC) 19.1 % High 12.5-15.4 [facility] Comment on above: Performed By: #### C DP ####[address] [address] Erythrocytes (RBC) 3.99 10*6/uL Low 4.0-5.[address] [facility] Comment on above: Performed By: #### C DP ####[address] [address] Hematocrit (HCT) 32.5 % Low 36-46 [facility] Comment on above: Performed By: #### C DP ####[address] [address] Hemoglobin mass conc (Bld) 10.5 g/dL Low 12.0-16.0 [facility] Comment on above: Performed By: #### C DP ####[address] [address] MCH 26.4 pg Normal 26-34 [facility] Comment on above: Performed By: #### C DP ####[address] [address] MCHC mass conc (RBC) 32.5 g/dL Normal 31-37 [facility] Comment on above: Performed By: #### C DP ####[address] [address] MCV 81.4 fL Normal 80-100 [facility] Comment on above: Performed By: #### C DP ####[address] [address] Platelet mean volume (PMV) 6.8 fL Normal 6.0-12.0 [facility] Comment on above: Performed By: #### C DP ####[address] [address] Platelets 765 10*3/uL High 140-450 [facility] Comment on above: Performed By: #### C DP ####[address] [address] WBC (Leukocytes) 12.2 10*3/uL High 3.5-11.0 [facility] Comment on above: Performed By: #### C DP ####[address] [address] Auto Diff Performed NOT REPORTED Normal [facility] Comment on above: Performed By: #### C DP ####[address] [address] Erythrocyte morphology NOT REPORTED Normal [facility] Comment on above: Performed By: #### C DP ####[address] [address] Platelets NOT REPORTED Normal [facility] Comment on above: Performed By: #### C DP ####Lalitha [address]unders[address] [place] [address] WBC Morphology NOT REPORTED Normal [facility] Comment on above: Performed By: #### C DP ####Lalitha [address]unders[address] [place] [address] Vancomycin Troughon 07-04-20 17 Vancomycin Trough 12.5 ug/mL Normal 10.0-20.0 [facility] Comment on above: Result Comment: High er trough serum vancomycin concentrations of 15-20 ug/mL are recommended for complicated infections such as bacteremia, endocarditis, osteomyelitis, meningitis, and hospital acquired pneumonia.[facility] [address] [place] [address] Performed By: #### V NCT ####Lalitha Saunders[address] [place] [address] Date last dose, NOT REPORTED Normal [facility] Comment on above: Performed By: #### V NCT ####Lalitha Saunders[address] [place] [address] Dose amount, NOT REPORTED Normal [facility] Comment on above: Performed By: #### V NCT ####Lalitha [address]unders[address] [place] [address] Time last dose, NOT REPORTED Normal [facility] Comment on above: Performed By: #### V NCT ####Lalitha [address]unders[address] [place] [address] Vancomycin Troughon 07-03-20 17 Vancomycin Trough 50.5 ug/mL Critically high 10.0-20.0 [facility] Comment on above: Result Comment: High er trough serum vancomycin concentrations of 15-20 ug/mL are recommended for complicated infections such as bacteremia, endocarditis, osteomyelitis, meningitis, and hospital acquired pneumonia.[facility] [place] [address] Performed By: #### V NCT ####Lalitha [address] [place] [address] Date last dose, NOT REPORTED Normal [facility] Comment on above: Performed By: #### V NCT ####Lalitha [address]unders[address] [place] [address] Dose amount, NOT REPORTED Normal [facility] Comment on above: Performed By: #### V NCT ####Lalitha [address]unders[address] [place] [address] Time last dose, NOT REPORTED Normal [facility] Comment on above: Performed By: #### V NCT ####[facility] [address] [address] Type + Screenon 07-02-2017 Type + Screen Sample Expiration 07/04/2017 Arm Band Number [id number] ABO/Rh(D) O POSITIVE Antibody Screen NEGATIVE Unit Number [id number] Blood Component Type Leukocyte Reduced Red Cell Unit Division 00 Status of Unit REL FROM ALLOC Transfusion Status OK TO TRANSFUSE Crossmatch Result [facility]IBLE[facility] [address] [place] [address] Unit Number [id number] Blood Component Type Leukocyte Reduced Red Cell Unit Division 00 Status of Unit REL FROM ALLOC Transfusion Status OK TO TRANSFUSE Crossmatch Result COMPATIBLE Unit Number [id number] Blood Component Type Leukocyte Reduced Red Cell Unit Division 00 Status of Unit REL FROM ALLOC Transfusion Status OK TO TRANSFUSE Crossmatch Result COMPATIBLE Unit Number [id number] Blood Component Type Leukocyte Reduced Red Cell Unit Division 00 Status of Unit REL FROM ALLOC Transfusion Status OK TO TRANSFUSE Crossmatch Result COMPATIBLE Normal [facility] Comment on above: Performed By: #### T YS ####[address] [address] UA w/Reflex Cultureon 2016 Acetaminophen mass conc Negative Normal NEG [facility] Comment on above: Performed By: #### U AX ####[facility] [address] [address] Bilirubin (direct) Negative Normal NEG [facility] Comment on above: Performed By: #### U AX ####[address] [address] Comment Microscopic exam not performed based on chemical results unless requested in Normal [facility] Comment on above: Result Comment: orig inal order.[address] [address] Performed By: #### U AX ####[address] [address] Hemoglobin mass conc (Bld) Negative Normal NEG [facility] Comment on above: Performed By: #### U AX ####[address] [address] Nitrite,Ur Negative Normal NEG [facility] Comment on above: Performed By: #### U AX ####[address] [address] Turbidity CLEAR Normal CLEAR [facility] Comment on above: Performed By: #### U AX ####[address] [address] Urine, color YELLOW Normal YEL [facility] Comment on above: Performed By: #### U AX ####[address] [address] Urine, glucose presence Negative Normal NEG [facility] Comment on above: Performed By: #### U AX ####[address] [address] Urine, leukocyte esterase presence Negative Normal NEG [facility] Comment on above: Performed By: #### U AX ####[address] [address] Urine, pH 7.0 [pH] Normal 5.0-8.0 [facility] Comment on above: Performed By: #### U AX ####[address] [address] Urine, protein presence Negative Normal NEG [facility] Comment on above: Performed By: #### U AX ####[address] [address] Urine, specific gravity 1.010 Normal 1.005-1.030 [facility] Comment on above: Performed By: #### U AX ####[address] [address] Urobilinogen,Ur Normal Normal NORM [facility] Comment on above: Performed By: #### U AX ####[address] [address] APTTon 07-01-2017 aPTT 27.4 s Normal 21.3-31.3 [facility] Comment on above: Result Comment: [employer] [address] [place] [address] Performed By: #### P T, PTT ####[address] [address] Blood Bank Specimenon 2016 Blood Bank Specimen NOT REPORTED Normal [facility] C-Reactive Proteinon 017 C reactive protein (CRP) 242.7 mg/L High 0.0-5.0 [facility] Comment on above: Result Comment: [facility] [place] [address] Performed By: #### C DP, CRP, CP, SED ####[address] [address] CBC with Diffon 07-01-2017 Abs. Basophil 0.00 k/uL Normal 0.0-0.2 [facility] Comment on above: Performed By: #### C DP, CRP, CP, SED ####[address] [address] Abs.Neutrophil (Seg) 6.92 k/uL Normal 1.8-7.7 [facility] Comment on above: Performed By: #### C DP, CRP, CP, SED ####[address] [address] Basophils/100 WBC Auto (Bld) 0 % Normal [facility] Comment on above: Performed By: #### C DP, CRP, CP, SED ####[address] [address] Blood morphology ANISOCYTOSIS PRESENT Normal [facility] Comment on above: Result Comment: [address] [address] Performed By: #### C DP, CRP, CP, SED ####[address] [address] Eosinophils 0.11 10*3/uL Normal 0.0-0.4 [facility] Comment on above: Performed By: #### C DP, CRP, CP, SED ####[address] [address] Eosinophils/100 leukocytes 1 % Normal [facility] Comment on above: Performed By: #### C DP, CRP, CP, SED ####[address] [address] Lymphocytes 2.63 10*3/uL Normal 1.0-4.8 [facility] Comment on above: Performed By: #### C DP, CRP, CP, SED ####[address] [address] Lymphocytes/100 leukocytes 25 % Normal [facility] Comment on above: Performed By: #### C DP, CRP, CP, SED ####[address] [address] Monocytes 0.84 10*3/uL High 0.1-0.8 [facility] Comment on above: Performed By: #### C DP, CRP, CP, SED ####[address] [address] Monocytes/100 leukocytes 8 % Normal [facility] Comment on above: Performed By: #### C DP, CRP, CP, SED ####[address] [address] Neutrophil (Seg) 66 % Normal [facility] Comment on above: Performed By: #### C DP, CRP, CP, SED ####[address] [address] Erythrocyte distribution width Auto Ratio (RBC) 19.2 % High 12.5-15.4 [facility] Comment on above: Performed By: #### C DP, CRP, CP, SED ####[address] [address] Erythrocytes (RBC) 3.68 10*6/uL Low 4.0-5.[address] [facility] Comment on above: Performed By: #### C DP, CRP, CP, SED ####[address] [address] Hematocrit (HCT) 31.0 % Low 36-46 [facility] Comment on above: Performed By: #### C DP, CRP, CP, SED ####[address] [address] Hemoglobin mass conc (Bld) 10.0 g/dL Low 12.0-16.0 [facility] Comment on above: Performed By: #### C DP, CRP, CP, SED ####[address] [address] MCH 27.2 pg Normal 26-34 [facility] Comment on above: Performed By: #### C DP, CRP, CP, SED ####[address] [address] MCHC mass conc (RBC) 32.2 g/dL Normal 31-37 [facility] Comment on above: Performed By: #### C DP, CRP, CP, SED ####[address] [address] MCV 84.4 fL Normal 80-100 [facility] Comment on above: Performed By: #### C DP, CRP, CP, SED ####[address] [address] Platelet mean volume (PMV) 7.1 fL Normal 6.0-12.0 [facility] Comment on above: Performed By: #### C DP, CRP, CP, SED ####[address] [address] Platelets 556 10*3/uL High 140-450 [facility] Comment on above: Performed By: #### C DP, CRP, CP, SED ####[address] [address] WBC (Leukocytes) 10.5 10*3/uL Normal 3.5-11.0 [facility] Comment on above: Performed By: #### C DP, CRP, CP, SED ####[address] [address] Auto Diff Performed NOT REPORTED Normal [facility] Comment on above: Performed By: #### C DP, CRP, CP, SED ####[address] [address] Erythrocyte morphology NOT REPORTED Normal [facility] Comment on above: Performed By: #### C DP, CRP, CP, SED ####[facility] SaundersAvoydxwjquot[address] [place] [address] Platelets NOT REPORTED Normal [facility] Comment on above: Performed By: #### C DP, CRP, CP, SED ####[address] [address] WBC Morphology NOT REPORTED Normal [facility] Comment on above: Performed By: #### C DP, CRP, CP, SED ####[address] [address] Comp Metabolic Profon 2016 (cont.) Normal [facility] Comment on above: Result Comment: Aver age GFR for 30-39 years old: 107 mL/min/1.73sq mChronic Kidney Disease: <60 mL/min/1.73sq mKidney failure: <15 mL/min/1.73sq meGFR calculated using average adult body mass. Additional eGFR calculator available at:http://www.[employer].Deenty/multiple_crcl_2012.htmBrotman Medical Center [address] [place] [address] Performed By: #### C DP, CRP, CP, SED ####[address] [address] Alanine aminotransferase (ALT) 17 U/L Normal 5-33 [facility] Comment on above: Performed By: #### C DP, CRP, CP, SED ####[address] [address] Albumin 2.8 g/dL Low 3.5-5.2 [facility] Comment on above: Performed By: #### C DP, CRP, CP, SED ####[address] [address] Albumin/Globulin Ratio 0.7 {ratio} Low 1.0-2.5 [facility] Comment on above: Performed By: #### C DP, CRP, CP, SED ####[address] [address] Alkaline Phos 263 U/L High 35-104 [facility] Comment on above: Performed By: #### C DP, CRP, CP, SED ####[address] [address] Anion gap 14 mmol/L Normal 9-17 [facility] Comment on above: Performed By: #### C DP, CRP, CP, SED ####[address] [address] Aspartate aminotransferase (AST) 16 U/L Normal <32 [facility] Comment on above: Performed By: #### C DP, CRP, CP, SED ####[address] [address] Bilirubin Ql (U) 0.16 mg/dL Low 0.3-1.2 [facility] Comment on above: Performed By: #### C DP, CRP, CP, SED ####[address] [address] Calcium 8.6 mg/dL Normal 8.6-10.4 [facility] Comment on above: Performed By: #### C DP, CRP, CP, SED ####[address] [address] Chloride 107 mmol/L Normal 98-107 [facility] Comment on above: Performed By: #### C DP, CRP, CP, SED ####[address] [address] CO2 21 mmol/L Normal 20-31 [facility] Comment on above: Performed By: #### C DP, CRP, CP, SED ####[address] [address] Creatinine 0.48 mg/dL Low 0.50-0.90 [facility] Comment on above: Performed By: #### C DP, CRP, CP, SED ####[address] [place] [address] eGFR (non-black) mL/min/{1.73_m2} Normal >60 [facility] Comment on above: Performed By: #### C DP, CRP, CP, SED ####[facility] [address] [place] [address] Glucose mass conc 92 mg/dL Normal 70-99 [facility] Comment on above: Performed By: #### C DP, CRP, CP, SED ####[address] [address] Potassium molar conc 4.4 mmol/L Normal 3.7-5.3 [facility] Comment on above: Performed By: #### C DP, CRP, CP, SED ####[address] [place] [address] Protein 6.6 g/dL Normal 6.4-8.3 [facility] Comment on above: Performed By: #### C DP, CRP, CP, SED ####[address] [address] Sodium 142 mmol/L Normal 135-144 [facility] Comment on above: Performed By: #### C DP, CRP, CP, SED ####[address] [place] [address] Urea nitrogen 11 mg/dL Normal 6-20 [facility] Comment on above: Performed By: #### C DP, CRP, CP, SED ####[address] [place] [address] BUN/CRE Ratio NOT REPORTED Normal 9-20 [facility] Comment on above: Performed By: #### C DP, CRP, CP, SED ####[address] [address] Staging: NOT REPORTED Normal [facility] Comment on above: Performed By: #### C DP, CRP, CP, SED ####[address] [address] Drug Scr, Abuse, Uron 2016 Amphetamine(s),Ur Positive Abnormal NEG [facility] Comment on above: Result Comment: (Pos itive cutoff 1000 ng/mL) Performed By: #### D AU ####[address] [address] Barbiturate(s),Ur Negative Normal NEG [facility] Comment on above: Result Comment: (Pos itive cutoff 200 ng/mL) Performed By: #### D AU ####[address] [address] Base excess Negative Normal NEG [facility] Comment on above: Result Comment: (Pos itive cutoff 300 ng/mL) Performed By: #### D AU ####[address] [address] Benzodiazepine(s) Negative Normal NEG [facility] Comment on above: Result Comment: (Pos itive cutoff 200 ng/mL) Performed By: #### D AU ####[address] [address] Cannabinoid(s),Ur Negative Normal NEG [facility] Comment on above: Result Comment: (Pos itive cutoff 50 ng/mL) Performed By: #### D AU ####[address] [address] Interpretive Info Assay provides medic al screening only. The absence of expected drug(s) and/or Normal [facility] Comment on above: Result Comment: meta bolite(s) may indicate diluted or adulterated urine, limitations of testing or timing of collection.Testing for legal purposes should be confirmed by another method. To request confirmation of test result, please call the lab within 7 days of sample submission.[address] [address] Performed By: #### D AU ####[address] [address] Opiate(s), Ur Positive Abnormal NEG [facility] Comment on above: Result Comment: (Pos itive cutoff 300 ng/mL) Performed By: #### D AU ####[address] [address] Oxycodone, Urine Negative Normal NEG [facility] Comment on above: Result Comment: (Pos itive cutoff 100 ng/mL) Performed By: #### D AU ####[address] [address] Phencyclidine, Ur Negative Normal NEG [facility] Comment on above: Result Comment: (Pos itive cutoff 25 ng/mL) Performed By: #### D AU ####[address] [address] Urine, methadone presence Negative Normal NEG [facility] Comment on above: Result Comment: (Pos itive cutoff 300 ng/mL) Performed By: #### D AU ####[address] [address] Buprenorphrine, Ur NOT REPORTED Normal NEG [facility] Comment on above: Performed By: #### D AU ####[address] [address] MDMA, Urine NOT REPORTED Normal NEG [facility] Comment on above: Performed By: #### D AU ####[address] [address] Methamphetamine, Ur NOT REPORTED Normal NEG [facility] Comment on above: Performed By: #### D AU ####[facility] SaundersYrvwqmurcpsk[address] [place], [place] [id number] Propoxyphene,Urine NOT REPORTED Normal NEG [facility] Comment on above: Performed By: #### D AU ####[facility] [address] [place] [address] Urine, tricyclic antidepressants NOT REPORTED Normal NEG [facility] Comment on above: Performed By: #### D AU ####[facility] [address] [place], [place] [id number] History and Physicalon 07-01 HIM IP Note OR Railway Engineer Normal [facility] MRI CERVICAL SPINE W WO CONT RASTon [...] by:JOVON Jessicaigned by:Michael Castorena MD07/01/17Final result Normal [facility] MRI LUMBAR SPINE W WO CONTRA STon [...] by:JOVON Salasigned by:Roge Mireles MD07/01/17Final result Normal [facility] MRI THORACIC SPINE W WO CONT [facility] 07-01-2017 MRI THORACIC SPINE W WO [...] is noted bilaterally, also centered at the Y8brqpglt T8 levels.SPINAL CORD: There is questionable T2 [...] is enhancement throughout the T6, T7 and R3nnquxiofj bodies. Faint enhancement in the posterior aspect [...] by:JOVON Jessicaigned by:Michael Castorena MD07/01/17Final result Normal [facility] PTon 07-01-2017 INR Coag RelTime (PPP) 1.0 {INR} Normal [facility] Comment on above: Result Comment: Ther apeutic Range: Moderate Anticoagulant Intensity: INR = 2.0-3.0 High Anticoagulant Intensity: INR = 2.5-3.5[facility] [address] [place] [address] Performed By: #### P T, PTT ####[facility] [address] [place] [address] Prothrombin time (PT) Coag time (PPP) 11.2 s Normal 9.4-12.6 [facility] Comment on above: Performed By: #### P T, PTT ####[facility] [address] [address] Prealbuminon 07-01-2017 Prealbumin 4.6 mg/dL Low 20-40 [facility] Comment on above: Result Comment: [facility] [address] [place] [address] Performed By: #### P ALB, VD25 ####[address] [address] Sedimentation Rateon 017 Sedimentation Rate 95 mm High 0-20 [facility] Comment on above: Result Comment: [facility] [address] [place] [address] Performed By: #### C DP, CRP, CP, SED ####[address] [address] Vitamin D 25 OHon 07-01-2017 Vitamin D 25 [place] 14.2 ng/mL Low 30.0-100.0 [facility] Comment on above: Result Comment: Refe rence Range:Vitamin D status Range Deficiency <20 ng/mL Mild Deficiency 20-30 ng/mL Sufficiency 30-100 ng/mL Toxicity >100 ng/mL[address] [address] Performed By: #### P ALB, VD25 ####[address] [address] XR CHEST PORTABLEon 07-01-20 17 XR CHEST [...] by:JOVON Salasigned by:Roge Mireles MD06/30/17Final result Normal [facility] XR SPINE ENTIRE 2-3 VWon XR SPINE [...] by:JOVON Joyigned by:Nasim Rodriguez MD07/01/17Final result Normal [facility] Discharge Summaryon 05-20-20 17 HIM IP Note OR Railway Engineer Normal [facility] CT GUIDED NDL PLACEMENTon CT GUIDED NDL [...] COMPLETE SOON POSSIBLE THIS MORNING 05/12/2017PER DR [id number] 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 [place] protocol was observed. Lidocaine wasadministered for local [...] by:Gaby Reynoso MD05/15/17Edited Result - FINAL Normal [facility] Cult,Aerobe/Anaerobeon 05-14 Cult,Aerobe/Anaero be Specimen Description .ASPIRATE [...] NOT REPORTEDTrimethoprim/Sulfa <=10 SUSCEPTIBLEVancomycin NOT REPORTED Normal [facility] Comment on above: Performed By: #### A ANC ####[address] [address] Vancomycin Troughon 05-13-20 17 Vancomycin Trough 21.5 ug/mL Critically high 10.0-20.0 [facility] Comment on above: Result Comment: High er trough serum vancomycin concentrations of 15-20 ug/mL are recommended for complicated infections such as bacteremia, endocarditis, osteomyelitis, meningitis, and hospital acquired pneumonia.[facility] [address] [place] [address] Performed By: #### V NCT ####[facility] [address] [place] [address] Date last dose, NOT REPORTED Normal [facility] Comment on above: Performed By: #### V NCT ####[facility] [address] [place] [address] Dose amount, NOT REPORTED Normal [facility] Comment on above: Performed By: #### V NCT ####[facility] [address] [place] [address] Time last dose, NOT REPORTED Normal [facility] Comment on above: Performed By: #### V NCT ####[address] [address] APTTon 05-12-2017 aPTT 24.5 s Normal 21.3-31.3 [facility] Comment on above: Result Comment: [address] [address] Performed By: #### P LT, PT, PTT ####[address] [address] [facility] (NOTE)[id number] LABORATORIESCONSULTING PATHOLOGISTS CORPORATIONANATOMIC [id number] [place] [phone] Fax: NONGYNECOLOGICAL CYTOPATHOLOGY CONSULTATIONPatient Name: MAYTE BURRELLUniversity [facility]als [facility] Rec: [id number] Number: [id number]: 05/12/2017Received: 05/12/2017Reported: 05/13/2017 11:54-- Diagnosis --ASPIRATE (T6-T7): NEGATIVE FOR MALIGNANCY.Ashley Dye M.D.Electronically Signed Out [facility]/05/13/2017Clinical InformationNo past history of cancer.Source of Specimen1: ASPIRATEGross Description T6 T7 ASPIRATE 0.1 ml cloudy red fluid.MICROSCOPIC DESCRIPTION Microscopic examination performed. Normal [facility] PTon 05-12-2017 INR Coag RelTime (PPP) 1.0 {INR} Normal [facility] Comment on above: Result Comment: Ther apeutic Range: Moderate Anticoagulant Intensity: INR = 2.0-3.0 High Anticoagulant Intensity: INR = 2.5-3.[address] [address] Performed By: #### P LT, PT, PTT ####[address] [address] Prothrombin time (PT) Coag time (PPP) 10.3 s Normal 9.4-12.6 [facility] Comment on above: Performed By: #### P LT, PT, PTT ####[address] [address] Platelet Counton 05-12-2017 Platelets 757 10*3/uL High 140-450 [facility] Comment on above: Result Comment: [address] [address] Performed By: #### P LT, PT, PTT ####[address] [address] Basic Metabolic Profon 05-10 (cont.) Normal [facility] Comment on above: Result Comment: Aver age GFR for 30-39 years old: 107 mL/min/1.73sq mChronic Kidney Disease: <60 mL/min/1.73sq mKidney failure: <15 mL/min/1.73sq meGFR calculated using average adult body mass. Additional eGFR calculator available at:http://www.[employer].Deenty/multiple_crcl_2012.htm[address] [address] Performed By: #### V NCR, BMP ####[address] [address] Anion gap 13 mmol/L Normal 9-17 [facility] Comment on above: Performed By: #### V NCR, BMP ####[address] [address] Calcium 8.5 mg/dL Low 8.6-10.4 [facility] Comment on above: Performed By: #### V NCR, BMP ####[address] [address] Chloride 101 mmol/L Normal 98-107 [facility] Comment on above: Performed By: #### V NCR, BMP ####[facility] [address] [place] [address] CO2 25 mmol/L Normal 20-31 [facility] Comment on above: Performed By: #### V NCR, BMP ####[facility] [address] [place] [address] Creatinine 0.49 mg/dL Low 0.50-0.90 [facility] Comment on above: Performed By: #### V NCR, BMP ####[facility] [address] [place] [address] eGFR (non-black) mL/min/{1.73_m2} Normal >60 [facility] Comment on above: Performed By: #### V NCR, BMP ####[address] [address] Glucose mass conc 82 mg/dL Normal 70-99 [facility] Comment on above: Performed By: #### V NCR, BMP ####[facility] [place] [address] Potassium molar conc 3.8 mmol/L Normal 3.7-5.3 [facility] Comment on above: Performed By: #### V NCR, BMP ####[facility] [address] [place] [address] Sodium 139 mmol/L Normal 135-144 [facility] Comment on above: Performed By: #### V NCR, BMP ####[facility] [address] [place] [address] Urea nitrogen 8 mg/dL Normal 6-20 [facility] Comment on above: Performed By: #### V NCR, BMP ####[facility] [address] [place] [address] BUN/CRE Ratio NOT REPORTED Normal 9-20 [facility] Comment on above: Performed By: #### V NCR, BMP ####[address] [place] [address] Staging: NOT REPORTED Normal [facility] Comment on above: Performed By: #### V NCR, BMP ####[address] [place] [address] ED Noteon 05-10-2017 HIM IP Note OR Railway Engineer Normal [facility] HIM IP Note OR Railway Engineer Normal [facility] ED Provider Noteon 7 HIM IP Note OR Railway Engineer Normal [facility] History and Physicalon 05-10 HIM IP Note OR Railway Engineer Normal [facility] Vancomycin,Randomon 05-10-20 17 Vancomycin 7.5 ug/mL Normal [facility] Comment on above: Result Comment: High er trough serum vancomycin concentrations of 15-20 ug/mL are recommended for complicated infections such as bacteremia, endocarditis, osteomyelitis, meningitis, and hospital acquired pneumonia.[facility] [address] [place] [address] Performed By: #### V NCR, BMP ####[employer] [address] [place] [address] Date last dose, NOT REPORTED Normal [facility] Comment on above: Performed By: #### V NCR, BMP ####[employer] [address] [place] [address] Dose amount, NOT REPORTED Normal [facility] Comment on above: Performed By: #### V NCR, BMP ####[employer] [address] [place] [address] Time last dose, NOT REPORTED Normal [facility] Comment on above: Performed By: #### V NCR, BMP ####[employer] [address] [place] [address] Encounters Encounter Date Encounter Type Care Provider Facility Start: 01-05-2025 ambulatory Juan Luis Ron Facility :[facility]3]ue Start: 12-19-2024 ambulatory [facility] Start: 09-04-2022 End: 09-05-2022 ambulatory [facility]N PE[facility]A [facility] Start: 09-04-2022 End: 09-04-2022 Subsequent hospital visit by physician Jocelyn Peña Jr., MD Work Phone: [facility] Start: 09-04-2022 End: 09-05-2022 ambulatory KM JUARES [facility] Start: 09-04-2022 End: 09-04-2022 Subsequent hospital visit by physician Jocelyn Peña Jr., MD Work Phone: [facility] Start: 08-22-2022 End: 08-23-2022 ambulatory KM [facility]UARES [facility] Start: 08-22-2022 End: 08-22-2022 Subsequent hospital visit by physician Jocelyn Peña Jr., MD Work Phone: [facility] Start: 04-13-2022 End: 04-14-[address] BROOKLYN LOPEZ REQUEST Facility:[facility] Start: 10-11-2021 End: 10-11-[address] BAY BLACKBURN Facility: Start: 05-19-2020 End: 06-06-2020 Evaluation and management of inpatient REFERRED SELF Facility:[facility] Start: 06-30-2017 End: 07-11-2017 Evaluation and management of inpatient FELECIA LINDSEY [facility] Start: 05-10-2017 End: 05-20-2017 Evaluation and management of inpatient JOCELYN PEÑA JR [facility] Procedures Date Procedure Procedure Detail Performing Clinician Start: 09-04-2022 Antibody hiv-1&hiv-2 single result [employer]CHANIC WELDER - DIGITAL CONTENT MANAGER Work Phone: Start: 09-04-2022 Comprehensive metabo lic panel [employer]CHANIC WELDER - DIGITAL CONTENT MANAGER Work Phone: Start: 08-22-2022 Smr prim src wet lucius nt nfct agt [employer]CH[employer]IC WELDER - DIGITAL CONTENT MANAGER Work Phone: Start: 08-22-2022 Urnls dip stick/tabl et rgnt auto w/o microscopy [employer]CHANIC WELDER - DIGITAL CONTENT MANAGER Work Phone: Start: 05-29-2020 Antibody screen REFERRE D SELF Comment on above: Performed By: #### [id number] #### [facility] [address] [place] [address], [facility] Start: 05-25-[address] EURAL CAVITY, PERCUTANEOUS APPROACH TARGINNY LIZAMAUSTAFA Start: 05-20-2020 Antibody screen REFERRE D SELF Comment on above: Performed By: #### [id number] #### [facility] [address] Start: 05-20-2020 TRANSFUSE NONAUT RED BLOOD CELLS IN PERIPH VEIN, PERC GERMAN ALI Start: 07-11-2017 DISCHARGE PATIENT VIVIANA Mercer CASEY PIPER Start: 07-11-2017 INITIATE OXYGEN THER APY PROTOCOL JOCELYN PEÑA JR Start: 07-11-2017 BASIC METABOLIC PANEL R PRABHA PEÑA JR Start: 07-11-2017 BLOOD BANK SPECIMEN LITA MAURICE CASEY PIPER Start: 07-11-2017 C-reactive protein MAURA SALOMON CASEY PIPER Start: 07-11-2017 CBC JOCELYN GREY JR Start: [...] JR Start: 07-09-2017 BASIC METABOLIC PANEL R PRABHA PEÑA JR Start: 07-09-2017 CBC JOCELYN GREY JR Start: 07-09-2017 HEMOGLOBIN AND HEMAT OCRIT, BLOOD JOCELYN PEÑA Start: 07-09-2017 Radex entir thrc lmb r crv sac spi w/skull 2/3 vw JOCELYN PEÑA Start: 07-08-2017 TRANSFER PATIENT JOCELYN PEÑA JR Start: 07-08-2017 TRANSFER PATIENT JOCELYN PEÑA JR Start: 07-08-2017 HEMOGLOBIN AND HEMAT OCRIT, BLOOD JOCELYN PEÑA JR Start: 07-08-2017 OT EVAL AND TREAT VIVIANA PEÑA JR Start: 07-08-2017 PT EVAL AND TREAT VIVIANA PEÑA JR Start: 07-08-2017 INITIATE OXYGEN THER APY PROTOCOL JOCELYN PEÑA Start: 07-08-2017 DIET GENERAL JOCELYN GREY Start: 07-08-2017 IP CONSULT TO DIETITIAN JOCELYN CASEY Start: 07-08-2017 BASIC METABOLIC PANEL R PRABHAKAYLENE PEÑA Start: 07-08-2017 CBC WITH AUTO DIFFERENTIAL JOCELYN PEÑA Start: 07-08-2017 AMBULATE PATIENT JOCELYN PEÑA JR Start: 07-08-2017 FULL CODE JOCELYN GREY Start: 07-08-2017 INPATIENT CONSULT TO FLAME GOUGER JOCELYN PEÑA Start: 07-08-2017 NOTIFY PHYSICIAN (SPECIFY) JOCELYN PEÑA JR Start: 07-08-2017 PLACE INTERMITTENT PNEUMATIC COMPRESSION DEVICE JOCELYN PEÑA Start: 07-08-2017 WOUND CARE JOCELYN GREY Start: 07-07-2017 EXTUBATION JOCELYN GREY Start: 07-07-2017 Radex spine thoracic 2 views JOCELYN PEÑA JR Start: 07-07-2017 Ct thoracic spine w/ o contrast material JOCELYN PEÑA JR Start: 07-07-2017 OPEN HEART PANEL JOCELYN PEÑA Start: 07-07-2017 OPEN HEART PANEL JOCELYN PEÑA Start: 07-07-2017 TRANSFUSE RED BLOOD CELLS JOCELYN PEÑA JR Start: 07-07-2017 CALCIUM, IONIZED JOCELYN PEÑA JR Start: 07-07-2017 OPEN HEART PANEL JOCELYN PEÑA JR Start: 07-07-2017 CALCIUM, IONIZED JOCELYN PEÑA JR Start: 07-07-2017 OPEN HEART PANEL JOCELYN PEÑA JR Start: 07-07-2017 TRANSFER PATIENT JOCELYN PEÑA Start: 07-07-2017 URINE CULTURE JOCELYN BARRERA JR Start: 07-07-2017 CULTURE, URINE CATHETER JOCELYN PEÑA [...] PEÑA JR Start: 07-03-2017 NURSING COMMUNICATION R PRABHA CASEY PIPER Start: 07-03-2017 INITIATE OXYGEN THER APY PROTOCOL JOCELYN PEÑA JR Start: 07-02-2017 INITIATE OXYGEN THER APY PROTOCOL JOCELYN PEÑA JR Start: 07-01-2017 UA W/REFLEX CULTURE LITA PEÑA JR Start: 07-01-2017 Radex entir thrc lmb r crv sac spi w/skull 2/3 vw JOCELYN PEÑA JR Start: 07-01-2017 IP CONSULT TO ANESTHESIOLOGY JOCELYN PEÑA JR Start: 07-01-2017 Mri spinal canal cer vical w/o & w/contr matrl JOCELYN PEÑA JR Start: 07-01-2017 Mri spinal canal lum bar w/o & w/contr matrl JOCELYN PEÑA Start: 07-01-2017 Mri spinal canal tho racic w/o & w/contr matrl JOCELYN PEÑA JR Start: 07-01-2017 POCT URINE RO MONSTER PEÑA JR Start: 07-01-2017 EKG 12-LEAD JOCELYN GREY JR Start: 07-01-2017 PREALBUMIN JOCELYN GREY JR Start: 07-01-2017 VITAMIN D 25 HYDROXY UNA PEÑA JR Start: 07-01-2017 IP CONSULT TO [...] PEÑA JR Start: 07-01-2017 CULTURE BLOOD #2 JOCELYN PEÑA JR Start: 07-01-2017 Chest x-ray 1 view frontal JOCELYN PEÑA JR Start: 07-01-2017 PHARMACY TO DOSE VANCOMYCIN JOCELYN PEÑA JR Start: 07-01-2017 INITIATE OXYGEN THER APY PROTOCOL JOCELYN PEÑA JR Start: 07-01-2017 IP CONSULT TO INFECT IOUS DISEASES JOCELYN PEÑA JR Start: 07-01-2017 IP CONSULT TO NEUROSURGERY JOCELYN PEÑA Start: 07-01-2017 NOTIFY PHYSICIAN (SPECIFY) JOCELYN PEÑA JR Start: 07-01-2017 REASON FOR NO MECHAN ICAL VTE PROPHYLAXIS JOCELYN PEÑA Start: 07-01-2017 VITAL SIGNS JOCELYN GREY Start: 07-01-2017 PATIENT STATUS (DIRECT) JOCELYN PEÑA Start: 05-19-2017 DISCHARGE PATIENT VIVIANA PEÑA JR Start: 05-15-2017 INSERT PICC LINE JOCELYN PEÑA Start: 05-15-2017 MISCELLANEOUS NURSIN G CARE ORDER (SPECIFY) JOCELYN PEÑA JR Start: 05-14-2017 NOTIFY PHYSICIAN (SPECIFY) JOCELYN PEÑA JR Start: 05-14-2017 NURSING COMMUNICATION R PRABHA PEÑA JR Start: 05-13-2017 BACK BRACE LS CORSET RO MONSTER PEÑA Start: 05-13-2017 VANCOMYCIN, TROUGH MAURA SALOMON PEÑA Start: 05-13-2017 Biopsy bone trocar/n eedle deep JOCELYN PEÑA Start: 05-12-2017 ANAEROBIC AND AEROBI C CULTURE JOCELYN PEÑA Start: 05-12-2017 DIET GENERAL JOCELYN SUKI GREY JR Start: 05-12-2017 SURGICAL PATHOLOGY MAURA PEÑA Start: 05-12-2017 Ct guidance needle placement JOCELYN PEÑA JR Start: 05-12-2017 BEDREST JOCELYN GREY JR Start: 05-12-2017 NOTIFY PHYSICIAN (SPECIFY) JOCELYN PEÑA JR Start: 05-12-2017 PHARMACY TO DOSE VANCOMYCIN JOCELYN PEÑA Start: 05-12-2017 APTT JOCELYN SUKI GREY Start: 05-12-2017 PLATELET COUNT JOCELYN AMBROSIO Start: 05-12-2017 PROTIME-INR JOCELYN GREY Start: 05-12-2017 DIAGNOSIS FOR PROCEDURE JOCELYN PEÑA Start: 05-12-2017 NOTIFY PHYSICIAN (SPECIFY) JOCELYN PEÑA JR Start: 05-12-2017 NURSING COMMUNICATION R PRABHA EPÑA JR Start: 05-12-2017 TREATMENT CONSENT VIVIANA Mercer PEÑA Start: 05-12-2017 VERIFY INFORMED CONSENT JOCELYN PEÑA Start: 05-10-2017 MISCELLANEOUS NURSIN G CARE ORDER (SPECIFY) JOCELYN COHNVES Start: 05-10-2017 MAINTAIN INTERMITTEN T PNEUMATIC COMPRESSION DEVICE JOCELYN PEÑA JR Start: 05-10-2017 IP CONSULT TO INFECT IOUS DISEASES JOCELYN PEÑA JR Start: 05-10-2017 IP CONSULT TO NEUROSURGERY JOCELYN PEÑA JR Start: 05-10-2017 BASIC METABOLIC PANEL Daria PEÑA JR Start: 05-10-2017 VANCOMYCIN, RANDOM MAURA RT COHNVES Start: 05-10-2017 FULL CODE JOCELYN GREY JR Start: 05-10-2017 NOTIFY PHYSICIAN (SPECIFY) JOCELYN PEÑA JR Start: 05-10-2017 PHARMACY TO DOSE VANCOMYCIN JOCELYN PEÑA JR Start: 05-10-2017 PLACE INTERMITTENT PNEUMATIC COMPRESSION DEVICE JOCELYN PEÑA JR Start: 05-10-2017 REASON FOR NO CHEMIC AL VTE PROPHYLAXIS JOCELYN PEÑA JR Start: 05-10-2017 VITAL SIGNS JOCELYN SUKI GREY JR Start: 05-10-2017 PATIENT STATUS (FROM ED OR OR/PROCEDURAL) JOCELYN PEÑA JR Start: 05-10-2017 IP CONSULT TO DISABILITY RATER AL MEDICINE JOCELYN PEÑA JR Start: 05-10-2017 INSERT PERIPHERAL IV RO MONSTER PEÑA Plan of Treatment Date Care Activity Detail Author Start: 06-02-2022 Influenza vaccination Flu vaccine (# 1) [employer] Start: 2014 Screening for malign ant neoplasm of cervix [employer] Start: 2005 Screening for malign ant neoplasm of cervix Pap smear [employer] Start: 2003 DTaP/Tdap/Td vaccine (1 - Tdap) DTaP/Tdap/Td vaccine (1 - Tdap) [employer] Start: 2003 Hepatitis B vaccine (1 of 3 - Risk 3-dose series) Hepatitis B vaccine (1 of 3 - Risk 3-dose series) [employer] Start: 1996 Depression Screen Depression Screen [employer] Start: 1990 Pneumococcal 0-64 ye ars Vaccine (1 - PCV) Pneumococcal 0-64 years Vaccine (1 - PCV) [employer] Start: 1985 Hepatitis A vaccine (1 of 2 - Risk 2-dose series) Hepatitis A vaccine (1 of 2 - Risk 2-dose series) [employer] Start: 1985 Varicella vaccine (1 of 2 - 2-dose childhood series) Varicella vaccine (1 of 2 - 2-dose childhood series) [employer] Start: 1984 COVID-19 Vaccine (#1) COVID-19 Vacci ne (#1) [employer] End: 08-22-2022 C.trachomatis N.gonorrhoeae DNA [employer] Phone: Comment on above: Once for 1 Occurrenc es starting 08/22/2022 until 08/22/2022 End: 09-04-2022 Hepatitis C RNA, quantitative, PCR [employer] Phone: Comment on above: Once for 1 Occurrenc es starting 09/04/2022 until 09/04/2022 Payers Date Payer Category Payer Private Health Insurance [id number] 2017 Medicare [id number] 2016 Unknown [id number] 1984 Unknown [id number] 2.16.8 [id number] 1984 Unknown [id number] 2.16.84 [id number] 1984 Unknown [id number] 2.16.84 [id number] 1984 Unknown [id number] 2.16.8 [id number] 1984 Unknown [id number] 2.16.8 [id number] 1984 Unknown [id number] 2.16.8 [id number] 1984 Unknown [id number] 2.16.8 [id number] 1959 Unknown [id number] Self-pay Social History Date Type Detail Facility [facility]: [facility]07[facility] [employer] History of tobacco use Cigarette Smoker [employer] Phone: Start: 07-07-2017 Cigarettes smoked current (pack per day) - Reported 1.5 [employer] Phone: Start: 07-17-2017 Alcohol intake Current non-dr story editor of alcohol (finding) [employer] Phone: Start: 1985 Sex Assigned At Not on file [employer] Phone: Medical Equipment Procedure Code Equipment Code Equipment Origin al Text Equipment Identifier Dates Brigette Banerjee Dbm With Rpm 10cc [id number] Start: 07-07-2017 [...] 1:09 AM Hospital Course Note MR#: [id number] [facility] Pt. Name: Mayte Burrell Admitted: 05/19/2020 [...] a 34-year-old female who came to the [facility], transferred from [facility], where she presented earlier for polysubstance abuse with IV fentanyl with altered mental status and bacteremia. 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 The patient al (more content not included)... Additional Source Comments INFORMATION SOURCE (unrecogn ized section and content) DATE CREATED AUTHOR 04/27/2018 [facility] DATE CREATED AUTHOR AUTHOR'S ORGANIZ ATION 06/09/2020 [facility] DATE CREATED AUTHOR AUTHOR'S ORGANIZ ATION 12/31/2021 [facility] DATE CREATED AUTHOR AUTHOR'S ORGANIZ ATION 04/15/2022 [facility] DATE CREATED AUTHOR AUTHOR'S ORGANIZ ATION 09/09/2022 [facility] DATE CREATED AUTHOR AUTHOR'S ORGANIZ ATION 01/01/2025 Devon Ellis [facility] Care Teams (unrecognized sec tion and content) Prisoner Classification Interviewer Relationship Specialty Start Date End Date Jocelyn Peña Jr., MD [address] [place], [place] [id number] PCP - General 01/14/13 Prisoner Classification Interviewer Relationship Specialty Start Date End Date Jocelyn Peña Jr., MD [address] [place] [address] PCP - General 01/14/13 FOR [...] BE BASED ON THE PRIMARY CLINICAL RECORDS. [facility] [employer] provides no warranty or guarantee of the accuracy or completeness of information in this document.
[2025-01-05] MEDS: DIPHENHYDRAMINE HCL 50 MG/ML VIAL 25 MG IVP (13:41)
[2025-01-05] MEDS: METOCLOPRAMIDE HCL 10 MG/2 ML VIAL IVP (13:41)
[2025-01-05] MEDS: 0.9 % SODIUM CHLORIDE 1,000 ML 1000 ML IV (13:41)
[2025-01-05] MEDS: ORPHENADRINE 60 MG/ 2 ML VIAL IV (13:41)
[2025-01-05] MEDS: KETOROLAC TROMETHAMINE 30 MG/ML VIAL IVP (13:42)
[2025-01-05 14:10] VITALS: BP 119/80; PULSE 92; O2SAT 99
[2025-01-05 14:58] VITALS: BP 132/88; PULSE 92; O2SAT 98
== END 2025-01-05 14:58 | disposition home or self-care (01) ==
PROVIDERS: Emergency Provider Emergency Medicine; PCP Family Medicine
DX: R51.9 Headache, unspecified (principal)
CPT/HCPCS: 70450; 96374; 96375; 99285; J1200; J1885; J2360; J2765